=== PATIENT | male | born 1945 | race Caucasian/White ===

== ENCOUNTER 2017-01-23 16:43 | Observation (INO) ==
--- NOTE | 2017-01-23 16:54 | Emergency Department Note ---
Disposition Clinical Impression: Right leg weakness, Right arm weakness, Neck pain on right side Disposition: Admitted As Inpatient Condition: Fair General Adult HPI - General Chief complaint: ED Headache Stated complaint: Neck/BERNABE Time Seen by Provider: 01/23/17 16:48 - Related Data Home Medications Medication Instructions Recorded Confirmed Aspirin Enteric Coated [Aspirin EC] 81 mg PO DAILY 01/05/15 01/23/17 Carvedilol [Coreg] 12.5 mg PO DAILY 01/05/15 01/23/17 Clopidogrel [Plavix] 75 mg PO DAILY 01/05/15 01/23/17 Famotidine [Pepcid] 40 mg PO HS 01/05/15 01/23/17 Lisinopril [Zestril] 2.5 mg PO DAILY 01/05/15 01/23/17 Multivitamin [Multi-Day Vitamins] 1 tab PO DAILY 01/20/15 01/23/17 Nitroglycerin 0.4 mg SL Q5MIN PRN 01/20/15 01/23/17 Insulin NPH, HUMAN [HumuLIN N] 15 unit SQ HS #0 01/04/16 01/23/17 Insulin NPH, HUMAN [HumuLIN N] 20 unit SQ QAM #0 01/04/16 01/23/17 Pantoprazole Sodium [Protonix] 40 mg PO DAILY 01/04/16 01/23/17 Simvastatin [Zocor] 40 mg PO HS 01/10/16 01/23/17 Carbidopa/Levodopa 25/100 [Sinemet 1 tab PO TID 07/20/16 01/23/17 25/100] Cholecalciferol (D-3) [Vitamin D] 1,000 unit PO DAILY 07/20/16 01/23/17 Isosorbide MONOnitrate [Isosorbide 120 mg PO DAILY 07/20/16 01/23/17 Mononitrate ER] Previous Rx's Medication Instructions Recorded Albuterol Sulfate [Albuterol 2 puff IH Q4HR PRN #1 hfa.aer.ad 01/21/15 Inhaler] Ipratropium/Albuterol Neb [Duoneb] 3 ml IH QIDR PRN 30 Days inhsol 01/07/16 Allergies Allergy/AdvReac Type Severity Reaction Status Date / Time furosemide [From Lasix] AdvReac Hypotension Verified 11/10/15 11:00 Past Medical History - Past Medical History Medical history: Reports: asthma, cardiomyopathy, CHF, coronary artery disease, DVT, diabetes, GERD, hyperlipidemia, hypertension, myocardial infarction, renal disease, other Surgical history: Reports: angioplasty/stent, coronary bypass (CABG), pacemaker/ AICD, other Psychiatric history: Reports: no psych history - Social History Smoking Status: Never smoker Smokeless Tobacco Status: No Alcohol use: Reports: none Drug use: Reports: none Course Vital Signs Temperature 97.9 F 01/23/17 16:54 Pulse Rate 60 01/23/17 16:54 Respiratory Rate 18 01/23/17 16:54 Blood Pressure 123/72 01/23/17 16:54 O2 Sat by Pulse Oximetry 95 01/23/17 16:54 Temperature 97.7 F 01/24/17 07:31 Pulse Rate 60 01/24/17 07:31 Respiratory Rate 15 01/24/17 07:31 Blood Pressure 147/78 01/24/17 07:31 O2 Sat by Pulse Oximetry 98 01/24/17 07:31 Oxygen Delivery Oxygen Delivery Room Air Medical Decision Making - Lab Data Result diagrams: 01/24/17 05:38 01/24/17 05:38 Lab Results 01/23/17 01/23/17 01/23/17 Range/Units 16:53 16:53 16:53 WBC 6.7 (4.3-11.1) K/mcL RBC 4.58 (4.19-5.50) M/mcL Hgb 14.1 (12.9-16.9) g/dL Hct 42.4 (37.5-50.1) % MCV 92.6 (83.0-100.0) fL MCH 30.8 (28.0-33.3) pg MCHC 33.3 (31.6-35.5) g/dL RDW 13.3 (11.5-14.5) % Plt Count 143 (140-400) K/mcL MPV 11.6 (9.4-12.4) fL Immature Gran % 0.1 (0-4) % Seg Neutrophils % 62.9 % Lymphocytes % 22.4 % Monocytes % 9.6 % Eosinophils % 4.3 % Basophils % 0.7 % Neutrophils # 4.2 (1.6-8.9) K/mcL Lymphocytes # 1.5 (0.6-4.6) K/mcL Monocytes # 0.7 (0.0-1.3) K/mcL Eosinophils # 0.3 (0.0-0.6) K/mcL Basophils # 0.1 (0.0-0.2) K/mcL PT 12.0 (9.4-12.1) Seconds INR 1.1 APTT 29.1 (26.0-36.0) Seconds Sodium 136 (136-145) mEq/L Potassium 5.3 H (3.5-4.5) mEq/L Chloride 103 (98-109) mEq/L Carbon Dioxide 24 (19-29) mEq/L BUN 23 (8-26) mg/dL Creatinine 1.85 H (0.72-1.25) mg/dL Est GFR ( Amer) 44 L (> 60) Est GFR (Non-Af Amer) 36 L (> 60) BUN/Creatinine Ratio 12 (6-26) Glucose 152 H (70-99) mg/dL Calculated Osmolality 289 (280-300) Calcium 9.3 (8.6-10.8) mg/dL Troponin I (0-0.03) ng/mL 01/23/17 Range/Units 16:53 WBC (4.3-11.1) K/mcL RBC (4.19-5.50) M/mcL Hgb (12.9-16.9) g/dL Hct (37.5-50.1) % MCV (83.0-100.0) fL MCH (28.0-33.3) pg MCHC (31.6-35.5) g/dL RDW (11.5-14.5) % Plt Count (140-400) K/mcL MPV (9.4-12.4) fL Immature Gran % (0-4) % Seg Neutrophils % % Lymphocytes % % Monocytes % % Eosinophils % % Basophils % % Neutrophils # (1.6-8.9) K/mcL Lymphocytes # (0.6-4.6) K/mcL Monocytes # (0.0-1.3) K/mcL Eosinophils # (0.0-0.6) K/mcL Basophils # (0.0-0.2) K/mcL PT (9.4-12.1) Seconds INR APTT (26.0-36.0) Seconds Sodium (136-145) mEq/L Potassium (3.5-4.5) mEq/L Chloride (98-109) mEq/L Carbon Dioxide (19-29) mEq/L BUN (8-26) mg/dL Creatinine (0.72-1.25) mg/dL Est GFR ( Amer) (> 60) Est GFR (Non-Af Amer) (> 60) BUN/Creatinine Ratio (6-26) Glucose (70-99) mg/dL Calculated Osmolality (280-300) Calcium (8.6-10.8) mg/dL Troponin I 0.00 (0-0.03) ng/mL Critical Care Time Critical Care Time: Yes Total Critical Care Time: 30 Attestation: Stroke alert Attestation Statement - Attestation Attestation: I examined this patient and my medical decision-making was reviewed with the Resident Physician. I agree with the documented findings, disposition and treatment plan as described except to the extent set forth below. [id number] time provided Patient arrives by private vehicle. History obtained from his spouse. Symptom onset 45 minutes ago. He complains of right-sided neck pain and has right upper and right lower weakness on exam. Stroke alert activated. We will CT his head and obtain a CTA of his neck
[2017-01-23 17:01] LABS: Basophils # 0.1 K/mcL (0.0-0.2); Basophils % 0.7 %; Eosinophils # 0.3 K/mcL (0.0-0.6); Eosinophils % 4.3 %; Hematocrit 42.4 % (37.5-50.1); Hemoglobin 14.1 g/dL (12.9-16.9); Immature Granulocytes % 0.1 % (0-4); Lymphocytes # 1.5 K/mcL (0.6-4.6); Lymphocytes % 22.4 %; Mean Corpuscular HGB Conc 33.3 g/dL (31.6-35.5); Mean Corpuscular Hemoglobin 30.8 pg (28.0-33.3); Mean Corpuscular Volume 92.6 fL (83.0-100.0); Mean Platelet Volume 11.6 fL (9.4-12.4); Monocytes # 0.7 K/mcL (0.0-1.3); Monocytes % 9.6 %; Neutrophils # 4.2 K/mcL (1.6-8.9); Platelet Count 143 K/mcL (140-400); Red Blood Count 4.58 M/mcL (4.19-5.50); Red Cell Distribution Width 13.3 % (11.5-14.5); Segmented Neutrophils % 62.9 %
--- NOTE | 2017-01-23 17:13 | Emergency Department Note ---
Disposition Clinical Impression: Right leg weakness, Right arm weakness, Neck pain on right side Disposition: Admitted As Inpatient Condition: Fair Time of Disposition: 18:00 Neuro HPI - General Chief Complaint: ED Neuro Symptoms/Deficit Stated Complaint: Neck/BERNABE Time Seen by Provider: 01/23/17 16:48 Nursing Notes Reviewed: Yes Vital Signs Reviewed: Yes - History of Present Illness HPI Narrative: 71-year-old male with past medical history of CABG, electronic atrial pacemaker placement portion emergency department with right-sided neck pain, right-sided arm and right-sided leg weakness that started at 1610. Girlfriend and patient states that this is happened 3 or 4 times in the past. He states that all the stroke workups they have had have been negative and he has been admitted each time to the hospital with spontaneous recovery after 3 days. - Related Data Home Medications: Home Medications Medication Instructions Recorded Confirmed Aspirin Enteric Coated [Aspirin EC] 81 mg PO DAILY 01/05/15 01/23/17 Carvedilol [Coreg] 12.5 mg PO DAILY 01/05/15 01/23/17 Clopidogrel [Plavix] 75 mg PO DAILY 01/05/15 01/23/17 Famotidine [Pepcid] 40 mg PO HS 01/05/15 01/23/17 Lisinopril [Zestril] 2.5 mg PO DAILY 01/05/15 01/23/17 Multivitamin [Multi-Day Vitamins] 1 tab PO DAILY 01/20/15 01/23/17 Nitroglycerin 0.4 mg SL Q5MIN PRN 01/20/15 01/23/17 Insulin NPH, HUMAN [HumuLIN N] 15 unit SQ HS #0 01/04/16 01/23/17 Insulin NPH, HUMAN [HumuLIN N] 20 unit SQ QAM #0 01/04/16 01/23/17 Pantoprazole Sodium [Protonix] 40 mg PO DAILY 01/04/16 01/23/17 Simvastatin [Zocor] 40 mg PO HS 01/10/16 01/23/17 Carbidopa/Levodopa 25/100 [Sinemet 1 tab PO TID 07/20/16 01/23/17 25/100] Cholecalciferol (D-3) [Vitamin D] 1,000 unit PO DAILY 07/20/16 01/23/17 Isosorbide MONOnitrate [Isosorbide 120 mg PO DAILY 07/20/16 01/23/17 Mononitrate ER] Previous Rx's Medication Instructions Recorded Albuterol Sulfate [Albuterol 2 puff IH Q4HR PRN #1 hfa.aer.ad 01/21/15 Inhaler] Ipratropium/Albuterol Neb [Duoneb] 3 ml IH QIDR PRN 30 Days inhsol 01/07/16 Allergies/Adverse Reactions: Allergies Allergy/AdvReac Type Severity Reaction Status Date / Time furosemide [From Lasix] AdvReac Hypotension Verified 11/10/15 11:00 All systems ED: reviewed and negative except as stated. Review of Systems: As Per HPI Constitutional: Denies: fever Eyes: Denies: eye pain ENT ED: Denies: ear pain Cardiovascular: Denies: chest pain, palpitations Respiratory: Denies: cough, dyspnea, wheezes Gastrointestinal: Denies: abdominal pain, nausea, vomiting Past Medical History - Past Medical History Medical history: Reports: asthma, cardiomyopathy, CHF, coronary artery disease, DVT, diabetes, GERD, hyperlipidemia, hypertension, myocardial infarction, renal disease, other Surgical history: Reports: angioplasty/stent, coronary bypass (CABG), pacemaker/ AICD, other Psychiatric history: Reports: no psych history - Social History Smoking Status: Never smoker Smokeless Tobacco Status: No Alcohol use: Reports: none Drug use: Reports: none Physical Exam General: Well Appearing, in no acute distress, speaking to be in complete sentences Head: autraumatic, EOMI, no conjuncitval pallor, no scleral icterus, Mouth: oral mucous membranes moist Neck: neck soft, trachea midline Chest:: Equal chest wall rise Lungs: Normal lungs sounds bilaterally, no wheezes, no respiratory distress Heart: normal heart sounds, normal rate and rhythm, Abdomen: soft, non-tender, no rigidity, no guarding, no rebdound tenderness Lower Extremities: no pedal edema, calves non-tender Integumentary: Skin warm, dry, and intact Psych: normal affect, normal mood Neuro: GCS of 15 alert [address] person and time. Cranial nerve VII deficit bilaterally right upper and right lower extremity weakness 3/5, decreased sensation of the right arm and right leg Course Course Narrative: This is a 71-year-old male who presented to the emergency department with right upper and right lower extremity weakness along with decreased sensation of the right arm and right leg, bilateral facial nerve deficit at 1610. Stroke alert was called via stroke protocol. I spoke with the neurologist from [facility] on the phone. This patient does have a past medical history of having these types of events with food stroke workups that have come up negative. Patient is known to have his symptoms resolved spontaneously after a few days within the hospital. After speaking to the neurologist at [facility], it was agreed that this patient was not a good candidate for TPA as insignificant believes that there is another etiology to this patient's symptoms that is not attributed to cerebrovascular event. The workup that we have performed in the emergency department was negative. We performed a CT scan of the head without contrast as well as a CTA of the neck. With his right-sided neck pain. We obtained a CTA of the neck because we are concerned for a possible dissection. All studies came back negative. This patient was admitted with the recommendation of the neurologist from [facility] for further management by occupational therapy as well as physical therapy. Spoke with the hospitalist on the phone and he agreed to accept this admission at this time for right arm, right leg weakness. I discussed the plan with the patient and his girlfriend and they agreed. Patient was hemodynamically stable at time of discharge from the emergency department. Head CT 01/23/17 16:53 IMPRESSION: No acute intracranial abnormality. Findings were discussed with Dr. Trotter of the [facility] emergency department at 5:11 pm on 01/23/2017. D/ / Sebas Tian MD / Sebas Tian MD Interpreting Provider: Sebas Tian MD Neck CTA 01/23/17 16:54 IMPRESSION: Moderate atherosclerotic disease at bilateral carotid bifurcation, without significant flow-limiting stenosis. No evidence of vascular dissection. D/ / Alec Casey MD / Alec Casey MD Interpreting Provider: Alec Casey MD Vital Signs Temperature 97.9 F 01/23/17 16:54 Pulse Rate 60 01/23/17 16:54 Respiratory Rate 18 01/23/17 16:54 Blood Pressure 123/72 01/23/17 16:54 O2 Sat by Pulse Oximetry 95 01/23/17 16:54 Temperature 96.5 F L 01/23/17 19:44 Pulse Rate 60 01/23/17 19:44 Respiratory Rate 18 01/23/17 19:44 Blood Pressure 142/66 01/23/17 19:44 O2 Sat by Pulse Oximetry 96 01/23/17 19:44 Oxygen Delivery Oxygen Delivery Room Air Vital Signs Temperature 97.9 F 01/23/17 16:54 Pulse Rate 60 01/23/17 16:54 Respiratory Rate 18 01/23/17 16:54 Blood Pressure 123/72 01/23/17 16:54 O2 Sat by Pulse Oximetry 95 01/23/17 16:54 Temperature 96.5 F L 01/23/17 19:44 Pulse Rate 60 01/23/17 19:44 Respiratory Rate 18 01/23/17 19:44 Blood Pressure 142/66 01/23/17 19:44 O2 Sat by Pulse Oximetry 96 01/23/17 19:44 Oxygen Delivery Oxygen Delivery Room Air Neuro Symptoms/Deficit - Medical Records Medical records reviewed: Yes I reviewed the patient's medical records. - Lab Data Lab results reviewed: Yes I reviewed the patient's lab results. Result diagrams: 01/23/17 16:53 01/23/17 16:53 Lab Results 01/23/17 01/23/17 01/23/17 Range/Units 16:53 16:53 16:53 WBC 6.7 (4.3-11.1) K/mcL RBC 4.58 (4.19-5.50) M/mcL Hgb 14.1 (12.9-16.9) g/dL Hct 42.4 (37.5-50.1) % MCV 92.6 (83.0-100.0) fL MCH 30.8 (28.0-33.3) pg MCHC 33.3 (31.6-35.5) g/dL RDW 13.3 (11.5-14.5) % Plt Count 143 (140-400) K/mcL MPV 11.6 (9.4-12.4) fL Immature Gran % 0.1 (0-4) % Seg Neutrophils % 62.9 % Lymphocytes % 22.4 % Monocytes % 9.6 % Eosinophils % 4.3 % Basophils % 0.7 % Neutrophils # 4.2 (1.6-8.9) K/mcL Lymphocytes # 1.5 (0.6-4.6) K/mcL Monocytes # 0.7 (0.0-1.3) K/mcL Eosinophils # 0.3 (0.0-0.6) K/mcL Basophils # 0.1 (0.0-0.2) K/mcL PT 12.0 (9.4-12.1) Seconds INR 1.1 APTT 29.1 (26.0-36.0) Seconds Sodium 136 (136-145) mEq/L Potassium 5.3 H (3.5-4.5) mEq/L Chloride 103 (98-109) mEq/L Carbon Dioxide 24 (19-29) mEq/L BUN 23 (8-26) mg/dL Creatinine 1.85 H (0.72-1.25) mg/dL Est GFR ( Amer) 44 L (> 60) Est GFR (Non-Af Amer) 36 L (> 60) BUN/Creatinine Ratio 12 (6-26) Glucose 152 H (70-99) mg/dL Calculated Osmolality 289 (280-300) Calcium 9.3 (8.6-10.8) mg/dL Troponin I (0-0.03) ng/mL 01/23/17 Range/Units 16:53 WBC (4.3-11.1) K/mcL RBC (4.19-5.50) M/mcL Hgb (12.9-16.9) g/dL Hct (37.5-50.1) % MCV (83.0-100.0) fL MCH (28.0-33.3) pg MCHC (31.6-35.5) g/dL RDW (11.5-14.5) % Plt Count (140-400) K/mcL MPV (9.4-12.4) fL Immature Gran % (0-4) % Seg Neutrophils % % Lymphocytes % % Monocytes % % Eosinophils % % Basophils % % Neutrophils # (1.6-8.9) K/mcL Lymphocytes # (0.6-4.6) K/mcL Monocytes # (0.0-1.3) K/mcL Eosinophils # (0.0-0.6) K/mcL Basophils # (0.0-0.2) K/mcL PT (9.4-12.1) Seconds INR APTT (26.0-36.0) Seconds Sodium (136-145) mEq/L Potassium (3.5-4.5) mEq/L Chloride (98-109) mEq/L Carbon Dioxide (19-29) mEq/L BUN (8-26) mg/dL Creatinine (0.72-1.25) mg/dL Est GFR ( Amer) (> 60) Est GFR (Non-Af Amer) (> 60) BUN/Creatinine Ratio (6-26) Glucose (70-99) mg/dL Calculated Osmolality (280-300) Calcium (8.6-10.8) mg/dL Troponin I 0.00 (0-0.03) ng/mL - Radiology Data Radiology results reviewed: Yes I reviewed the patient's radiology results. - EKG Data EKG attestation: Yes I reviewed and interpreted this EKG. EKG results narrative: 17:07 Ventricular rate 55 bpm, VA interval 181, QRS duration 103 ms, QT 411 ms, QTC 399 ms, normal axis. Electronic atrial pacemaker with a ventricular rate of 55 bpm. NIH Stroke Scale - Level of Consciousness LOC: Alert - LOC Questions LOC Questions: Answers both correctly - LOC Commands LOC Commands: Performs both correctly - Best Gaze Best Gaze: Normal - Visual Visual: No visual loss - Facial Palsy Facial Palsy: Minor asymmetry on smiling, flattened nasolabial fold - Motor Arms Motor Arm-Left: No drift for 10 seconds Motor Arm-Right: No effort against gravity, limb falls to bed, some movement - Motor Legs Motor Leg-Left: No drift for 5 seconds Motor Leg-Right: No effort against gravity, limb falls to bed, some movement - Limb Ataxia Limb Ataxia: Absent of affected limb too weak to perform exam - Sensory Sensory: Normal - Best Language Best Language: No aphasia - Dysarthria Dysarthria: Normal - Extinction and Inattention Extinction and Inattention: Normal - NIHSS Total Score NIHSS Total Score: 7 TPA Checklist - LKW: 3-4.5 hrs Add. Warnings/Precautions Patient/family understanding: The patient/family members have been counseled and understood the risk, benefit , and alternatives of treatment.
[2017-01-23 17:14] LABS: Calcium 9.3 mg/dL (8.6-10.8); Potassium 5.3 mEq/L (3.5-4.5)
[2017-01-23 17:31] LABS: INR 1.1
[2017-01-23 17:34] LABS: Activated Partial Thrombo Time 29.1 Seconds (26.0-36.0)
[2017-01-23] MEDS ORDERED: *HR* OxyCODONE/APAP 5/325 TABLET PO PRN (20:50)
[2017-01-23] MEDS ORDERED: *HR* Morphine 2 MG/ML SYRINGE IVP PRN (21:00)
[2017-01-23] MEDS ORDERED: Acetaminophen 325 MG TABLET PO PRN (21:00)
[2017-01-23] MEDS ORDERED: Naloxone 0.4 MG/ML INJ IVP PRN (21:00)
[2017-01-23] MEDS ORDERED: Nitroglycerin 0.4 MG TAB.SUBL SL PRN (21:05)
[2017-01-23] MEDS ORDERED: Ipratropium/Albuterol Neb 3 ML IH PRN (21:05)
[2017-01-23] MEDS ORDERED: D5% in Water 1,000 ML IVC PRN (21:07)
[2017-01-23] MEDS ORDERED: Dextrose Gel 15 GM PO PRN ×2 (21:07)
[2017-01-23] MEDS ORDERED: *HR* Dextrose 50 % in Water (Syg) 50 ML SYRINGE IVP PRN (21:07)
[2017-01-23] MEDS ORDERED: Insulin DETEMIR 100 UNIT/ML X5UNITS SQ SCH (21:15)
[2017-01-23] MEDS: Insulin DETEMIR 100 UNIT/ML X5UNITS SQ SCH (23:55)
--- NOTE | 2017-01-24 00:47 | Internal Med History&Physical ---
Date of Encounter: 01/23/17 Time of Encounter: 22:00 Assessment and Plan (1) Diabetes Current visit: No Status: Chronic Continue baseline do sliding scale insulin Qualifiers: Diabetes mellitus type: type 2 Diabetes mellitus complication status: with kidney complications Diabetes mellitus complication detail: with chronic kidney disease Diabetes mellitus long term care administrator insulin use: with long term care administrator use Chronic kidney disease stage: stage 3 (moderate) Qualified Code(s): E11.22 - Type 2 diabetes mellitus with diabetic chronic kidney disease; N18.3 - Chronic kidney disease, stage 3 (moderate); 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 Continue home medications Qualifiers: Coronary Disease-Associated Artery/Lesion type: bypass graft [place] vs. transplanted heart: [place] heart Associated angina: with stable angina Qualified Code(s): I25.709 - Atherosclerosis of coronary artery bypass graft(s) , unspecified, with unspecified angina pectoris (4) CKD (chronic kidney disease) Current visit: No Status: Chronic Creatinine level is at his baseline. Avoid the nephrotoxic medication Qualifiers: Chronic kidney disease stage: stage 3 (moderate) Qualified Code(s): N18.3 - Chronic kidney disease, stage 3 (moderate) (5) DVT prophylaxis Current visit: No Status: Acute Heparin subcutaneously (6) Presence of combination internal cardiac defibrillator (ICD) and pacemaker Current visit: No Status: Chronic (7) Right leg weakness Current visit: Yes Status: Acute Etiology is undetermined. CT head and CT neck unremarkable. Probably due to cervical spondylosis. Cannot have MRI because of pacemaker. Will also obtain [facility] medical record. Continue pain medication and PT OT evaluation. Will place patient on NIHSS, continue cardiac monitoring, and echocardiogram as CVA suspected. Patient is on aspirin, Plavix, and statin. (8) Right arm weakness Current visit: Yes Status: Acute Management as above. Internal Medicine - H&P: HPI Chief complaint: Right arm and leg pain and weakness Admitted From: Home Plans for Post Hospital Care: Home History of present illness: Mr. Joe is a 71 year old male with history of hypertension, diabetes, CAD S/ P CABG and AICD present to ER for right-sided arm and leg pain and weakness. Patient said that the symptoms started this afternoon about 3 PM. Patient denies headaches, lightheaded, nausea or vomiting, or slurred speech. Patient denies fecal or urinary incontinence. Patient said it is the third time he has similar problem. Patient was admitted to the to [facility] last time in July 2016, and was told he has cervical spondylosis. Patient said previously symptoms has resolved spontaneously after several days. Patient was admitted for concern of CVA. Past Med Surg Social Fam HX - Past Medical History Medical history: asthma, cardiomyopathy, CHF, coronary artery disease, DVT, diabetes, GERD, hyperlipidemia, hypertension, myocardial infarction, renal disease, other Psychiatric history: no psych history - Past Surgical History Surgical History: angioplasty/stent, coronary bypass (CABG), pacemaker/AICD, other - Social History Smoking Status: Never smoker Smokeless Tobacco Status: No Alcohol use: none Drug use: none - Family History Father Living Status: Age at : 84 Hx Family Cardiac Disorders: Yes Hx Family Neurologic Disorders: Yes (Alzheimer's) Mother Living Status: Age at : 81 Cause of : Heart problems Hx Family Cardiac Disorders: Yes Internal Medicine - H&P: Meds Aspirin Enteric Coated [Aspirin EC] 81 mg PO DAILY 01/05/15 [History] Carvedilol [Coreg] 12.5 mg PO DAILY 01/05/15 [History] Clopidogrel [Plavix] 75 mg PO DAILY 01/05/15 [History] Famotidine [Pepcid] 40 mg PO HS 01/05/15 [History] Lisinopril [Zestril] 2.5 mg PO DAILY 01/05/15 [History] Multivitamin [Multi-Day Vitamins] 1 tab PO DAILY 01/20/15 [History] Nitroglycerin 0.4 mg SL Q5MIN PRN 01/20/15 [History] Albuterol Sulfate [Albuterol Inhaler] 2 puff IH Q4HR PRN #1 hfa.aer.ad 01/21/15 [Rx] Insulin NPH, HUMAN [HumuLIN N] 15 unit SQ HS #0 01/04/16 [History] Insulin NPH, HUMAN [HumuLIN N] 20 unit SQ QAM #0 01/04/16 [History] Pantoprazole Sodium [Protonix] 40 mg PO DAILY 01/04/16 [History] Ipratropium/Albuterol Neb [Duoneb] 3 ml IH QIDR PRN 30 Days inhsol 01/07/16 [Rx ] Simvastatin [Zocor] 40 mg PO HS 01/10/16 [History] Carbidopa/Levodopa 25/100 [Sinemet 25/100] 1 tab PO TID 07/20/16 [History] Cholecalciferol (D-3) [Vitamin D] 1,000 unit PO DAILY 07/20/16 [History] Isosorbide MONOnitrate [Isosorbide Mononitrate ER] 120 mg PO DAILY 07/20/16 [ History] 3 Allergy/AdvReac Type Severity Reaction Status Date / Time furosemide [From Lasix] AdvReac Hypotension Verified 11/10/15 11:00 All Systems PM: A 10-system review of systems was performed and is negative for pertinent findings except as documented above in the HPI. - Constitutional Vitals: Temp Pulse Resp BP Pulse Ox 97.6 F 59 17 129/75 93 01/23/17 22:50 01/23/17 22:50 01/23/17 22:50 01/23/17 22:50 01/23/17 22:50 General appearance: Present: A&O X 3, no acute distress, answers questions appropriately - Head Head exam: Present: atraumatic, normocephalic - Eye Eye exam: Present: PERRL, conjuntiva pink, sclera anicteric Pupils: Present: PERRL - Neck Neck exam general surgery: Present: supple, trachea midline. Absent: lymphadenopathy - Respiratory Respiratory exam: Present: CTAB. Absent: accessory muscle use, rales, rhonchi, wheezes - Cardiovascular Cardiovascular exam: Present: RRR, +S1, +S2. Absent: diastolic murmur, gallop, rubs, systolic murmur - GI/Abdominal GI/Abdominal exam: Present: normal bowel sounds, soft, no peritoneal signs. Absent: distended, tenderness - Extremities Exam Extremities exam: Present: warm, radial pulses palpable and symmetrical. Absent : calf tenderness, cyanotic, pedal edema Additional comments: Movement is limited on the right arm and right leg because of pain - Neurological Exam Neurological exam: Present: CN II-XII intact, oriented X3, no focal deficits. Absent: pronater drift, facial droop, speech deficit Additional comments: Weakness on right arm (4/5) and right leg (3/5) - Skin Skin exam: Present: dry, intact Internal Med - H&P Results - Labs CBC & Chem 7: 01/23/17 16:53 01/23/17 16:53
[2017-01-24] MEDS ORDERED: *HR* Heparin 5,000 UNIT/ML VIAL SQ SCH (06:00)
[2017-01-24 06:04] LABS: Basophils % 0.6 %; Eosinophils # 0.3 K/mcL (0.0-0.6); Eosinophils % 5.5 %; Hematocrit 40.2 % (37.5-50.1); Hemoglobin 13.1 g/dL (12.9-16.9); Immature Granulocytes % 0.7 % (0-4); Lymphocytes # 1.6 K/mcL (0.6-4.6); Lymphocytes % 30.1 %; Mean Corpuscular HGB Conc 32.6 g/dL (31.6-35.5); Mean Corpuscular Hemoglobin 30.4 pg (28.0-33.3); Mean Corpuscular Volume 93.3 fL (83.0-100.0); Mean Platelet Volume 11.6 fL (9.4-12.4); Monocytes # 0.6 K/mcL (0.0-1.3); Monocytes % 10.7 %; Neutrophils # 2.9 K/mcL (1.6-8.9); Platelet Count 125 K/mcL (140-400); Red Blood Count 4.31 M/mcL (4.19-5.50); Red Cell Distribution Width 13.3 % (11.5-14.5); Segmented Neutrophils % 52.4 %
[2017-01-24 06:23] LABS: Magnesium 2.3 mg/dL (1.6-2.6)
[2017-01-24 06:31] LABS: Potassium 4.2 mEq/L (3.5-4.5)
[2017-01-24] MEDS: Insulin LISPRO 300 UNITS/3 ML VIAL SQ SCH ×3 (08:51→17:19)
[2017-01-24] MEDS: Isosorbide MONOnitrate (24 HR) 60 MG TAB.ER.24H PO SCH (10:04)
[2017-01-24] MEDS: Aspirin Enteric Coated 81 MG Tablet PO SCH (10:04)
[2017-01-24] MEDS: Cholecalciferol (D-3) 1,000 UNIT TABLET PO SCH (10:04)
[2017-01-24] MEDS: Multivit/Ca/Min/Fe/FA 1 TAB TABLET PO SCH (10:05)
[2017-01-24] MEDS: Carbidopa/Levodopa 25/100 TABLET PO SCH ×3 (10:05→21:56)
[2017-01-24] MEDS: Insulin DETEMIR 100 UNIT/ML X5UNITS SQ SCH ×2 (13:57→21:56)
--- NOTE | 2017-01-24 16:45 | Internal Med Progress Note ---
Date of Encounter: 01/24/17 Time of Encounter: 16:40 - Assessment and plan (1) Lumbar spondylosis Current Visit: Yes Status: Acute Assessment and plan: Eduar Joe is a 77-year-old male with past medical history CAD, diabetes, hypertension, CHF status post pacemaker 2006 and Parkinson's disease who presented to [facility] on 01/22/2017 with complaints of neck pain and right sided weakness. He was placed in observation status for further workup and treatment 1. Cervical and lumbar stenosis: per hx. presented with right-sided neck pain and right side weakness. Was evaluated at [facility] 07/2016 for similar symptoms; cervical CT showed significant bilateral foraminal narrowing at C5-6 and C6-7. Lumbar CT showed lumbar spondylosis with degenerative changes and severe left neural foraminal narrowing at L5-S1. Patient reports was advised not to have surgical intervention at that time due to risk outweighing benefits. Now with recurrent sx's. There was concern for CVA on arrival. Head CT and neck CTA non -acute. Unable to have MRI due to pacemaker. Concerned for worsening stenosis. Repeat cervical and lumbar imaging pending. Neurology consulted. May need to consult neurosurgery based upon myelogram. 2. CAD: per hx. Asymptomatic, denies CP. Continue home ASA, Plavix, BB 3. Diabetes: per hx. Blood sugars controlled. Continue home long-acting insulin. SSI. Monitor blood sugars and titrate PRN 4. Hypertension: per hx. BP controlled. Continue home BP medications. Monitor BP and titrate PRN 5. Parkinson's disease: Suspected and recently diagnosed. Per [facility] records patient was started on sentiment for tremors. Continue home sentiment. 6. DVT prophylaxis: heparin 7. CKD: Cr 1.6 which appears at baseline. Avoid nephrotoxic agents as possible (2) Parkinson disease Current Visit: Yes Status: Acute (3) HTN (hypertension) Current Visit: No Status: Chronic Qualifiers: Hypertension type: essential hypertension Qualified Code(s): I10 - Essential (primary) hypertension (4) CAD (coronary artery disease) Current Visit: No Status: Chronic Qualifiers: Coronary Disease-Associated Artery/Lesion type: bypass graft [place] vs. transplanted heart: [place] heart Associated angina: with stable angina Qualified Code(s): I25.709 - Atherosclerosis of coronary artery bypass graft(s) , unspecified, with unspecified angina pectoris - Subjective Interval history: Seen and examined at bedside. Patient is new to me, information obtained from chart review and patient report. Patient reports acute onset of right neck pain which progressed to right arm weakness and leg weakness. She uses symptoms consistent with previous flares or attacks. Denies vision changes, no headache - Constitutional Vitals: Temp Pulse Resp BP Pulse Ox 98.2 F 60 16 120/70 95 01/24/17 15:26 01/24/17 15:26 01/24/17 15:26 01/24/17 15:26 01/24/17 15:26 General appearance: Present: A&O X 3, no acute distress, answers questions appropriately - Head Head exam: Present: atraumatic, normocephalic - Eye Eye exam: Present: PERRL, conjuntiva pink, sclera anicteric Pupils: Present: PERRL - Neck Neck exam general surgery: Present: supple, trachea midline. Absent: lymphadenopathy - Respiratory Respiratory exam: Present: CTAB. Absent: accessory muscle use, rales, rhonchi, wheezes - Cardiovascular Cardiovascular exam: Present: RRR, +S1, +S2. Absent: diastolic murmur, gallop, rubs, systolic murmur - GI/Abdominal GI/Abdominal exam: Present: normal bowel sounds, soft, no peritoneal signs. Absent: distended, tenderness - Extremities Exam Extremities exam: Present: warm, radial pulses palpable and symmetrical. Absent : calf tenderness, cyanotic, pedal edema Additional comments: right arm weakness - Neurological Exam Neurological exam: Present: CN II-XII intact, oriented X3, no focal deficits. Absent: pronater drift, facial droop, speech deficit - Skin Skin exam: Present: dry, intact Internal Medicine: Result - Labs CBC & Chem 7: 01/24/17 05:38 01/24/17 05:38 Labs: Short CBC 01/24/17 Range/Units 05:38 WBC 5.4 (4.3-11.1) K/mcL Hgb 13.1 (12.9-16.9) g/dL Hct 40.2 (37.5-50.1) % Plt Count 125 L (140-400) K/mcL Neutrophils # 2.9 (1.6-8.9) K/mcL BMP 01/24/17 05:38 Sodium 141 Potassium 4.2 D Chloride 107 Carbon Dioxide 26 BUN 24 Creatinine 1.64 H Glucose 124 H Calcium 9.0 - ABG Interpretation ABG results: PT/INR, D-dimer PT 12.0 Seconds (9.4-12.1) 01/23/17 16:53 - Impressions Impressions Echocardiogram 01/24/17 00:00 Impressions: LVEF 45%. Segmental left ventricular systolic dysfunction. Mild left ventricular diastolic dysfunction. Atypical septal motion consistent with paced rhythm/postoperative septum. Normal right ventricular structure and function. No evidence of a PFO with agitated saline contrast. No evidence of pulmonary hypertension. Left Ventricular Wall Motion: Rest Echo Findings The apical inferior, mid inferior, basal inferior, mid inferior lateral and basal inferior lateral vela were hypokinetic. All other wall segments showed normal motion. Findings: Study Quality * Technically adequate exam. ECG Findings * Paced rhythm. Left Ventricle * LVEF 45%. * Normal LV chamber size. * Segmental left ventricular systolic dysfunction. * Mild left ventricular diastolic dysfunction. * Atypical septal motion consistent with paced rhythm/postoperative septum. Right Ventricle * Normal right ventricular structure and function. Left Atrium * Mild to moderately dilated left atrium. Right Atrium * Mildly dilated right atrium. Interatrial Septum * No evidence of a PFO with agitated saline contrast. Aortic Valve * Trileaflet aortic valve with normal function. * No aortic regurgitation. * No aortic stenosis. Mitral Valve * Focal area of calcifcation on the anterior MV leafelt. * Trace mitral regurgitation. * No mitral stenosis. Tricuspid Valve * Normal tricuspid valve structure and function. * Trace tricuspid regurgitation. * No evidence of pulmonary hypertension. Pulmonic Valve * Normal pulmonic valve structure and function. * No pulmonic regurgitation. Aorta * Normally sized aortic root. Pericardium * The pericardium appears normal. IVC * The IVC is not well evaluated. Pulmonary Artery * Normal visualized portions of the main pulmonary artery. Consult Discharge Plan - Plan Referrals: [facility] – AdaWm MD [Primary Care Provider] -
[2017-01-24] MEDS ORDERED: Famotidine 20 MG TABLET PO SCH (21:00)
[2017-01-24] MEDS ORDERED: Insulin LISPRO 300 UNITS/3 ML VIAL SQ SCH (21:00)
[2017-01-24] MEDS: *HR* Heparin 5,000 UNIT/ML VIAL SQ SCH (21:56)
[2017-01-25 05:02] LABS: Hematocrit 38.7 % (37.5-50.1); Hemoglobin 12.8 g/dL (12.9-16.9); Mean Corpuscular HGB Conc 33.1 g/dL (31.6-35.5); Mean Corpuscular Hemoglobin 30.6 pg (28.0-33.3); Mean Corpuscular Volume 92.6 fL (83.0-100.0); Mean Platelet Volume 11.8 fL (9.4-12.4); Platelet Count 113 K/mcL (140-400); Red Blood Count 4.18 M/mcL (4.19-5.50); Red Cell Distribution Width 13.2 % (11.5-14.5)
[2017-01-25 05:11] LABS: Albumin 3.1 g/dL (3.5-5.0); Albumin/Globulin Ratio 0.9 (1.1-2.2); Alkaline Phosphatase 56 Units/L (38-126); Aspartate Amino Transferase 13 Units/L (5-34); BUN/Creatinine Ratio 17 (6-26); Bilirubin,Total 0.5 mg/dL (0.2-1.2); Blood Urea Nitrogen 26 mg/dL (8-26); Calcium 8.8 mg/dL (8.6-10.8); Carbon Dioxide 26 mEq/L (19-29); Chloride 107 mEq/L (98-109); Globulin 3.4 g/dL (2.4-3.5); Glucose 91 mg/dL (70-99); Osmolality,Calculated 292 (280-300); Sodium 139 mEq/L (136-145); Total Protein 6.5 g/dL (6.0-8.3); eGFR For African Americans 53 (> 60); eGFR For Non-African Americans 44 (> 60)
[2017-01-25 05:13] LABS: Alanine Aminotransferase < 6 Units/L (0-55)
[2017-01-25] MEDS: *HR* Heparin 5,000 UNIT/ML VIAL SQ SCH ×2 (06:11→14:35)
[2017-01-25] MEDS: Insulin LISPRO 300 UNITS/3 ML VIAL SQ SCH ×2 (08:02→12:17)
--- NOTE | 2017-01-25 09:31 | Neurology - Consult Note ---
Date of Encounter: 01/25/17 Time of Encounter: 08:45 Assessment and Plan (1) Right sided weakness Current Visit: Yes Status: Acute Patient presents with right-sided weakness, he reports is the same to the previous episodes he has had. He has been having episodic right-sided weakness for the last year, this being the third episode reported. He was worked up at [facility] in July and found to have severe foraminal narrowing in the cervical region and in the left lumbar region. Only moderate stenosis is seen on myelogram and this result was seen again with CT scan here at [place]. The foraminal narrowing with likely explain his right upper extremity weakness, but seems unlikely to cause his right lower extremity weakness. Remote lacunar infarcts seen on examination of patient had previous CT, unable to obtain MRI due to patient pacemaker. Is quite possible patient had a CVA contributing to his current weakness and right-sided numbness. CTA of patient neck did not show significant atherosclerotic disease or flow limiting stenosis. Continue Plavix and statin Recommend PT/OT Consider surgery consult for patient spinal stenosis/neural foraminal narrowing , the patient does refuse intervention (2) Cervical spinal stenosis Current Visit: Yes Status: Acute During his episode in July he ended up at [facility] and was found to have moderate spinal stenosis at C4-through T1 and significant bilateral foraminal narrowing at C5/6 and C6/[address] and severe bilateral neural foraminal narrowing at C5/6 with no significant central canal stenosis and moderate left and severe right neural foraminal narrowing at C6/7 on myelogram, and severe left neural foraminal narrowing is noted left facet of L5-S1. Patient was offered spinal surgery at [facility], but stated that he could have significant morbidity if it persisted this route. He elected not to have spinal surgery and reiterates his desire not to have surgery History of Present Illness Chief complaint: RIght sidede weakness HPI: Mr. Joe is a 71 year old male with past medical history of CHF, CAD, DVT, possible Parkinson's disease, prior lacunar infarcts, diabetes, hyperlipidemia, hypertension, coronary artery disease previous DC and kidney disease was admitted to [facility] on 02/03/17 with right-sided weakness. Patient states this episode of right-sided weakness began on Saturday afternoon while walking around the [employer] [place]. He states it began with right-sided neck pain progressed to right-sided arm weakness into right-sided leg weakness. He denies having headache, acute vision changes, chest pain, or palpitations. He states this current episode of weakness is the same as his previous episodes. Beginning one year ago, patient has been having issues with sudden onset weakness was found to have cervical stenosis. He states he is issues of weakness are episodic in nature-one 1 year ago, another in July, and now. During his episode in July he ended up at [facility] and was found to have moderate spinal stenosis at C4-through T1 and significant bilateral foraminal narrowing at C5/6 and C6/[address] and severe bilateral neural foraminal narrowing at C5/6 with no significant central canal stenosis and moderate left and severe right neural foraminal narrowing at C6/7 on myelogram, and severe left neural foraminal narrowing is noted left facet of L5-S1. Discharge report having chronic vision changes stemming from cataract surgery remotely. She also describes having a 13 pound weight loss in 5 weeks, though this is on different scales is hard to assess fully. He has no complaints of new acute vision changes, headache, chest pain, shortness of breath, fever or chills. No complaints of slurred speech Past Med Surg Social Fam HX - Past Medical History Medical history: asthma, cardiomyopathy, CHF, coronary artery disease, DVT, diabetes, GERD, hyperlipidemia, hypertension, myocardial infarction, renal disease, other Psychiatric history: no psych history - Past Surgical History Surgical History: angioplasty/stent, coronary bypass (CABG), pacemaker/AICD, other - Social History Smoking Status: Never smoker Smokeless Tobacco Status: No Alcohol use: none Drug use: none - Family History Father Living Status: Age at : 84 Hx Family Cardiac Disorders: Yes Hx Family Neurologic Disorders: Yes (Alzheimer's) Mother Living Status: Age at : 81 Cause of : Heart problems Hx Family Cardiac Disorders: Yes Medications and Allergies Aspirin Enteric Coated [Aspirin EC] 81 mg PO DAILY 01/05/15 [History] Carvedilol [Coreg] 12.5 mg PO DAILY 01/05/15 [History] Clopidogrel [Plavix] 75 mg PO DAILY 01/05/15 [History] Famotidine [Pepcid] 40 mg PO HS 01/05/15 [History] Lisinopril [Zestril] 2.5 mg PO DAILY 01/05/15 [History] Multivitamin [Multi-Day Vitamins] 1 tab PO DAILY 01/20/15 [History] Nitroglycerin 0.4 mg SL Q5MIN PRN 01/20/15 [History] Albuterol Sulfate [Albuterol Inhaler] 2 puff IH Q4HR PRN #1 hfa.aer.ad 01/21/15 [Rx] Insulin NPH, HUMAN [HumuLIN N] 15 unit SQ HS #0 01/04/16 [History] Insulin NPH, HUMAN [HumuLIN N] 20 unit SQ QAM #0 01/04/16 [History] Pantoprazole Sodium [Protonix] 40 mg PO DAILY 01/04/16 [History] Ipratropium/Albuterol Neb [Duoneb] 3 ml IH QIDR PRN 30 Days inhsol 01/07/16 [Rx ] Simvastatin [Zocor] 40 mg PO HS 01/10/16 [History] Carbidopa/Levodopa 25/100 [Sinemet 25/100] 1 tab PO TID 07/20/16 [History] Cholecalciferol (D-3) [Vitamin D] 1,000 unit PO DAILY 07/20/16 [History] Isosorbide MONOnitrate [Isosorbide Mononitrate ER] 120 mg PO DAILY 07/20/16 [ History] 3 Allergy/AdvReac Type Severity Reaction Status Date / Time furosemide [From Lasix] AdvReac Hypotension Verified 11/10/15 11:00 Review of Systems: Gen: Denies fever, denies chills, reports weight loss as per history of present illness , reports weakness as per HPI CV: Denies chest pain, denies palpitations Resp: Denies shortness of breath MSK: denies arthralgia, reports right-sided weakness as per history of present illness Neuro: Denies headache, denies confusion, reports right-sided weakness as per history of present illness, denies numbness, denies tingling, denies acute vision changes Skin: Denies bruising, denies rash Physical Examination - Vital Signs Vital Signs: Initial Vital Signs Temp Pulse Resp BP Pulse Ox 97.9 F 60 18 123/72 95 01/23/17 16:54 01/23/17 16:54 01/23/17 16:54 01/23/17 16:54 01/23/17 16:54 - Exam Exam: General: Cooperative, pleasant, no acute distress, alert and oriented 3, answers questions appropriately HEENT: Normocephalic, atraumatic, neck supple, trachea midline, Conjunctiva pink , sclera anicteric, EOMI, PERRL, oral mucosa moist, no orophargeal erythema or exudates Respiratory: No accessory muscle usage, clear to auscultation bilaterally, no wheezes/rhonchi/rales appreciated Cardiovascular: Regular rate and rhythm, S1 and S2 present, no murmurs/rubs/ gallops/clicks appreciated GI/abdominal: Nondistended, nontender, soft, normal bowel sounds, no peritoneal signs Extremities: No calf tenderness, noncyanotic, no pedal edema appreciated, warm, lower extremity pulses palpable and symmetrical Neurological: Alert and oriented 3, no facial droop, no focal deficits, decreased sensation to light touch on right side of face, cranial nerves intact otherwise, rapid alternating movements smooth with good belinda on left, accurate but slow on right, finger to nose smooth but inaccurate on left, unable to perform on right, sensation reduced in right upper and lower extremities, strength 5/5 in left upper and lower extremities, strength 3/5 in right upper and lower extremities, DTRs hyperreflexive in lower extremity on left, reduced on right upper and lower Skin: Dry, intact, normal color Results - Laboratory Findings CBC and BMP: 01/25/17 04:40 01/25/17 04:40 Abnormal lab findings: Abnormal lab results RBC 4.18 M/mcL (4.19-5.50) L 01/25/17 04:40 Hgb 12.8 g/dL (12.9-16.9) L 01/25/17 04:40 Plt Count 113 K/mcL (140-400) L 01/25/17 04:40 Creatinine 1.56 mg/dL (0.72-1.25) H 01/25/17 04:40 Est GFR ( Amer) 53 (> 60) L 01/25/17 04:40 Est GFR (Non-Af Amer) 44 (> 60) L 01/25/17 04:40 POC Glucose 168 (58-89) H 01/24/17 20:42 Albumin 3.1 g/dL (3.5-5.0) L 01/25/17 04:40 Albumin/Globulin Ratio 0.9 (1.1-2.2) L 01/25/17 04:40 Consult Discharge Plan - Plan Referrals: Wm Ochoa MD [Primary Care Provider] -
[2017-01-25] MEDS: Insulin DETEMIR 100 UNIT/ML X5UNITS SQ SCH (09:59)
[2017-01-25] MEDS: Isosorbide MONOnitrate (24 HR) 60 MG TAB.ER.24H PO SCH (10:00)
[2017-01-25] MEDS: Cholecalciferol (D-3) 1,000 UNIT TABLET PO SCH (10:00)
[2017-01-25] MEDS: Aspirin Enteric Coated 81 MG Tablet PO SCH (10:00)
[2017-01-25] MEDS: Multivit/Ca/Min/Fe/FA 1 TAB TABLET PO SCH (10:00)
[2017-01-25] MEDS: Carbidopa/Levodopa 25/100 TABLET PO SCH ×2 (10:00→14:35)
[2017-01-25 11:21] VITALS: BP 116/82
--- NOTE | 2017-01-25 15:49 | Discharge Summary ---
Date of Encounter: 01/25/17 Time of Encounter: 15:37 - Discharge Diagnosis (1) Lumbar spondylosis Priority: Primary Status: Acute Comments: Eduar Joe is a 77-year-old male with past medical history CAD, diabetes, hypertension, CHF status post pacemaker 2006 and Parkinson's disease who presented to [facility] on 01/22/2017 with complaints of neck pain and right sided weakness. He was placed in observation status for further workup and treatment. 1. Cervical and lumbar stenosis: per hx. presented with right-sided neck pain and right side weakness. Was evaluated at [facility] 07/2016 for similar symptoms; cervical CT showed significant bilateral foraminal narrowing at C5-6 and C6-7. Lumbar CT showed lumbar spondylosis with degenerative changes and severe left neural foraminal narrowing at L5-S1. Patient reports surgical intervention was inclined at that time due to risk outweighing benefits. Now with recurrent sx' s. There was concern for CVA on arrival. Head CT and neck CTA non-acute. Unable to have MRI due to pacemaker. Repeat cervical and lumbar imaging with known cervical/lumbar spodylosis and stenosis. Evaluated by neurology who recurrent right-sided weakness not typical for TIAs/CVA or central etiology. Neurology did note he may have had a stroke in 01/2016 however unable to have MRI due to pacemaker. Likely multifactorial with known stenosis and radiculopathy coupled with possible TIA. Evaluated by therapy who recommended SNF however patient declined. Discharge with rx for outpatient therapy 2. CVA: possible. History of 3 episodes of right-sided pain and weakness since 01/2016. Has known stenosis as noted above who noted he may have had CVA 2015 which has resulted in residual right-sided weakness. Unable to have MRI due to pacemaker. Continue home ASA, Plavix. Recommend outpatient follow-up with neurologist. 3. Parkinson's disease: Suspected and recently diagnosed. Per [facility] records patient was started on sentiment for tremors with improvement. Evaluated by neurology this admission who does feel he has Parkinson's features. Continue home sentiment. Has seen Dr. Forbes in the past. Recommend follow-up outpatient with neurologist. 4. CAD: per hx. Asymptomatic, denied CP. Continue home ASA, Plavix, BB 5. Diabetes: per hx. Blood sugars controlled. Continue home long-acting insulin. 6. Hypertension: per hx. BP controlled. Continue home BP medications. 7. CKD: Cr 1.6 which appears at baseline. (2) Parkinson disease Priority: Primary Status: Acute (3) CAD (coronary artery disease) Priority: Primary Status: Chronic Qualifiers: Coronary Disease-Associated Artery/Lesion type: bypass graft [place] vs. transplanted heart: [place] heart Associated angina: with stable angina Qualified Code(s): I25.709 - Atherosclerosis of coronary artery bypass graft(s) , unspecified, with unspecified angina pectoris (4) HTN (hypertension) Priority: Primary Status: Chronic Qualifiers: Hypertension type: essential hypertension Qualified Code(s): I10 - Essential (primary) hypertension - Discharge Medications Home Medications: Aspirin Enteric Coated [Aspirin EC] 81 mg PO DAILY 01/05/15 [History] Carvedilol [Coreg] 12.5 mg PO DAILY 01/05/15 [History] Clopidogrel [Plavix] 75 mg PO DAILY 01/05/15 [History] Famotidine [Pepcid] 40 mg PO HS 01/05/15 [History] Lisinopril [Zestril] 2.5 mg PO DAILY 01/05/15 [History] Multivitamin [Multi-Day Vitamins] 1 tab PO DAILY 01/20/15 [History] Nitroglycerin 0.4 mg SL Q5MIN PRN 01/20/15 [History] Albuterol Sulfate [Albuterol Inhaler] 2 puff IH Q4HR PRN #1 hfa.aer.ad 01/21/15 [Rx] Insulin NPH, HUMAN [HumuLIN N] 15 unit SQ HS #0 01/04/16 [History] Insulin NPH, HUMAN [HumuLIN N] 20 unit SQ QAM #0 01/04/16 [History] Pantoprazole Sodium [Protonix] 40 mg PO DAILY 01/04/16 [History] Ipratropium/Albuterol Neb [Duoneb] 3 ml IH QIDR PRN 30 Days inhsol 01/07/16 [Rx ] Simvastatin [Zocor] 40 mg PO HS 01/10/16 [History] Carbidopa/Levodopa 25/100 [Sinemet 25/100] 1 tab PO TID 07/20/16 [History] Cholecalciferol (D-3) [Vitamin D] 1,000 unit PO DAILY 07/20/16 [History] Isosorbide MONOnitrate [Isosorbide Mononitrate ER] 120 mg PO DAILY 07/20/16 [ History] Allergies/Adverse Reactions: 3 Allergy/AdvReac Type Severity Reaction Status Date / Time furosemide [From Lasix] AdvReac Hypotension Verified 11/10/15 11:00 Procedures/tests Complete & Pending: Procedures Performed prior 72 hours Category Date Time Status CT cervical spine wo con [CT] Stat Cat Scan 01/24/17 17:[address] lumbar spine wo con [CT] Stat Cat Scan 01/24/17 17:45 Completed ECG 12 lead ECG [ECG] Routine Y 01/23/17 17:07 Completed EV echocardiogram Routine Y 01/24/17 Completed Date of admission: 01/23/17 18:16 Primary care physician: Wm Ochoa MD Consults: 01/24/17 00:56 Consult to Occupational Therapy [CONS] Routine Comment: Evaluate, develop and implement POC Reason for Consult: Rt weakness Consult to Physical Therapy [CONS] Routine Comment: Evaluate, develop and implement POC Reason for Consult: Right side weakness 01/24/17 15:57 Consult to Neurology [CONS] Routine Consulting Provider: Neurology [facility] Reason for Consult: right sided weakness Call Completed: No 01/25/17 13:28 Consult to District Associate Judge [CONS] Routine Reason for SW Consult: PT/OT recommends SNF Discharging clinician: Lashay Ramirez Anticipated date of discharge: 01/25/17 - Patient Status Disposition: Home, Self-Care Condition: Good Functional capacity at discharge: independent ambulation Overall status at discharge: patient is progressing back to baseline - Discharge Instructions Instructions: Transient Ischemic Attack (DC), Cervical Radiculopathy (GEN), Lumbar Radiculopathy (GEN) Follow Up With: Wm Ochoa MD [Primary Care Provider] - 02/06/17 10:00 am Carolyn Forbes MD [Partnered Physician] - - Diet and Activity Activity: increase activity as tolerated Diet: diabetic diet, low fat, low cholesterol Interval History: Seen and examined at bedside. Patient says he feels better still with right- sided weakness but improving back to baseline. No worsening numbness tingling or right-sided pain. No headaches or double vision. Significant other at bedside and updated. Patient declining SNF or home health care. Hospital course: Mr. Joe is a 71 year old male - Time Spent with Patient Total time spent providing and/or coordinating discharge services: Less than 30 minutes - Constitutional Vitals: Temp Pulse Resp BP Pulse Ox 97.8 F 68 16 116/82 100 01/25/17 11:20 01/25/17 11:20 01/25/17 07:23 01/25/17 11:20 01/25/17 07:23 General appearance: Present: A&O X 3, no acute distress, answers questions appropriately - Head Head exam: Present: atraumatic, normocephalic - Eye Eye exam: Present: PERRL, conjuntiva pink, sclera anicteric Pupils: Present: PERRL - Neck Neck exam general surgery: Present: supple, trachea midline. Absent: lymphadenopathy - Respiratory Respiratory exam: Present: CTAB. Absent: accessory muscle use, rales, rhonchi, wheezes - Cardiovascular Cardiovascular exam: Present: RRR, +S1, +S2. Absent: diastolic murmur, gallop, rubs, systolic murmur - GI/Abdominal GI/Abdominal exam: Present: normal bowel sounds, soft, no peritoneal signs. Absent: distended, tenderness - Extremities Exam Extremities exam: Present: warm, radial pulses palpable and symmetrical. Absent : calf tenderness, cyanotic, pedal edema - Neurological Exam Neurological exam: Present: CN II-XII intact, oriented X3, no focal deficits. Absent: pronater drift, facial droop, speech deficit Additional comments: Right upper and lower extremity weakness. Right dropfoot. Chronic left facial droop. - Skin Skin exam: Present: dry, intact
--- NOTE | 2017-01-25 18:17 | Electrocardiograph Report ---
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
== END 2017-01-25 16:40 | disposition home or self-care (01) ==
LOC: EMEROO 16:43 → 3BNU 16:43
PROVIDERS: ADMIT Internal Medicine; ATTEND Registered Nurse

== ENCOUNTER 2017-07-31 13:37 | Observation (INO) ==
--- NOTE | 2017-07-31 13:58 | Emergency Department Note ---
Disposition Clinical Impression: Parkinson disease, Right sided weakness, Cervical spinal stenosis Disposition: Admitted As Inpatient Condition: Good Referrals: Wm Ochoa MD [Primary Care Provider] - Forms: ED Satisfaction Letter General Adult HPI - General Chief complaint: ED Weakness Stated complaint: right side weakness Time Seen by Provider: 07/31/17 13:50 Nursing Notes Reviewed: Yes Vital Signs Reviewed: Yes - History of Present Illness HPI Narrative: Right-sided weakness that began earlier this morning. Also pain behind his right knee. States this is happened previously. No alleviating or provoking factors. Denies any trauma. Pain Scale: 7 - Related Data Home Medications Medication Instructions Recorded Confirmed Aspirin Enteric Coated [Aspirin EC] 81 mg PO DAILY 01/05/15 07/17/17 Carvedilol [Coreg] 12.5 mg PO DAILY 01/05/15 07/17/17 Clopidogrel [Plavix] 75 mg PO DAILY 01/05/15 07/17/17 Famotidine [Pepcid] 40 mg PO HS 01/05/15 07/17/17 Lisinopril [Zestril] 2.5 mg PO DAILY 01/05/15 07/17/17 Multivitamin [Multi-Day Vitamins] 1 tab PO DAILY 01/20/15 07/17/17 Nitroglycerin 0.4 mg SL Q5MIN PRN 01/20/15 07/17/17 Insulin NPH, HUMAN [HumuLIN N] 15 unit SQ HS #0 01/04/16 07/17/17 Insulin NPH, HUMAN [HumuLIN N] 20 unit SQ QAM #0 01/04/16 07/17/17 Pantoprazole Sodium [Protonix] 40 mg PO DAILY 01/04/16 07/17/17 Simvastatin [Zocor] 40 mg PO HS 01/10/16 07/17/17 Carbidopa/Levodopa 25/100 [Sinemet 1 tab PO TID 07/20/16 07/17/17 25/100] Cholecalciferol (D-3) [Vitamin D] 1,000 unit PO DAILY 07/20/16 07/17/17 Isosorbide MONOnitrate [Isosorbide 120 mg PO DAILY 07/20/16 07/17/17 Mononitrate ER] Oxybutynin [Ditropan] 5 mg PO BID 04/11/18 04/11/18 Previous Rx's Medication Instructions Recorded Albuterol Sulfate [Albuterol 2 puff IH Q4HR PRN #1 hfa.aer.ad 01/21/15 Inhaler] Ipratropium/Albuterol Neb [Duoneb] 3 ml IH QIDR PRN 30 Days inhsol 01/07/16 Allergies Allergy/AdvReac Type Severity Reaction Status Date / Time furosemide [From Lasix] AdvReac Hypotension Verified 07/31/17 13:46 All systems ED: reviewed and negative except as stated. Constitutional: Denies: fever, chills Cardiovascular: Denies: chest pain Respiratory: Denies: cough, dyspnea Gastrointestinal: Denies: abdominal pain, nausea, vomiting, diarrhea Genitourinary: Denies: urgency, dysuria, frequency Musculoskeletal: Reports: other (left sided weakness). Denies: back pain Neurological: Denies: headache, weakness Past Medical History - Past Medical History Attestation: Yes The following information was validated with the patient. Source: patient Medical history: Reports: asthma, cardiomyopathy, CHF, coronary artery disease, DVT, diabetes, GERD, hyperlipidemia, hypertension, myocardial infarction, renal disease, other Surgical history: Reports: angioplasty/stent, coronary bypass (CABG), pacemaker/ AICD, other Psychiatric history: Reports: no psych history - Social History Smoking Status: Never smoker Smokeless Tobacco Status: No Alcohol use: Reports: none Drug use: Reports: none Physical Exam - General General appearance: alert, in no apparent distress - Head Head exam: atraumatic, normocephalic, normal inspection - Eye Eye exam: Present: normal appearance, PERRL, EOMI - ENT ENT exam: normal exam, normal oropharynx, mucous membranes moist - Neck Neck exam: Present: normal inspection, full ROM - Chest Chest inspection: Present: normal inspection, symmetric chest wall rise - Respiratory Respiratory exam: Present: normal lung sounds bilaterally. Absent: respiratory distress, accessory muscle use - Cardiovascular Cardiovascular exam: Present: regular rate, normal rhythm, normal heart sounds - Abdominal Exam Abdominal exam: Present: soft, Non-Tender. Absent: tenderness, distention, guarding, rigidity, organomegaly - Neurological Exam Neurological exam: Present: alert, oriented X3, other (Right upper and right lower extremity weakness. Decreased sensation to both extremities however he does feel painful touch.) - Psychiatric Psychiatric exam: Present: flat affect - Skin Skin exam: Present: warm, dry, intact, normal color. Absent: rash, cyanosis Course Course Narrative: Male patient presenting to the emergency department complaining of right-sided weakness. He states that this happens around every 6 months. States he has a history of cervical spinal stenosis. He reports that his symptoms are the same as they have been previously. He does have a history of CT of his head and cervical spine. Dr. Forbes suggested the patient has had a previous stroke however his documentation and was showing that he also had the right-sided weakness. Patient reports that he does have some pain in his right posterior knee. States that these are the same symptoms that he has every 6 months. States that he generally resolve after a couple days stay in the hospital after his been given some "medication." Patient is alert and oriented 3 at this time. He does have right-sided weakness in his upper and lower extremity. He does report decreased sensation however he does feel painful touch. I spoke with Dr. Forbes on the phone. He suggests that we get a CT of patient's head. And for him to follow-up with them outpatient. I feel this is reasonable. However I am concerned patient may not be able to ambulate while at home due to his lower extremity weakness.. - Reevaluation(s) Reevaluation #1: Patient's head CT showed no acute findings. We have added basic labs on patient and we will likely admit. Time: 15:11 Reevaluation #2: I spoke with the patient's girlfriend. She states that she has seen him do this several times. She states that there are no changes in his appearance today and the appearances before that he is presented. She is insistent this this is spondylosis. We will admit patient to the hospital due to patient's inability to ambulate. He is agreeable with this. He has no complaints at this time. Time: 16:02 - Consultations Consultation #1: I spoke with Dr Edmonds. He advises that the patient has had a previous stroke as well as parkinsonian. He is on medication for this at this time. He states the patient does have left-sided weakness. He suggests that we get a CT of patient's head to make sure there is no new stroke and have him follow-up with neurology outpatient. He reports no benefit from steroid use at this time. Time: 14:09 Consultation #2: [facility] accepted Pt in stable condition. Vital Signs Temperature 98.2 F 07/31/17 13:43 Pulse Rate 60 07/31/17 13:43 Respiratory Rate 16 07/31/17 13:43 Blood Pressure 112/62 07/31/17 13:43 O2 Sat by Pulse Oximetry 98 07/31/17 13:43 Temperature 98.2 F 07/31/17 13:43 Pulse Rate 60 07/31/17 13:43 Respiratory Rate 16 07/31/17 13:43 Blood Pressure 112/62 07/31/17 13:43 O2 Sat by Pulse Oximetry 98 07/31/17 13:43 Oxygen Delivery Oxygen Delivery Room Air Medical Decision Making - Medical Records Medical records reviewed: Yes I reviewed the patient's medical records. - Lab Data Lab results reviewed: Yes I reviewed the patient's lab results. Result diagrams: 07/31/17 14:57 07/31/17 14:57 Lab Results 07/31/17 07/31/17 Range/Units 14:57 14:57 WBC 6.0 (4.3-11.1) K/mcL RBC 4.28 (4.19-5.50) M/mcL Hgb 13.1 (12.9-16.9) g/dL Hct 40.1 (37.5-50.1) % MCV 93.7 (83.0-100.0) fL MCH 30.6 (28.0-33.3) pg MCHC 32.7 (31.6-35.5) g/dL RDW 13.3 (11.5-14.5) % Plt Count 117 L (140-400) K/mcL MPV 12.2 (9.4-12.4) fL Immature Gran % 0.2 (0-4) % Seg Neutrophils % 60.2 % Lymphocytes % 23.2 % Monocytes % 9.9 % Eosinophils % 5.8 % Basophils % 0.7 % Neutrophils # 3.6 (1.6-8.9) K/mcL Lymphocytes # 1.4 (0.6-4.6) K/mcL Monocytes # 0.6 (0.0-1.3) K/mcL Eosinophils # 0.4 (0.0-0.6) K/mcL Basophils # 0.0 (0.0-0.2) K/mcL Sodium 138 (136-145) mEq/L Potassium 4.7 (3.5-5.1) mEq/L Chloride 108 H (98-107) mEq/L Carbon Dioxide 27 (23-29) mEq/L BUN 29 H (8-23) mg/dL Creatinine 1.77 H (0.70-1.30) mg/dL Est GFR ( Amer) 46 L (> 60) Est GFR (Non-Af Amer) 38 L (> 60) BUN/Creatinine Ratio 16 (6-26) Glucose 141 H (70-105) mg/dL Calculated Osmolality 294 (280-300) Calcium 8.8 (8.6-10.3) mg/dL - Radiology Data Radiology results reviewed: Yes I reviewed the patient's radiology results. Head CT 07/31/17 14:02 IMPRESSION: No acute intracranial abnormality. D/ / 07/31/2017 14:40:38 Susy Casey MD / [facility] Interpreting Provider: Susy Casey MD - EKG Data EKG #1 EKG attestation: Yes I reviewed and interpreted this EKG. EKG results narrative: Normal sinus rhythm at 70. [place] interval is 156. QRS duration 109 QT: 357 QTC: 378 No signs of acute ischemia. No significant change from previous EKG dated 07/17.
--- NOTE | 2017-07-31 14:02 | Emergency Department Note ---
Disposition Clinical Impression: Parkinson disease, Right sided weakness, Cervical spinal stenosis Disposition: Admitted As Inpatient Condition: Good General Adult HPI - General Chief complaint: ED Weakness Stated complaint: right side weakness Time Seen by Provider: 07/31/17 13:50 Nursing Notes Reviewed: Yes Vital Signs Reviewed: Yes - History of Present Illness Pain Scale: 7 - Related Data Home Medications Medication Instructions Recorded Confirmed Aspirin Enteric Coated [Aspirin EC] 81 mg PO DAILY 01/05/15 07/31/17 Carvedilol [Coreg] 12.5 mg PO DAILY 01/05/15 07/31/17 Clopidogrel [Plavix] 75 mg PO DAILY 01/05/15 07/31/17 Famotidine [Pepcid] 40 mg PO HS 01/05/15 07/31/17 Lisinopril [Zestril] 2.5 mg PO DAILY 01/05/15 07/31/17 Multivitamin [Multi-Day Vitamins] 1 tab PO DAILY 01/20/15 07/31/17 Nitroglycerin 0.4 mg SL Q5MIN PRN 01/20/15 07/31/17 Insulin NPH, HUMAN [HumuLIN N] 15 unit SQ QAM #0 01/04/16 07/31/17 Insulin NPH, HUMAN [HumuLIN N] 20 unit SQ HS #0 01/04/16 07/31/17 Pantoprazole Sodium [Protonix] 40 mg PO DAILY 01/04/16 07/31/17 Simvastatin [Zocor] 40 mg PO HS 01/10/16 07/31/17 Carbidopa/Levodopa 25/100 [Sinemet 1 tab PO TID 07/20/16 07/31/17 25/100] Cholecalciferol (D-3) [Vitamin D] 1,000 unit PO DAILY 07/20/16 07/31/17 Isosorbide MONOnitrate [Isosorbide 120 mg PO DAILY 07/20/16 07/31/17 Mononitrate ER] Oxybutynin [Ditropan] 5 mg PO BID 07/17/17 07/31/17 Tizanidine HCl 2 mg PO BID PRN 07/31/17 07/31/17 Previous Rx's Medication Instructions Recorded Albuterol Sulfate [Albuterol 2 puff IH Q4HR PRN #1 hfa.aer.ad 01/21/15 Inhaler] Ipratropium/Albuterol Neb [Duoneb] 3 ml IH QIDR PRN 30 Days inhsol 01/07/16 Allergies Allergy/AdvReac Type Severity Reaction Status Date / Time furosemide [From Lasix] AdvReac Hypotension Verified 07/31/17 16:46 Constitutional: Denies: fever, chills Cardiovascular: Denies: chest pain Respiratory: Denies: cough, dyspnea Gastrointestinal: Denies: abdominal pain, nausea, vomiting, diarrhea Genitourinary: Denies: urgency, dysuria, frequency Musculoskeletal: Reports: other (left sided weakness). Denies: back pain Neurological: Denies: headache, weakness Past Medical History - Past Medical History Medical history: Reports: asthma, cardiomyopathy, CHF, coronary artery disease, DVT, diabetes, GERD, hyperlipidemia, hypertension, myocardial infarction, renal disease, other Surgical history: Reports: angioplasty/stent, coronary bypass (CABG), pacemaker/ AICD, other Psychiatric history: Reports: no psych history - Social History Smoking Status: Never smoker Smokeless Tobacco Status: No Alcohol use: Reports: none Drug use: Reports: none Physical Exam - General General appearance: alert Course Vital Signs Temperature 98.2 F 07/31/17 13:43 Pulse Rate 60 07/31/17 13:43 Respiratory Rate 16 07/31/17 13:43 Blood Pressure 112/62 07/31/17 13:43 O2 Sat by Pulse Oximetry 98 07/31/17 13:43 Temperature 98.1 F 07/31/17 18:45 Pulse Rate 65 07/31/17 18:45 Respiratory Rate 16 07/31/17 18:45 Blood Pressure 158/81 07/31/17 18:45 O2 Sat by Pulse Oximetry 98 07/31/17 18:45 Oxygen Delivery Oxygen Delivery Room Air Medical Decision Making - MDM Narrative Medical decision making narrative: This documentation is done with the assistance of Dragon dictation. Despite efforts made to ensure accuracy, there may be inaccuracies in command and control specialist or spelling and typographical errors. Patient arrives today with right-sided weakness he said this before started earlier today. He says he has spinal stenosis and Parkinson's which she has this. He said he is not admitting getting medications and it resolves. No other stroke symptoms no speech difficulty no vision difficulties. On neuro exam he does have right-sided weakness which is pretty profound which she said this would he complains of. His GCS is 15 he is alert person place and time. Reviewed his medical chart which shows a similar history with cervical stenosis. Was able to have an MRI because he has a pacemaker in place. Patient follows with Dr. Forbes we talked to him he said going do a CT make sure is nothing new 12 social insurance analyst seem and determine admission which is probably what he needs versus going home and follow-up with neurology. 1440 hrs.: Regular basic labs on him. And the CT. Then admit. health services rn seen them. States he cannot take care of himself at home/in this condition. Head CT 07/31/17 14:02 IMPRESSION: No acute intracranial abnormality. D/ / 07/31/2017 14:40:38 Susy Casey MD / [facility] Interpreting Provider: Susy Casey MD 1510 hrs.: Waiting on labs and then we will admit. - Lab Data Result diagrams: 07/31/17 14:57 07/31/17 14:57 Lab Results 07/31/17 07/31/17 Range/Units 14:57 14:57 WBC 6.0 (4.3-11.1) K/mcL RBC 4.28 (4.19-5.50) M/mcL Hgb 13.1 (12.9-16.9) g/dL Hct 40.1 (37.5-50.1) % MCV 93.7 (83.0-100.0) fL MCH 30.6 (28.0-33.3) pg MCHC 32.7 (31.6-35.5) g/dL RDW 13.3 (11.5-14.5) % Plt Count 117 L (140-400) K/mcL MPV 12.2 (9.4-12.4) fL Immature Gran % 0.2 (0-4) % Seg Neutrophils % 60.2 % Lymphocytes % 23.2 % Monocytes % 9.9 % Eosinophils % 5.8 % Basophils % 0.7 % Neutrophils # 3.6 (1.6-8.9) K/mcL Lymphocytes # 1.4 (0.6-4.6) K/mcL Monocytes # 0.6 (0.0-1.3) K/mcL Eosinophils # 0.4 (0.0-0.6) K/mcL Basophils # 0.0 (0.0-0.2) K/mcL Sodium 138 (136-145) mEq/L Potassium 4.7 (3.5-5.1) mEq/L Chloride 108 H (98-107) mEq/L Carbon Dioxide 27 (23-29) mEq/L BUN 29 H (8-23) mg/dL Creatinine 1.77 H (0.70-1.30) mg/dL Est GFR ( Amer) 46 L (> 60) Est GFR (Non-Af Amer) 38 L (> 60) BUN/Creatinine Ratio 16 (6-26) Glucose 141 H (70-105) mg/dL Calculated Osmolality 294 (280-300) Calcium 8.8 (8.6-10.3) mg/dL Attestation Statement - Attestation Attestation: I examined this patient and my medical decision-making was reviewed with the Resident Physician. I agree with the documented findings, disposition and treatment plan as described except to the extent set forth below. Patient seen on arrival with EMS and Dr. Salguero, I agree with her evaluation and management plan, supervise care the patient's stay.
[2017-07-31 15:33] LABS: Basophils % 0.7 %; Eosinophils # 0.4 K/mcL (0.0-0.6); Eosinophils % 5.8 %; Hematocrit 40.1 % (37.5-50.1); Hemoglobin 13.1 g/dL (12.9-16.9); Immature Granulocytes % 0.2 % (0-4); Lymphocytes # 1.4 K/mcL (0.6-4.6); Lymphocytes % 23.2 %; Mean Corpuscular HGB Conc 32.7 g/dL (31.6-35.5); Mean Corpuscular Hemoglobin 30.6 pg (28.0-33.3); Mean Corpuscular Volume 93.7 fL (83.0-100.0); Mean Platelet Volume 12.2 fL (9.4-12.4); Monocytes # 0.6 K/mcL (0.0-1.3); Monocytes % 9.9 %; Neutrophils # 3.6 K/mcL (1.6-8.9); Platelet Count 117 K/mcL (140-400); Red Blood Count 4.28 M/mcL (4.19-5.50); Red Cell Distribution Width 13.3 % (11.5-14.5); Segmented Neutrophils % 60.2 %
[2017-07-31 15:41] LABS: Calcium 8.8 mg/dL (8.6-10.3); Potassium 4.7 mEq/L (3.5-5.1)
[2017-07-31] MEDS ORDERED: Nitroglycerin 0.4 MG TAB.SUBL SL PRN (20:20)
[2017-07-31] MEDS ORDERED: Ipratropium/Albuterol Neb 3 ML IH PRN (20:20)
[2017-07-31] MEDS ORDERED: tiZANidine 4 MG TABLET PO PRN (20:20)
[2017-07-31] MEDS ORDERED: Naloxone 0.4 MG/ML INJ IVP PRN (20:22)
--- NOTE | 2017-07-31 20:28 | Internal Med History&Physical ---
<Pedro Jimenez - Last Filed: 07/31/17 21:40> Date of Encounter: 07/31/17 Time of Encounter: 20:26 Internal Medicine - H&P: HPI Admitted From: Home Plans for Post Hospital Care: Home History of present illness: Male patient presenting to the emergency department complaining of right-sided weakness. He states that this happens around every 6 months. States he has a history of cervical spinal stenosis. He reports that his symptoms are the same as they have been previously. He does have a history of CT of his head and cervical spine. Dr. Forbes suggested the patient has had a previous stroke however his documentation and was showing that he also had the right-sided weakness. Patient reports that he does have some pain in his right posterior knee. States that these are the same symptoms that he has every 6 months. States that he generally resolve after a couple days stay in the hospital after his been given some "medication." Patient is alert and oriented 3 at this time. He does have right-sided weakness in his upper and lower extremity. He does report decreased sensation however he does feel painful touch. I spoke with Dr. Forbes on the phone. He suggests that we get a CT of patient's head. And for him to follow-up with them outpatient. However ED physician was concerned patient may not be able to ambulate while at home due to his lower extremity weakness. Pt will be admitted as observation. Past Med Surg Social Fam HX - Past Medical History Medical history: asthma, cardiomyopathy, CHF, coronary artery disease, DVT, diabetes, GERD, hyperlipidemia, hypertension, myocardial infarction, renal disease, other Psychiatric history: no psych history - Past Surgical History Surgical History: angioplasty/stent, coronary bypass (CABG), pacemaker/AICD, other - Social History Smoking Status: Never smoker Smokeless Tobacco Status: No Alcohol use: none Drug use: none - Family History Father Living Status: Hx Family Cardiac Disorders: Yes (Bad heart) Hx Family Neurologic Disorders: Yes (Alzheimer's) Mother Living Status: Hx Family Cardiac Disorders: Yes ([place]) Internal Medicine - H&P: Meds Aspirin Enteric Coated [Aspirin EC] 81 mg PO DAILY 01/05/15 [History] Carvedilol [Coreg] 12.5 mg PO DAILY 01/05/15 [History] Clopidogrel [Plavix] 75 mg PO DAILY 01/05/15 [History] Famotidine [Pepcid] 40 mg PO HS 01/05/15 [History] Lisinopril [Zestril] 2.5 mg PO DAILY 01/05/15 [History] Multivitamin [Multi-Day Vitamins] 1 tab PO DAILY 01/20/15 [History] Nitroglycerin 0.4 mg SL Q5MIN PRN 01/20/15 [History] Albuterol Sulfate [Albuterol Inhaler] 2 puff IH Q4HR PRN #1 hfa.aer.ad 01/21/15 [Rx] Insulin NPH, HUMAN [HumuLIN N] 15 unit SQ QAM #0 01/04/16 [History] Insulin NPH, HUMAN [HumuLIN N] 20 unit SQ HS #0 01/04/16 [History] Pantoprazole Sodium [Protonix] 40 mg PO DAILY 01/04/16 [History] Ipratropium/Albuterol Neb [Duoneb] 3 ml IH QIDR PRN 30 Days inhsol 01/07/16 [Rx ] Simvastatin [Zocor] 40 mg PO HS 01/10/16 [History] Carbidopa/Levodopa 25/100 [Sinemet 25/100] 1 tab PO TID 07/20/16 [History] Cholecalciferol (D-3) [Vitamin D] 1,000 unit PO DAILY 07/20/16 [History] Isosorbide MONOnitrate [Isosorbide Mononitrate ER] 120 mg PO DAILY 07/20/16 [ History] Oxybutynin [Ditropan] 5 mg PO BID 07/17/17 [History] Tizanidine HCl 2 mg PO BID PRN 07/31/17 [History] 3 Allergy/AdvReac Type Severity Reaction Status Date / Time furosemide [From Lasix] AdvReac Hypotension Verified 07/31/17 16:46 All Systems PM: A 10-system review of systems was performed and is negative for pertinent findings except as documented above in the HPI. Review of systems: REVIEW OF SYSTEMS: CONSTITUTIONAL: No weight loss, fever, chills, weakness or fatigue. HEENT: Eyes: No visual loss, blurred vision, double vision or yellow sclerae. Ears, Nose, Throat: No hearing loss, sneezing, congestion, runny nose or sore throat. SKIN: No rash or itching. CARDIOVASCULAR: No chest pain, chest pressure or chest discomfort. No palpitations or edema. RESPIRATORY: No shortness of breath, cough or sputum. GASTROINTESTINAL: No anorexia, nausea, vomiting or diarrhea. No abdominal pain or blood. GENITOURINARY: No dysuria, urgency, or frequency. NEUROLOGICAL: see HPI. MUSCULOSKELETAL: No muscle, back pain, joint pain or stiffness. HEMATOLOGIC: No anemia, bleeding or bruising. LYMPHATICS: No enlarged nodes. No history of splenectomy. PSYCHIATRIC: No history of depression or anxiety. ENDOCRINOLOGIC: No reports of sweating, cold or heat intolerance. No polyuria or polydipsia. - Constitutional Vitals: Temp Pulse Resp BP Pulse Ox 98.1 F 65 16 158/81 98 07/31/17 18:45 07/31/17 18:45 07/31/17 18:45 07/31/17 18:45 07/31/17 18:45 General appearance: Present: A&O X 3 Exam: PHYSICAL EXAMINATION: GENERAL APPEARANCE: The patient is alert, oriented and in no acute distress. HEENT: Head is normocephalic. The sinuses are nontender. Pupils are equal and reactive. The nares are patent. Oropharynx clear without lesions. NECK: Supple without lymphadenopathy. HEART: Regular rate and rhythm. LUNGS: No crackles or wheezes are heard. ABDOMEN: Soft, nontender, nondistended with good bowel sounds heard. Inguinal area is normal. EXTREMITIES: Without cyanosis, clubbing or edema. NEUROLOGICAL: right side weakness with muscle strength 1/5 on UE and LE, loss of sensation to pain, tough, and propriocetion . SKIN: Warm and dry without any rash. Internal Med - H&P Results - Labs CBC & Chem 7: 07/31/17 14:57 07/31/17 14:57 - Assessment and plan (1) Diabetes Current Visit: No Status: Chronic Assessment and plan: - Continue home insulin treatment plus insulin sliding scale. 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 Qualifiers: Hypertension type: essential hypertension Qualified Code(s): I10 - Essential (primary) hypertension (3) CKD (chronic kidney disease) Current Visit: No Status: Chronic Assessment and plan: Creatinine at baseline. Qualifiers: Chronic kidney disease stage: stage 3 (moderate) Qualified Code(s): N18.3 - Chronic kidney disease, stage 3 (moderate) (4) CAD (coronary artery disease), autologous vein bypass graft Current Visit: No Status: Chronic Assessment and plan: - No chest pain, continue current treatment. Qualifiers: Associated angina: angina presence unspecified Qualified Code(s): I25.810 - Atherosclerosis of coronary artery bypass graft(s) without angina pectoris (5) Lumbar spondylosis Current Visit: No Status: Chronic Assessment and plan: - As above. (6) Parkinson disease Current Visit: No Status: Chronic Assessment and plan: - Continue current treatment. (7) Right sided weakness Current Visit: Yes Status: Acute Assessment and plan: 71-year-old male with past medical history of CAD status post CABG and stent, Parkinson's disease, cervical lumbar spondylosis, and recurrent right hemiparesis present to the ED with another episode of right-sided weakness and numbness. - Per patient, he had a similar episode in the past and fully recovered by itself. - Cervical CT revealed moderate cervical lumbar stenosis and the spondylosis. Surgical treatment was discussed with the patient in the past, he refused. - On neuro exam, his right side is flaccid with loss of sensation. By reviewing his cervical CT scan, image findings cannot explain his severe neurological deficit, therefore further explore underlying etiology may be needed. Suspected muscular disorder/neuromuscular junction disorder/peripheral neuropathy/cervical radiculopathy. - Patient may benefit from EMG study and nerve conduction study to further pinpoint the localization of the weakness. - We will consult neurology. - Time Spent With Patient Total time spent is greater than 50% in coordination of care (as documented) at patient's floor/unit and/or counseling patient: Greater than 35 minutes <Herminia Haas - Last Filed: 08/01/17 06:14> Date of Encounter: 08/01/17 Internal Medicine - H&P: [facility] History of present illness: Mr. Joe is a 71 year old male All Systems PM: A 10-system review of systems was performed and is negative for pertinent findings except as documented above in the HPI. - Constitutional Vitals: Temp Pulse Resp BP Pulse Ox 98.0 F 59 16 107/60 95 08/01/17 03:05 08/01/17 03:05 08/01/17 03:05 08/01/17 03:05 08/01/17 03:05 Internal Med - H&P Results - Labs CBC & Chem 7: 08/01/17 04:54 08/01/17 04:54 Labs: Short CBC 08/01/17 Range/Units 04:54 WBC 5.9 (4.3-11.1) K/mcL Hgb 12.6 L (12.9-16.9) g/dL Hct 38.2 (37.5-50.1) % Plt Count 129 L (140-400) K/mcL Neutrophils # 3.3 (1.6-8.9) K/mcL BMP 08/01/17 04:54 Sodium 139 Potassium 3.9 Chloride 109 H Carbon Dioxide 26 BUN 28 H Creatinine 1.60 H Glucose 94 Calcium 8.8 Liver Function 08/01/17 Range/Units 04:54 Total Bilirubin 0.6 (0.3-1.0) mg/dL AST 13 (13-39) Units/L ALT 4 L (7-52) Units/L Alkaline Phosphatase 54 (34-104) Units/L Albumin 3.5 (3.5-5.7) g/dL - Attending Attestation I have seen and examined this patient independently. I have discussed with [employer] Mr Jimenez regarding the management plan. Agree with the documentation. 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 of insulin (2) HTN (hypertension) Current Visit: No Status: Chronic Qualifiers: Hypertension type: essential hypertension Qualified Code(s): I10 - Essential (primary) hypertension (3) CKD (chronic kidney disease) Current Visit: No Status: Chronic Qualifiers: Chronic kidney disease stage: stage 3 (moderate) Qualified Code(s): N18.3 - Chronic kidney disease, stage 3 (moderate) (4) CAD (coronary artery disease), autologous vein bypass graft Current Visit: No Status: Chronic Qualifiers: Associated angina: angina presence unspecified Qualified Code(s): I25.810 - Atherosclerosis of coronary artery bypass graft(s) without angina pectoris (5) Lumbar spondylosis Current Visit: No Status: Chronic (6) Parkinson disease Current Visit: No Status: Inactive (7) Right sided weakness Current Visit: Yes Status: Acute - Time Spent With Patient Total time spent is greater than 50% in coordination of care (as documented) at patient's floor/unit and/or counseling patient:
[2017-07-31] MEDS ORDERED: *HR* Dextrose 50 % in Water (Syg) 50 ML SYRINGE IVP PRN (20:44)
[2017-07-31] MEDS ORDERED: D5% in Water 1,000 ML IVC PRN (20:44)
[2017-07-31] MEDS ORDERED: Dextrose Gel 15 GM/37.5 ML TUBE PO PRN ×2 (20:44)
[2017-07-31] MEDS: Famotidine 20 MG TABLET PO SCH (22:14)
[2017-07-31] MEDS: Insulin NPH 100 UNIT/ML (x5UNIT) SQ SCH (22:14)
[2017-07-31] MEDS: Carbidopa/Levodopa 25/100 TABLET PO SCH (22:14)
[2017-07-31] MEDS: Insulin LISPRO 300 UNITS/3 ML VIAL SQ SCH (22:15)
[2017-07-31] MEDS: Melatonin 3 MG TABLET PO SCH (23:04)
[2017-07-31] MEDS: traMADol 50 MG TABLET PO PRN (23:22)
[2017-08-01 05:43] LABS: Basophils % 0.7 %; Eosinophils # 0.4 K/mcL (0.0-0.6); Eosinophils % 7.1 %; Hematocrit 38.2 % (37.5-50.1); Hemoglobin 12.6 g/dL (12.9-16.9); Immature Granulocytes % 0.2 % (0-4); Lymphocytes # 1.6 K/mcL (0.6-4.6); Lymphocytes % 26.4 %; Mean Corpuscular Hemoglobin 30.7 pg (28.0-33.3); Mean Corpuscular Volume 92.9 fL (83.0-100.0); Monocytes # 0.6 K/mcL (0.0-1.3); Monocytes % 10.1 %; Neutrophils # 3.3 K/mcL (1.6-8.9); Platelet Count 129 K/mcL (140-400); Red Blood Count 4.11 M/mcL (4.19-5.50); Red Cell Distribution Width 13.4 % (11.5-14.5); Segmented Neutrophils % 55.5 %
[2017-08-01 06:07] LABS: Albumin 3.5 g/dL (3.5-5.7); Albumin/Globulin Ratio 1.3 (1.1-2.2); Bilirubin,Total 0.6 mg/dL (0.3-1.0); Calcium 8.8 mg/dL (8.6-10.3); Globulin 2.7 g/dL (2.4-3.5); Potassium 3.9 mEq/L (3.5-5.1); Total Protein 6.2 g/dL (6.4-8.9)
[2017-08-01] MEDS: traMADol 50 MG TABLET PO PRN (06:11)
[2017-08-01] MEDS: *HR* Heparin 5,000 UNIT/ML VIAL SQ SCH ×2 (06:11→16:46)
[2017-08-01] MEDS: Insulin LISPRO 300 UNITS/3 ML VIAL SQ SCH ×4 (08:43→21:07)
[2017-08-01] MEDS: Multivit/Ca/Min/Fe/FA 1 TAB TABLET PO SCH (08:44)
[2017-08-01] MEDS: Isosorbide MONOnitrate (24 HR) 60 MG TAB.ER.24H PO SCH (08:45)
[2017-08-01] MEDS: Carbidopa/Levodopa 25/100 TABLET PO SCH ×3 (08:45→21:06)
[2017-08-01] MEDS: Aspirin Enteric Coated 81 MG Tablet PO SCH (08:45)
[2017-08-01] MEDS: Cholecalciferol (D-3) 1,000 UNIT TABLET PO SCH (08:45)
[2017-08-01] MEDS: Insulin NPH 100 UNIT/ML (x5UNIT) SQ SCH ×2 (08:45→21:07)
--- NOTE | 2017-08-01 10:01 | Neurology - Consult Note ---
<Obey Gomez - Last Filed: 08/01/17 11:31> Date of Encounter: 08/01/17 Time of Encounter: 09:43 Assessment and Plan (1) Right sided weakness Current Visit: Yes Status: Acute Patient has recurrent right sided weakness which initially she starts his right calf pain that is sharp. Pain then moved proximally all the way up to his neck. He has severe weakness and almost paralysis of his right side with numbness as well. This episode last few days in the past and resolves. He does have residual weakness on the right side. Patient reports he is able to ambulate on his own once his weakness improves. *Stated in the past admissions this is likely secondary combination of previous CVA and 01/2016 and cervical spinal stenosis. He has been extensively worked up in the past at [facility] and at [facility]. He was offered spinal surgery at [facility] but refuses secondary to possible significant morbidity from this surgery. Along with this patient has Parkinson's disease and is on carbidopa levodopa. During this admission CT of the head was negative for any acute changes. Neurological exam shows profound right side weakness as well as decrease in sensation to light touch and pinprick. When passively moving his right upper and lower extremity patient is very rigid, and reports pain with movement has a right upper extremity fine tremor. Patient will benefit from physical therapy. As patient lives alone at home, he will need to be placed at a facility until his strength comes back and is able to ambulate independently. Will reassess tomorrow. (2) History of CVA (cerebrovascular accident) Current Visit: Yes Status: Chronic Patient likely had CVA in 01/2016 that resulted in initial right-sided weakness and numbness. Plan is to continue aspirin, statin. (3) Parkinsons disease Current Visit: Yes Status: Chronic continue carvidopa/levodopa (4) Cervical spinal stenosis Current Visit: Yes Status: Acute as stated above. History of Present Illness Chief complaint: right sided weakness, numbness HPI: Mr. Joe is a 71 year old male presents with chief complaint of right-sided weakness. This started yesterday after he woke up. Patient reports in the past he has had episodes of right-sided weakness, which started as right calf pain followed by sharp pain going proximally to his neck. Along with this he has complete paralysis of his right side which last for 3-[address] of the head in the ER was negative for any acute changes. Patient cannot have an MRI due to having a pacemaker. These episodes occur every 6 months. Patient has followed up with [facility] [place] [facility] for these symptoms in the past. His first episode of this was 01/2016 is attributed to CVA. Patient has never regained full strength of his right side since that episode. In the previous admission he has had CT of the head which was normal, CT of the neck which showed moderate atherosclerotic disease of bilateral carotid bifurcation. CT of the cervical spine showed moderate cervical spondylolysis, moderate facet arthropathy, slight spinal stenosis at C6-C7, and moderate bilateral foraminal stenosis at C5/C6. CT of the lumbar spine showed moderate spondylolysis and severe facet arthropathy. Along with this he has Parkinson's disease and is on carbidopa levodopa. Patient denies headache, vision changes, hearing changes, difficulty swallowing. He reports profound weakness in his right upper right lower extremity, numbness in his right upper right lower and right face. Past Med Surg Social Fam HX - Past Medical History Medical history: asthma, cardiomyopathy, CHF, coronary artery disease, DVT, diabetes, GERD, hyperlipidemia, hypertension, myocardial infarction, renal disease, other Psychiatric history: no psych history - Past Surgical History Surgical History: angioplasty/stent, coronary bypass (CABG), pacemaker/AICD, other - Social History Smoking Status: Never smoker Smokeless Tobacco Status: No Alcohol use: none Drug use: none - Family History Father Living Status: Hx Family Cardiac Disorders: Yes (Bad heart) Hx Family Neurologic Disorders: Yes (Alzheimer's) Mother Living Status: Hx Family Cardiac Disorders: Yes ([place]) Medications and Allergies Aspirin Enteric Coated [Aspirin EC] 81 mg PO DAILY 01/05/15 [History] Carvedilol [Coreg] 12.5 mg PO DAILY 01/05/15 [History] Clopidogrel [Plavix] 75 mg PO DAILY 01/05/15 [History] Famotidine [Pepcid] 40 mg PO HS 01/05/15 [History] Lisinopril [Zestril] 2.5 mg PO DAILY 01/05/15 [History] Multivitamin [Multi-Day Vitamins] 1 tab PO DAILY 01/20/15 [History] Nitroglycerin 0.4 mg SL Q5MIN PRN 01/20/15 [History] Albuterol Sulfate [Albuterol Inhaler] 2 puff IH Q4HR PRN #1 hfa.aer.ad 01/21/15 [Rx] Insulin NPH, HUMAN [HumuLIN N] 15 unit SQ QAM #0 01/04/16 [History] Insulin NPH, HUMAN [HumuLIN N] 20 unit SQ HS #0 01/04/16 [History] Pantoprazole Sodium [Protonix] 40 mg PO DAILY 01/04/16 [History] Ipratropium/Albuterol Neb [Duoneb] 3 ml IH QIDR PRN 30 Days inhsol 01/07/16 [Rx ] Simvastatin [Zocor] 40 mg PO HS 01/10/16 [History] Carbidopa/Levodopa [Sinemet ] 1 tab PO TID 07/20/16 [History] Cholecalciferol (D-3) [Vitamin D] 1,000 unit PO DAILY 07/20/16 [History] Isosorbide MONOnitrate [Isosorbide Mononitrate ER] 120 mg PO DAILY 07/20/16 [ History] Oxybutynin [Ditropan] 5 mg PO BID 07/17/17 [History] Tizanidine HCl 2 mg PO BID PRN 07/31/17 [History] 3 Allergy/AdvReac Type Severity Reaction Status Date / Time furosemide [From Lasix] AdvReac Hypotension Verified 07/31/17 16:46 All Systems: The remainder of the systems were reviewed and are negative Review of Systems: Constitutional: Denies fever, chills HEENT: Denies headache, vision changes, neck pain, sore throat, rhinorrhea Heart: Denies chest pain palpitations Lungs: Denies shortness of breath cough Abdomen: Denies abdominal pain nausea vomiting diarrhea Back: Denies back pain Kidney: Denies dysuria, hematuria Skin: Denies rashes Extremities: Reports pain right calf. Denies lower extremity swelling Neuro: As per history of present illness Physical Examination - Vital Signs Vital Signs: Initial Vital Signs Temp Pulse Resp BP Pulse Ox 98.2 F 60 16 112/62 98 07/31/17 13:43 07/31/17 13:43 07/31/17 13:43 07/31/17 13:43 07/31/17 13:43 - Exam Exam: General: without distress HEENT: Head atraumatic, normocephalic, EOMI, PERRL, neck nontender to palpation , absent lymphadenopathy, Moist Mucous Membranes, Heart: Regular rate and rhythm with no murmur Lungs: Clear to auscultation bilaterally Abdomen: Soft nontender, nondistended positive bowel sounds Skin: warm and dry, absent lesions Extremities: Absent pedal edema, Vascular: Pedal and radial pulses 2 out of 4 - Constitutional General appearance: comfortable - Neurologic Sensorimotor examination: rigidity (Right upper and lower extremities) Motor examination - right side: 1/5: deltoids, triceps, hip flexors, 2/5: biceps , tibialis Anterior, 3/5: wrist flexion, wrist extension, rn neurosurgical, quadriceps, toe extension (EHL), plantarflexion Motor examination - left side: 5/5: deltoids, biceps, triceps, wrist flexion, wrist extension, hip flexors, rn neurosurgical, quadriceps, tibialis Anterior, toe extension (EHL), plantarflexion Detailed sensory examination: light touch (Decreased in right side including face, upper extremity, lower extremity), pain (Decreased in right side including face, upper extremity, lower extremity) Reflex and gait examination: other (Patient has profound weakness and right side and cannot ambulate.) Reflexes: Biceps: 3+, Triceps: 3+, Brachioradialis: 3+, Patella: 3+, Achilles: 3 + Mental Status Examination: awake, alert, oriented to person, oriented to place, oriented to time, follows commands appropriately, answers questions appropriately, no agnosia, no aphasia, no aproxia Cranial nerve examination: PERRL, EOMI, visual lui intact, sensory to face intact, mastication intact, no dysarthria, hearing is intact symmetrically, soft palate elevates bilaterally upon phonation, tongue protrudes midline, no atrophy or facial fasiculations present Cranial Nerve Exam: facial nerve palsy: Right (Asymmetric smile, unable to puff out right cheek), weakness of SCM: Right Cerebellar examination: no dysmetria (Of the left. Unable to perform right due to weakness.), no difficulty with rapid alternating movements (Of the left. unable to perform right due to weakness) Results - Laboratory Findings CBC and BMP: 08/01/17 04:54 08/01/17 04:54 Abnormal lab findings: Abnormal lab results RBC 4.11 M/mcL (4.19-5.50) L 08/01/17 04:54 Hgb 12.6 g/dL (12.9-16.9) L 08/01/17 04:54 Plt Count 129 K/mcL (140-400) L 08/01/17 04:54 Chloride 109 mEq/L (98-107) H 08/01/17 04:54 BUN 28 mg/dL (8-23) H 08/01/17 04:54 Creatinine 1.60 mg/dL (0.70-1.30) H 08/01/17 04:54 Est GFR ( Amer) 52 (> 60) L 08/01/17 04:54 Est GFR (Non-Af Amer) 43 (> 60) L 08/01/17 04:54 POC Glucose 207 mg/dL (70-99) H 07/31/17 21:42 ALT 4 Units/L (7-52) L 08/01/17 04:54 Serum Total Protein 6.2 g/dL (6.4-8.9) L 08/01/17 04:54 Consult Discharge Plan - Plan [place] [facility] [place] [[place] Care Provider] - <Thanh Catalan - Last Filed: 08/01/17 17:00> Date of Encounter: 08/01/17 Time of Encounter: 16:45 Assessment and Plan (1) Right sided weakness Current Visit: Yes Status: Acute I am highly suspicious of conversion reaction. Patient has had multiple admissions under similar circumstances involving gradual stepwise onset of weakness of the right leg and arm. He is had multiple imaging studies none of which reveal any evidence of intracranial abnormality to explain this. The only way to physiologically reproduces phenomenon would be an abnormality in the left cerebral hemisphere of which there is none. This is not Live's paralysis. A lesion in the spinal cord I could not physiologically explain this presentation. It seems to happen cyclically as he mentions about every 6 months or so. No further neurologic workup is necessary. We will reevaluate him at your request. History of Present Illness HPI: The chart was reviewed, patient was seen and examined independently. The case was discussed with Dr. Gomez. I agree with his documentation as stated above. All Systems: The remainder of the systems were reviewed and are negative Review of Systems: The balance of the systems review is negative. Physical Examination - Vital Signs Vital Signs: Initial Vital Signs Temp Pulse Resp BP Pulse Ox 98.2 F 60 16 112/62 98 07/31/17 13:43 07/31/17 13:43 07/31/17 13:43 07/31/17 13:43 07/31/17 13:43 - Exam Exam: I agree with Dr. Gomez's examination as stated above. - Neurologic Detailed sensory examination: light touch Reflex and gait examination: other Cranial nerve examination: no facial asymmetry is present Cerebellar examination: no dysmetria, performs finger to nose and heel to cesar symmetrically without ataxia Results - Laboratory Findings CBC and BMP: 08/01/17 04:54 08/01/17 04:54 Abnormal lab findings: Abnormal lab results RBC 4.11 M/mcL (4.19-5.50) L 08/01/17 04:54 Hgb 12.6 g/dL (12.9-16.9) L 08/01/17 04:54 Plt Count 129 K/mcL (140-400) L 08/01/17 04:54 Chloride 109 mEq/L (98-107) H 08/01/17 04:54 BUN 28 mg/dL (8-23) H 08/01/17 04:54 Creatinine 1.60 mg/dL (0.70-1.30) H 08/01/17 04:54 Est GFR ( Amer) 52 (> 60) L 08/01/17 04:54 Est GFR (Non-Af Amer) 43 (> 60) L 08/01/17 04:54 ALT 4 Units/L (7-52) L 08/01/17 04:54 Serum Total Protein 6.2 g/dL (6.4-8.9) L 08/01/17 04:54
--- NOTE | 2017-08-01 20:06 | Internal Med Progress Note ---
Date of Encounter: 08/01/17 Time of Encounter: 11:00 - Assessment and plan (1) Right sided weakness Current Visit: Yes Status: Acute Assessment and plan: 71-year-old male with past medical history of CAD status post CABG and stent, Parkinson's disease, cervical lumbar spondylosis, and recurrent right hemiparesis present to the ED with another episode of right-sided weakness and numbness. - Per patient, he had a similar episode in the past and fully recovered by itself. - Cervical CT revealed moderate cervical lumbar stenosis and the spondylosis. Surgical treatment was discussed with the patient in the past, he refused. - On neuro exam, his right side is flaccid with loss of sensation.CT of head negative for any acute changes May benefit from EMG as outpat Neurology has been consulted, appreciate recommendations PT/OT eval He may benefit from rehab cont ASA statin (2) Diabetes Current Visit: No Status: Chronic Assessment and plan: - Accucheck AC/HS SSI Continue home insulin treatment plus insulin sliding scale. 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 Qualifiers: Hypertension type: essential hypertension Qualified Code(s): I10 - Essential (primary) hypertension (4) CKD (chronic kidney disease) Current Visit: No Status: Chronic Assessment and plan: Creatinine at baseline. will cont to monitor avoid nephrotoxins Qualifiers: Chronic kidney disease stage: stage 3 (moderate) Qualified Code(s): N18.3 - Chronic kidney disease, stage 3 (moderate) (5) CAD (coronary artery disease), autologous vein bypass graft Current Visit: No Status: Chronic Assessment and plan: - cont ASA BG statin NO CP at this time nitro as needed for CP Qualifiers: Associated angina: angina presence unspecified Qualified Code(s): I25.810 - Atherosclerosis of coronary artery bypass graft(s) without angina pectoris (6) Lumbar spondylosis Current Visit: No Status: Chronic Assessment and plan: -Cervical CT revealed moderate cervical lumbar stenosis and the spondylosis. Surgical treatment was discussed with the patient in the past, he refused. (7) Parkinson disease Current Visit: No Status: Chronic Assessment and plan: - Continue home medications (8) DVT prophylaxis Current Visit: Yes Status: Acute Assessment and plan: Heparin subcutanous - Time Spent With Patient Total time spent is greater than 50% in coordination of care (as documented) at patient's floor/unit and/or counseling patient: - Subjective Interval history: Patient seen an examined at bedside. He denies any pain or discomfort. Does complain of pain upon movement of R upper and lower extremities. Denies any headaches vision changes difficulty chewing or swallowing CP or SOB - Constitutional Vitals: Temp Pulse Resp BP Pulse Ox 98.3 F 64 18 97/55 93 08/01/17 19:10 08/01/17 19:10 08/01/17 19:10 08/01/17 19:10 08/01/17 19:10 General appearance: Present: A&O X 3 - Head Head exam: Present: atraumatic, normocephalic - Eye Eye exam: Present: PERRL, conjuntiva pink, sclera anicteric Pupils: Present: PERRL - Neck Neck exam general surgery: Present: supple, trachea midline. Absent: lymphadenopathy - Respiratory Respiratory exam: Present: CTAB. Absent: accessory muscle use, rales, rhonchi, wheezes - Cardiovascular Cardiovascular exam: Present: RRR, +S1, +S2. Absent: diastolic murmur, gallop, rubs, systolic murmur - GI/Abdominal GI/Abdominal exam: Present: normal bowel sounds, soft, no peritoneal signs. Absent: distended, tenderness - Extremities Exam Extremities exam: Present: warm, radial pulses palpable and symmetrical. Absent : calf tenderness, cyanotic, pedal edema - Neurological Exam Neurological exam: Present: alert, CN II-XII intact, oriented X3, no focal deficits. Absent: pronater drift, facial droop, speech deficit - Expanded Neurological Exam Patient oriented to: Present: person, place, time Neuro motor strength exam: LUE: 5, RUE: 3, LLE: 4, RLE: 2/1 Coma Scale Eye Opening: Spontaneous Coma Scale Motor Response: Obeys Commands Coma Scale Verbal Response: Oriented Coma Scale Total: 15 - Skin Skin exam: Present: dry, intact Internal Medicine: Result - Labs CBC & Chem 7: 08/01/17 04:54 08/01/17 04:54 Labs: Short CBC 08/01/17 Range/Units 04:54 WBC 5.9 (4.3-11.1) K/mcL Hgb 12.6 L (12.9-16.9) g/dL Hct 38.2 (37.5-50.1) % Plt Count 129 L (140-400) K/mcL Neutrophils # 3.3 (1.6-8.9) K/mcL BMP 08/01/17 04:54 Sodium 139 Potassium 3.9 Chloride 109 H Carbon Dioxide 26 BUN 28 H Creatinine 1.60 H Glucose 94 Calcium 8.8 Liver Function 08/01/17 Range/Units 04:54 Total Bilirubin 0.6 (0.3-1.0) mg/dL AST 13 (13-39) Units/L ALT 4 L (7-52) Units/L Alkaline Phosphatase 54 (34-104) Units/L Albumin 3.5 (3.5-5.7) g/dL Consult Discharge Plan - Plan Referrals: Gabriela,Wm Grayson MD [Primary Care Provider] -
[2017-08-01] MEDS: Famotidine 20 MG TABLET PO SCH (21:06)
[2017-08-01] MEDS: Melatonin 3 MG TABLET PO SCH (21:06)
[2017-08-02] MEDS: *HR* Heparin 5,000 UNIT/ML VIAL SQ SCH ×2 (05:04→16:32)
[2017-08-02 05:20] LABS: Basophils % 0.5 %; Eosinophils # 0.4 K/mcL (0.0-0.6); Eosinophils % 6.4 %; Hematocrit 40.7 % (37.5-50.1); Hemoglobin 13.3 g/dL (12.9-16.9); Immature Granulocytes % 0.3 % (0-4); Lymphocytes # 1.6 K/mcL (0.6-4.6); Lymphocytes % 25.9 %; Mean Corpuscular HGB Conc 32.7 g/dL (31.6-35.5); Mean Corpuscular Hemoglobin 30.1 pg (28.0-33.3); Mean Corpuscular Volume 92.1 fL (83.0-100.0); Mean Platelet Volume 11.7 fL (9.4-12.4); Monocytes # 0.6 K/mcL (0.0-1.3); Monocytes % 9.9 %; Neutrophils # 3.5 K/mcL (1.6-8.9); Platelet Count 120 K/mcL (140-400); Red Blood Count 4.42 M/mcL (4.19-5.50); Red Cell Distribution Width 13.2 % (11.5-14.5)
[2017-08-02 05:40] LABS: Potassium 4.3 mEq/L (3.5-5.1)
[2017-08-02] MEDS: Insulin LISPRO 300 UNITS/3 ML VIAL SQ SCH ×3 (07:47→16:31)
[2017-08-02] MEDS: Isosorbide MONOnitrate (24 HR) 60 MG TAB.ER.24H PO SCH (07:48)
[2017-08-02] MEDS: Insulin NPH 100 UNIT/ML (x5UNIT) SQ SCH (07:49)
[2017-08-02] MEDS: Aspirin Enteric Coated 81 MG Tablet PO SCH (07:49)
[2017-08-02] MEDS: Carbidopa/Levodopa 25/100 TABLET PO SCH ×2 (07:49→13:37)
[2017-08-02] MEDS: Multivit/Ca/Min/Fe/FA 1 TAB TABLET PO SCH (07:49)
[2017-08-02] MEDS: Cholecalciferol (D-3) 1,000 UNIT TABLET PO SCH (07:49)
[2017-08-02 15:59] VITALS: BP 139/76
--- NOTE | 2017-08-02 16:41 | Discharge Summary ---
- NOTES TO OUTPATIENT PROVIDER Notes to Outpatient Provider: Patient to follow up with neurology as outpatient He will require home health PT/OT Date of Encounter: 08/02/17 Time of Encounter: 16:39 - Discharge Diagnosis (1) Right sided weakness Priority: Primary Status: Acute Assessment and Plan: 71-year-old male with past medical history of CAD status post CABG and stent, Parkinson's disease, cervical lumbar spondylosis, and recurrent right hemiparesis present to the ED with another episode of right-sided weakness and numbness. - Per patient, he had a similar episode in the past and fully recovered by itself. - Cervical CT revealed moderate cervical lumbar stenosis and the spondylosis. Surgical treatment was discussed with the patient in the past, he refused. - On neuro exam, his right side is flaccid with loss of sensation.CT of head negative for any acute changes May benefit from EMG as outpat Neurology has been consulted, appreciate recommendations PT/OT eval He may benefit from rehab cont ASA statin (2) Diabetes Priority: Secondary Status: Chronic Assessment and Plan: - Accucheck AC/HS SSI Continue home insulin treatment plus insulin sliding scale. 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 Qualifiers: Hypertension type: essential hypertension Qualified Code(s): I10 - Essential (primary) hypertension (4) CKD (chronic kidney disease) Priority: Secondary Status: Chronic Assessment and Plan: Creatinine at baseline. will cont to monitor avoid nephrotoxins Qualifiers: Chronic kidney disease stage: stage 3 (moderate) Qualified Code(s): N18.3 - Chronic kidney disease, stage 3 (moderate) (5) CAD (coronary artery disease), autologous vein bypass graft Priority: Secondary Status: Chronic Assessment and Plan: - cont ASA BG statin NO CP at this time nitro as needed for CP Qualifiers: Associated angina: angina presence unspecified Qualified Code(s): I25.810 - Atherosclerosis of coronary artery bypass graft(s) without angina pectoris (6) Lumbar spondylosis Priority: Secondary Status: Chronic Assessment and Plan: -Cervical CT revealed moderate cervical lumbar stenosis and the spondylosis. Surgical treatment was discussed with the patient in the past, he refused. (7) Parkinson disease Priority: Secondary Status: Chronic Assessment and Plan: - Continue home medications Hospital course: Mr. Joe is a 71 year old male past medical hx of asthma cardiomyopathy CHF CAD DVT DM GERD HLD HTN IA renal disease parkinsons disease presented to the ED with R sided weakness which started after he woke up. He has had episodes like this in the past with risght sided weakness calf pain , pain from neck to groin, proceeds to complete paralysis of r side which last 3-4 days and rsolves on own. He follow with [facility] and [facility] for these sx in past Episodes occur every [address] of head in ED was negative canot have MRI dt pacemaker Previous CT of cervical spine showed moderate cervicl spondylolysis moderate facet arthropathy slight spinal stenosis at c6 c7 and moderate bilat foraminal stenosi at c5/c6. CT of lumbar spine showed moderate spondylosis and severe facet arthropathy. He also has parkinsons disease He was seen by neurology- who recommended PT/OT eval possible ECF placement for rehab until strength back. Cont statin ASA. He was seen by PT/OT recommended rehab but patient refused. Today patient appears back o baseline and is moving all 4 extremities and is ambulatory. manager global communications spoke to patient again about rehab which he declined and wishes to go home with home health PT/OT. Patient is aware that he will need to call his physician and notify need of home health. He verbalized understanding. He is to follow up with PCP and neurology which he verbalized understanding Labwork is stable he is hemodynamically stable and ready for discharge Discharge discussed with: patient - Time Spent with Patient Total time spent providing and/or coordinating discharge services: - Discharge Medications Home Medications: Aspirin Enteric Coated [Aspirin EC] 81 mg PO DAILY 09/30/15 [History] Carvedilol [Coreg] 12.5 mg PO DAILY 01/05/15 [History] Clopidogrel [Plavix] 75 mg PO DAILY 01/05/15 [History] Famotidine [Pepcid] 40 mg PO HS 01/05/15 [History] Lisinopril [Zestril] 2.5 mg PO DAILY 01/05/15 [History] Multivitamin [Multi-Day Vitamins] 1 tab PO DAILY 01/20/15 [History] Nitroglycerin 0.4 mg SL Q5MIN PRN 01/20/15 [History] Albuterol Sulfate [Albuterol Inhaler] 2 puff IH Q4HR PRN #1 hfa.aer.[id number] 01/21/15 [Rx] Insulin NPH, HUMAN [HumuLIN N] 15 unit SQ QAM #0 01/04/16 [History] Insulin NPH, HUMAN [HumuLIN N] 20 unit SQ HS #0 01/04/16 [History] Pantoprazole Sodium [Protonix] 40 mg PO DAILY 01/04/16 [History] Ipratropium/Albuterol Neb [Duoneb] 3 ml IH QIDR PRN 30 Days inhsol 01/07/16 [Rx ] Simvastatin [Zocor] 40 mg PO HS 01/10/16 [History] Carbidopa/Levodopa 25/100 [Sinemet 25/100] 1 tab PO TID 07/20/16 [History] Cholecalciferol (D-3) [Vitamin D] 1,000 unit PO DAILY 07/20/16 [History] Isosorbide MONOnitrate [Isosorbide Mononitrate ER] 120 mg PO DAILY 07/20/16 [ History] Oxybutynin [Ditropan] 5 mg PO BID 07/17/17 [History] Tizanidine HCl 2 mg PO BID PRN 07/31/17 [History] Allergies/Adverse Reactions: 3 Allergy/AdvReac Type Severity Reaction Status Date / Time furosemide [From Lasix] AdvReac Hypotension Verified 07/31/17 16:46 Date of admission: 07/31/17 17:56 Primary care physician: Wm Ochoa MD Consults: 07/31/17 19:30 Consult to Senior Client Advisor [CONS] Routine Reason for SW Consult: Pt reports having oxygen at home for treatments but it is broken and needs fixed. He states he called someone to come fix it but they have never been out. He also has a machine for his pacemeaker that records data, but it has "several cords" that he does not know what to do with. Also pt wants to talk with someone about how to get advance directives. 07/31/17 21:34 Consult to Neurology [CONS] Routine Consulting Provider: Neurology [facility] Reason for Consult: right hemiparesis Call Completed: Yes 08/01/17 11:58 Consult to Physical Therapy [CONS] Routine Comment: Evaluate, develop and implement POC Reason for Consult: deconditioning Does patient have active BEDREST order?: No Is patient medically & hemodynamically stable?: Yes Patient assessed for mobility or mobilized this visit?: Yes 08/01/17 11:59 Consult to Occupational Therapy [CONS] Routine Comment: Evaluate, develop and implement POC Reason for Consult: deconditioning Does patient have active BEDREST order?: No Is patient medically & hemodynamically stable?: Yes Patient assessed for mobility or mobilized this visit?: Yes Discharging clinician: Bela Oleary Anticipated date of discharge: 08/02/17 - Constitutional Vitals: Temp Pulse Resp BP Pulse Ox 97.7 F 61 16 139/76 96 08/02/17 15:55 08/02/17 15:55 08/02/17 15:55 08/02/17 15:55 08/02/17 15:55 General appearance: Present: A&O X 3 - Head Head exam: Present: atraumatic, normocephalic - Eye Eye exam: Present: PERRL, conjuntiva pink, sclera anicteric Pupils: Present: PERRL - Neck Neck exam general surgery: Present: supple, trachea midline. Absent: lymphadenopathy - Respiratory Respiratory exam: Present: CTAB. Absent: accessory muscle use, rales, rhonchi, wheezes - Cardiovascular Cardiovascular exam: Present: RRR, +S1, +S2. Absent: diastolic murmur, gallop, rubs, systolic murmur - GI/Abdominal GI/Abdominal exam: Present: normal bowel sounds, soft, no peritoneal signs. Absent: distended, tenderness - Extremities Exam Extremities exam: Present: warm, radial pulses palpable and symmetrical. Absent : calf tenderness, cyanotic, pedal edema - Neurological Exam Neurological exam: Present: CN II-XII intact, oriented X3, no focal deficits. Absent: pronater drift, facial droop, speech deficit - Skin Skin exam: Present: dry, intact - Patient Status Disposition: Home Health Service Condition: Good Functional capacity at discharge: independent ambulation Overall status at discharge: patient is back to baseline - Discharge Instructions Instructions: Weakness (GEN) Follow Up With: Wm Ochoa MD [Primary Care Provider] - - Diet and Activity Activity: increase activity as tolerated Diet: advance to your usual diet
--- NOTE | 2017-08-03 17:10 | Electrocardiograph Report ---
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
== END 2017-08-02 17:12 | disposition home health service (06) ==
LOC: 3BNU 13:37 → EMEROO 13:37 → 3BNU 18:34
PROVIDERS: ADMIT Registered Nurse; ATTEND Registered Nurse

== ENCOUNTER 2017-09-08 09:39 | Observation (INO) ==
[2017-09-08] MEDS ORDERED: 0.9 % Sodium Chloride 1,000 ML IVC ONE (09:47)
--- NOTE | 2017-09-08 09:53 | Emergency Department Note ---
Disposition Clinical Impression: Neurological symptoms, Right sided weakness Syncope Qualifiers: Encounter type: initial encounter Disposition: Admitted As Inpatient Condition: Good Referrals: Wm Ochoa MD [Non-Partnered Physician] - Forms: ED Satisfaction Letter General Adult HPI - General Chief complaint: ED Syncope Stated complaint: Passed Out Time Seen by Provider: 09/08/17 09:44 Source: patient, EMS Mode of arrival: EMS Limitations: no limitations Nursing Notes Reviewed: Yes Vital Signs Reviewed: Yes - History of Present Illness HPI Narrative: 71-year-old male with a history of Parkinson's disease, diabetes, TIA, CVA, CKD , CAD s/p CABG. he currently takes carbidopa levodopa, insulin, aspirin, Plavix , lisinopril, Coreg, Pro Air. He currently lives independently at an apartment. 2 weeks ago he was transferred to [facility] due to right-sided weakness. Friends were in the room said that he was not diagnosed with a stroke at [facility]. They report some people say he had a stroke and other people say he did not. He was doing fine this morning until he was waiting in the foyer of the apartment complex to go to [facility] and he syncopized while in a chair. Initially he was responsive to pain only with a low blood pressure per EMS. His blood pressure that time was in the 80s systolic. He improved on the way to the emergency department. He reports that he initially had a headache before he syncopized. He did not fall or hit his head after he syncopized. He has been seen by neurology due to multiple episodes of similar symptoms. They do not feel that his symptoms are due to TIA or stroke and can be potentially explained by a hemiplegic migraines. However currently he is not having any hemiplegic symptoms. He did have a headache before the syncope began this time however. His main complaint to me is feeling "weak all over". However he also says yesterday he felt find, but today now he feels weak in his right side. He had this same symptoms in his right side previously. Symptoms began at 8:55am Radiation: non-radiation Pain Scale: 0 Consistency: Improving Improves with: nothing Worsens with: nothing Associated symptoms: Reports: denies other symptoms Treatments Prior to Arrival: none - Related Data Home Medications Medication Instructions Recorded Confirmed Aspirin Enteric Coated [Aspirin EC] 81 mg PO DAILY 01/05/15 07/31/17 Carvedilol [Coreg] 12.5 mg PO DAILY 01/05/15 07/31/17 Clopidogrel [Plavix] 75 mg PO DAILY 01/05/15 07/31/17 Famotidine [Pepcid] 40 mg PO HS 01/05/15 07/31/17 Lisinopril [Zestril] 2.5 mg PO DAILY 01/05/15 07/31/17 Multivitamin [Multi-Day Vitamins] 1 tab PO DAILY 01/20/15 07/31/17 Nitroglycerin 0.4 mg SL Q5MIN PRN 01/20/15 07/31/17 Insulin NPH, HUMAN [HumuLIN N] 15 unit SQ QAM #0 01/04/16 07/31/17 Insulin NPH, HUMAN [HumuLIN N] 20 unit SQ HS #0 01/04/16 07/31/17 Pantoprazole Sodium [Protonix] 40 mg PO DAILY 01/04/16 07/31/17 Simvastatin [Zocor] 40 mg PO HS 01/10/16 07/31/17 Carbidopa/Levodopa [Sinemet 1 tab PO TID 07/20/16 07/31/17 25] Cholecalciferol (D-3) [Vitamin D] 1,000 unit PO DAILY 07/20/16 07/31/17 Isosorbide MONOnitrate [Isosorbide 120 mg PO DAILY 07/20/16 07/31/17 Mononitrate ER] Oxybutynin [Ditropan] 5 mg PO BID 07/17/17 07/31/17 Tizanidine HCl 2 mg PO BID PRN 07/31/17 07/31/17 Previous Rx's Medication Instructions Recorded Albuterol Sulfate [Albuterol 2 puff IH Q4HR PRN #1 hfa.aer.ad 01/21/15 Inhaler] Ipratropium/Albuterol Neb [Duoneb] 3 ml IH QIDR PRN 30 Days inhsol 01/07/16 Allergies Allergy/AdvReac Type Severity Reaction Status Date / Time furosemide [From Lasix] AdvReac Hypotension Verified 07/31/17 16:46 All systems ED: reviewed and negative except as stated. Constitutional: Denies: fever ENT ED: Denies: throat pain Cardiovascular: Denies: chest pain Respiratory: Denies: cough Gastrointestinal: Denies: abdominal pain, nausea, vomiting Genitourinary: Denies: dysuria Integumentary: Denies: rash Endocrine: Reports: fatigue Past Medical History - Past Medical History Medical history: Reports: asthma, cardiomyopathy, CHF, coronary artery disease, diabetes, GERD, hyperlipidemia, hypertension, myocardial infarction, renal disease, other Surgical history: Reports: angioplasty/stent, coronary bypass (CABG), pacemaker/ AICD, other Psychiatric history: Reports: no psych history - Social History Smoking Status: Never smoker Smokeless Tobacco Status: No Alcohol use: Reports: none Drug use: Reports: none Physical Exam - General Limitations: no limitations General appearance: lethargic, in distress - Head Head exam: atraumatic - Eye Eye exam: Present: normal appearance, PERRL - ENT ENT exam: normal exam, normal oropharynx - Neck Neck exam: Present: normal inspection - Chest Chest inspection: Present: normal inspection - Respiratory Respiratory exam: Present: normal lung sounds bilaterally. Absent: respiratory distress - Cardiovascular Cardiovascular exam: Present: regular rate, normal rhythm - Abdominal Exam Abdominal exam: Present: soft, Non-Tender - Extremities Exam Extremities exam: Present: normal inspection - Back Exam Back exam: Present: normal inspection - Neurological Exam Neurological exam: Present: oriented X3, other (GCS 14 due to eyes being closed. right arm weakness, right leg weakness, paresthesias of right side.) - Skin Skin exam: Present: warm, dry Course Course Narrative: GCS 14 on presentation with stable BP. EKG does not show STEMI. LKW was 8:55. Right sided weakness on exam. Will do stroke alert. Spoke with [facility] neurology who did not recommend TPA as this is the fourth time that he has had identical symptoms and has had negative workup for stroke. He is alert and oriented 3 currently GCS now is 15. CT head is negative. lab work appears to be at baseline. We will admit to the hospital for further workup as he is still having right sided weakness. Vital Signs Temperature 96.2 F L 09/08/17 09:41 Pulse Rate 64 09/08/17 09:41 Respiratory Rate 18 09/08/17 09:41 Blood Pressure 107/69 09/08/17 09:41 O2 Sat by Pulse Oximetry 100 09/08/17 09:41 Temperature 96.2 F L 09/08/17 09:41 Pulse Rate 66 09/08/17 10:22 Respiratory Rate 20 09/08/17 10:22 Blood Pressure 109/66 09/08/17 10:22 O2 Sat by Pulse Oximetry 99 09/08/17 10:22 Oxygen Delivery Oxygen Delivery Nasal Cannula Medical Decision Making - Medical Records Medical records reviewed: Yes I reviewed the patient's medical records. - Lab Data Lab results reviewed: Yes I reviewed the patient's lab results. Result diagrams: 09/08/17 09:47 09/08/17 09:47 Lab Results 09/08/17 09/08/17 09/08/17 Range/Units 09:44 09:47 09:47 WBC 5.2 (4.3-11.1) K/mcL RBC 3.62 L (4.19-5.50) M/mcL Hgb 11.5 L D (12.9-16.9) g/dL Hct 34.5 L (37.5-50.1) % MCV 95.3 (83.0-100.0) fL MCH 31.8 (28.0-33.3) pg MCHC 33.3 (31.6-35.5) g/dL RDW 13.7 (11.5-14.5) % Plt Count 124 L (140-400) K/mcL MPV 11.4 (9.4-12.4) fL Immature Gran % 0.2 (0-4) % Seg Neutrophils % 59.2 % Lymphocytes % 23.5 % Monocytes % 11.5 % Eosinophils % 5.0 % Basophils % 0.6 % Neutrophils # 3.1 (1.6-8.9) K/mcL Lymphocytes # 1.2 (0.6-4.6) K/mcL Monocytes # 0.6 (0.0-1.3) K/mcL Eosinophils # 0.3 (0.0-0.6) K/mcL Basophils # 0.0 (0.0-0.2) K/mcL PT 11.6 (9.4-12.1) Seconds INR 1.1 APTT 29.4 (26.0-36.0) Seconds VBG pH (7.32-7.42) pH Units VBG pCO2 (41-51) mmHg VBG pO2 (25-50) mmHg VBG HCO3 (21-27) mEq/L Sodium (136-145) mEq/L Potassium (3.5-5.1) mEq/L Chloride (98-107) mEq/L Carbon Dioxide (23-29) mEq/L BUN (8-23) mg/dL Creatinine (0.70-1.30) mg/dL Est GFR ( Amer) (> 60) Est GFR (Non-Af Amer) (> 60) BUN/Creatinine Ratio (6-26) Glucose (70-105) mg/dL POC Glucose (70-99) mg/dL Calculated Osmolality (280-300) Lactic Acid 1.0 (0.5-2.2) mmol/L Calcium (8.6-10.3) mg/dL Total Bilirubin (0.3-1.0) mg/dL Direct Bilirubin (0.0-0.2) mg/dL Indirect Bilirubin (0.0-1.2) mg/dL AST (13-39) Units/L ALT (7-52) Units/L Alkaline Phosphatase (34-104) Units/L Troponin I (< 0.04) ng/mL Serum Total Protein (6.4-8.9) g/dL Albumin (3.5-5.7) g/dL Globulin (2.4-3.5) g/dL Albumin/Globulin Ratio (1.1-2.2) TSH (0.340-5.600) mcIU/mL Ethyl Alcohol (Less than 10) mg/dL Blood Type Antibody Screen 09/08/17 09/08/17 09/08/17 Range/Units 09:47 09:47 10:01 WBC (4.3-11.1) K/mcL RBC (4.19-5.50) M/mcL Hgb (12.9-16.9) g/dL Hct (37.5-50.1) % MCV (83.0-100.0) fL MCH (28.0-33.3) pg MCHC (31.6-35.5) g/dL RDW (11.5-14.5) % Plt Count (140-400) K/mcL MPV (9.4-12.4) fL Immature Gran % (0-4) % Seg Neutrophils % % Lymphocytes % % Monocytes % % Eosinophils % % Basophils % % Neutrophils # (1.6-8.9) K/mcL Lymphocytes # (0.6-4.6) K/mcL Monocytes # (0.0-1.3) K/mcL Eosinophils # (0.0-0.6) K/mcL Basophils # (0.0-0.2) K/mcL PT (9.4-12.1) Seconds INR APTT (26.0-36.0) Seconds VBG pH (7.32-7.42) pH Units VBG pCO2 (41-51) mmHg VBG pO2 (25-50) mmHg VBG HCO3 (21-27) mEq/L Sodium 137 (136-145) mEq/L Potassium 4.7 (3.5-5.1) mEq/L Chloride 108 H (98-107) mEq/L Carbon Dioxide 24 (23-29) mEq/L BUN 37 H (8-23) mg/dL Creatinine 1.94 H (0.70-1.30) mg/dL Est GFR ( Amer) 41 L (> 60) Est GFR (Non-Af Amer) 34 L (> 60) BUN/Creatinine Ratio 19 (6-26) Glucose 217 H (70-105) mg/dL POC Glucose 209 H (70-99) mg/dL Calculated Osmolality 299 (280-300) Lactic Acid (0.5-2.2) mmol/L Calcium 8.7 (8.6-10.3) mg/dL Total Bilirubin 0.5 (0.3-1.0) mg/dL Direct Bilirubin 0.1 (0.0-0.2) mg/dL Indirect Bilirubin 0.4 (0.0-1.2) mg/dL AST 14 (13-39) Units/L ALT 11 (7-52) Units/L Alkaline Phosphatase 52 (34-104) Units/L Troponin I < 0.03 (< 0.04) ng/mL Serum Total Protein 6.2 L (6.4-8.9) g/dL Albumin 3.6 (3.5-5.7) g/dL Globulin 2.6 (2.4-3.5) g/dL Albumin/Globulin Ratio 1.4 (1.1-2.2) TSH 3.271 (0.340-5.600) mcIU/mL Ethyl Alcohol < 10 (Less than 10) mg/dL Blood Type A POSITIVE Antibody Screen NEGATIVE 09/08/17 Range/Units 10:27 WBC (4.3-11.1) K/mcL RBC (4.19-5.50) M/mcL Hgb (12.9-16.9) g/dL Hct (37.5-50.1) % MCV (83.0-100.0) fL MCH (28.0-33.3) pg MCHC (31.6-35.5) g/dL RDW (11.5-14.5) % Plt Count (140-400) K/mcL MPV (9.4-12.4) fL Immature Gran % (0-4) % Seg Neutrophils % % Lymphocytes % % Monocytes % % Eosinophils % % Basophils % % Neutrophils # (1.6-8.9) K/mcL Lymphocytes # (0.6-4.6) K/mcL Monocytes # (0.0-1.3) K/mcL Eosinophils # (0.0-0.6) K/mcL Basophils # (0.0-0.2) K/mcL PT (9.4-12.1) Seconds INR APTT (26.0-36.0) Seconds VBG pH 7.26 L (7.32-7.42) pH Units VBG pCO2 55 H (41-51) mmHg VBG pO2 88 H (25-50) mmHg VBG HCO3 25 (21-27) mEq/L Sodium (136-145) mEq/L Potassium (3.5-5.1) mEq/L Chloride (98-107) mEq/L Carbon Dioxide (23-29) mEq/L BUN (8-23) mg/dL Creatinine (0.70-1.30) mg/dL Est GFR ( Amer) (> 60) Est GFR (Non-Af Amer) (> 60) BUN/Creatinine Ratio (6-26) Glucose (70-105) mg/dL POC Glucose (70-99) mg/dL Calculated Osmolality (280-300) Lactic Acid (0.5-2.2) mmol/L Calcium (8.6-10.3) mg/dL Total Bilirubin (0.3-1.0) mg/dL Direct Bilirubin (0.0-0.2) mg/dL Indirect Bilirubin (0.0-1.2) mg/dL AST (13-39) Units/L ALT (7-52) Units/L Alkaline Phosphatase (34-104) Units/L Troponin I (< 0.04) ng/mL Serum Total Protein (6.4-8.9) g/dL Albumin (3.5-5.7) g/dL Globulin (2.4-3.5) g/dL Albumin/Globulin Ratio (1.1-2.2) TSH (0.340-5.600) mcIU/mL Ethyl Alcohol (Less than 10) mg/dL Blood Type Antibody Screen - Radiology Data Radiology results reviewed: Yes I reviewed the patient's radiology results. - EKG Data EKG #1 EKG attestation: Yes I reviewed and interpreted this EKG. EKG shows normal: sinus rhythm Rate: normal Rhythm: NSR Interpretation: unchanged when compared to prior tracing (date)
[2017-09-08 09:58] LABS: Basophils % 0.6 %; Eosinophils # 0.3 K/mcL (0.0-0.6); Hematocrit 34.5 % (37.5-50.1); Hemoglobin 11.5 g/dL (12.9-16.9); Immature Granulocytes % 0.2 % (0-4); Lymphocytes # 1.2 K/mcL (0.6-4.6); Lymphocytes % 23.5 %; Mean Corpuscular HGB Conc 33.3 g/dL (31.6-35.5); Mean Corpuscular Hemoglobin 31.8 pg (28.0-33.3); Mean Corpuscular Volume 95.3 fL (83.0-100.0); Mean Platelet Volume 11.4 fL (9.4-12.4); Monocytes # 0.6 K/mcL (0.0-1.3); Monocytes % 11.5 %; Neutrophils # 3.1 K/mcL (1.6-8.9); Platelet Count 124 K/mcL (140-400); Red Blood Count 3.62 M/mcL (4.19-5.50); Red Cell Distribution Width 13.7 % (11.5-14.5); Segmented Neutrophils % 59.2 %
[2017-09-08 10:07] LABS: INR 1.1; Prothrombin Time 11.6 Seconds (9.4-12.1)
[2017-09-08 10:10] LABS: Activated Partial Thrombo Time 29.4 Seconds (26.0-36.0)
[2017-09-08 10:19] LABS: Troponin I < 0.03 ng/mL (< 0.04)
[2017-09-08 10:21] LABS: Alanine Aminotransferase 11 Units/L (7-52); Albumin 3.6 g/dL (3.5-5.7); Albumin/Globulin Ratio 1.4 (1.1-2.2); Alkaline Phosphatase 52 Units/L (34-104); Aspartate Amino Transferase 14 Units/L (13-39); BUN/Creatinine Ratio 19 (6-26); Bilirubin,Direct 0.1 mg/dL (0.0-0.2); Bilirubin,Indirect 0.4 mg/dL (0.0-1.2); Bilirubin,Total 0.5 mg/dL (0.3-1.0); Blood Urea Nitrogen 37 mg/dL (8-23); Calcium 8.7 mg/dL (8.6-10.3); Carbon Dioxide 24 mEq/L (23-29); Chloride 108 mEq/L (98-107); Ethanol < 10 mg/dL (Less than 10); Globulin 2.6 g/dL (2.4-3.5); Glucose 217 mg/dL (70-105); Osmolality,Calculated 299 (280-300); Potassium 4.7 mEq/L (3.5-5.1); Sodium 137 mEq/L (136-145); Total Protein 6.2 g/dL (6.4-8.9); eGFR For African Americans 41 (> 60); eGFR For Non-African Americans 34 (> 60)
--- NOTE | 2017-09-08 10:28 | Emergency Department Note ---
Disposition Clinical Impression: Neurological symptoms Disposition: Still a Patient Forms: ED Satisfaction Letter General Adult HPI - General Chief complaint: ED Syncope Stated complaint: Passed Out Time Seen by Provider: 09/08/17 09:44 Source: patient, EMS Mode of arrival: EMS Limitations: no limitations - History of Present Illness Pain Scale: 0 Improves with: nothing Worsens with: nothing Associated symptoms: Reports: denies other symptoms Treatments Prior to Arrival: none - Related Data Home Medications Medication Instructions Recorded Confirmed Aspirin Enteric Coated [Aspirin EC] 81 mg PO DAILY 01/05/15 07/31/17 Carvedilol [Coreg] 12.5 mg PO DAILY 01/05/15 07/31/17 Clopidogrel [Plavix] 75 mg PO DAILY 01/05/15 07/31/17 Famotidine [Pepcid] 40 mg PO HS 01/05/15 07/31/17 Lisinopril [Zestril] 2.5 mg PO DAILY 01/05/15 07/31/17 Multivitamin [Multi-Day Vitamins] 1 tab PO DAILY 01/20/15 07/31/17 Nitroglycerin 0.4 mg SL Q5MIN PRN 01/20/15 07/31/17 Insulin NPH, HUMAN [HumuLIN N] 15 unit SQ QAM #0 01/04/16 07/31/17 Insulin NPH, HUMAN [HumuLIN N] 20 unit SQ HS #0 01/04/16 07/31/17 Pantoprazole Sodium [Protonix] 40 mg PO DAILY 01/04/16 07/31/17 Simvastatin [Zocor] 40 mg PO HS 01/10/16 07/31/17 Carbidopa/Levodopa 25/100 [Sinemet 1 tab PO TID 07/20/16 07/31/17 25/] Cholecalciferol (D-3) [Vitamin D] 1,000 unit PO DAILY 07/20/16 07/31/17 Isosorbide MONOnitrate [Isosorbide 120 mg PO DAILY 07/20/16 07/31/17 Mononitrate ER] Oxybutynin [Ditropan] 5 mg PO BID 07/17/17 07/31/17 Tizanidine HCl 2 mg PO BID PRN 07/31/17 07/31/17 Previous Rx's Medication Instructions Recorded Albuterol Sulfate [Albuterol 2 puff IH Q4HR PRN #1 hfa.aer.ad 01/21/15 Inhaler] Ipratropium/Albuterol Neb [Duoneb] 3 ml IH QIDR PRN 30 Days inhsol 01/07/16 Allergies Allergy/AdvReac Type Severity Reaction Status Date / Time furosemide [From Lasix] AdvReac Hypotension Verified 07/31/17 16:46 Constitutional: Denies: fever ENT ED: Denies: throat pain Cardiovascular: Denies: chest pain Respiratory: Denies: cough Gastrointestinal: Denies: abdominal pain, nausea, vomiting Genitourinary: Denies: dysuria Integumentary: Denies: rash Endocrine: Reports: fatigue Past Medical History - Past Medical History Medical history: Reports: asthma, cardiomyopathy, CHF, coronary artery disease, diabetes, GERD, hyperlipidemia, hypertension, myocardial infarction, renal disease, other Surgical history: Reports: angioplasty/stent, coronary bypass (CABG), pacemaker/ AICD, other Psychiatric history: Reports: no psych history - Social History Smoking Status: Never smoker Smokeless Tobacco Status: No Alcohol use: Reports: none Drug use: Reports: none Physical Exam - General Limitations: no limitations General appearance: lethargic, in distress Course Vital Signs Temperature 96.2 F L 09/08/17 09:41 Pulse Rate 64 09/08/17 09:41 Respiratory Rate 18 09/08/17 09:41 Blood Pressure 107/69 09/08/17 09:41 O2 Sat by Pulse Oximetry 100 09/08/17 09:41 Temperature 96.2 F L 09/08/17 09:41 Pulse Rate 66 09/08/17 10:22 Respiratory Rate 20 09/08/17 10:22 Blood Pressure 109/66 09/08/17 10:22 O2 Sat by Pulse Oximetry 99 09/08/17 10:22 Oxygen Delivery Oxygen Delivery Nasal Cannula Medical Decision Making - Lab Data Result diagrams: 09/08/17 09:47 09/08/17 09:47 Lab Results 09/08/17 09/08/17 09/08/17 Range/Units 09:44 09:47 09:47 WBC 5.2 (4.3-11.1) K/mcL RBC 3.62 L (4.19-5.50) M/mcL Hgb 11.5 L D (12.9-16.9) g/dL Hct 34.5 L (37.5-50.1) % MCV 95.3 (83.0-100.0) fL MCH 31.8 (28.0-33.3) pg MCHC 33.3 (31.6-35.5) g/dL RDW 13.7 (11.5-14.5) % Plt Count 124 L (140-400) K/mcL MPV 11.4 (9.4-12.4) fL Immature Gran % 0.2 (0-4) % Seg Neutrophils % 59.2 % Lymphocytes % 23.5 % Monocytes % 11.5 % Eosinophils % 5.0 % Basophils % 0.6 % Neutrophils # 3.1 (1.6-8.9) K/mcL Lymphocytes # 1.2 (0.6-4.6) K/mcL Monocytes # 0.6 (0.0-1.3) K/mcL Eosinophils # 0.3 (0.0-0.6) K/mcL Basophils # 0.0 (0.0-0.2) K/mcL PT 11.6 (9.4-12.1) Seconds INR 1.1 APTT 29.4 (26.0-36.0) Seconds Sodium (136-145) mEq/L Potassium (3.5-5.1) mEq/L Chloride (98-107) mEq/L Carbon Dioxide (23-29) mEq/L BUN (8-23) mg/dL Creatinine (0.70-1.30) mg/dL Est GFR ( Amer) (> 60) Est GFR (Non-Af Amer) (> 60) BUN/Creatinine Ratio (6-26) Glucose (70-105) mg/dL POC Glucose (70-99) mg/dL Calculated Osmolality (280-300) Lactic Acid 1.0 (0.5-2.2) mmol/L Calcium (8.6-10.3) mg/dL Total Bilirubin (0.3-1.0) mg/dL Direct Bilirubin (0.0-0.2) mg/dL Indirect Bilirubin (0.0-1.2) mg/dL AST (13-39) Units/L ALT (7-52) Units/L Alkaline Phosphatase (34-104) Units/L Troponin I (< 0.04) ng/mL Serum Total Protein (6.4-8.9) g/dL Albumin (3.5-5.7) g/dL Globulin (2.4-3.5) g/dL Albumin/Globulin Ratio (1.1-2.2) Ethyl Alcohol (Less than 10) mg/dL 09/08/17 09/08/17 Range/Units 09:47 09:47 WBC (4.3-11.1) K/mcL RBC (4.19-5.50) M/mcL Hgb (12.9-16.9) g/dL Hct (37.5-50.1) % MCV (83.0-100.0) fL MCH (28.0-33.3) pg MCHC (31.6-35.5) g/dL RDW (11.5-14.5) % Plt Count (140-400) K/mcL MPV (9.4-12.4) fL Immature Gran % (0-4) % Seg Neutrophils % % Lymphocytes % % Monocytes % % Eosinophils % % Basophils % % Neutrophils # (1.6-8.9) K/mcL Lymphocytes # (0.6-4.6) K/mcL Monocytes # (0.0-1.3) K/mcL Eosinophils # (0.0-0.6) K/mcL Basophils # (0.0-0.2) K/mcL PT (9.4-12.1) Seconds INR APTT (26.0-36.0) Seconds Sodium 137 (136-145) mEq/L Potassium 4.7 (3.5-5.1) mEq/L Chloride 108 H (98-107) mEq/L Carbon Dioxide 24 (23-29) mEq/L BUN 37 H (8-23) mg/dL Creatinine 1.94 H (0.70-1.30) mg/dL Est GFR ( Amer) 41 L (> 60) Est GFR (Non-Af Amer) 34 L (> 60) BUN/Creatinine Ratio 19 (6-26) Glucose 217 H (70-105) mg/dL POC Glucose 209 H (70-99) mg/dL Calculated Osmolality 299 (280-300) Lactic Acid (0.5-2.2) mmol/L Calcium 8.7 (8.6-10.3) mg/dL Total Bilirubin 0.5 (0.3-1.0) mg/dL Direct Bilirubin 0.1 (0.0-0.2) mg/dL Indirect Bilirubin 0.4 (0.0-1.2) mg/dL AST 14 (13-39) Units/L ALT 11 (7-52) Units/L Alkaline Phosphatase 52 (34-104) Units/L Troponin I < 0.03 (< 0.04) ng/mL Serum Total Protein 6.2 L (6.4-8.9) g/dL Albumin 3.6 (3.5-5.7) g/dL Globulin 2.6 (2.4-3.5) g/dL Albumin/Globulin Ratio 1.4 (1.1-2.2) Ethyl Alcohol < 10 (Less than 10) mg/dL Attestation Statement - Attestation Attestation: I examined this patient and my medical decision-making was reviewed with the Resident Physician. I agree with the documented findings, disposition and treatment plan as described except to the extent set forth below. 71 year old male with history of neuro symtpoms and TIAs inthe past an has been followed up with [facility] in the past. Last knonw well today is 0855 and state he was having generalized weaknss and worsening of his neuro symptoms. Solomon churchills with neuro here and they are concenred about a conversion disorder vs hemiparaplegic migraines. He also had a syncope.
[2017-09-08 10:30] LABS: VBG HCO3 25 mEq/L (21-27); VBG PCO2 55 mmHg (41-51); VBG PH 7.26 pH Units (7.32-7.42); VBG PO2 88 mmHg (25-50)
[2017-09-08 10:32] LABS: Thyroid Stimulating Hormone 3.271 mcIU/mL (0.340-5.600)
[2017-09-08] MEDS ORDERED: Aspirin 325 MG TABLET PO ONE (11:12)
[2017-09-08] MEDS ORDERED: D5% in Water 1,000 ML IVC PRN (13:37)
[2017-09-08] MEDS ORDERED: Ondansetron 4 MG/2 ML VIAL IVP PRN (13:37)
[2017-09-08] MEDS ORDERED: Naloxone 0.4 MG/ML INJ IVP PRN (13:37)
[2017-09-08] MEDS ORDERED: Ketorolac 15 MG/ML VIAL IVP PRN (13:37)
[2017-09-08] MEDS ORDERED: Dextrose Gel 15 GM/37.5 ML TUBE PO PRN ×2 (13:37)
[2017-09-08] MEDS ORDERED: Acetaminophen 325 MG TABLET PO PRN (13:37)
[2017-09-08] MEDS ORDERED: *HR* Dextrose 50 % in Water (Syg) 50 ML SYRINGE IVP PRN (13:37)
--- NOTE | 2017-09-08 13:42 | Internal Med History&Physical ---
Date of Encounter: 09/08/17 Time of Encounter: 13:40 Internal Medicine - H&P: HPI Chief complaint: Syncopal episode Admitted From: Emergency Dept History of present illness: Mr. Joe is a 71 year old male with a past med history of Parkinson's, chronic kidney disease stage III, diabetes type 2 insulin-dependent, systolic CHF who came to emergency room complaining of having a syncopal episode around 8 :55 AM. He felt dizzy and then does not remember what happened afterwards, when he wake up he complained of persistent more pronounced right upper and lower extremity weakness that has been there for 5 years but he mentions is worse today. 2 weeks ago he was transferred to for similar complaints to [facility] where he evaluated the possibility of having any plegic migraines. He is not able to have an MRI as he has a pacemaker. Glucose was 209, he mentions that the EMS recorded a blood pressure in the 80s. Still complains of generalized weakness. Creatinine has increased to 1.94 from a baseline of 1.5. CT scan of the head and chest x-ray do not show any acute abnormalities. Denies any fevers. Past Med Surg Social Fam HX - Past Medical History Medical history: asthma, cardiomyopathy, CHF (Systolic), coronary artery disease (Status post CABG and stents), diabetes (Insulin-dependent), GERD, hyperlipidemia, hypertension, myocardial infarction, renal disease (Chronic kidney disease stage III), other (TIAs, Parkinson's, asthma, DVT) Additional medical history: parkinsons, Spinal Stenosis, Cerival Spondyliosis Psychiatric history: no psych history - Past Surgical History Surgical History: angioplasty/stent, coronary bypass (CABG), pacemaker/AICD, other Additional surgical history: right rotator cuff surgery - Social History Smoking Status: Never smoker Smokeless Tobacco Status: No Alcohol use: none Drug use: none - Family History Father Living Status: Hx Family Cardiac Disorders: Yes (Bad heart) Hx Family Neurologic Disorders: Yes (Alzheimer's) Mother Living Status: Hx Family Cardiac Disorders: Yes ([place]) - Additional Family History Additional family history: Father with heart disease Internal Medicine - H&P: Meds Aspirin Enteric Coated [Aspirin EC] 81 mg PO DAILY 01/05/15 [History] Famotidine [Pepcid] 40 mg PO HS 01/05/15 [History] Insulin NPH, HUMAN [HumuLIN N] 15 unit SQ QAM #0 01/04/16 [History] Insulin NPH, HUMAN [HumuLIN N] 20 unit SQ HS #0 01/04/16 [History] Pantoprazole Sodium [Protonix] 40 mg PO DAILY 01/04/16 [History] Ipratropium/Albuterol Neb [Duoneb] 3 ml IH QIDR PRN 30 Days inhsol 01/07/16 [Rx ] Simvastatin [Zocor] 40 mg PO HS 01/10/16 [History] Carbidopa/Levodopa 25/100 [Sinemet 25/100] 1 tab PO TID 07/20/16 [History] Cholecalciferol (D-3) [Vitamin D] 1,000 unit PO DAILY 07/20/16 [History] Isosorbide MONOnitrate [Isosorbide Mononitrate ER] 120 mg PO DAILY 07/20/16 [ History] Oxybutynin [Ditropan] 5 mg PO BID 07/17/17 [History] Tizanidine HCl 2 mg PO BID PRN 07/31/17 [History] 3 Allergy/AdvReac Type Severity Reaction Status Date / Time furosemide [From Lasix] AdvReac Hypotension Verified 07/31/17 16:46 All Systems PM: A 10-system review of systems was performed and is negative for pertinent findings except as documented above in the HPI. Review of systems: Generalized weakness No chest pain or shortness of breath, other systems out of the 10 reviewed were negative - Constitutional Vitals: Temp Pulse Resp BP Pulse Ox 96.2 F L 66 18 114/71 99 09/08/17 09:41 09/08/17 10:22 09/08/17 13:29 09/08/17 13:29 09/08/17 10:22 General appearance: Present: A&O X 3 - Head Head exam: Present: atraumatic, normocephalic - Eye Eye exam: Present: PERRL, conjuntiva pink, sclera anicteric Pupils: Present: PERRL - Neck Neck exam general surgery: Present: supple, trachea midline. Absent: lymphadenopathy - Respiratory Respiratory exam: Present: decreased breath sounds, CTAB. Absent: accessory muscle use, rales, rhonchi, wheezes - Cardiovascular Cardiovascular exam: Present: RRR, +S1, +S2. Absent: diastolic murmur, gallop, rubs, systolic murmur - GI/Abdominal GI/Abdominal exam: Present: normal bowel sounds, soft, no peritoneal signs. Absent: distended, tenderness - Extremities Exam Extremities exam: Present: warm, radial pulses palpable and symmetrical. Absent : calf tenderness, cyanotic, pedal edema - Neurological Exam Neurological exam: Present: CN II-XII intact, oriented X3. Absent: no focal deficits, pronater drift, facial droop, speech deficit Additional comments: Parkinson tremors, right upper and lower extremity weakness 4/ 5 - Skin Skin exam: Present: dry, intact Internal Med - H&P Results - Labs CBC & Chem 7: 09/08/17 09:47 09/08/17 09:47 - Assessment and plan (1) Syncope Current Visit: Yes Status: Acute Assessment and plan: Syncopal episode, unknown etiology, right upper and lower extremity weakness are more pronounced Possible dehydration Check orthostatics, continue IV fluids Fall precautions, echocardiogram and carotid ultrasound Neurology consult Continue aspirin and Plavix Telemetry Omeprazole for GI prophylaxis and subcutaneous heparin for DVT prophylaxis. The patient will be admitted for observation. Full code. Time spent on this admission 40 minutes Qualifiers: Syncope type: unspecified Qualified Code(s): R55 - Syncope and collapse (2) Right sided weakness Current Visit: Yes Status: Acute (3) Generalized weakness Current Visit: No Status: Acute (4) Hypotension Current Visit: No Status: Acute Assessment and plan: Hold Lasix, hold tizanidine Check orthostatics Qualifiers: Hypotension type: unspecified hypotension type Qualified Code(s): I95.9 - Hypotension, unspecified (5) CAD (coronary artery disease), autologous vein bypass graft Current Visit: No Status: Chronic Qualifiers: Associated angina: angina presence unspecified Qualified Code(s): I25.810 - Atherosclerosis of coronary artery bypass graft(s) without angina pectoris (6) GERD (gastroesophageal reflux disease) Current Visit: No Status: Chronic Assessment and plan: Omeprazole Qualifiers: Qualified Code(s): K21.9 - Gastro-esophageal reflux disease without esophagitis (7) Parkinson disease Current Visit: No Status: Chronic Assessment and plan: Continue Sinemet - Time Spent With Patient Total time spent is greater than 50% in coordination of care (as documented) at patient's floor/unit and/or counseling patient:
[2017-09-08] MEDS: Carbidopa/Levodopa 25/100 TABLET PO SCH ×2 (15:07→20:10)
[2017-09-08] MEDS: 0.9 % Sodium Chloride 1,000 ML IVC SCH (15:07)
[2017-09-08] MEDS: *HR* Heparin 5,000 UNIT/ML VIAL SQ SCH ×2 (15:07→20:11)
[2017-09-08] MEDS: Insulin LISPRO 300 UNITS/3 ML VIAL SQ SCH ×2 (17:10→20:04)
--- NOTE | 2017-09-08 17:35 | Neurology - Consult Note ---
Date of Encounter: 09/08/17 Time of Encounter: 17:32 Assessment and Plan (1) Right sided weakness Current Visit: Yes Status: Acute Unfortunately I am unable to determine any way that this gentleman's presentation can be reconciled from a neurophysiologic perspective. He is have recurrent episodes of this nature without a cortical lesion in the left hemisphere to reconcile them. The only way to reproduce right hemiparesthesias along with right-sided sensory deficits would be a lesion in the opposite cerebral hemisphere. None of the CAT scans over time have shown any new abnormalities in the left cerebral hemisphere to support this phenomenon. He denies headaches therefore this is not young-plegic migraine. I problem involving the cervical spinal cord would not present in this manner. If he were going to have right hemiplegia from a cervical problem. Brown-Sequard syndrome would be the only physiologic manner in which his could be reproduced. However one would expect ipsilateral loss of strength and contralateral loss of pain and temperature. This gentleman has no contralateral sensory deficits at all. Unfortunately we cannot obtain an MRI of the brain or cervical spine. I would therefore recommend that we obtain a CTA of the brain and neck. I will also recommend a CT myelogram to rule out an offending lesion in the cervical spine. Otherwise conversion reaction is high on my differential. Again he has experienced this phenomena on multiple occasions and it always resolves completely without sequela. And a physiologic etiology has never been identified after having been assessed by several neurologists and other healthcare providers. History of Present Illness HPI: The chart was reviewed, the patient was seen and examined. This is the most recent of a series of admissions for this gentleman was presented with the same complaint each time. Mr. Joe is a 71 year old male who stated that this morning he was preparing to go to jainism and he felt right-sided neck pain. The neck pain then radiated into the right upper extremity. Then shortly thereafter he experienced pain in the right calf which radiates up to the groin area. Apparently then he felt dizzy and fell to the ground. He states this was witnessed by his girlfriend. He denied any associated headache. He is not certain how long he was unconscious for. Now he complains of right upper extremity pain in the shoulder and in the forearm as well as pain in the right calf and groin. I saw him for the same problem back in July of this year and apparently he was here 2 weeks or so ago for the same problem and transferred to [facility] where workup was apparently negative. He denies any paresthesias of the left upper extremity or left lower extremity. CT scan of the head was obtained and reveals no changes from any of the previous scans. He denies headache, denies speech difficulty, denies numbness or paresthesias of the face. Denies any visual changes. Past Med Surg Social Fam HX - Past Medical History Medical history: asthma, cardiomyopathy, CHF, coronary artery disease, diabetes , GERD, hyperlipidemia, hypertension, myocardial infarction, renal disease, other Additional medical history: parkinsons, Spinal Stenosis, Cerival Spondyliosis Psychiatric history: no psych history - Past Surgical History Surgical History: angioplasty/stent, coronary bypass (CABG), pacemaker/AICD, other Additional surgical history: right rotator cuff surgery - Social History Smoking Status: Never smoker Smokeless Tobacco Status: No Alcohol use: none Drug use: none - Family History Father Living Status: Hx Family Cardiac Disorders: Yes (Bad heart) Hx Family Neurologic Disorders: Yes (Alzheimer's) Mother Living Status: Hx Family Cardiac Disorders: Yes ([place]) Medications and Allergies Aspirin Enteric Coated [Aspirin EC] 81 mg PO DAILY 01/05/15 [History] Famotidine [Pepcid] 40 mg PO HS 01/05/15 [History] Insulin NPH, HUMAN [HumuLIN N] 15 unit SQ QPM #0 01/04/16 [History] Insulin NPH, HUMAN [HumuLIN N] 20 unit SQ QAM #0 01/04/16 [History] Pantoprazole Sodium [Protonix] 40 mg PO DAILY 01/04/16 [History] Simvastatin [Zocor] 40 mg PO HS 01/10/16 [History] Carbidopa/Levodopa 25/100 [Sinemet 25/100] 1 tab PO TID 07/20/16 [History] Isosorbide MONOnitrate [Isosorbide Mononitrate ER] 120 mg PO DAILY 07/20/16 [ History] Oxybutynin [Ditropan] 5 mg PO BID 07/17/17 [History] Carvedilol [Carvedilol] 3.125 mg PO BID 09/08/17 [History] Clopidogrel [Plavix] 75 mg PO DAILY 09/08/17 [History] Lisinopril [Lisinopril] 2.5 mg PO DAILY 09/08/17 [History] Nitroglycerin [Nitrostat] 0.4 mg SL Q5M PRN 09/08/17 [History] Tamsulosin [Flomax] 0.4 mg PO DAILY 09/08/17 [History] 3 Allergy/AdvReac Type Severity Reaction Status Date / Time furosemide [From Lasix] AdvReac Hypotension Verified 07/31/17 16:46 All Systems: The remainder of the systems were reviewed and are negative Review of Systems: The balance of the systems review is negative. Physical Examination - Vital Signs Vital Signs: Initial Vital Signs Temp Pulse Resp BP Pulse Ox 96.2 F L 64 18 107/69 100 09/08/17 09:41 09/08/17 09:41 09/08/17 09:41 09/08/17 09:41 09/08/17 09:41 - Constitutional General appearance: comfortable - Neurologic Sensorimotor examination: other (Right hemihypesthesia denies any hypoesthesia of the left upper or left lower extremities.) Detailed motor examination: other (Patient has normal strength bulk and tone of the left upper and left lower extremities. He also has normal tone of the right upper and right lower extremity. However has nonphysiologic giveaway weakness of the right arm as well as the right leg. There is no induration, or swelling of the right calf. He does have tenderness of the right shoulder to my passive motion.) Detailed sensory examination: other (Right hemihypesthesia.) Reflexes: Biceps: 1+ (Symmetrically), Triceps: 1+ ("), Brachioradialis: 1+ ("), Patella: 1+ ("), Achilles: 1+ (") Mental Status Examination: awake, alert, oriented to person, oriented to place, oriented to time, follows commands appropriately, answers questions appropriately, no agnosia, no aphasia, no aproxia Cranial nerve examination: PERRL, EOMI, visual lui intact, corneal reflexes brisk symmetrically, sensory to face intact, mastication intact, no facial asymmetry is present, no dysarthria, hearing is intact symmetrically, soft palate elevates bilaterally upon phonation, gag reflex intact, flexes SCM and trapezius muscles symmetrically with full power, tongue protrudes midline, no atrophy or facial fasiculations present Results - Laboratory Findings CBC and BMP: 09/08/17 09:47 09/08/17 09:47 Abnormal lab findings: Abnormal lab results RBC 3.62 M/mcL (4.19-5.50) L 09/08/17 09:47 Hgb 11.5 g/dL (12.9-16.9) L D 09/08/17 09:47 Hct 34.5 % (37.5-50.1) L 09/08/17 09:47 Plt Count 124 K/mcL (140-400) L 09/08/17 09:47 VBG pH 7.26 pH Units (7.32-7.42) L 09/08/17 10:27 VBG pCO2 55 mmHg (41-51) H 09/08/17 10:27 VBG pO2 88 mmHg (25-50) H 09/08/17 10:27 Chloride 108 mEq/L (98-107) H 09/08/17 09:47 BUN 37 mg/dL (8-23) H 09/08/17 09:47 Creatinine 1.94 mg/dL (0.70-1.30) H 09/08/17 09:47 Est GFR ( Amer) 41 (> 60) L 09/08/17 09:47 Est GFR (Non-Af Amer) 34 (> 60) L 09/08/17 09:47 Glucose 217 mg/dL (70-105) H 09/08/17 09:47 POC Glucose 209 mg/dL (70-99) H 09/08/17 09:47 Serum Total Protein 6.2 g/dL (6.4-8.9) L 09/08/17 09:47 Consult Discharge Plan - Plan Referrals: Gabriela,Wm Grayson MD [Primary Care Provider] -
[2017-09-08] MEDS ORDERED: Isovue-370 500 ML INFUS..BTL IV ONE (17:47)
[2017-09-08 19:50] LABS: Bilirubin,Urine Negative (Negative); Blood,Urine Negative (Negative); Clarity,Urine Clear (Clear); Color,Urine Yellow (Yellow); Glucose,Urine (UA) Normal (Normal); Ketones,Urine Negative (Negative); Leukocyte Esterase,Urine Negative (Negative); Nitrite,Urine Negative (Negative); Protein,Urine Negative (Neg-Trace); Specific Gravity,Urine 1.016 (1.010-1.025); Urobilinogen,Urine Normal (Normal)
[2017-09-08 20:00] LABS: Amphetamine Screen,Urine Negative ng/mL (Cutoff=1000); Barbiturate Screen,Urine Negative ng/mL (Cutoff=200); Benzodiazepines Screen,Urine Negative ng/mL (Cutoff=200); Cannabinoid Screen,Urine Negative ng/mL (Cutoff = 50); Cocaine Screen,Urine Negative ng/mL (Cutoff= 300); Opiate Screen,Urine Negative ng/mL (Cutoff=300); Phencyclidine Screen,Urine Negative ng/mL (Cutoff=25)
[2017-09-09] MEDS: 0.9 % Sodium Chloride 1,000 ML IVC SCH ×2 (04:41→20:51)
[2017-09-09] MEDS: *HR* Heparin 5,000 UNIT/ML VIAL SQ SCH ×3 (05:10→20:50)
[2017-09-09 08:05] LABS: Hemoglobin 12.9 g/dL (12.9-16.9); Mean Corpuscular HGB Conc 33.1 g/dL (31.6-35.5); Mean Corpuscular Hemoglobin 30.7 pg (28.0-33.3); Mean Corpuscular Volume 92.9 fL (83.0-100.0); Mean Platelet Volume 11.9 fL (9.4-12.4); Platelet Count 115 K/mcL (140-400); Red Cell Distribution Width 13.6 % (11.5-14.5)
[2017-09-09 08:28] LABS: Calcium 8.5 mg/dL (8.6-10.3); Chol/HDL Ratio 3.3 (0-4.9); Potassium 4.1 mEq/L (3.5-5.1)
[2017-09-09] MEDS: Carbidopa/Levodopa 25/100 TABLET PO SCH ×3 (09:24→20:51)
[2017-09-09] MEDS: Isosorbide MONOnitrate (24 HR) 60 MG TAB.ER.24H PO SCH (09:24)
[2017-09-09] MEDS: Aspirin Enteric Coated 81 MG Tablet PO SCH (09:24)
[2017-09-09] MEDS: Insulin LISPRO 300 UNITS/3 ML VIAL SQ SCH ×4 (09:24→21:07)
[2017-09-09] MEDS ORDERED: Isovue-370 500 ML INFUS..BTL IV ONE (10:17)
--- NOTE | 2017-09-09 10:25 | Internal Med Progress Note ---
Date of Encounter: 09/09/17 Time of Encounter: 10:23 - Assessment and plan (1) Syncope Current Visit: Yes Status: Acute Assessment and plan: Patient presented following a syncopal versus near syncopal event; etiology unclear Right upper and lower extremity weakness upon presentation; prior history of CVA 2 years ago with RT side deficits, reporting right-sided weakness more pronounced; consider dehydration as possible cause; continue IVF Denies headache, new blurring of vision, dizziness; likely not migraine hemiplegia Has had multiple similar presentations with workup including prior CAT scans, not revealing any new abnormalities CT of head completed on arrival and found to be negative for acute intracranial abnormalities Neurology seeing in consultation TTE, B/L carotid US pending MR a head/neck/brain, CT myelogram [id number] completion TSH-3.27, obtain B12 and folate Continue falls precautions Remain on telemetry Patient reporting right sided weakness improving but still more pronounced than baseline Qualifiers: Syncope type: unspecified Qualified Code(s): R55 - Syncope and collapse (2) Generalized weakness Current Visit: No Status: Acute Assessment and plan: Continues to report right upper and lower extremity weakness Right-sided weakness at baseline 2/2 CVA 2 years ago Reporting weakness above baseline persists CT head negative for acute intracranial abnormality B/L carotid Doppler studies pending TTE pending Obtain MRA head/brain/neck-pending completion CT myelogram [id number] completion Neurology following in consultation Consult PT/OT Consult to nurse navigator Consult social services analyst (3) Right sided weakness Current Visit: Yes Status: Acute (4) CAD (coronary artery disease), autologous vein bypass graft Current Visit: No Status: Chronic Assessment and plan: Continue aspirin, Coreg, Plavix, Zocor, BG inhibitor Qualifiers: Associated angina: angina presence unspecified Qualified Code(s): I25.810 - Atherosclerosis of coronary artery bypass graft(s) without angina pectoris (5) GERD (gastroesophageal reflux disease) Current Visit: No Status: Chronic Assessment and plan: Continue Omeprazole Qualifiers: Qualified Code(s): K21.9 - Gastro-esophageal reflux disease without esophagitis (6) Hypotension Current Visit: No Status: Acute Assessment and plan: Hypotensive on arrival, Lasix and tizanidine held Obtain orthostatic vital signs Hypotension improving, continue to monitor and resume anti-HTN medications Qualifiers: Hypotension type: unspecified hypotension type Qualified Code(s): I95.9 - Hypotension, unspecified (7) Parkinson disease Current Visit: No Status: Chronic Assessment and plan: History of Parkinson's, Continue Sinemet (8) CKD (chronic kidney disease) stage 3, GFR 30-59 ml/min Current Visit: Yes Status: Acute Assessment and plan: History of CKD 3 SR CR at patient's baseline Continue to closely monitor Avoid nephrotoxins - Time Spent With Patient Total time spent is greater than 50% in coordination of care (as documented) at patient's floor/unit and/or counseling patient: Greater than 35 minutes - Subjective Interval history: No acute changes overnight, the patient reported having right upper and lower extremity weakness no worse than normal. His however reporting right calf pain that is new and right upper quadrant pain. Denies any nausea/vomiting, or weight loss - Constitutional Vitals: Temp Pulse Resp BP Pulse Ox 97.6 F 68 15 139/96 98 09/09/17 07:53 09/09/17 07:53 09/09/17 07:53 09/09/17 07:53 09/09/17 07:53 General appearance: Present: A&O X 3 - Head Head exam: Present: atraumatic, normocephalic - Eye Eye exam: Present: PERRL, conjuntiva pink, sclera anicteric Pupils: Present: PERRL - Neck Neck exam general surgery: Present: supple, trachea midline. Absent: lymphadenopathy - Respiratory Respiratory exam: Present: CTAB. Absent: accessory muscle use, rales, rhonchi, wheezes - Cardiovascular Cardiovascular exam: Present: RRR, +S1, +S2. Absent: diastolic murmur, gallop, rubs, systolic murmur - GI/Abdominal GI/Abdominal exam: Present: normal bowel sounds, soft, no peritoneal signs. Absent: distended, tenderness - Extremities Exam Extremities exam: Present: warm, radial pulses palpable and symmetrical. Absent : calf tenderness, cyanotic, pedal edema - Neurological Exam Neurological exam: Present: alert, CN II-XII intact, oriented X3. Absent: strengths equal and symetr throughout, pronater drift, facial droop, speech deficit - Expanded Neurological Exam Speech: Present: fluid speech Neuro motor strength exam: LUE: 5, RUE: 3, LLE: 5, RLE: 3 Coma Scale Eye Opening: Spontaneous Coma Scale Motor Response: Obeys Commands Coma Scale Verbal Response: Oriented Coma Scale Total: 15 - Skin Skin exam: Present: dry, intact Internal Medicine: Result - Labs CBC & Chem 7: 09/09/17 06:36 09/09/17 06:36 Labs: Short CBC 09/09/17 Range/Units 06:36 WBC 5.3 (4.3-11.1) K/mcL Hgb 12.9 (12.9-16.9) g/dL Hct 39.0 (37.5-50.1) % Plt Count 115 L (140-400) K/mcL BMP 09/09/17 06:36 Sodium 139 Potassium 4.1 Chloride 110 H Carbon Dioxide 23 BUN 27 H Creatinine 1.52 H Glucose 87 Calcium 8.5 L Urine 09/08/17 Range/Units 19:31 Urine Color Yellow (Yellow) Urine Clarity Clear (Clear) Urine pH 6.0 (5.0-8.0) pH Units Ur Specific [place] 1.016 (1.010-1.025) Urine Protein Negative (Neg-Trace) mg/dL Urine Glucose (UA) Normal (Normal) mg/dL - ABG Interpretation ABG results: PT/INR, D-dimer PT 11.6 Seconds (9.4-12.1) 09/08/17 09:47 - Impressions Impressions Echocardiogram Limited Views 09/09/17 13:33 Impressions: LVEF 45-50%. LV segmental wall motion abormality - similar when compared to Echo 01/24/2017. Normal right ventricular structure and function. No PFO with saline contrast injection. Left Ventricular Wall Motion: Rest Echo Findings The mid inferior, basal inferior, mid inferior lateral and basal inferior lateral vela were hypokinetic. All other wall segments showed normal motion. Findings: Study Quality * Technically adequate exam. ECG Findings * Normal sinus rhythm. Left Ventricle * LVEF 45-50%. * Normal LV chamber size. * Mild-moderate asymmetric basal septal hypertrophy. Right Ventricle * Normal right ventricular structure and function. Aorta * Normally sized aortic root. Pericardium * There is no pericardial effusion present. Device lead * A device lead was visualized in the right atrium and right ventricle. Interatrial Septum * No evidence of PFO with agitated saline contrast. Consult Discharge Plan - Plan [place] [facility] [place]m [place] [Primary Care Provider] -
[2017-09-09 12:50] LABS: Vitamin B12 418 pg/mL (250-1100)
[2017-09-09 13:04] LABS: Folate > 22.3 ng/mL (3.0-16.0)
--- NOTE | 2017-09-09 15:57 | Neurology Progress Note ---
Date of Encounter: 09/09/17 Time of Encounter: 15:51 Assessment and Plan (1) Right sided weakness Current Visit: Yes Status: Acute Unable to present a neurologic lesion to explain this case. Neuroimaging of brain unremarkable. A lesion in the cervical spine is not likely to reproduce this clinical presentation. Will reassess tomorrow. Subjective Interval history: Chart was reviewed, the patient was seen and examined. Case was discussed with the hospitalist. The patient is now very preoccupied with right calf pain. Executive Sales Manager completing doppler study. Pt. unble to under go imaging studies ordered due to poor kidney function. He is laying in bed with his right leg bent. Highly suspicious of conversion reaction. Objective - Constitutional Vitals: Temp Pulse Resp BP Pulse Ox 98.7 F 60 15 108/66 96 09/09/17 15:10 09/09/17 15:10 09/09/17 15:10 09/09/17 15:10 09/09/17 15:10 - Neurological Exam Sensorimotor examination: Present: other (Right hemihypesthesia denies any hypoesthesia of the left upper or left lower extremities.) Motor Examination: Present: other (Patient has normal strength bulk and tone of the left upper and left lower extremities. He also has normal tone of the right upper and right lower extremity. However has nonphysiologic giveaway weakness of the right arm as well as the right leg. There is no induration, or swelling of the right calf. He does have tenderness of the right shoulder to my passive motion.) Sensation intact: Present: other (Right hemihypesthesia.) Mental Status Examination: Present: awake, alert, oriented to person, oriented to place, oriented to time, follows commands appropriately, answers questions appropriately, no agnosia, no aphasia, no aproxia Cranial nerve examination: Present: PERRL, EOMI, visual lui intact, corneal reflexes brisk symmetrically, sensory to face intact, mastication intact, no facial asymmetry is present, no dysarthria, hearing is intact symmetrically, soft palate elevates bilaterally upon phonation, gag reflex intact, flexes SCM and trapezius muscles symmetrically with full power, tongue protrudes midline, no atrophy or facial fasiculations present Results - Laboratory Findings CBC and BMP: 09/09/17 06:36 09/09/17 06:36 Abnormal lab findings: Abnormal lab results Plt Count 115 K/mcL (140-400) L 09/09/17 06:36 VBG pH 7.26 pH Units (7.32-7.42) L 09/08/17 10:27 VBG pCO2 55 mmHg (41-51) H 09/08/17 10:27 VBG pO2 88 mmHg (25-50) H 09/08/17 10:27 Chloride 110 mEq/L (98-107) H 09/09/17 06:36 BUN 27 mg/dL (8-23) H 09/09/17 06:36 Creatinine 1.52 mg/dL (0.70-1.30) H 09/09/17 06:36 Est GFR ( Amer) 55 (> 60) L 09/09/17 06:36 Est GFR (Non-Af Amer) 45 (> 60) L 09/09/17 06:36 POC Glucose 146 mg/dL (70-99) H 09/08/17 19:48 Calcium 8.5 mg/dL (8.6-10.3) L 09/09/17 06:36 Serum Total Protein 6.2 g/dL (6.4-8.9) L 09/08/17 09:47 HDL Cholesterol 33 mg/dL (40-59) L 09/09/17 06:36 Folate > 22.3 ng/mL (3.0-16.0) H 09/09/17 11:39 Consult Discharge Plan - Plan Referrals: Wm Ochoa MD [Primary Care Provider] -
--- NOTE | 2017-09-09 17:32 | Electrocardiograph Report ---
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
[2017-09-09] MEDS ORDERED: Famotidine 20 MG TABLET PO SCH (21:00)
[2017-09-10] MEDS: *HR* Heparin 5,000 UNIT/ML VIAL SQ SCH (05:46)
[2017-09-10] MEDS: 0.9 % Sodium Chloride 1,000 ML IVC SCH (05:50)
[2017-09-10 07:42] VITALS: BP 161/83
[2017-09-10 08:27] LABS: Basophils % 0.7 %; Eosinophils # 0.3 K/mcL (0.0-0.6); Eosinophils % 6.5 %; Hematocrit 37.8 % (37.5-50.1); Hemoglobin 12.6 g/dL (12.9-16.9); Immature Granulocytes % 0.2 % (0-4); Lymphocytes # 1.5 K/mcL (0.6-4.6); Lymphocytes % 36.2 %; Mean Corpuscular HGB Conc 33.3 g/dL (31.6-35.5); Mean Corpuscular Hemoglobin 31.4 pg (28.0-33.3); Mean Corpuscular Volume 94.3 fL (83.0-100.0); Mean Platelet Volume 11.4 fL (9.4-12.4); Monocytes # 0.5 K/mcL (0.0-1.3); Monocytes % 12.1 %; Neutrophils # 1.8 K/mcL (1.6-8.9); Platelet Count 113 K/mcL (140-400); Red Blood Count 4.01 M/mcL (4.19-5.50); Red Cell Distribution Width 13.5 % (11.5-14.5); Segmented Neutrophils % 44.3 %
[2017-09-10] MEDS: Carbidopa/Levodopa 25/100 TABLET PO SCH (08:32)
[2017-09-10] MEDS: Aspirin Enteric Coated 81 MG Tablet PO SCH (08:32)
[2017-09-10] MEDS: Isosorbide MONOnitrate (24 HR) 60 MG TAB.ER.24H PO SCH (08:32)
[2017-09-10] MEDS: Insulin LISPRO 300 UNITS/3 ML VIAL SQ SCH ×2 (08:33→12:12)
[2017-09-10 08:44] LABS: Calcium 8.5 mg/dL (8.6-10.3); Potassium 4.2 mEq/L (3.5-5.1)
--- NOTE | 2017-09-10 13:46 | Discharge Summary ---
- NOTES TO OUTPATIENT PROVIDER Notes to Outpatient Provider: Pt was admitted for general weakness, near syncope. Workup was negative. Pt was evaluated and cleared by neurology. Pt has no PT/OT needs on discharge. Orders not resulted at time of discharge: Pending orders 09/11/17 04:00 Basic Metabolic Panel AM 0400 Complete Blood Count [HEME] AM 0400 09/12/17 04:00 Basic Metabolic Panel AM 0400 Complete Blood Count [HEME] AM 0400 Date of Encounter: 09/10/17 Time of Encounter: 10:25 - Discharge Diagnosis (1) CAD (coronary artery disease), autologous vein bypass graft Priority: Secondary Status: Chronic Assessment and Plan: Pt denies chest pain. Continue ASA, statin, Plavix, IMdur, BB. Qualifiers: Associated angina: angina presence unspecified Qualified Code(s): I25.810 - Atherosclerosis of coronary artery bypass graft(s) without angina pectoris (2) GERD (gastroesophageal reflux disease) Priority: Secondary Status: Chronic Assessment and Plan: Continue Omeprazole. Pt denies new or different symptoms. Qualifiers: Esophagitis presence: esophagitis presence not specified Qualified Code(s) : K21.9 - Gastro-esophageal reflux disease without esophagitis (3) Generalized weakness Priority: Secondary Status: Acute Assessment and Plan: Pt reports that he is feeling better today, however, is still weak. He has been evaluated by neurology, who is familiar with the pt. Neurology states that there is no neurologic lesion to explain this case, near imaging of brain is unremarkable., Less likely cervical spine lesion. Neurology note reports that he is highly suspicious of conversion reaction. As of this time, PT/OT has not evaluated patient. He was just discharged from rehabilitation within the last week. Patient reports that approximately 10 days ago he was at [facility] and was sent to [facility] for rehabilitation for 3- 4 days, has only been home for 3-4 days. PT/OT evaluation have revealed no needs after discharge. (4) Hypotension Priority: Secondary Status: Resolved Assessment and Plan: Blood pressure has and within normal limits, mildly hypertensive upon awakening this morning. We will continue to evaluate vital signs. Continue home medications. Qualifiers: Hypotension type: unspecified hypotension type Qualified Code(s): I95.9 - Hypotension, unspecified (5) Parkinson disease Priority: Secondary Status: Chronic Assessment and Plan: Chronic. Continue carbidopa/levodopa. Monitor for safety and falls. (6) Right sided weakness Priority: Secondary Status: Resolved Assessment and Plan: Patient reports that he has returned to baseline. He states when he has these episodes he always returns to baseline after few days. No noted diabetes right or left-sided deficits. Patient still complains of overall weakness. PT/OT no needs. (7) Syncope Priority: Secondary Status: Acute Assessment and Plan: Patient reports he has had several TIAs, most recently approximately 10 days ago before this episode. States he was sent to [facility] for evaluation, he was there for several days and states that they did nothing for him. He was sent to [facility] for rehabilitation where he was a 3-4 days. He returned home for a few days and then came back here with continued symptoms. He reported right upper and lower extremity weakness. On presentation, this symptom has resolved. He states that symptoms normally resolve in a few days. He has no neurological deficits are obvious. CT of head was negative for acute intracranial abnormalities, carotids bilaterally showed minimal plaque, echocardiogram showed LVEF 40-45%, no PFO noted, findings similar to prior echo in January,. Patient is alert, awake, speech is clear, he answers questions appropriately. No obvious weakness in any extremity. Neurology has seen the patient, they are following. Per note: Unable to present a neurologic lesion to explain this case. Nares imaging of the brain unremarkable. A lesion of the cervical spine is not likely to reproduce his clinical presentation. Is unable to undergo CTA studies due to poor renal function. He is lying in bed with his right leg bent. Highly suspicious of conversion reaction. Continue telemetry Continue to monitor for falls and safety PT/OT no needs . Qualifiers: Syncope type: unspecified Qualified Code(s): R55 - Syncope and collapse (8) CKD (chronic kidney disease) stage 3, GFR 30-59 ml/min Priority: Secondary Status: Chronic Assessment and Plan: Chronic CKD III, Sr Cr and GRF appear to be at pt's baseline. Continue to monitor, IVF prn Avoid nephrotoxins. (9) DVT prophylaxis Priority: Secondary Status: Acute Assessment and Plan: Heparin SQ q8h Hospital course: Mr. Joe is a 71 year old male with past medical history of coronary artery disease GERD, stage III CKD, Parkinson's. Patient was admitted for workup for near syncopal episode. He reports left neck pain, left calf pain. All imaging and testing was negative. Patient was evaluated by neurology, he is well known to this group. She has had multiple admissions for same symptoms in the past. Physical exam is unremarkable and he does not appear to have any deficits. He is able to ambulate easily in his room. PT/OT have identified no needs after discharge. Patient with history of prior CVA, multiple TIAs. Most recently patient was admitted to [facility] within the last 2 weeks, he was then discharged to rehabilitation where he completed his rehabilitation, was only a home short time prior to this event. Recommend follow-up with primary care, continue home medications. His labs and vitals are stable, renal function appears to be at his baseline. He is stable and appropriate for discharge. Discharge discussed with: patient - Time Spent with Patient Total time spent providing and/or coordinating discharge services: Less than 30 minutes - Discharge Medications Home Medications: Aspirin Enteric Coated [Aspirin EC] 81 mg PO DAILY 01/05/15 [History] Famotidine [Pepcid] 40 mg PO HS 01/05/15 [History] Insulin NPH, HUMAN [HumuLIN N] 15 unit SQ QPM #0 01/04/16 [History] Insulin NPH, HUMAN [HumuLIN N] 20 unit SQ QAM #0 01/04/16 [History] Pantoprazole Sodium [Protonix] 40 mg PO DAILY 01/04/16 [History] Simvastatin [Zocor] 40 mg PO HS 01/10/16 [History] Carbidopa/Levodopa 25/100 [Sinemet 25/100] 1 tab PO TID 07/20/16 [History] Isosorbide MONOnitrate [Isosorbide Mononitrate ER] 120 mg PO DAILY 07/20/16 [ History] Oxybutynin [Ditropan] 5 mg PO BID 07/17/17 [History] Carvedilol 3.125 mg PO BID 09/08/17 [History] Clopidogrel [Plavix] 75 mg PO DAILY 09/08/17 [History] Lisinopril 2.5 mg PO DAILY 09/08/17 [History] Nitroglycerin [Nitrostat] 0.4 mg SL Q5M PRN 09/08/17 [History] Tamsulosin [Flomax] 0.4 mg PO DAILY 09/08/17 [History] Carvedilol [Coreg] 12.5 mg PO DAILY@0800 tablet 09/10/17 [Rx] Allergies/Adverse Reactions: 3 Allergy/AdvReac Type Severity Reaction Status Date / Time furosemide [From Lasix] AdvReac Hypotension Verified 07/31/17 16:46 Date of admission: 09/08/17 13:14 Primary care physician: Wm Ochoa MD Consults: 09/08/17 13:30 Consult to Neurology [CONS] Routine Consulting Provider: Neurology [facility] Reason for Consult: syncope, right sided weakness Call Completed: Yes 09/09/17 11:15 Consult to Nurse Navigator [CONS] Routine Comment: resources and needs assessment Consult to Occupational Therapy [CONS] Routine Comment: Evaluate, develop and implement POC Reason for Consult: assess functional capacity, daily OT if needed Does patient have active BEDREST order?: No Is patient medically & hemodynamically stable?: Yes Patient assessed for mobility or mobilized this visit?: No Consult to Physical Therapy [CONS] Routine Comment: Evaluate, develop and implement POC Reason for Consult: Assessment functional capacity, daily therapy Does patient have active BEDREST order?: No Is patient medically & hemodynamically stable?: Yes Patient assessed for mobility or mobilized this visit?: No Consult to Cutter Grinder Operator [CONS] Routine Reason for SW Consult: History of CVA, severe right-sided deficits, consult for resources Discharging clinician: Jaclyn Houston Anticipated date of discharge: 09/10/17 - Constitutional Vitals: Temp Pulse Resp BP Pulse Ox 98.1 F 61 16 161/83 98 09/10/17 07:39 09/10/17 08:30 09/10/17 07:39 09/10/17 07:39 09/10/17 07:39 General appearance: Present: cooperative, A&O X 3, pleasant, no acute distress, answers questions appropriately - Head Head exam: Present: atraumatic, normal inspection, normocephalic - Eye Eye exam: Present: normal appearance, conjuntiva pink, sclera anicteric - Neck Neck exam general surgery: Present: supple, trachea midline. Absent: lymphadenopathy, tenderness - Respiratory Respiratory exam: Present: CTAB. Absent: accessory muscle use, chest wall tenderness, rales, respiratory distress, rhonchi, wheezes - Cardiovascular Cardiovascular exam: Present: RRR, +S1, +S2. Absent: bradycardia, diastolic murmur, gallop, rubs, systolic murmur, tachycardia - GI/Abdominal GI/Abdominal exam: Present: normal bowel sounds, soft. Absent: distended, hepatomegaly, tenderness - Extremities Exam Extremities exam: Present: normal capillary refill, normal inspection, warm, radial pulses palpable and symmetrical. Absent: calf tenderness, cyanotic, pedal edema, tenderness - Neurological Exam Neurological exam: Present: alert, normal gait, oriented X3, no focal deficits, strengths equal and symetr throughout. Absent: altered, motor sensory deficit, pronater drift, facial droop, speech deficit - Skin Skin exam: Present: dry, intact, normal color, warm. Absent: rash - Patient Status Disposition: Home, Self-Care Condition: Good Functional capacity at discharge: independent ambulation Overall status at discharge: patient is back to baseline - Discharge Instructions Follow Up With: Wm Ochoa MD [Primary Care Provider] - 09/23/17 4:30 pm Additional Instructions: Please follow up with your PCP in the next 7 days for a follow up visit. Return to the ER if your symptoms return or worsen or for any other problems or concerns. Take your medications as directed. Return to your normal diet and activities as tolerated. - Diet and Activity Activity: increase activity as tolerated Diet: advance to your usual diet
--- NOTE | 2017-09-10 16:59 | Neurology Progress Note ---
Date of Encounter: 09/10/17 Time of Encounter: 08:00 Assessment and Plan (1) Right sided weakness Status: Resolved (2) Conversion reaction Status: Acute Patient has had multiple admissions with the exact same symptomatology consisting of right upper and right lower extremity weakness without involvement of face or any other bulbar muscles. It generally resolves after his in the hospital for 3 days. Neurologic workup negative each time. I believe we are dealing with conversion reaction. He seemed to be a bit irritated with my conclusion. I might recommend sending him to the [facility] when he returns again. I am unfamiliar with any type of neurologic syndrome that manifest hemiplegia a cyclic manner such as this. Subjective Interval history: The chart was reviewed, patient was seen and examined. Patient was sitting up in his bed eating breakfast when I entered the room. He states now he is regaining strength in the right arm. The venous Doppler study completed yesterday was negative. His entire stroke workup was once again negative. Explained to him that this is very likely and nonneurologic perhaps functional occurrence. He became somewhat agitated and stated "I guess I will see her again in 2 weeks". Objective - Constitutional Vitals: Temp Pulse Resp BP Pulse Ox 98.1 F 61 16 161/83 98 09/10/17 07:39 09/10/17 08:30 09/10/17 07:39 09/10/17 07:39 09/10/17 07:39 - Neurological Exam Sensorimotor examination: Present: other (Right hemihypesthesia denies any hypoesthesia of the left upper or left lower extremities.) Motor Examination: Present: other (Patient has normal strength bulk and tone of the left upper and left lower extremities. He also has normal tone of the right upper and right lower extremity. However has nonphysiologic giveaway weakness of the right arm as well as the right leg. There is no induration, or swelling of the right calf. He does have tenderness of the right shoulder to my passive motion.) Sensation intact: Present: other (Right hemihypesthesia.) Mental Status Examination: Present: awake, alert, oriented to person, oriented to place, oriented to time, follows commands appropriately, answers questions appropriately, no agnosia, no aphasia, no aproxia Cranial nerve examination: Present: PERRL, EOMI, visual lui intact, corneal reflexes brisk symmetrically, sensory to face intact, mastication intact, no facial asymmetry is present, no dysarthria, hearing is intact symmetrically, soft palate elevates bilaterally upon phonation, gag reflex intact, flexes SCM and trapezius muscles symmetrically with full power, tongue protrudes midline, no atrophy or facial fasiculations present Results - Laboratory Findings CBC and BMP: 09/10/17 06:37 09/10/17 06:37 Abnormal lab findings: Abnormal lab results WBC 4.1 K/mcL (4.3-11.1) L 09/10/17 06:37 RBC 4.01 M/mcL (4.19-5.50) L 09/10/17 06:37 Hgb 12.6 g/dL (12.9-16.9) L 09/10/17 06:37 Plt Count 113 K/mcL (140-400) L 09/10/17 06:37 VBG pH 7.26 pH Units (7.32-7.42) L 09/08/17 10:27 VBG pCO2 55 mmHg (41-51) H 09/08/17 10:27 VBG pO2 88 mmHg (25-50) H 09/08/17 10:27 Chloride 110 mEq/L (98-107) H 09/10/17 06:37 Carbon Dioxide 21 mEq/L (23-29) L 09/10/17 06:37 BUN 30 mg/dL (8-23) H 09/10/17 06:37 Creatinine 1.69 mg/dL (0.70-1.30) H 09/10/17 06:37 Est GFR ( Amer) 49 (> 60) L 09/10/17 06:37 Est GFR (Non-Af Amer) 40 (> 60) L 09/10/17 06:37 Calcium 8.5 mg/dL (8.6-10.3) L 09/10/17 06:37 Serum Total Protein 6.2 g/dL (6.4-8.9) L 09/08/17 09:47 HDL Cholesterol 33 mg/dL (40-59) L 09/09/17 06:36 Folate > 22.3 ng/mL (3.0-16.0) H 09/09/17 11:39 Consult Discharge Plan - Plan Additional Instructions: Please follow up with your PCP in the next 7 days for a follow up visit. Return to the ER if your symptoms return or worsen or for any other problems or concerns. Take your medications as directed. Return to your normal diet and activities as tolerated. Referrals: Wm Ochoa MD [Primary Care Provider] - 09/23/17 4:30 pm
== END 2017-09-10 15:53 | disposition home or self-care (01) ==
LOC: EMEROO 09:39 → 3BNU 09:39
PROVIDERS: ADMIT Family Medicine; ATTEND Family Medicine

== ENCOUNTER 2018-01-19 11:07 | Observation (INO) ==
[2018-01-19] MEDS ORDERED: Isovue-370 500 ML INFUS..BTL IV ONE (11:23)
--- NOTE | 2018-01-19 11:29 | Emergency Department Note ---
Disposition Clinical Impression: Paresthesias, Lower extremity weakness, Stroke-like symptoms Disposition: Admitted As Inpatient Condition: Fair Forms: ED Satisfaction Letter Time of Disposition: 13:03 Neuro HPI - General Chief Complaint: ED Dizziness Stated Complaint: dizziness Time Seen by Provider: 01/19/18 11:16 Source: patient Mode of arrival: wheelchair Limitations: no limitations Nursing Notes Reviewed: Yes Vital Signs Reviewed: Yes - History of Present Illness HPI Narrative: Patient presents emergency room with acute onset of dizziness approximately 30 minutes prior to arrival. 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 Said this happened multiple times in the past and is of progressing into right upper and right lower extremity weakness. Patient has had workup completed multiple times for stroke and was unable to have MRIs completed. Patient denies any changes medication or symptoms of this point. Patient is otherwise clinically stable but is having similar issue is his multiple other times in the past. Onset of Symptoms Date: 01/19/18 Onset of Symptoms Time: 11:00 Symptom Onset Unknown: No Timing confirmed by: other Location: right face, right arm, right leg History of same: Yes Severity: moderate Quality: weakness, numbness Symptoms Improving: No Improves with: none Worsens with: time Context: sudden onset On Anticoagulants: Yes Associated symptoms: Reports: headaches, vertigo Treatments Prior to Arrival: none - Related Data Home Medications: Home Medications Medication Instructions Recorded Confirmed Aspirin Enteric Coated [Aspirin EC] 81 mg PO DAILY 01/05/15 09/08/17 Famotidine [Pepcid] 40 mg PO HS 01/05/15 09/08/17 Insulin NPH, HUMAN [HumuLIN N] 15 unit SQ QPM #0 01/04/16 09/08/17 Insulin NPH, HUMAN [HumuLIN N] 20 unit SQ QAM #0 01/04/16 09/08/17 Pantoprazole Sodium [Protonix] 40 mg PO DAILY 01/04/16 09/08/17 Simvastatin [Zocor] 40 mg PO HS 01/10/16 09/08/17 Carbidopa/Levodopa 25/100 [Sinemet 1 tab PO TID 07/20/16 09/08/17 25/100] Isosorbide MONOnitrate [Isosorbide 120 mg PO DAILY 07/20/16 09/08/17 Mononitrate ER] Oxybutynin [Ditropan] 5 mg PO BID 07/17/17 09/08/17 Carvedilol 3.125 mg PO BID 09/08/17 Clopidogrel [Plavix] 75 mg PO DAILY 09/08/17 09/08/17 Lisinopril 2.5 mg PO DAILY 09/08/17 09/08/17 Nitroglycerin [Nitrostat] 0.4 mg SL Q5M PRN 09/08/17 09/08/17 Tamsulosin [Flomax] 0.4 mg PO DAILY 09/08/17 09/08/17 Previous Rx's Medication Instructions Recorded Carvedilol [Coreg] 12.5 mg PO DAILY@0800 tablet 09/10/17 Allergies/Adverse Reactions: Allergies Allergy/AdvReac Type Severity Reaction Status Date / Time furosemide [From Lasix] AdvReac Hypotension Verified 01/19/18 11:14 All systems ED: reviewed and negative except as stated. Review of Systems: As Per HPI Constitutional: Reports: weakness. Denies: fever, chills Eyes: Denies: eye discharge, vision change ENT ED: Denies: ear pain, throat pain, congestion, dysphagia Cardiovascular: Denies: chest pain, palpitations, dyspnea on exertion, orthopnea , edema Respiratory: Denies: cough, dyspnea, wheezes Gastrointestinal: Denies: abdominal pain, nausea, vomiting, diarrhea, constipation Genitourinary: Denies: urgency, dysuria, frequency Musculoskeletal: Denies: back pain, neck pain Integumentary: Denies: rash Neurological: Reports: weakness, numbness, paresthesias. Denies: headache, confusion, abnormal gait Psychiatric: Denies: anxiety, depression, suicidal thoughts, homicidal thoughts Past Medical History - Past Medical History Attestation: Yes The following information was validated with the patient. Source: patient Medical history: Reports: asthma, cardiomyopathy, CHF, coronary artery disease, diabetes, GERD, hyperlipidemia, hypertension, myocardial infarction, renal disease, other Surgical history: Reports: angioplasty/stent, coronary bypass (CABG), pacemaker/ AICD, other Psychiatric history: Reports: no psych history - Social History Smoking Status: Never smoker Smokeless Tobacco Status: No Alcohol use: Reports: none Drug use: Reports: none Physical Exam - General Limitations: no limitations General appearance: alert, in no apparent distress - Head Head exam: atraumatic, normocephalic, normal inspection - Eye Eye exam: Present: normal appearance, PERRL, EOMI. Absent: nystagmus - ENT ENT exam: normal exam, normal oropharynx, mucous membranes moist - Neck Neck exam: Present: normal inspection, full ROM, trachea midline. Absent: tenderness, meningismus, lymphadenopathy - Chest Chest inspection: Present: normal inspection, symmetric chest wall rise. Absent : tenderness - Respiratory Respiratory exam: Present: normal lung sounds bilaterally. Absent: respiratory distress - Cardiovascular Cardiovascular exam: Present: regular rate, normal rhythm, normal heart sounds - Abdominal Exam Abdominal exam: Present: soft, Non-Tender, normal bowel sounds. Absent: tenderness, distention, guarding, rebound, rigidity - Extremities Exam Extremities exam: Present: normal inspection, full ROM. Absent: tenderness, pedal edema - Back Exam Back exam: Present: normal inspection, full ROM. Absent: tenderness - Neurological Exam Neurological exam: Present: alert, oriented X3, CN II-XII intact, normal gait - Skin Skin exam: Present: warm, dry, intact, normal color Course Course Narrative: Patient seen and examined the time of arrival. See history of present illness. Patient presents emergency room with acute onset of dizziness possibly 30 minutes prior to arrival this progressed into right-sided sensation deficits in the face upper extremity and lower extremity. He also has generalized weakness on the right side. Vital signs in presentation are stable patient is afebrile. He is alert he is oriented he speaks in full sentences. Cranial nerves to have what is described as sensation deficits in the right side of the face of the chest wall extremities and lower extremity. Patient does have muscular weakness in the upper and lower extremity. No facial weakness noted this time. There is no visible facial asymmetry onset of a little left-sided lip line. Patient has had this happen multiple times in the past according to him that usually will last 3-4 days and clears on its own. He has had workup for stroke evaluations in the past and has never had an MRI because of the pacemaker. NIH stroke scale on initial presentation is 5. Stroke alert was called approximately 12 minutes after arrival here to the emergency room secondary to the patient being triaged with only dizziness symptoms. It seems that his symptoms have progressed since arrival. TPA checklist was completed as well. Immediate CT of the head along with CT angiography of the head and neck were ordered. Even after conversation with the stroke evaluation the patient is refusing to be transferred to [facility] or anywhere else for the symptoms here today because nobody is ever done anything for him. Patient's other physical exam findings are unremarkable lungs are clear heart is regular abdomen is soft nontender nondistended no guarding no rigidity. He does have difficulty with moving the right upper and right lower extremity up off the bed against gravity. Disposition will either be admission or transfer to an outside facility. Patient seems to understand his medical issues at this time and has appropriate medical decision-making capacity but is convinced that he does not need any intervention. We will continue to monitor his symptoms are evaluated and treated in the disposition is determined. - Reevaluation(s) Reevaluation #1: CT imaging of the head is unremarkable for acute vascular insufficiency of bleed at this time. The neurologist at [facility] Dr. Kelly reviewed the patient's presentation symptoms medical history at the bedside and did an evaluation via the robot. He recommended TPA. I had a lengthy discussion with the patient and the family at the bedside about the risks benefits and alternatives to this medication considering the patient's symptoms and presentation. He at this time is adamantly refusing to have that medication provided him considering he always gets better after several days. Offered again with a second attempt to provide the patient with potential medication that could resolve his symptoms and explained my concern based on his physical exam findings and he and his are still refusing. CT angiography of the head and neck are still pending. Patient is still refusing to be transferred anywhere this time. With the angiographies are completed we will discuss admission at this facility further recommendations for transfer. Stroke alert was canceled at 1200 hours. Patient has not shown any acute changes in his medical condition at this time. Time: 12:10 Reevaluation #2: Patient's creatinine and GFR are concerning at this time with a GFR 38. I reviewed the patient's chart from previous illness documented that there is some concern for conversion disorder considering the patient's had multiple workups for identical presentation of all been negative. I contacted the on- call truck spotter Dr. meek. We reviewed the case at length. He also agreed and understood the concerns of the presentation. Recommended carotid Dopplers and then repeat CT scan tomorrow. Patient is artery on aspirin and Plavix. Patient otherwise will be admitted to hospitals for continuation of care. Hospitalist was contacted admission process to be established. Patient is still refusing to be transferred outside facility for further evaluation and management. No other recommendations or concerns noted this time after discussion with the hospitalist Dr. Grimaldo. No other recommendations or concerns noted at this time. Time: 12:55 Vital Signs Temperature 97.9 F 01/19/18 11:12 Pulse Rate 65 01/19/18 11:12 Respiratory Rate 16 01/19/18 11:12 Blood Pressure 114/69 01/19/18 11:12 O2 Sat by Pulse Oximetry 96 01/19/18 11:12 Temperature 97.9 F 01/19/18 11:29 Pulse Rate 67 01/19/18 12:15 Respiratory Rate 16 01/19/18 12:15 Blood Pressure 126/76 01/19/18 12:15 O2 Sat by Pulse Oximetry 98 01/19/18 12:15 Oxygen Delivery Oxygen Delivery Room Air Neuro Symptoms/Deficit - MDM Narrative Medical decision making narrative: Right-sided paresthesias right-sided paralysis - Medical Records Medical records reviewed: Yes I reviewed the patient's medical records. - Lab Data Lab results reviewed: Yes I reviewed the patient's lab results. Result diagrams: 01/19/18 11:34 01/19/18 11:34 Lab Results 01/19/18 01/19/18 01/19/18 Range/Units 11:34 11:34 11:34 WBC 5.7 (4.3-11.1) K/mcL RBC 4.81 (4.19-5.50) M/mcL Hgb 14.4 (12.9-16.9) g/dL Hct 44.8 (37.5-50.1) % MCV 93.1 (83.0-100.0) fL MCH 29.9 (28.0-33.3) pg MCHC 32.1 (31.6-35.5) g/dL RDW 13.5 (11.5-14.5) % Plt Count 140 (140-400) K/mcL MPV 11.3 (9.4-12.4) fL PT 12.2 H (9.4-12.1) Seconds INR 1.1 APTT 30.7 (26.0-36.0) Seconds Sodium 137 (136-145) mEq/L Potassium 4.3 (3.5-5.1) mEq/L Chloride 104 (98-107) mEq/L Carbon Dioxide 26 (23-29) mEq/L BUN 28 H (8-23) mg/dL Creatinine 1.77 H (0.70-1.30) mg/dL Est GFR ( Amer) 46 L (> 60) Est GFR (Non-Af Amer) 38 L (> 60) BUN/Creatinine Ratio 16 (6-26) Glucose 144 H (70-105) mg/dL Calculated Osmolality 292 (280-300) Calcium 9.2 (8.6-10.3) mg/dL Phosphorus 2.6 L (2.7-4.5) mg/dL Magnesium 2.3 (1.6-2.6) mg/dL Troponin I 0.07 H* (< 0.04) ng/mL - Radiology Data Radiology results reviewed: Yes I reviewed the patient's radiology results. CT imaging by noncontrasted evaluation of the head is unremarkable for acute signs of bleed midline shift or vascular insufficiency this point. Chest x-ray is stable. - EKG Data EKG attestation: Yes I reviewed and interpreted this EKG. EKG results narrative: EKG shows sinus rhythm. Heart rate of 66. [place] interval 196. QTC of 413. [place] appears to be normal. No acute signs of ST segment elevation or abnormality. No acute signs of WPW or [place]. Chronic Q waves are noted to the inferior leads that are similar in comparison to an EKG collected on 09/08/17 NIH Stroke Scale - Level of Consciousness LOC: Alert - LOC Questions LOC Questions: Answers both correctly - LOC Commands LOC Commands: Performs both correctly - Best Gaze Best Gaze: Normal - Visual Visual: No visual loss - Facial Palsy Facial Palsy: Normal - Motor Arms Motor Arm-Left: No drift for 10 seconds Motor Arm-Right: Some effort against gravity, limb drifts to bed - Motor Legs Motor Leg-Left: No drift for 5 seconds Motor Leg-Right: Some effort against gravity, limb drifts to bed - Limb Ataxia Limb Ataxia: Absent of affected limb too weak to perform exam - Sensory Sensory: Mild to moderate loss, "not as sharp" - Best Language Best Language: No aphasia - Dysarthria Dysarthria: Normal - Extinction and Inattention Extinction and Inattention: Normal - NIHSS Total Score NIHSS Total Score: 5 TPA Checklist - Source Information Source: Patient - Eligibilty for IV tPA 1. LKW equal to or less than 4.5 hours be before treatment: Yes 2. Clinical diagnosis of ischemic stroke causing deficit: Yes 3. Age 18 years or older: Yes - Contraindications 4. Evidence of intracranial hemorrhage on pretreatment CT: No 5. Presentation suggests subarachnoid hem, even if CT normal: No 6. CT shows multilobar infarction: No 7. Known neoplasm, arteriovenous malformation, or aneurysm: No 8. Significant head trauma (w/ LOC) or CVA in last 3 months: No 9. BP elevated (systolic > 185 or diastolic > 110): No 10. Abnormal Blood Glucose (<50 or >400mg/dl): No 11. Active internal bleeding [PM.TPA15]: No 12. Known bleeding risk (including; not limited to 13-15): No 13. Heparin/argatroban/bivalirudin w/in 48hrs & PTT > normal: No 14. Platelet count less than 100,000/MM3: No 15. Current or recent use of anticoagualants (see protocol): Yes - Warnings/Precautions Considerations 16. Prior ischemic stroke within last 3 months: No 17. Recent history of intracranial hemorrhage: No 18. : No 19. Current/recent use Effient (7 days) or Brilinta (5 days): No 20. Arterial puncture at non compressible site or LP >7days: No 21. Major surgery or serious trauma in last 14 days: No 22. GI or urinary tract hemorrhage in last 21 days: No 23. MT involving left anterior myocardium in last 3 months: No 24. Suspected or known infective endocarditis/pericarditis: No - LKW: 3-4.5 hrs Add. Warnings/Precautions 21. oral anticoag other than warfarin regardles of last dose: No Patient/family understanding: The patient/family members have been counseled and understood the risk, benefit , and alternatives of treatment.
[2018-01-19] MEDS ORDERED: 0.9 % Sodium Chloride 1,000 ML IVC ONE (11:32)
[2018-01-19 11:55] LABS: Hematocrit 44.8 % (37.5-50.1); Hemoglobin 14.4 g/dL (12.9-16.9); Mean Corpuscular HGB Conc 32.1 g/dL (31.6-35.5); Mean Corpuscular Hemoglobin 29.9 pg (28.0-33.3); Mean Corpuscular Volume 93.1 fL (83.0-100.0); Mean Platelet Volume 11.3 fL (9.4-12.4); Platelet Count 140 K/mcL (140-400); Red Blood Count 4.81 M/mcL (4.19-5.50); Red Cell Distribution Width 13.5 % (11.5-14.5)
[2018-01-19 12:00] LABS: INR 1.1; Prothrombin Time 12.2 Seconds (9.4-12.1)
[2018-01-19 12:03] LABS: Activated Partial Thrombo Time 30.7 Seconds (26.0-36.0)
[2018-01-19] MEDS ORDERED: Aspirin 81 MG TAB.CHEW ONE (12:10)
[2018-01-19] MEDS ORDERED: Aspirin 81 MG TAB.CHEW PO STA (12:11)
[2018-01-19 12:15] LABS: Calcium 9.2 mg/dL (8.6-10.3); Potassium 4.3 mEq/L (3.5-5.1)
[2018-01-19 12:24] LABS: Troponin I 0.07 ng/mL (< 0.04)
[2018-01-19 12:53] LABS: Magnesium 2.3 mg/dL (1.6-2.6); Phosphorous 2.6 mg/dL (2.7-4.5)
[2018-01-19] MEDS ORDERED: Naloxone 0.4 MG/ML INJ IVP PRN (13:10)
[2018-01-19 16:28] LABS: Bilirubin,Urine Negative (Negative); Blood,Urine Negative (Negative); Clarity,Urine Clear (Clear); Color,Urine Yellow (Yellow); Glucose,Urine (UA) Normal (Normal); Ketones,Urine Negative (Negative); Leukocyte Esterase,Urine Negative (Negative); Nitrite,Urine Negative (Negative); Protein,Urine Negative (Neg-Trace); Specific Gravity,Urine 1.021 (1.010-1.025); Urobilinogen,Urine Normal (Normal)
--- NOTE | 2018-01-19 17:12 | Internal Med History&Physical ---
Date of Encounter: 01/19/18 Time of Encounter: 16:00 Internal Medicine - H&P: HPI Chief complaint: R side weak Plans for Post Hospital Care: Home History of present illness: Mr. Joe is a 72 year old male with hx of asthma, CAD, HTN and DM presented to ED with R side weakness and dizziness. He was evaluated and placed in observation. Mr Joe stated that he has had symptoms like this before "every 6 months" and that it spontaneously resolves. 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 He was very dizzy as well at that time. He has had multiple work ups for this in the past. He is unable to have MRI due to pacer and can't have CTA due to renal function. He denies CP or SOB. No headache. No L side weakness. Does feel numb as well. In ED he was evaluated and [facility] recommended TPA. Pt refused and he refused transfer to [facility]. He felt it is going to spontaneously resolve. At the time of my exam he felt that it was already improving. Past Med Surg Social Fam HX - Past Medical History Source: patient Medical history: asthma, cardiomyopathy, CHF, coronary artery disease, diabetes , GERD, hyperlipidemia, hypertension, myocardial infarction, renal disease, other Additional medical history: parkinsons, Spinal Stenosis, Cerival Spondyliosis Psychiatric history: no psych history - Past Surgical History Surgical History: angioplasty/stent, coronary bypass (CABG), pacemaker/AICD, other Additional surgical history: right rotator cuff surgery - Social History Smoking Status: Never smoker Smokeless Tobacco Status: No Alcohol use: none Drug use: none - Family History Father Living Status: Hx Family Cardiac Disorders: Yes (Bad heart) Hx Family Neurologic Disorders: Yes (Alzheimer's) Mother Living Status: Hx Family Cardiac Disorders: Yes ([place]) Internal Medicine - H&P: Meds Aspirin Enteric Coated [Aspirin EC] 81 mg PO DAILY 01/05/15 [History] Famotidine [Pepcid] 40 mg PO HS 01/05/15 [History] Insulin NPH, HUMAN [HumuLIN N] 15 unit SQ QPM #0 01/04/16 [History] Insulin NPH, HUMAN [HumuLIN N] 20 unit SQ QAM #0 01/04/16 [History] Pantoprazole Sodium [Protonix] 40 mg PO DAILY 01/04/16 [History] Carbidopa/Levodopa 25/100 [Sinemet 25/100] 1 tab PO TID 07/20/16 [History] Isosorbide MONOnitrate [Isosorbide Mononitrate ER] 120 mg PO DAILY 07/20/16 [ History] Carvedilol 3.125 mg PO BID 09/08/17 [History] Clopidogrel [Plavix] 75 mg PO DAILY 09/08/17 [History] Lisinopril 2.5 mg PO DAILY 09/08/17 [History] Nitroglycerin [Nitrostat] 0.4 mg SL Q5M PRN 09/08/17 [History] Tamsulosin [Flomax] 0.4 mg PO DAILY 09/08/17 [History] Cholecalciferol (D-3) [Vitamin D] 1,000 unit PO DAILY 01/19/18 [History] Multivitamin [One Daily Essential] 1 each PO DAILY 01/19/18 [History] 3 Allergy/AdvReac Type Severity Reaction Status Date / Time furosemide [From Lasix] AdvReac See Verified 01/19/18 14:20 Comments All Systems PM: A 10-system review of systems was performed and is negative for pertinent findings except as documented above in the HPI. - Constitutional Constitutional: no falls, no malaise - EENT Eyes: no change in vision, no pain Ears: no decreased hearing Nose, mouth and throat: no dry mouth, no mouth pain - Cardiovascular Cardiovascular ROS IM: lightheadedness, no chest pain, no dyspnea, no dyspnea on exertion, no orthopnea, no palpitations, no paroxysmal nocturnal dyspnea - Respiratory Respiratory: no cough, no hemoptysis, no dyspnea on exertion, no chest congestion - Gastrointestinal Gastrointestinal: no bloating, no diarrhea, no melena - Genitourinary Genitourinary ROS male: no difficulty urinating, no nocturia - Musculoskeletal Musculoskeletal ROS IM: arthralgias, no joint swelling - Integumentary Integumentary IM: no rash - Neurological Neurological ROS: abnormal gait, dizziness, focal weakness, numbness, paresthesias - Endocrine Endocrine IM: no excessive sweating, no flushing - Hematologic/Lymphatic Hematologic/Lymphatic: no easy bleeding - Allergic/Immunologic Allergic/Immunologic: no throat swelling - Constitutional Vitals: Temp Pulse Resp BP Pulse Ox 97.9 F 106 17 169/70 97 10/14/18 14:32 01/19/18 14:32 01/19/18 14:32 01/19/18 14:32 01/19/18 14:32 General appearance: Present: A&O X 3, pleasant, answers questions appropriately Exam: See below - Head Head exam: Present: atraumatic, normocephalic - Eye Eye exam: Present: EOMI, conjuntiva pink - ENT ENT exam: Present: mucous membranes moist - Neck Neck exam general surgery: Present: normal inspection. Absent: thyromegaly - Respiratory Respiratory exam: Present: CTAB. Absent: rales, rhonchi, wheezes - Cardiovascular Cardiovascular exam: Present: RRR. Absent: systolic murmur, tachycardia - GI/Abdominal GI/Abdominal exam: Present: normal bowel sounds, soft. Absent: tenderness - Extremities Exam Extremities exam: Present: normal inspection, warm. Absent: tenderness - Neurological Exam Neurological exam: Present: alert, oriented X3. Absent: no focal deficits (R side weaker than L. Decreased sensation on R.) - Skin Skin exam: Present: dry, warm. Absent: rash Internal Med - H&P Results - Labs CBC & Chem 7: 01/19/18 11:34 01/19/18 11:34 Labs: Urine 01/19/18 Range/Units 16:07 Urine Color Yellow (Yellow) Urine Clarity Clear (Clear) Urine pH 7.0 (5.0-8.0) pH Units Ur Specific [place] 1.021 (1.010-1.025) Urine Protein Negative (Neg-Trace) mg/dL Urine Glucose (UA) Normal (Normal) mg/dL - Assessment and plan (1) TIA (transient ischemic attack) Current Visit: Yes Status: Acute Assessment and plan: Pt has had multiple episodes of this in the past. He feels that it is already improving. He has had multiple work ups in past and has been told it is related to "stress" (which he does not agree with). Place in observation. Neuro checks. Neuro called by ED. Continue home medications at this time. He cannot have MRI due to pacer. CTA ordered but held due to renal function. I have held ordering other testing at this time. (2) Asthma, intermittent Current Visit: No Status: Chronic Assessment and plan: Not in exacerbation. Continue home meds. Qualifiers: Asthma severity: mild Asthma complication type: uncomplicated Qualified Code(s): J45.20 - Mild intermittent asthma, uncomplicated (3) CAD (coronary artery disease) Current Visit: No Status: Chronic Assessment and plan: Asymptomatic. Mild elevation in troponin. Recheck again. Qualifiers: Coronary Disease-Associated Artery/Lesion type: bypass graft [place] vs. transplanted heart: circle heart Associated angina: without angina Qualified Code(s): I25.810 - Atherosclerosis of coronary artery bypass graft(s) without angina pectoris (4) CKD (chronic kidney disease) stage 3, GFR 30-59 ml/min Current Visit: No Status: Chronic Assessment and plan: Chronic issue. (5) Ischemic cardiomyopathy Current Visit: No Status: Chronic Assessment and plan: Asymptomatic at this time. (6) Diabetes Current Visit: No Status: Chronic Assessment and plan: Follow blood sugars and cover. Qualifiers: Diabetes mellitus type: type 2 Diabetes mellitus intermediate designer insulin use: with usp use Diabetes mellitus complication status: with kidney complications Diabetes mellitus complication detail: with chronic kidney disease Chronic kidney disease stage: stage 3 (moderate) Qualified Code(s): E11.22 - Type 2 diabetes mellitus with diabetic chronic kidney disease; N18.3 - Chronic kidney disease, stage 3 (moderate); N18.3 - Chronic kidney disease, stage 3 (moderate); Z79.4 - longterm (current) use of insulin; Z79.4 - longterm (current) use of insulin; Z79.4 - bed bug exterminator (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 Qualifiers: Hypertension type: essential hypertension Qualified Code(s): I10 - Essential (primary) hypertension - Time Spent With Patient Total time spent is greater than 50% in coordination of care (as documented) at patient's floor/unit and/or counseling patient:
[2018-01-19] MEDS ORDERED: *HR* Dextrose 50 % in Water (Syg) 50 ML SYRINGE IVP PRN (17:29)
[2018-01-19] MEDS ORDERED: Dextrose Gel 15 GM/37.5 ML TUBE PO PRN ×2 (17:29)
[2018-01-19] MEDS ORDERED: D5% in Water 1,000 ML IVC PRN (17:29)
[2018-01-19] MEDS ORDERED: Nitroglycerin 0.4 MG TAB.SUBL SL PRN (17:30)
[2018-01-19] MEDS ORDERED: Insulin NPH 100 UNIT/ML (x5UNIT) SQ SCH (18:00)
[2018-01-19] MEDS ORDERED: Insulin LISPRO 300 UNITS/3 ML VIAL SQ SCH (21:00)
[2018-01-19] MEDS ORDERED: Famotidine 20 MG TABLET PO SCH (21:00)
[2018-01-19] MEDS: Carbidopa/Levodopa 25/100 TABLET PO SCH (21:23)
[2018-01-20 03:06] LABS: Hematocrit 40.5 % (37.5-50.1); Hemoglobin 13.5 g/dL (12.9-16.9); Mean Corpuscular HGB Conc 33.3 g/dL (31.6-35.5); Mean Corpuscular Hemoglobin 30.3 pg (28.0-33.3); Mean Platelet Volume 11.2 fL (9.4-12.4); Platelet Count 138 K/mcL (140-400); Red Blood Count 4.45 M/mcL (4.19-5.50); Red Cell Distribution Width 13.6 % (11.5-14.5)
[2018-01-20 03:17] LABS: Prothrombin Time 11.4 Seconds (9.4-12.1)
[2018-01-20 03:37] LABS: Alanine Aminotransferase < 3 Units/L (7-52); Albumin 3.6 g/dL (3.5-5.7); Albumin/Globulin Ratio 1.2 (1.1-2.2); Alkaline Phosphatase 48 Units/L (34-104); Aspartate Amino Transferase 14 Units/L (13-39); BUN/Creatinine Ratio 15 (6-26); Bilirubin,Total 0.6 mg/dL (0.3-1.0); Blood Urea Nitrogen 25 mg/dL (8-23); Calcium 8.8 mg/dL (8.6-10.3); Carbon Dioxide 24 mEq/L (23-29); Chloride 109 mEq/L (98-107); Chol/HDL Ratio 5.8 (0-4.9); Cholesterol 186 mg/dL (< 200); Globulin 3.1 g/dL (2.4-3.5); Glucose 65 mg/dL (70-105); HDL Cholesterol 32 mg/dL (40-59); LDL Cholesterol,Calculated 128 mg/dL (0-99); Magnesium 2.1 mg/dL (1.6-2.6); Osmolality,Calculated 293 (280-300); Potassium 3.7 mEq/L (3.5-5.1); Sodium 140 mEq/L (136-145); Total Protein 6.7 g/dL (6.4-8.9); Triglycerides 129 mg/dL (< 150); eGFR For Non-African Americans 42 (> 60)
[2018-01-20] MEDS: Insulin LISPRO 300 UNITS/3 ML VIAL SQ SCH ×2 (08:14→11:40)
[2018-01-20 08:20] LABS: Estimated Average Glucose 146 mg/dl; Hemoglobin A1C 6.7 %
[2018-01-20] MEDS: Carbidopa/Levodopa 25/100 TABLET PO SCH (08:25)
--- NOTE | 2018-01-20 08:56 | Neurology - Consult Note ---
Date of Encounter: 01/20/18 Time of Encounter: 08:49 Assessment and Plan (1) Hemiparesis Current Visit: Yes Status: Acute Patient with multiple risk factors for cerebral vascular disease who developed recurrent right sided weakness with muscle pain, sparing right face lasting more than 24 hours in duration. He has had likely more gannon 3-4 similar episodes in the last two years, last one occurring 5 months ago and treated at [facility]. Work up was extensive including CT of head, CTA of head and neck and CT perfusion study which were all unremarkable. The symptoms totally resolved within 10 to two weeks Patient currently episode is exactly similar to his previous one and as a matter of fact the evolution of his symptoms seems predictable. He refused tPA treatment. he is slowly getting better. Etiology is unclear. Symptom lasted more than 24 hours and sparing face and is without mental status changes and without speech difficulty and yet is totally right sided and associated with pain. So likely it may be related to presence of pain and he does have some ortho condition to right shoulder as well. other than those ortho conditions, neurologically, one possibility would migraine equivalent, especially hemiplegic migraine without headaches. But this is suspicion of exclusion. He is already o aspirin and plavix. Do not believe he needs repeat CTA. He may benefit from PT though. He did express desire to go home and if this is the case then he can be discharged home. Total time spend with the case is approximately 50 minutes, and 50% of the time were directed at face to face patient care Qualifiers: Hemiparesis etiology: non-cerebrovascular etiology Hemiparesis laterality: right dominant side Qualified Code(s): G81.91 - Hemiplegia, unspecified affecting right dominant side History of Present Illness Chief complaint: right sided weakness and pain HPI: Mr. Joe is a 72 year old male with PMH significant for HTN, DM2, HLD, CAD s/ p CABG and PCI, s/p PPM, stage III CKD, early stage onset of Parkinson disease who presented with right sided weakness and pain. Patient states that yesterday morning he started feeling right leg weakness and at the time he also has quite significant pain. When he tried to stand up he felt dizzy and almost passed out. The weakness involving both his leg and arm on the right side however, no speech difficulty was reported. CT of head showed no acute intracranial abnormality. He could not get MRI of brain due to pace maker placement. He was evaluated by [facility] stroke team who recommended tPA but he refused. Interestingly patient has had similar episodes in the past two years, occurring every 6 months. Last episode occurre during 08/2017 and he was evaluated and treated at [facility] neurology and he was seen by Neurology, neurosurgery and Topographical Drafter. He has had extensive work up including CTA of neck and head, CT perfusion scan, CT of cervical spine and no definitive cause was identified. The spells usually last up to 10 days with total resolution. During the episodes he has right sided muscle pain. Past Med Surg Social Fam HX - Past Medical History Medical history: asthma, cardiomyopathy, CHF, coronary artery disease, diabetes , GERD, hyperlipidemia, hypertension, myocardial infarction, renal disease, other Additional medical history: parkinsons, Spinal Stenosis, Cerival Spondyliosis Psychiatric history: no psych history - Past Surgical History Surgical History: angioplasty/stent, coronary bypass (CABG), pacemaker/AICD, other Additional surgical history: right rotator cuff surgery - Social History Smoking Status: Never smoker Smokeless Tobacco Status: No Alcohol use: none Drug use: none - Family History Father Living Status: Hx Family Cardiac Disorders: Yes (Bad heart) Hx Family Neurologic Disorders: Yes (Alzheimer's) Mother Living Status: Hx Family Cardiac Disorders: Yes ([place]) Medications and Allergies Aspirin Enteric Coated [Aspirin EC] 81 mg PO DAILY 01/05/15 [History] Famotidine [Pepcid] 40 mg PO HS 01/05/15 [History] Insulin NPH, HUMAN [HumuLIN N] 15 unit SQ QPM #0 01/04/16 [History] Insulin NPH, HUMAN [HumuLIN N] 20 unit SQ QAM #0 01/04/16 [History] Pantoprazole Sodium [Protonix] 40 mg PO DAILY 01/04/16 [History] Carbidopa/Levodopa 25/100 [Sinemet 25/100] 1 tab PO TID 07/20/16 [History] Isosorbide MONOnitrate [Isosorbide Mononitrate ER] 120 mg PO DAILY 07/20/16 [ History] Carvedilol 3.125 mg PO BID 09/08/17 [History] Clopidogrel [Plavix] 75 mg PO DAILY 09/08/17 [History] Lisinopril 2.5 mg PO DAILY 09/08/17 [History] Nitroglycerin [Nitrostat] 0.4 mg SL Q5M PRN 09/08/17 [History] Tamsulosin [Flomax] 0.4 mg PO DAILY 09/08/17 [History] Cholecalciferol (D-3) [Vitamin D] 1,000 unit PO DAILY 01/19/18 [History] Multivitamin [One Daily Essential] 1 each PO DAILY 01/19/18 [History] 3 Allergy/AdvReac Type Severity Reaction Status Date / Time furosemide [From Lasix] AdvReac See Verified 01/19/18 14:20 Comments All Systems: The remainder of the systems were reviewed and are negative Physical Examination - Vital Signs Vital Signs: Initial Vital Signs Temp Pulse Resp BP Pulse Ox 97.9 F 65 16 114/69 96 01/19/18 11:12 01/19/18 11:12 01/19/18 11:12 01/19/18 11:12 01/19/18 11:12 - Constitutional General appearance: comfortable - Neurologic Sensorimotor examination: intact Motor examination - right side: 4/5: deltoids, biceps, triceps, wrist flexion, wrist extension, online tutor, hip flexors, tibialis Anterior, quadriceps, toe extension (EHL), plantarflexion Motor examination - left side: 5/5: deltoids, biceps, triceps, wrist flexion, wrist extension, hip flexors, online tutor, quadriceps, tibialis Anterior, toe extension (EHL), plantarflexion Detailed sensory examination: intact Posture: other (None) Reflexes: Biceps: 1+, Triceps: 1+, Brachioradialis: 1+, Patella: 1+, Achilles: 1 + Mental Status Examination: awake, alert, oriented to person, oriented to place, oriented to time, follows commands appropriately, answers questions appropriately, no agnosia, no aphasia, no aproxia Cranial nerve examination: PERRL, EOMI, visual lui intact, corneal reflexes brisk symmetrically, sensory to face intact, mastication intact, no facial asymmetry is present, no dysarthria, hearing is intact symmetrically, soft palate elevates bilaterally upon phonation, gag reflex intact, flexes SCM and trapezius muscles symmetrically with full power, tongue protrudes midline, no atrophy or facial fasiculations present Results - Laboratory Findings CBC and BMP: 01/20/18 02:36 01/20/18 02:36 Abnormal lab findings: Abnormal lab results Plt Count 138 K/mcL (140-400) L 01/20/18 02:36 Chloride 109 mEq/L (98-107) H 01/20/18 02:36 BUN 25 mg/dL (8-23) H 01/20/18 02:36 Creatinine 1.62 mg/dL (0.70-1.30) H 01/20/18 02:36 Est GFR ( Amer) 51 (> 60) L 01/20/18 02:36 Est GFR (Non-Af Amer) 42 (> 60) L 01/20/18 02:36 Glucose 65 mg/dL (70-105) L 01/20/18 02:36 POC Glucose 191 mg/dL (70-99) H 01/19/18 21:13 Hemoglobin A1c 6.7 % (-5.6) H 01/20/18 02:36 Phosphorus 2.6 mg/dL (2.7-4.5) L 01/19/18 11:34 ALT < 3 Units/L (7-52) L 01/20/18 02:36 Troponin I 0.05 ng/mL (< 0.04) H* 01/19/18 17:23 LDL Cholesterol, Calc 128 mg/dL (0-99) H 01/20/18 02:36 HDL Cholesterol 32 mg/dL (40-59) L 01/20/18 02:36 Cholesterol/HDL Ratio 5.8 (0-4.9) H 01/20/18 02:36 Consult Discharge Plan - Plan Referrals: Halie Mena, PURCHASING EXPEDITOR [Primary Care Provider] -
[2018-01-20] MEDS ORDERED: Isosorbide MONOnitrate (24 HR) 60 MG TAB.ER.24H PO SCH (09:00)
[2018-01-20] MEDS ORDERED: Insulin NPH 100 UNIT/ML (x5UNIT) SQ SCH (09:00)
[2018-01-20] MEDS ORDERED: Aspirin Enteric Coated 81 MG Tablet PO SCH (09:00)
[2018-01-20 11:07] VITALS: BP 139/80
--- NOTE | 2018-01-20 11:16 | Electrocardiograph Report ---
[place] [id number] Test Date: 2018-01-19 Pat Name: Eduar Joe Department: EXAMC9 Room: 3B14 Gender: M Fringe Knotter: : 1945 Requested By: Justen Tim Order Number: [id number] Reading MD: Marsha Hauser Measurements Intervals [place] Rate: 66 P: 24 MS: 196 QRS: -33 QRSD: 104 T: 31 QT: 394 QTc: 413 Interpretive Statements Sinus rhythm Abnormal R-wave progression, early transition Inferior infarct, old Electronically Signed On 01-20-2018 11:14:46 EDT by Marsha Hauser
--- NOTE | 2018-01-20 13:06 | Electrocardiograph Report ---
[address] [place] [address] Test Date: 2018-01-19 Pat Name: Eduar Joe Department: EXAMC9 Room: 3B14 Gender: M Information Resources Director: : 1945 Requested By: [id number] Order Number: [id number] Reading MD: Marsha Hauser Measurements Intervals [place] Rate: 61 P: 8 MA: 188 QRS: -49 QRSD: 107 T: 35 QT: 418 QTc: 421 Interpretive Statements Sinus rhythm Abnormal R-wave progression, early transition Inferior infarct, old Electronically Signed On 01-20-2018 13:04:24 EDT by Marsha Hauser
--- NOTE | 2018-01-20 13:20 | Discharge Summary ---
<Jessica Perlaa - Last Filed: 01/20/18 14:31> - NOTES TO OUTPATIENT PROVIDER Notes to Outpatient Provider: Mr. Joe is a 72 year old male who presented to the ED on 01/19/18 due to right sided weakness and dizziness. He had no other symptoms. 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 In the ED he has a CT of the head which did not show any acute changes. He was recommended to be transferred to [facility] for TPA but declined saying he has similar events every six months. He was unable to get an MRI due to an AICD. His labs were within normal limits. Neurology was consulted and recommended physical therapy but he declined. They also noted that it could be hemiplegic migraine without headaches due to right shoulder pain associated with his symptoms. Today , one day after his presentation he notes his symptoms have resolved although physical exam shows left facial droop and lower extremity strength 4/5 on the right lower extremity, unknown if these are new or old symptoms as he notes previous history of TIA, which may have been CVA. Date of Encounter: 01/20/18 Time of Encounter: 08:00 - Discharge Diagnosis (1) Diabetes Priority: Secondary Status: Chronic Qualifiers: Diabetes mellitus type: type 2 Diabetes mellitus half-way insulin use: with intermodal dispatcher use Diabetes mellitus complication status: with kidney complications Diabetes mellitus complication detail: with chronic kidney disease Chronic kidney disease stage: stage 3 (moderate) Qualified Code(s): E11.22 - Type 2 diabetes mellitus with diabetic chronic kidney disease; N18.3 - Chronic kidney disease, stage 3 (moderate); Z79.4 - MCFP (current) use of insulin (2) HTN (hypertension) Priority: Secondary Status: Chronic Qualifiers: Hypertension type: essential hypertension Qualified Code(s): I10 - Essential (primary) hypertension (3) CAD (coronary artery disease) Priority: Secondary Status: Chronic Qualifiers: Coronary Disease-Associated Artery/Lesion type: bypass graft [place] vs. transplanted heart: [place] heart Associated angina: without angina Qualified Code(s): I25.810 - Atherosclerosis of coronary artery bypass graft(s) without angina pectoris (4) Ischemic cardiomyopathy Priority: Secondary Status: Chronic (5) Asthma, intermittent Priority: Secondary Status: Chronic Qualifiers: Asthma severity: mild Asthma complication type: uncomplicated Qualified Code(s): J45.20 - Mild intermittent asthma, uncomplicated (6) CKD (chronic kidney disease) stage 3, GFR 30-59 ml/min Priority: Secondary Status: Chronic (7) TIA (transient ischemic attack) Priority: Secondary Status: Acute (8) Hypoglycemia Priority: Secondary Status: Suspected (9) Hemiparesis Priority: Primary Status: Acute Qualifiers: Hemiparesis etiology: unspecified Hemiparesis laterality: right dominant side Qualified Code(s): G81.91 - Hemiplegia, unspecified affecting right dominant side Hospital course: Mr. Joe is a 72 year old male with past medical history of asthma, CAD, HTN and DM who presented to the ED on 01/19/18 due to right sided weakness and dizziness. At presentation to the ED he stated he has similar episodes every 6 months which resolve spontaneously. 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 He was dizzy during this episode and was brought to the ED. He had CT of the head which showed no acute changes. He was unable to get an MRI due to an AICD and due to CKD stage 3 with BENTLEY he was unable to get an MRI. His EKG did not show any new changes. He also had a chest xray which did not show any acute process. He was recommended to go to [facility] for TPA and he refused. Neurology was consulted and they recommended physical therapy but he refused and wanted to go home instead since his symptoms have resolved. Today it was noted his glucose was 65 and when questioned about his glucose reading he noted at home it is around 115 in the morning before he takes his AM insulin. He may require some changes to his home insulin dosage if these symotoms are representation of hypoglycemia although his glucose upon ED admission was 144. Today on exam he appears to have a left sided facial droop but notes he has history of previous CVAs. His strength is 4/5 on the right lower extremity while 5/5 on the left. He has no other neurological impairments on exam. He should continue taking his home medications and should follow up with his PCP in one week. Discharge discussed with: patient - Time Spent with Patient Total time spent providing and/or coordinating discharge services: Less than 30 minutes - Discharge Medications Home Medications: Aspirin Enteric Coated [Aspirin EC] 81 mg PO DAILY 01/05/15 [History] Famotidine [Pepcid] 40 mg PO HS 01/05/15 [History] Insulin NPH, HUMAN [HumuLIN N] 15 unit SQ QPM #0 01/04/16 [History] Insulin NPH, HUMAN [HumuLIN N] 20 unit SQ QAM #0 01/04/16 [History] Pantoprazole Sodium [Protonix] 40 mg PO DAILY 01/04/16 [History] Carbidopa/Levodopa 25/100 [Sinemet 25/100] 1 tab PO TID 07/20/16 [History] Isosorbide MONOnitrate [Isosorbide Mononitrate ER] 120 mg PO DAILY 07/20/16 [ History] Carvedilol 3.125 mg PO BID 09/08/17 [History] Clopidogrel [Plavix] 75 mg PO DAILY 09/08/17 [History] Lisinopril 2.5 mg PO DAILY 09/08/17 [History] Nitroglycerin [Nitrostat] 0.4 mg SL Q5M PRN 09/08/17 [History] Tamsulosin [Flomax] 0.4 mg PO DAILY 09/08/17 [History] Cholecalciferol (D-3) [Vitamin D] 1,000 unit PO DAILY 01/19/18 [History] Multivitamin [One Daily Essential] 1 each PO DAILY 01/19/18 [History] Allergies/Adverse Reactions: 3 Allergy/AdvReac Type Severity Reaction Status Date / Time furosemide [From Lasix] AdvReac See Verified 01/19/18 14:20 Comments Date of admission: 01/19/18 13:07 Primary care physician: Halie Mena CNP Consults: 01/19/18 13:17 Consult to Occupational Therapy [CONS] Routine Comment: Evaluate, develop and implement POC Reason for Consult: TIA Does patient have active BEDREST order?: No Is patient medically & hemodynamically stable?: Yes Patient assessed for mobility or mobilized this visit?: Yes Consult to Physical Therapy [CONS] Routine Comment: Evaluate, develop and implement POC Reason for Consult: TIA Does patient have active BEDREST order?: No Is patient medically & hemodynamically stable?: Yes Patient assessed for mobility or mobilized this visit?: Yes Consult to Blow Pit Helper [CONS] Routine Reason for SW Consult: TIA Discharging clinician: Kaley Perla Anticipated date of discharge: 01/20/18 - Constitutional Vitals: Temp Pulse Resp BP Pulse Ox 97.8 F 61 16 139/80 96 01/20/18 11:05 01/20/18 11:05 01/20/18 11:05 01/20/18 11:05 01/20/18 11:05 General appearance: Present: A&O X 3, pleasant, answers questions appropriately Exam: awake, alert and oriented x 3 - Head Head exam: Present: atraumatic, normocephalic - Eye Eye exam: Present: EOMI, normal appearance, sclera anicteric. Absent: nystagmus - ENT ENT exam: Present: mucous membranes moist - Neck Neck exam general surgery: Present: full ROM. Absent: tenderness - Respiratory Respiratory exam: Present: CTAB. Absent: rales, rhonchi, stridor, wheezes - Cardiovascular Cardiovascular exam: Present: RRR, +S1, +S2. Absent: clicks, gallop - GI/Abdominal GI/Abdominal exam: Present: normal bowel sounds, soft. Absent: firm, mass, tenderness - Extremities Exam Extremities exam: Present: full ROM, warm. Absent: pedal edema, tenderness - Neurological Exam Neurological exam: Present: alert, CN II-XII intact, facial droop (left facial droop). Absent: strengths equal and symetr throughout (right lower extremity strength 4/5 than left), speech deficit - Psychiatric Psychiatric exam: Present: normal affect, normal mood - Skin Skin exam: Present: dry, intact, warm - Patient Status Disposition: Home, Self-Care Condition: Fair Overall status at discharge: patient is progressing back to baseline - Discharge Instructions Follow Up With: Halie Mena, BEE TENDER [Primary Care Provider] - - Diet and Activity Activity: increase activity as tolerated Diet: diabetic diet <Anthony Pool - Last Filed: 01/20/18 15:02> Date of Encounter: 01/20/18 - Discharge Diagnosis (1) Diabetes Status: Chronic Qualifiers: Diabetes mellitus type: type 2 Diabetes mellitus intermodal dispatcher insulin use: with half-way use Diabetes mellitus complication status: with kidney complications Diabetes mellitus complication detail: with chronic kidney disease Chronic kidney disease stage: stage 3 (moderate) Qualified Code(s): E11.22 - Type 2 diabetes mellitus with diabetic chronic kidney disease; N18.3 - Chronic kidney disease, stage 3 (moderate); Z79.4 - terminal clerk (current) use of insulin (2) HTN (hypertension) Status: Chronic Qualifiers: Hypertension type: essential hypertension Qualified Code(s): I10 - Essential (primary) hypertension (3) CAD (coronary artery disease) Status: Chronic Qualifiers: Coronary Disease-Associated Artery/Lesion type: bypass graft [place] vs. transplanted heart: [place] heart Associated angina: without angina Qualified Code(s): I25.810 - Atherosclerosis of coronary artery bypass graft(s) without angina pectoris (4) Ischemic cardiomyopathy Status: Chronic (5) Asthma, intermittent Status: Chronic Qualifiers: Asthma severity: mild Asthma complication type: uncomplicated Qualified Code(s): J45.20 - Mild intermittent asthma, uncomplicated (6) CKD (chronic kidney disease) stage 3, GFR 30-59 ml/min Status: Chronic (7) TIA (transient ischemic attack) Status: Acute (8) Hypoglycemia Status: Suspected (9) Hemiparesis Status: Acute Qualifiers: Hemiparesis etiology: non-cerebrovascular etiology Hemiparesis laterality: right dominant side Qualified Code(s): G81.91 - Hemiplegia, unspecified affecting right dominant side Hospital course: Mr. Joe is a 72 year old male - Time Spent with Patient Total time spent providing and/or coordinating discharge services: Date of admission: 01/19/18 13:07 Primary care physician: Halie Mena CNP Consults: 01/19/18 13:17 Consult to Occupational Therapy [CONS] Routine Comment: Evaluate, develop and implement POC Reason for Consult: TIA Does patient have active BEDREST order?: No Is patient medically & hemodynamically stable?: Yes Patient assessed for mobility or mobilized this visit?: Yes Consult to Physical Therapy [CONS] Routine Comment: Evaluate, develop and implement POC Reason for Consult: TIA Does patient have active BEDREST order?: No Is patient medically & hemodynamically stable?: Yes Patient assessed for mobility or mobilized this visit?: Yes Consult to Blow Pit Helper [CONS] Routine Reason for SW Consult: TIA - Constitutional Vitals: Temp Pulse Resp BP Pulse Ox 97.8 F 61 16 139/80 96 01/20/18 11:05 01/20/18 11:05 01/20/18 11:05 01/20/18 11:05 01/20/18 11:05 - Attending Attestation I examined this patient and my medical decision-making was reviewed with the Resident Physician on 01/20/18. I agree with the documented findings, disposition and treatment plan as described except to the extent set forth below. Mr Joe has been in observation for neurologic symptoms/possible TIA. His sugar has fluctuated and there was discussion that low glucose may be contributing to his symptoms. He is now feeling nearly baseline. He is afebrile and ready for discharge home. Exam alert Comfortable Mucus membranes dry Heart not tachy No wheeze Moves all extremities Plan D/C home today.
== END 2018-01-20 15:06 | disposition home or self-care (01) ==
LOC: EMEROOARM 11:07 → 3BNU 11:07
PROVIDERS: ADMIT Internal Medicine; ATTEND Internal Medicine

== ENCOUNTER 2018-02-04 15:13 | Observation (INO) ==
[2018-02-04] MEDS ORDERED: Aspirin 81 MG TAB.CHEW PO ONE (15:21)
[2018-02-04] MEDS ORDERED: *HR* FentaNYL (PF) 100 MCG/2 ML VIAL IVP ONE (15:30)
[2018-02-04] MEDS ORDERED: *HR* Midazolam HCl 2 MG/2 ML VIAL IVP ONE (15:30)
[2018-02-04 15:53] LABS: Basophils % 0.6 %; Eosinophils # 0.3 K/mcL (0.0-0.6); Eosinophils % 5.6 %; Hematocrit 41.5 % (37.5-50.1); Hemoglobin 13.7 g/dL (12.9-16.9); Immature Granulocytes % 0.2 % (0-4); Lymphocytes # 1.4 K/mcL (0.6-4.6); Lymphocytes % 28.9 %; Mean Corpuscular Hemoglobin 30.2 pg (28.0-33.3); Mean Corpuscular Volume 91.4 fL (83.0-100.0); Mean Platelet Volume 11.7 fL (9.4-12.4); Monocytes # 0.5 K/mcL (0.0-1.3); Neutrophils # 2.6 K/mcL (1.6-8.9); Platelet Count 124 K/mcL (140-400); Red Blood Count 4.54 M/mcL (4.19-5.50); Red Cell Distribution Width 13.4 % (11.5-14.5); Segmented Neutrophils % 53.7 %
[2018-02-04 16:00] LABS: BUN/Creatinine Ratio 15 (6-26); Blood Urea Nitrogen 20 mg/dL (8-23); Calcium 9.1 mg/dL (8.6-10.3); Carbon Dioxide 26 mEq/L (23-29); Chloride 106 mEq/L (98-107); Glucose 162 mg/dL (70-105); Osmolality,Calculated 288 (280-300); Potassium 4.2 mEq/L (3.5-5.1); Sodium 136 mEq/L (136-145); eGFR For Non-African Americans 52 (> 60)
[2018-02-04 16:01] LABS: Troponin I < 0.03 ng/mL (< 0.04)
--- NOTE | 2018-02-04 16:14 | Emergency Department Note ---
Disposition Clinical Impression: Chest pain Qualifiers: Chest pain type: chest pain on breathing Qualified Code(s): R07.1 - Chest pain on breathing Disposition: Admitted As Inpatient Condition: Fair Time of Disposition: 17:20 General Adult HPI - General Stated complaint: Chest Pain Time Seen by Provider: 02/04/18 15:15 Source: patient Mode of arrival: ambulatory Limitations: no limitations Nursing Notes Reviewed: Yes Vital Signs Reviewed: Yes - History of Present Illness HPI Narrative: Patient is a 72-year-old male with a past medical history of CABG 3, multiple heart stents, ACID/pacemaker high cholesterol, hypertension, and diabetes presents to the emergency department for evaluation of chest pain has been going on for approximately 2 hours. The patient states that he has sitting in a chair when he had sudden onset of a sharp stabbing chest pain that was 10 out 10 pain and last for about a couple of seconds. States that this has been happening every couple of minutes. Denies any associated nausea, vomiting, diaphoresis or dyspnea. States that his defibrillator/pacemaker was placed at [facility] in [place]. - Related Data Home Medications Medication Instructions Recorded Confirmed Aspirin Enteric Coated [Aspirin EC] 81 mg PO DAILY 01/05/15 02/04/18 Famotidine [Pepcid] 40 mg PO HS 01/05/15 02/04/18 Insulin NPH, HUMAN [HumuLIN N] 15 unit SQ QPM #0 01/04/16 02/04/18 Insulin NPH, HUMAN [HumuLIN N] 20 unit SQ QAM #0 01/04/16 02/04/18 Pantoprazole Sodium [Protonix] 40 mg PO DAILY 01/04/16 02/04/18 Carbidopa/Levodopa 25/100 [Sinemet 1 tab PO TID 07/20/16 02/04/18 25/100] Isosorbide MONOnitrate [Isosorbide 120 mg PO DAILY 07/20/16 02/04/18 Mononitrate ER] Carvedilol 3.125 mg PO BID 09/08/17 02/04/18 Clopidogrel [Plavix] 75 mg PO DAILY 09/08/17 02/04/18 Lisinopril 2.5 mg PO DAILY 09/08/17 02/04/18 Nitroglycerin [Nitrostat] 0.4 mg SL Q5M PRN 09/08/17 02/04/18 Tamsulosin [Flomax] 0.4 mg PO DAILY 09/08/17 02/04/18 Cholecalciferol (D-3) [Vitamin D] 1,000 unit PO DAILY 01/19/18 02/04/18 Multivitamin [One Daily Essential] 1 each PO DAILY 01/19/18 02/04/18 Allergies Allergy/AdvReac Type Severity Reaction Status Date / Time furosemide [From Lasix] AdvReac See Verified 01/19/18 14:20 Comments All systems ED: reviewed and negative except as stated. Review of Systems: As Per HPI Constitutional: Denies: fever, chills Cardiovascular: Reports: chest pain. Denies: palpitations, dyspnea on exertion, edema, syncope Respiratory: Denies: cough, dyspnea, wheezes Gastrointestinal: Denies: abdominal pain, nausea, vomiting Musculoskeletal: Denies: back pain, neck pain Integumentary: Denies: rash Past Medical History - Past Medical History Attestation: Yes The following information was validated with the patient. Medical history: Reports: asthma, cardiomyopathy, CHF, coronary artery disease, diabetes, GERD, hyperlipidemia, hypertension, myocardial infarction, renal disease, other Surgical history: Reports: angioplasty/stent, coronary bypass (CABG), pacemaker/AICD, other Psychiatric history: Reports: no psych history - Social History Smoking Status: Never smoker Smokeless Tobacco Status: No Alcohol use: Reports: none Drug use: Reports: none Physical Exam CONSTITUTIONAL: A&O X 3, tearful secondary to chest pain HEAD: Normocephalic; atraumatic EYES: PERRL, no scleral icterus NOSE: The nose is normal in appearance without rhinorrhea NECK: No JVD or distended neck veins RESP: Normal chest excursion with respiration; breath sounds clear and equal bilaterally; no wheezes, rhonchi, or rales CARD: Regular rhythm, without murmurs, rub or gallop ABD: Non-distended; non-tender, soft, without rigidity, rebound or guarding,no pulsatile mass CHEST: No pain with palpation. ACID/Packermaker present on left chest wall. SKIN: Normal for age and race; warm and dry without diaphoresis ; no apparent lesions EXTREMITIES: Pulses are 2 plus and equal times 4 extremities, no peripheral edema or calf muscle pain Course Course Narrative: Given patient's past medical history and current pacemaker/defibrillator a interrogation was sent to [facility] which revealed no events and proper placement of leads. It did show a nonsustained run of V. tach on 01/31/18. The patient's pain has improved with fentanyl and Versed. His lab work was unremarkable, chest x-ray was normal and his EKG was nonischemic. I discussed the patient's case with the relationship consultant on-call Dr. Blackmon and he states he does not believe that this is pacemaker related and recommended admitting the patient to the hospital service for chest pain rule out. I discussed this with the patient and he agrees with that plan. - Reevaluation(s) Reevaluation #1: Discussed the patient's case with Dr. Casey and he agrees to accept the patient for chest pain rule out with consult to cardiology. Vital Signs Temperature 98.4 F 02/04/18 15:20 Pulse Rate 66 02/04/18 15:20 Respiratory Rate 18 02/04/18 15:20 Blood Pressure 166/94 02/04/18 15:20 O2 Sat by Pulse Oximetry 97 02/04/18 15:20 Temperature 98.4 F 02/04/18 15:20 Pulse Rate 66 02/04/18 15:20 Respiratory Rate 18 02/04/18 15:20 Blood Pressure 166/94 02/04/18 15:20 O2 Sat by Pulse Oximetry 97 02/04/18 15:20 Oxygen Delivery Oxygen Delivery Room Air Medical Decision Making - Medical Records Medical records reviewed: Yes I reviewed the patient's medical records. - Lab Data Lab results reviewed: Yes I reviewed the patient's lab results. Result diagrams: 02/04/18 15:24 02/04/18 15:24 Lab Results 02/04/18 02/04/18 Range/Units 15:24 15:24 WBC 4.8 (4.3-11.1) K/mcL RBC 4.54 (4.19-5.50) M/mcL Hgb 13.7 (12.9-16.9) g/dL Hct 41.5 (37.5-50.1) % MCV 91.4 (83.0-100.0) fL MCH 30.2 (28.0-33.3) pg MCHC 33.0 (31.6-35.5) g/dL RDW 13.4 (11.5-14.5) % Plt Count 124 L (140-400) K/mcL MPV 11.7 (9.4-12.4) fL Immature Gran % 0.2 (0-4) % Seg Neutrophils % 53.7 % Lymphocytes % 28.9 % Monocytes % 11.0 % Eosinophils % 5.6 % Basophils % 0.6 % Neutrophils # 2.6 (1.6-8.9) K/mcL Lymphocytes # 1.4 (0.6-4.6) K/mcL Monocytes # 0.5 (0.0-1.3) K/mcL Eosinophils # 0.3 (0.0-0.6) K/mcL Basophils # 0.0 (0.0-0.2) K/mcL Sodium 136 (136-145) mEq/L Potassium 4.2 (3.5-5.1) mEq/L Chloride 106 (98-107) mEq/L Carbon Dioxide 26 (23-29) mEq/L BUN 20 (8-23) mg/dL Creatinine 1.34 H (0.70-1.30) mg/dL Est GFR ( Amer) > 60 (> 60) Est GFR (Non-Af Amer) 52 L (> 60) BUN/Creatinine Ratio 15 (6-26) Glucose 162 H (70-105) mg/dL Calculated Osmolality 288 (280-300) Calcium 9.1 (8.6-10.3) mg/dL Troponin I < 0.03 (< 0.04) ng/mL - Radiology Data Radiology results reviewed: Yes I reviewed the patient's radiology results. Chest X-Ray 02/04/18 15:21 IMPRESSION: No acute process. D/ / Thanh Davila MD / Thanh Davila MD Interpreting Provider: Thanh Davila MD - EKG Data EKG #1 EKG attestation: Yes I reviewed and interpreted this EKG. EKG results narrative: EKG done at this 15:23 shows sinus rhythm at a rate of 67 bpm. Normal axis. Intervals within normal limits. No signs of ST elevation, ST depression or Q waves present.
--- NOTE | 2018-02-04 16:15 | Emergency Department Note ---
Disposition Clinical Impression: Chest pain Disposition: Admitted As Inpatient Condition: Fair General Adult HPI - General Chief complaint: ED Chest Pain Stated complaint: Chest Pain Time Seen by Provider: 02/04/18 15:15 Source: patient Mode of arrival: ambulatory Limitations: no limitations - History of Present Illness Pain Scale: 8 - Related Data Home Medications Medication Instructions Recorded Confirmed Aspirin Enteric Coated [Aspirin EC] 81 mg PO DAILY 01/05/15 02/04/18 Famotidine [Pepcid] 40 mg PO HS 01/05/15 02/04/18 Insulin NPH, HUMAN [HumuLIN N] 15 unit SQ QPM #0 01/04/16 02/04/18 Insulin NPH, HUMAN [HumuLIN N] 20 unit SQ QAM #0 01/04/16 02/04/18 Pantoprazole Sodium [Protonix] 40 mg PO DAILY 01/04/16 02/04/18 Carbidopa/Levodopa 25/100 [Sinemet 1 tab PO TID 07/20/16 02/04/18 25/100] Isosorbide MONOnitrate [Isosorbide 120 mg PO DAILY 07/20/16 02/04/18 Mononitrate ER] Carvedilol 3.125 mg PO BID 09/08/17 02/04/18 Clopidogrel [Plavix] 75 mg PO DAILY 09/08/17 02/04/18 Lisinopril 2.5 mg PO DAILY 09/08/17 02/04/18 Nitroglycerin [Nitrostat] 0.4 mg SL Q5M PRN 09/08/17 02/04/18 Tamsulosin [Flomax] 0.4 mg PO DAILY 09/08/17 02/04/18 Cholecalciferol (D-3) [Vitamin D] 1,000 unit PO DAILY 01/19/18 02/04/18 Multivitamin [One Daily Essential] 1 each PO DAILY 01/19/18 02/04/18 Allergies Allergy/AdvReac Type Severity Reaction Status Date / Time furosemide [From Lasix] AdvReac See Verified 01/19/18 14:20 Comments Constitutional: Denies: fever, chills Cardiovascular: Reports: chest pain. Denies: palpitations, dyspnea on exertion, edema, syncope Respiratory: Denies: cough, dyspnea, wheezes Gastrointestinal: Denies: abdominal pain, nausea, vomiting Musculoskeletal: Denies: back pain, neck pain Integumentary: Denies: rash Past Medical History - Past Medical History Medical history: Reports: asthma, cardiomyopathy, CHF, coronary artery disease, diabetes, GERD, hyperlipidemia, hypertension, myocardial infarction, renal disease, other Surgical history: Reports: angioplasty/stent, coronary bypass (CABG), pacemaker/AICD, other Psychiatric history: Reports: no psych history - Social History Smoking Status: Never smoker Smokeless Tobacco Status: No Alcohol use: Reports: none Drug use: Reports: none Physical Exam - General Limitations: no limitations General appearance: alert, in no apparent distress Course Vital Signs Temperature 98.4 F 02/04/18 15:20 Pulse Rate 66 02/04/18 15:20 Respiratory Rate 18 02/04/18 15:20 Blood Pressure 166/94 02/04/18 15:20 O2 Sat by Pulse Oximetry 97 02/04/18 15:20 Temperature 98.4 F 02/04/18 15:20 Pulse Rate 60 02/04/18 19:28 Respiratory Rate 11 02/04/18 19:28 Blood Pressure 144/87 02/04/18 19:28 O2 Sat by Pulse Oximetry 100 02/04/18 19:28 Oxygen Delivery Oxygen Delivery Nasal Cannula Medical Decision Making - Lab Data Result diagrams: 02/04/18 15:24 02/04/18 15:24 Lab Results 02/04/18 02/04/18 Range/Units 15:24 15:24 WBC 4.8 (4.3-11.1) K/mcL RBC 4.54 (4.19-5.50) M/mcL Hgb 13.7 (12.9-16.9) g/dL Hct 41.5 (37.5-50.1) % MCV 91.4 (83.0-100.0) fL MCH 30.2 (28.0-33.3) pg MCHC 33.0 (31.6-35.5) g/dL RDW 13.4 (11.5-14.5) % Plt Count 124 L (140-400) K/mcL MPV 11.7 (9.4-12.4) fL Immature Gran % 0.2 (0-4) % Seg Neutrophils % 53.7 % Lymphocytes % 28.9 % Monocytes % 11.0 % Eosinophils % 5.6 % Basophils % 0.6 % Neutrophils # 2.6 (1.6-8.9) K/mcL Lymphocytes # 1.4 (0.6-4.6) K/mcL Monocytes # 0.5 (0.0-1.3) K/mcL Eosinophils # 0.3 (0.0-0.6) K/mcL Basophils # 0.0 (0.0-0.2) K/mcL Sodium 136 (136-145) mEq/L Potassium 4.2 (3.5-5.1) mEq/L Chloride 106 (98-107) mEq/L Carbon Dioxide 26 (23-29) mEq/L BUN 20 (8-23) mg/dL Creatinine 1.34 H (0.70-1.30) mg/dL Est GFR ( Amer) > 60 (> 60) Est GFR (Non-Af Amer) 52 L (> 60) BUN/Creatinine Ratio 15 (6-26) Glucose 162 H (70-105) mg/dL Calculated Osmolality 288 (280-300) Calcium 9.1 (8.6-10.3) mg/dL Troponin I < 0.03 (< 0.04) ng/mL Attestation Statement - Attestation Attestation: I examined this patient and my medical decision-making was reviewed with the Resident Physician. I agree with the documented findings, disposition and treatment plan as described except to the extent set forth below. Patient to the ED with a chief complaint of chest pain. He has had some i ntermittent sharp pains over the past 2 hours. Patient does have a defibrillator. History of CABG. He states his pacemaker was put" because he needs it." Pacemaker was inserted around 2003 at [facility]. He also follows with Dr. Hauser on examination he is pale and diaphoretic. Heart regular. Plan. Patient was observed getting shocked 1. It appears he is going into an atrial flutter. His ventricular rate is maintaining is 60-70. Patient is currently normal sinus with no flutter. Performing pacemaker interrogation at this time I will discuss with cardiology. Interrogation did not reveal any events. Patient will be admitted for chest pain rule out. EKG did not have any acute Chest X-Ray 02/04/18 15:21 IMPRESSION: No acute process. D/ / Thanh Davila MD / Thanh Davila MD Interpreting Provider: Thanh Davila MD ischemic changes.
--- NOTE | 2018-02-04 17:40 | Internal Med History&Physical ---
Date of Encounter: 02/04/18 Time of Encounter: 17:37 Internal Medicine - H&P: HPI Chief complaint: chest pain Admitted From: Home Plans for Post Hospital Care: Home History of present illness: Mr. Joe is a 72 year old male renita has hx of Parkinson's disease, asthma, cardiomyopathy, CHF, coronary artery disease s/p CABG, stent, diabetes, GERD, hyperlipidemia, hypertension, myocardial infarction, ckd iii, TIAs, s/p ICD, presented to emergency room for sudden onset left-sided chest pain, chest pain started at around 12:00 while he is sitting in a chair, is sharp and stabbing, lasted for a few second, on and off since then, associated with chest muscle twitching. Pain is 10 out of 10 when it comes. He denies any shortness of breath, denies palpation dizziness no sweating. While I will was in the room he had the couple of episodes of left-sided chest muscle twitching, and the pain lasts for just a second every few minutes. I did examine the area he has moderate tenderness over the skin below the pacemaker area. But the skin sensitivity is noted not dermatome distribution. No skin rashes. Patient has no OBED changes, labs unremarkable. Device was checked in ER was unremarkable. ER physician spoke to EP cardiology Dr zhong who will see the patient. patient is going to be admitted for Tele, serial trop, cardiology is consulted. Past Med Surg Social Fam HX - Past Medical History Medical history: asthma, cardiomyopathy, CHF, coronary artery disease, diabetes, GERD, hyperlipidemia, hypertension, myocardial infarction, renal disease, other Additional medical history: parkinsons, Spinal Stenosis, Cerival Spondyliosis Psychiatric history: no psych history - Past Surgical History Surgical History: angioplasty/stent, coronary bypass (CABG), pacemaker/AICD, other Additional surgical history: right rotator cuff surgery. Mulitple heart Stents. Right Leg Surgery - Social History Smoking Status: Never smoker Smokeless Tobacco Status: No Alcohol use: none Drug use: none - Family History Father Living Status: Hx Family Cardiac Disorders: Yes (Bad heart) Hx Family Neurologic Disorders: Yes (Alzheimer's) Mother Living Status: Hx Family Cardiac Disorders: Yes ([place]) Internal Medicine - H&P: Meds Aspirin Enteric Coated [Aspirin EC] 81 mg PO DAILY 01/05/15 [History] Famotidine [Pepcid] 40 mg PO HS 01/05/15 [History] Insulin NPH, HUMAN [HumuLIN N] 15 unit SQ QPM #0 01/04/16 [History] Insulin NPH, HUMAN [HumuLIN N] 20 unit SQ QAM #0 01/04/16 [History] Pantoprazole Sodium [Protonix] 40 mg PO DAILY 01/04/16 [History] Carbidopa/Levodopa 25/100 [Sinemet 25/100] 1 tab PO TID 07/20/16 [History] Isosorbide MONOnitrate [Isosorbide Mononitrate ER] 120 mg PO DAILY 07/20/16 [History] Carvedilol 3.125 mg PO BID 09/08/17 [History] Clopidogrel [Plavix] 75 mg PO DAILY 09/08/17 [History] Lisinopril 2.5 mg PO DAILY 09/08/17 [History] Nitroglycerin [Nitrostat] 0.4 mg SL Q5M PRN 09/08/17 [History] Tamsulosin [Flomax] 0.4 mg PO DAILY 09/08/17 [History] Cholecalciferol (D-3) [Vitamin D] 1,000 unit PO DAILY 01/19/18 [History] Multivitamin [One Daily Essential] 1 each PO DAILY 01/19/18 [History] Allergy/AdvReac Type Severity Reaction Status Date / Time furosemide [From Lasix] AdvReac See Verified 01/19/18 14:20 Comments All Systems PM: A 10-system review of systems was performed and is negative for pertinent findings except as documented above in the HPI. - Constitutional Vitals: Temp Pulse Resp BP Pulse Ox 98.4 F 66 18 166/94 97 02/04/18 15:20 02/04/18 15:20 02/04/18 15:20 02/04/18 15:20 02/04/18 15:20 General appearance: Present: A&O X 3, pleasant, answers questions appropriately Exam: CONSTITUTIONAL: Patient appears as an age appropriate male well developed, in no acute distress. EYES Clear sclerae, bilateral pupils are equal, reactive to light and accommodation. Extraocular movements are intact RESPIRATORY: No accessory muscle use, bilateral clear to auscultation, no wheezing, no crackles/rales. CARDIOVASCULAR: Regular heart rate, normal S1 and S2, no murmurs GASTROINTESTINAL: bowel sounds present, soft, no tenderness. No hepatosplenomegaly. No bilateral CVA tenderness MUSCULOSKELETAL: Joints in normal range of motion, no clubbing, no edema, no cyanosis. Bilateral peripheral pulses 2+ LYMPHATIC no lymphadenopathy in neck, groin and axilla bilaterally, no thyromegaly. NEUROLOGIC: CN II to XII are grossly intact, no focal neurological deficit. Deep tendon reflexes 2+ bilaterally. Normal light touch sensation to upper and lower extremity PSYCHIATRIC: Oriented x3, with good insight, mood is euthymic. No hallucinations or delusions. SKIN: Skin warm and dry, no rashes, no open wound. Internal Med - H&P Results - Labs CBC & Chem 7: 02/04/18 15:24 02/04/18 15:24 Labs: Short CBC 02/04/18 Range/Units 15:24 WBC 4.8 (4.3-11.1) K/mcL Hgb 13.7 (12.9-16.9) g/dL Hct 41.5 (37.5-50.1) % Plt Count 124 L (140-400) K/mcL Neutrophils # 2.6 (1.6-8.9) K/mcL BMP 02/04/18 15:24 Sodium 136 Potassium 4.2 Chloride 106 Carbon Dioxide 26 BUN 20 Creatinine 1.34 H Glucose 162 H Calcium 9.1 Cardiac Enzymes 02/04/18 Range/Units 15:24 Troponin I < 0.03 (< 0.04) ng/mL - Impressions ITS Impressions Chest X-Ray 02/04/18 15:21 IMPRESSION: No acute process. D/ / Thanh Davila MD / Thanh Davila MD Interpreting Provider: Thanh Davila MD - Assessment and plan (1) Chest pain Current Visit: Yes Status: Acute Assessment and plan: Chest pain is atypical, he has tenderness over the left chest, with muscle twitching, device was checked in the emergency room with no firing, We will continue telemetry monitoring, follow-up serial troponin. Pending cardiology consult Qualifiers: Chest pain type: other chest pain Qualified Code(s): R07.89 - Other chest pain; R07.8 - Other chest pain (2) Diabetes Current Visit: Yes Status: Chronic Assessment and plan: add SSI Qualifiers: Diabetes mellitus type: type 2 Diabetes mellitus long-term insulin use: wi th long-term use Diabetes mellitus complication status: with kidney compl ications Diabetes mellitus complication detail: with chronic kidney disease Chronic kidney disease stage: stage 3 (moderate) Qualified Code(s): E11.22 - Type 2 diabetes mellitus with diabetic chronic kidney disease; N18.3 - Chronic kidney disease, stage 3 (moderate); Z79.4 - snf (current) use of insulin (3) HTN (hypertension) Current Visit: Yes Status: Chronic Qualifiers: Hypertension type: essential hypertension Qualified Code(s): I10 - Essential (primary) hypertension (4) CAD (coronary artery disease) Current Visit: Yes Status: Chronic Assessment and plan: s/p CABG and stent ICD Qualifiers: Coronary Disease-Associated Artery/Lesion type: bypass graft [place] vs. transplanted heart: [place] heart Associated angina: without angina Qualified Code(s): I25.810 - Atherosclerosis of coronary artery bypass graft(s) without angina pectoris (5) Ischemic cardiomyopathy Current Visit: Yes Status: Chronic Assessment and plan: EF 45-50% (6) Obesity (BMI 30-39.9) Current Visit: Yes Status: Chronic (7) CKD (chronic kidney disease) stage 3, GFR 30-59 ml/min Current Visit: Yes Status: Chronic Assessment and plan: avoid nephrotoxcity (8) TIA (transient ischemic attack) Current Visit: Yes Status: Chronic Assessment and plan: ASA statin (9) Parkinson disease Current Visit: Yes Status: Chronic Assessment and plan: continue home meds - Time Spent With Patient Total time spent is greater than 50% in coordination of care (as documented) at patient's floor/unit and/or counseling patient: 25 - 35 minutes
[2018-02-04] MEDS ORDERED: Nitroglycerin 0.4 MG TAB.SUBL SL PRN (18:06)
[2018-02-04] MEDS ORDERED: Famotidine 20 MG TABLET PO SCH (21:00)
[2018-02-04] MEDS: Carbidopa/Levodopa 25/100 TABLET PO SCH (21:20)
[2018-02-05 04:45] LABS: Basophils % 0.6 %; Eosinophils # 0.3 K/mcL (0.0-0.6); Eosinophils % 5.5 %; Hematocrit 41.4 % (37.5-50.1); Hemoglobin 13.5 g/dL (12.9-16.9); Immature Granulocytes % 0.2 % (0-4); Lymphocytes # 1.6 K/mcL (0.6-4.6); Lymphocytes % 32.3 %; Mean Corpuscular HGB Conc 32.6 g/dL (31.6-35.5); Mean Corpuscular Hemoglobin 30.1 pg (28.0-33.3); Mean Corpuscular Volume 92.2 fL (83.0-100.0); Mean Platelet Volume 11.6 fL (9.4-12.4); Monocytes # 0.5 K/mcL (0.0-1.3); Monocytes % 10.5 %; Neutrophils # 2.6 K/mcL (1.6-8.9); Platelet Count 126 K/mcL (140-400); Red Blood Count 4.49 M/mcL (4.19-5.50); Red Cell Distribution Width 13.3 % (11.5-14.5); Segmented Neutrophils % 50.9 %
[2018-02-05 04:53] LABS: INR 1.1; Prothrombin Time 12.5 Seconds (9.4-12.1)
[2018-02-05 05:07] LABS: Alanine Aminotransferase < 3 Units/L (7-52); Albumin 3.4 g/dL (3.5-5.7); Albumin/Globulin Ratio 1.1 (1.1-2.2); Alkaline Phosphatase 46 Units/L (34-104); Aspartate Amino Transferase 12 Units/L (13-39); BUN/Creatinine Ratio 16 (6-26); Bilirubin,Total 0.8 mg/dL (0.3-1.0); Blood Urea Nitrogen 20 mg/dL (8-23); Calcium 8.7 mg/dL (8.6-10.3); Carbon Dioxide 24 mEq/L (23-29); Chloride 107 mEq/L (98-107); Globulin 3.1 g/dL (2.4-3.5); Glucose 95 mg/dL (70-105); Osmolality,Calculated 290 (280-300); Potassium 3.7 mEq/L (3.5-5.1); Sodium 139 mEq/L (136-145); Total Protein 6.5 g/dL (6.4-8.9); eGFR For Non-African Americans 57 (> 60)
[2018-02-05] MEDS: Insulin LISPRO 300 UNITS/3 ML VIAL SQ SCH ×2 (08:16→12:23)
[2018-02-05] MEDS ORDERED: Multivit/Ca/Min/Fe/FA 1 TAB TABLET PO SCH (09:00)
[2018-02-05] MEDS ORDERED: Aspirin Enteric Coated 81 MG Tablet PO SCH (09:00)
[2018-02-05] MEDS ORDERED: Isosorbide MONOnitrate (24 HR) 60 MG TAB.ER.24H PO SCH (09:00)
[2018-02-05] MEDS ORDERED: Insulin NPH 100 UNIT/ML (x5UNIT) SQ SCH ×2 (09:00→18:00)
[2018-02-05] MEDS ORDERED: Cholecalciferol (D-3) 1,000 UNIT TABLET PO SCH (09:00)
[2018-02-05] MEDS: Carbidopa/Levodopa 25/100 TABLET PO SCH (10:34)
--- NOTE | 2018-02-05 10:48 | Cardiology Consult Note ---
<Judd Headley - Last Filed: 02/05/18 10:44> Date of Encounter: 02/05/18 Time of Encounter: 10:44 Assessment and Plan (1) Chest pain Current Visit: Yes Status: Acute 72 YO male with significant heart disease history presenting with CP that is reproducible upon palpation, associated with sleeping position. Area of palpation does not have signs of infection such as erythema or warmth. Negative ICD interrogation. Most likely muskuloskeletal pain or shingles. Recommend lidocaine patch to see if hyperalgesia improves. Will continue following patient. ICD interrogation showed: 1) Battery and lead measuremnts within expected range. 2) 2 second VT episode on Jan 31 with AVG BPM A/V of 78/194 3) Total Ventricular pacing < 0.1% Qualifiers: Chest pain type: other chest pain Qualified Code(s): R07.89 - Other chest pain; R07.8 - Other chest pain Discussion w patient/family: The assessment and plan as outlined above was discussed with the patient and/or family members who expressed understanding and agreement. All questions were answered. Thank you for involving us in the care of your patient. Please call with any questions. History of Present Illness Consult date: 02/05/18 Consult reason: Chest painn History of present illness: Mr. Joe is a 72 year old male consulted for CP with a history of CHF, CAD S/P CABG, stent, DM, hyperlipidemia, MA, CKD III, TIAs S/P ICD, syncope. Yesterday he started having intermittent (every 15 minutes) stabbing pain w/ chest twitching around 10 AM. Patient was just sitting on couch. Pain is located in left chest, nonradiating, and rated 9/10. Patient currently does not have pain. He denies SOB, palpitations, diaphoresis. Patient notes that he has had increasing SOB and CP with with exertion that goes away when he takes a rest. At ED he received a interrogation of his pacemaker and Dr. Blackmon agreed to see him today. Patient notes that he has been sleeping on his side which has caused right sided pain. Past Med Surg Social Fam HX - Past Medical History Medical history: asthma, cardiomyopathy, CHF, coronary artery disease, diabetes, GERD, hyperlipidemia, hypertension, myocardial infarction, renal disease, other Additional medical history: parkinsons, Spinal Stenosis, Cerival Spondyliosis Psychiatric history: no psych history - Past Surgical History Surgical History: angioplasty/stent, coronary bypass (CABG), pacemaker/AICD, other Additional surgical history: right rotator cuff surgery. Mulitple heart Stents. Right Leg Surgery - Social History Smoking Status: Never smoker Smokeless Tobacco Status: No Alcohol use: none Drug use: none - Family History Father Living Status: Hx Family Cardiac Disorders: Yes (Bad heart) Hx Family Neurologic Disorders: Yes (Alzheimer's) Mother Living Status: Hx Family Cardiac Disorders: Yes (MA) Medications and Allergies Aspirin Enteric Coated [Aspirin EC] 81 mg PO DAILY 01/05/15 [History] Famotidine [Pepcid] 40 mg PO HS 01/05/15 [History] Insulin NPH, HUMAN [HumuLIN N] 15 unit SQ QPM #0 01/04/16 [History] Insulin NPH, HUMAN [HumuLIN N] 20 unit SQ QAM #0 01/04/16 [History] Pantoprazole Sodium [Protonix] 40 mg PO DAILY 01/04/16 [History] Carbidopa/Levodopa 25/100 [Sinemet 25/100] 1 tab PO TID 07/20/16 [History] Isosorbide MONOnitrate [Isosorbide Mononitrate ER] 120 mg PO DAILY 07/20/16 [History] Carvedilol 3.125 mg PO BID 09/08/17 [History] Clopidogrel [Plavix] 75 mg PO DAILY 09/08/17 [History] Lisinopril 2.5 mg PO DAILY 09/08/17 [History] Nitroglycerin [Nitrostat] 0.4 mg SL Q5M PRN 09/08/17 [History] Tamsulosin [Flomax] 0.4 mg PO DAILY 09/08/17 [History] Cholecalciferol (D-3) [Vitamin D] 1,000 unit PO DAILY 01/19/18 [History] Multivitamin [One Daily Essential] 1 each PO DAILY 01/19/18 [History] Allergy/AdvReac Type Severity Reaction Status Date / Time furosemide [From Lasix] AdvReac See Verified 01/19/18 14:20 Comments All Systems Review: The remainder of the systems were reviewed and are negative - Constitutional Constitutional: no anorexia, no chills, no fatigue, no fever(s), no malaise, no night sweats - Cardiovascular Cardiovascular: as per HPI - Respiratory Respiratory: no cough, no dyspnea - Gastrointestinal Gastrointestinal: no abdominal pain Physical Examination Vital Signs, Last 4 Hours Temp Pulse Resp BP Pulse Ox 02/05/18 08:08 98.5 F 61 18 157/87 94 General: Conversant, No Apparent Distress HEENT: Atraumatic, Normocephaly Cardiac: Reg Rate and Rhythm, Normal S1 and S2 Lungs: Normal Breath Sounds, No Wheeze, Rales, Rhonchi Neuro: Alert and responsive Abdomen: Soft Skin: No rashes noted on visualized skin Musculoskeletal: Other (chest wall tenderness with mild palpation, no erythema or warmth noted at this area) Extremities: No Clubbing, No Cyanosis, Normal Pulses Results 02/05/18 04:15 02/05/18 04:15 Lab Results 02/04/18 02/04/18 02/04/18 15:24 15:24 21:57 WBC 4.8 Hgb 13.7 Hct 41.5 Plt Count 124 L INR Sodium 136 Potassium 4.2 Chloride 106 Carbon Dioxide 26 BUN 20 Creatinine 1.34 H Glucose 162 H Calcium 9.1 Magnesium Total Bilirubin AST ALT Alkaline Phosphatase Troponin I < 0.03 < 0.03 02/05/18 02/05/18 02/05/18 04:15 04:15 04:15 WBC 5.1 Hgb 13.5 Hct 41.4 Plt Count 126 L INR 1.1 Sodium Potassium Chloride Carbon Dioxide BUN Creatinine Glucose Calcium Magnesium Total Bilirubin AST ALT Alkaline Phosphatase Troponin I < 0.03 02/05/18 02/05/18 04:15 09:33 WBC Hgb Hct Plt Count INR Sodium 139 Potassium 3.7 Chloride 107 Carbon Dioxide 24 BUN 20 Creatinine 1.25 Glucose 95 Calcium 8.7 Magnesium 2.0 Total Bilirubin 0.8 AST 12 L ALT < 3 L Alkaline Phosphatase 46 Troponin I < 0.03 - EKG Interpretation EKG results cardiology: personally reviewed, no diagnostic ischemia (saw previous lead changes from old infarct seen on previous EKG) Consult Discharge Plan - Plan Instructions: Chest Pain (DC) Referrals: Halie Mena, GEODETIC SURVEYOR TECHNOLOGIST [Primary Care Provider] - <Garrett Prado - Last Filed: 02/05/18 13:17> - Attending Attestation Patient was seen and evaluated independently by me. Findings, assessment and plan were discussed at length with patient, questions answered. Agree with nurse practitioner's/resident's documentation. Addition as follows, 72yo CM ho CAD, CABG [facility] no sig change c/w prior, HFrEF DC-ICD 2012, recent EF 45%, CKD. P/w resting sharp chest pain melly-ICD pocket area, worse 1 day, lasting sconds, recurrent, feels different from prior angina. No angina, ALFARO, palpitations, edema. ECG SR old IMI, Device check fnx nl, <0.1% V pacing, single episode of 2-sec NSVT [id number] asymptomatic. neg Trop. PE sig for hyperalgesia/tenderness of UL chest wall around ICD pocket w/o erythema, edema, warmth. Pt stated he may sleep more on the left side recently due to intermittent R- sided weakness/paresthesia A: Chest pain, MSK etiology likely s/p ICD fnx wnl CAD no angina HFrEF no ADHF P: lidocaine patch trial r/o shingles c/w home meds Garrett Prado MD, PhD Assessment and Plan Discussion w patient/family: The assessment and plan as outlined above was discussed with the patient and/or family members who expressed understanding and agreement. All questions were answered. Thank you for involving us in the care of your patient. Please call with any questions. History of Present Illness History of present illness: Mr. Joe is a 72 year old male All Systems Review: The remainder of the systems were reviewed and are negative Physical Examination Vital Signs, Last 4 Hours Temp Pulse Resp BP Pulse Ox 02/05/18 11:57 98.3 F 69 18 147/82 94 Results 02/05/18 04:15 02/05/18 04:15 Lab Results 02/04/18 02/04/18 02/04/18 15:24 15:24 21:57 WBC 4.8 Hgb 13.7 Hct 41.5 Plt Count 124 L INR Sodium 136 Potassium 4.2 Chloride 106 Carbon Dioxide 26 BUN 20 Creatinine 1.34 H Glucose 162 H Calcium 9.1 Magnesium Total Bilirubin AST ALT Alkaline Phosphatase Troponin I < 0.03 < 0.03 02/05/18 02/05/18 02/05/18 04:15 04:15 04:15 WBC 5.1 Hgb 13.5 Hct 41.4 Plt Count 126 L INR 1.1 Sodium Potassium Chloride Carbon Dioxide BUN Creatinine Glucose Calcium Magnesium Total Bilirubin AST ALT Alkaline Phosphatase Troponin I < 0.03 02/05/18 02/05/18 04:15 09:33 WBC Hgb Hct Plt Count INR Sodium 139 Potassium 3.7 Chloride 107 Carbon Dioxide 24 BUN 20 Creatinine 1.25 Glucose 95 Calcium 8.7 Magnesium 2.0 Total Bilirubin 0.8 AST 12 L ALT < 3 L Alkaline Phosphatase 46 Troponin I < 0.03
[2018-02-05 12:00] VITALS: BP 147/82
--- NOTE | 2018-02-05 12:21 | Discharge Summary ---
- NOTES TO OUTPATIENT PROVIDER Notes to Outpatient Provider: basic outpatient follow-up Orders not resulted at time of discharge: Pending orders 02/04/18 15:21 ECG 12 lead ECG [ECG] Stat Date of Encounter: 02/05/18 Time of Encounter: 12:18 - Discharge Diagnosis (1) Costochondritis Priority: Primary Status: Suspected Assessment and Plan: Presents with left-sided chest pain as well as pain to palpation along the left mid and lower sternal border Does not appear to be cardiac etiology with negative serial troponins and EKG without ST-T wave changes concerning for ischemia Pain is worse to palpation, patient reports 10/10 sharp pain with palpation along the left sternal border Area of palpation around ICD device is without erythema and/or pain Etiology of hyperalgesia unclear; however I suspect costochondritis Cardiology has seen in consultation and does not believe this to be cardiac cause ICD device interrogated and does not show any abnormalities Continue to treat pain with lidocaine patch as well as naproxen upon discharge (2) Chest pain Priority: Primary Status: Ruled-out Qualifiers: Chest pain type: other chest pain Qualified Code(s): R07.89 - Other chest pain; R07.8 - Other chest pain (3) CAD (coronary artery disease) Priority: Secondary Status: Chronic Qualifiers: Coronary Disease-Associated Artery/Lesion type: bypass graft [place] vs. transplanted heart: [place] heart Associated angina: without angina Qualified Code(s): I25.810 - Atherosclerosis of coronary artery bypass graft(s) without angina pectoris (4) CKD (chronic kidney disease) stage 3, GFR 30-59 ml/min Priority: Secondary Status: Chronic (5) Diabetes Priority: Secondary Status: Chronic Qualifiers: Diabetes mellitus type: type 2 Diabetes mellitus [facility] insulin use: with long goods drier use Diabetes mellitus complication status: with kidney complications Diabetes mellitus complication detail: with chronic kidney disease Chronic kidney disease stage: stage 3 (moderate) Qualified Code(s): E11.22 - Type 2 diabetes mellitus with diabetic chronic kidney disease; N18.3 - Chronic kidney disease, stage 3 (moderate); Z79.4 - care home (current) use of insulin (6) HTN (hypertension) Priority: Secondary Status: Chronic Qualifiers: Hypertension type: essential hypertension Qualified Code(s): I10 - Essential (primary) hypertension (7) Ischemic cardiomyopathy Priority: Secondary Status: Chronic (8) Obesity (BMI 30-39.9) Priority: Secondary Status: Chronic (9) Parkinson disease Priority: Secondary Status: Chronic (10) TIA (transient ischemic attack) Priority: Secondary Status: Chronic (11) Right leg pain Priority: Secondary Status: Acute Assessment and Plan: chronic venous imaging w/u in 09/09/17 negative for DVT etiology of leg pain unclear pain is sharp and intermittent and at time painful to palpation No metabolic derangements noted which could account for f/u outpatient with PCP Hospital course: Mr. Joe is a 72 year old male with a PMH of Parkinson's disease, asthma, cardiomyopathy, CHF, coronary artery disease s/p CABG, stent, diabetes, GERD, hyperlipidemia, hypertension, myocardial infarction, ckd iii, TIAs, s/p ICD. He presented to [facility] with a sharp stabbing sensation in his left chest. The chest pain is worse to palpation does not appear to be of cardiac origin; serial troponins negative, EKG without any acute ST-T wave changes concerning for ischemia. Cardiology consulted throughout stay and interrogated AICD; check of ICD device reveals no abnormalities. Consider musculoskeletal cause of cardiac pain as there is no dermatomal distribution. Suspicious for diagnosis of co stochondritis. He is being discharged with topical lidocaine patches and naproxen. - Time Spent with Patient Total time spent providing and/or coordinating discharge services: Less than 30 minutes - Discharge Medications Home Medications: Aspirin Enteric Coated [Aspirin EC] 81 mg PO DAILY 01/05/15 [History] Famotidine [Pepcid] 40 mg PO HS 01/05/15 [History] Insulin NPH, HUMAN [HumuLIN N] 15 unit SQ QPM #0 01/04/16 [History] Insulin NPH, HUMAN [HumuLIN N] 20 unit SQ QAM #0 01/04/16 [History] Pantoprazole Sodium [Protonix] 40 mg PO DAILY 01/04/16 [History] Carbidopa/Levodopa 25/100 [Sinemet 25/100] 1 tab PO TID 07/20/16 [History] Isosorbide MONOnitrate [Isosorbide Mononitrate ER] 120 mg PO DAILY 07/20/16 [History] Carvedilol 3.125 mg PO BID 09/08/17 [History] Clopidogrel [Plavix] 75 mg PO DAILY 09/08/17 [History] Lisinopril 2.5 mg PO DAILY 09/08/17 [History] Nitroglycerin [Nitrostat] 0.4 mg SL Q5M PRN 09/08/17 [History] Tamsulosin [Flomax] 0.4 mg PO DAILY 09/08/17 [History] Cholecalciferol (D-3) [Vitamin D] 1,000 unit PO DAILY 01/19/18 [History] Multivitamin [One Daily Essential] 1 each PO DAILY 01/19/18 [History] Allergies/Adverse Reactions: Allergy/AdvReac Type Severity Reaction Status Date / Time furosemide [From Lasix] AdvReac See Verified 01/19/18 14:20 Comments Date of admission: 02/04/18 17:22 Primary care physician: Halie Mena CNP Consults: 02/04/18 17:03 Consult to Cardiology [CONS] Stat Comment: Consulting Provider: Cardiology Lenka Reason for Consult: chest pain Time Notified: 17:03 Call Completed: Yes Discharging clinician: Isaiah Riggins Anticipated date of discharge: 02/05/18 - Constitutional Vitals: Temp Pulse Resp BP Pulse Ox 98.3 F 69 18 147/82 94 02/05/18 11:57 02/05/18 11:57 02/05/18 11:57 02/05/18 11:57 02/05/18 11:57 General appearance: Present: A&O X 3, pleasant, answers questions appropriately Exam: see exam - Head Head exam: Present: atraumatic, normocephalic - Eye Eye exam: Present: PERRL, conjuntiva pink, sclera anicteric Pupils: Present: PERRL - Neck Neck exam general surgery: Present: supple, trachea midline. Absent: lymphadenopathy - Respiratory Respiratory exam: Present: chest wall tenderness, CTAB. Absent: accessory muscle use, rales, rhonchi, wheezes - Cardiovascular Cardiovascular exam: Present: RRR, +S1, +S2. Absent: diastolic murmur, gallop, rubs, systolic murmur - GI/Abdominal GI/Abdominal exam: Present: normal bowel sounds, soft, no peritoneal signs. Absent: distended, tenderness - Extremities Exam Extremities exam: Present: warm, radial pulses palpable and symmetrical. Absent: calf tenderness, cyanotic, pedal edema - Neurological Exam Neurological exam: Present: CN II-XII intact, oriented X3, no focal deficits. Absent: pronater drift, facial droop, speech deficit - Skin Skin exam: Present: dry, intact - Patient Status Disposition: Home, Self-Care Condition: Fair Functional capacity at discharge: independent ambulation Overall status at discharge: patient is back to baseline - Discharge Instructions Instructions: Chest Pain (DC) Follow Up With: Halie Mena, STORE [employer] [Primary Care Provider] - - Diet and Activity Activity: increase activity as tolerated, resume usual activities as tolerated Diet: diabetic diet, low fat, low cholesterol, low salt diet
--- NOTE | 2018-02-05 14:52 | Physician Discharge Referral ---
Addendum entered and electronically signed by Isaiah Riggins 02/05/18 14:52: home health services are provided by [facility] not [facility] Original Note: Home Health/Hosp Referral Info Transfer to: Home Health Attending Provider: ADY - Diagnosis (1) Costochondritis Priority: Primary Status: Suspected (2) Chest pain Priority: Secondary Status: Ruled-out (3) CAD (coronary artery disease) Priority: Secondary Status: Chronic (4) CKD (chronic kidney disease) stage 3, GFR 30-59 ml/min Priority: Secondary Status: Chronic (5) Diabetes Priority: Secondary Status: Chronic (6) HTN (hypertension) Priority: Secondary Status: Chronic (7) Ischemic cardiomyopathy Priority: Secondary Status: Chronic (8) Obesity (BMI 30-39.9) Priority: Secondary Status: Chronic (9) Parkinson disease Priority: Secondary Status: Chronic (10) TIA (transient ischemic attack) Priority: Secondary Status: Chronic (11) Right leg pain Priority: Secondary Status: Acute - Respiratory Orders Smoking Cessation: Smoking cessation has been advised. For more information, call the [employer] Quit Line at 2-715-ODUU-NOW. - Diet/Nutrition Diet/Nutrition Orders: Cardiac - Activity Activity Orders: Up ad alvin, Ambulate - Services Needed Following services are medically necessary services: Nursing - Transfer Medications Prescriptions: Lidocaine Patch [Lidoderm 5% patch] 1 each TP DAILY 14 Days #14 adh..patch Naproxen Sodium 550 mg PO BID 20 Days #40 tablet Home Medications: Aspirin Enteric Coated [Aspirin EC] 81 mg PO DAILY 01/05/15 [History] Famotidine [Pepcid] 40 mg PO HS 01/05/15 [History] Insulin NPH, HUMAN [HumuLIN N] 15 unit SQ QPM #0 01/04/16 [History] Insulin NPH, HUMAN [HumuLIN N] 20 unit SQ QAM #0 01/04/16 [History] Pantoprazole Sodium [Protonix] 40 mg PO DAILY 01/04/16 [History] Carbidopa/Levodopa 25/100 [Sinemet 25/100] 1 tab PO TID 07/20/16 [History] Isosorbide MONOnitrate [Isosorbide Mononitrate ER] 120 mg PO DAILY 07/20/16 [History] Carvedilol 3.125 mg PO BID 09/08/17 [History] Clopidogrel [Plavix] 75 mg PO DAILY 09/08/17 [History] Lisinopril 2.5 mg PO DAILY 09/08/17 [History] Nitroglycerin [Nitrostat] 0.4 mg SL Q5M PRN 09/08/17 [History] Tamsulosin [Flomax] 0.4 mg PO DAILY 09/08/17 [History] Cholecalciferol (D-3) [Vitamin D] 1,000 unit PO DAILY 01/19/18 [History] Multivitamin [One Daily Essential] 1 each PO DAILY 01/19/18 [History] Lidocaine Patch [Lidoderm 5% patch] 1 each TP DAILY 14 Days #14 adh..patch 02/05/18 [Rx] Naproxen Sodium 550 mg PO BID 20 Days #40 tablet 02/05/18 [Rx] Allergies/Adverse Reactions: Allergy/AdvReac Type Severity Reaction Status Date / Time furosemide [From Lasix] AdvReac See Verified 01/19/18 14:20 Comments Certification: Further, I certify that my clinical findings support that this patient is homebound (i.e. absences from home require considerable and taxing effort and are for medical reasons or orthodox services or infrequently or short duration when for other reasons) because: Homebound Reason: Patient requires assistance of a person or device to safely leave home Attestation: My signature below is to certify that this patient is under my care and that I, or nurse practitioner, or a physician's legislative assistant working with me, has a [id number] encounter with this patient.
--- NOTE | 2018-02-07 19:30 | Electrocardiograph Report ---
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
== END 2018-02-05 14:23 | disposition home or self-care (01) ==
LOC: 3BNU 15:13 → EMEROOARM 15:13 → 3BNU 20:02
PROVIDERS: ADMIT Internal Medicine; ATTEND Internal Medicine

== ENCOUNTER 2018-05-27 10:34 | Observation (INO) ==
[2018-05-27] MEDS ORDERED: Ondansetron 4 MG/2 ML VIAL IVP ONE (10:55)
[2018-05-27] MEDS ORDERED: 0.9 % Sodium Chloride 500 ML IVC ONE (10:55)
--- NOTE | 2018-05-27 10:59 | Emergency Department Note ---
Disposition Clinical Impression: Weakness, Neurological deficit present Disposition: Admitted As Inpatient Condition: Fair Forms: ED Satisfaction Letter General Adult HPI - General Chief complaint: ED Weakness Stated complaint: General weakness Time Seen by Provider: 05/27/18 10:49 Source: patient, EMS Limitations: no limitations Nursing Notes Reviewed: Yes Vital Signs Reviewed: Yes - History of Present Illness HPI Narrative: Patient with significant comorbidities including diabetes as well as previous four-vessel bypass on aspirin and Plavix but no other anticoagulation presenting for evaluation of generalized weakness with associated cough over the last 2 weeks. Patient complaining most significantly of right-sided leg pain and weakness. Thought to be related to diabetes. Did not respond to Vicodin and gabapentin when seen last in the ED. Patient with [facility] appointment Saturday but unable to make it secondary to continued increase in symptoms. Today the patient did also have a decrease in overall appetite. States he is not have bowel movement in 5 days. On physical exam patient does have a cough, lungs are clear to auscultation bilaterally, no significant swelling in the lower extremities abdomen is soft with no significant tenderness or rebound or guarding. The patient does have decreased sensation as well as weakness to the face arm and leg on the right side. Patient has been worked up in the past but has not undergone MRI secondary to his pacemaker. At this time the concern is for possible previous stroke. The patient will also get a further evaluation for weakness including cardiac as well as infectious etiology. Patient will likely require admission. Pain Scale: 8 - Related Data Home Medications Medication Instructions Recorded Confirmed Aspirin Enteric Coated [Aspirin EC] 81 mg PO DAILY 01/05/15 02/04/18 Famotidine [Pepcid] 40 mg PO HS 01/05/15 02/04/18 Insulin NPH, HUMAN [HumuLIN N] 15 unit SQ QPM #0 01/04/16 02/04/18 Insulin NPH, HUMAN [HumuLIN N] 20 unit SQ QAM #0 01/04/16 02/04/18 Pantoprazole Sodium [Protonix] 40 mg PO DAILY 01/04/16 02/04/18 Carbidopa/Levodopa 25/100 [Sinemet 1 tab PO TID 07/20/16 02/04/18 25/100] Isosorbide MONOnitrate [Isosorbide 120 mg PO DAILY 07/20/16 02/04/18 Mononitrate ER] Carvedilol 3.125 mg PO BID 09/08/17 02/04/18 Clopidogrel [Plavix] 75 mg PO DAILY 09/08/17 02/04/18 Lisinopril 2.5 mg PO DAILY 09/08/17 02/04/18 Nitroglycerin [Nitrostat] 0.4 mg SL Q5M PRN 09/08/17 02/04/18 Tamsulosin [Flomax] 0.4 mg PO DAILY 09/08/17 02/04/18 Cholecalciferol (D-3) [Vitamin D] 1,000 unit PO DAILY 01/19/18 02/04/18 Multivitamin [One Daily Essential] 1 each PO DAILY 01/19/18 02/04/18 Allergies Allergy/AdvReac Type Severity Reaction Status Date / Time furosemide [From Lasix] AdvReac See Verified 01/19/18 14:20 Comments All systems ED: reviewed and negative except as stated. Review of Systems: As Per HPI Constitutional: Denies: fever, chills Cardiovascular: Denies: chest pain Respiratory: Reports: cough. Denies: sputum production Gastrointestinal: Reports: abdominal pain, nausea Genitourinary: Denies: urgency, dysuria Musculoskeletal: Reports: back pain, other (Right leg pain) Integumentary: Denies: rash, abrasion Endocrine: Reports: fatigue Past Medical History - Past Medical History Medical history: Reports: asthma, cardiomyopathy, CHF, coronary artery disease, diabetes, GERD, hyperlipidemia, hypertension, myocardial infarction, renal disease, other Surgical history: Reports: angioplasty/stent, coronary bypass (CABG), pacemaker/AICD, other Psychiatric history: Reports: no psych history - Social History Smoking Status: Never smoker Smokeless Tobacco Status: No Alcohol use: Reports: none Drug use: Reports: none Physical Exam General: Well appearing, nontoxic, no acute distress Head: Normocephalic Atraumatic Eyes: PERRL, EOMI ENT: Airway patent, no stridor Neck: supple, no meningismus Chest: Lungs clear to auscultation bilateral Cardiac: Regular rate and rhythm, no murmurs, rubs or gallops Abdomen: soft, nontender, nondistended; no guarding, rebound, or tenderness to percussion Musculoskeletal: Calves symmetric, nontender. Skin: No rash, normal skin tone. Neuro: Alert and Oriented to person, place, and time; patient with neuro deficits to the right face arm and leg with associated weakness and decreased sensation. Pupils equal and reactive, extraocular muscle movements intact. Patient's right leg is most significant symptoms. Patient unable to raise leg off the bed as well as weakness with plantar as well as dorsiflexion. - General Limitations: no limitations General appearance: alert, in no apparent distress Course - Reevaluation(s) Reevaluation #1: No significant findings on blood work or chest x-ray. Patient underwent CT abdomen and pelvis as well as lumbar spine with IV contrast and no specific acute cause was found. Patient did have concern for DISH. This was discussed with orthopedics spine and no specific intervention is done unless specific fracture found. Does recommend consult for neurology. I did discuss overall findings with the patient and the patient is unable to ambulate. Given the patient's generalized weakness and inability to ambulate patient will need to be admitted for further evaluation and management. A call has been placed to the hospitalist to further discuss the case. Vital Signs Temperature 98.8 F 05/27/18 10:39 Pulse Rate 68 05/27/18 10:39 Respiratory Rate 16 05/27/18 10:39 Blood Pressure 162/94 05/27/18 10:39 O2 Sat by Pulse Oximetry 100 05/27/18 10:39 Temperature 98.8 F 05/27/18 10:39 Pulse Rate 73 05/27/18 14:13 Respiratory Rate 17 05/27/18 14:13 Blood Pressure 157/92 05/27/18 14:13 O2 Sat by Pulse Oximetry 99 05/27/18 14:13 Oxygen Delivery Oxygen Delivery Room Air Medical Decision Making - Medical Records Medical records reviewed: Yes I reviewed the patient's medical records. - Lab Data Lab results reviewed: Yes I reviewed the patient's lab results. Result diagrams: 05/27/18 11:05 05/27/18 11:05 Lab Results 05/27/18 05/27/18 05/27/18 Range/Units 11:05 11:05 11:05 WBC 5.1 (4.3-11.1) K/mcL RBC 4.99 (4.19-5.50) M/mcL Hgb 15.3 (12.9-16.9) g/dL Hct 47.0 (37.5-50.1) % MCV 94.2 (83.0-100.0) fL MCH 30.7 (28.0-33.3) pg MCHC 32.6 (31.6-35.5) g/dL RDW 13.4 (11.5-14.5) % Plt Count 127 L (140-400) K/mcL MPV 11.7 (9.4-12.4) fL Immature Gran % 0.2 (0-4) % Seg Neutrophils % 62.4 % Lymphocytes % 22.6 % Monocytes % 9.3 % Eosinophils % 5.1 % Basophils % 0.4 % Neutrophils # 3.2 (1.6-8.9) K/mcL Lymphocytes # 1.2 (0.6-4.6) K/mcL Monocytes # 0.5 (0.0-1.3) K/mcL Eosinophils # 0.3 (0.0-0.6) K/mcL Basophils # 0.0 (0.0-0.2) K/mcL Sodium 140 (136-145) mEq/L Potassium 4.2 (3.5-5.1) mEq/L Chloride 106 (98-107) mEq/L Carbon Dioxide 27 (23-29) mEq/L BUN 22 (8-23) mg/dL Creatinine 1.36 H (0.70-1.30) mg/dL Est GFR ( Amer) > 60 (> 60) Est GFR (Non-Af Amer) 51 L (> 60) BUN/Creatinine Ratio 16 (6-26) Glucose 141 H (70-105) mg/dL Calculated Osmolality 296 (280-300) Lactic Acid (0.5-2.2) mmol/L Calcium 9.1 (8.6-10.3) mg/dL Magnesium 2.1 (1.6-2.6) mg/dL Total Bilirubin 0.8 (0.3-1.0) mg/dL Direct Bilirubin 0.2 (0.0-0.2) mg/dL Indirect Bilirubin 0.6 (0.0-1.2) mg/dL AST 14 (13-39) Units/L ALT 3 L (7-52) Units/L Alkaline Phosphatase 51 (34-104) Units/L Troponin I < 0.03 (< 0.04) ng/mL B-Natriuretic Peptide 119 H (Less than 100) pg/mL Serum Total Protein 7.3 (6.4-8.9) g/dL Albumin 3.9 (3.5-5.7) g/dL Globulin 3.4 (2.4-3.5) g/dL Albumin/Globulin Ratio 1.1 (1.1-2.2) Lipase 11 (11-82) Units/L Urine Color (Yellow) Urine Clarity (Clear) Urine pH (5.0-8.0) pH Units Ur Specific [place] (1.010-1.025) Urine Protein (Neg-Trace) mg/dL Urine Glucose (UA) (Normal) mg/dL Urine Ketones (Negative) mg/dL Urine Blood (Negative) Urine Nitrite (Negative) Urine Bilirubin (Negative) Urine Urobilinogen (Normal) mg/dL Ur Leukocyte Esterase (Negative) Ur Culture Indicated? (NO) 05/27/18 05/27/18 Range/Units 11:58 13:13 WBC (4.3-11.1) K/mcL RBC (4.19-5.50) M/mcL Hgb (12.9-16.9) g/dL Hct (37.5-50.1) % MCV (83.0-100.0) fL MCH (28.0-33.3) pg MCHC (31.6-35.5) g/dL RDW (11.5-14.5) % Plt Count (140-400) K/mcL MPV (9.4-12.4) fL Immature Gran % (0-4) % Seg Neutrophils % % Lymphocytes % % Monocytes % % Eosinophils % % Basophils % % Neutrophils # (1.6-8.9) K/mcL Lymphocytes # (0.6-4.6) K/mcL Monocytes # (0.0-1.3) K/mcL Eosinophils # (0.0-0.6) K/mcL Basophils # (0.0-0.2) K/mcL Sodium (136-145) mEq/L Potassium (3.5-5.1) mEq/L Chloride (98-107) mEq/L Carbon Dioxide (23-29) mEq/L BUN (8-23) mg/dL Creatinine (0.70-1.30) mg/dL Est GFR ( Amer) (> 60) Est GFR (Non-Af Amer) (> 60) BUN/Creatinine Ratio (6-26) Glucose (70-105) mg/dL Calculated Osmolality (280-300) Lactic Acid 0.8 (0.5-2.2) mmol/L Calcium (8.6-10.3) mg/dL Magnesium (1.6-2.6) mg/dL Total Bilirubin (0.3-1.0) mg/dL Direct Bilirubin (0.0-0.2) mg/dL Indirect Bilirubin (0.0-1.2) mg/dL AST (13-39) Units/L ALT (7-52) Units/L Alkaline Phosphatase (34-104) Units/L Troponin I (< 0.04) ng/mL B-Natriuretic Peptide (Less than 100) pg/mL Serum Total Protein (6.4-8.9) g/dL Albumin (3.5-5.7) g/dL Globulin (2.4-3.5) g/dL Albumin/Globulin Ratio (1.1-2.2) Lipase (11-82) Units/L Urine Color Yellow (Yellow) Urine Clarity Clear (Clear) Urine pH 6.0 (5.0-8.0) pH Units Ur Specific [place] 1.014 (1.010-1.025) Urine Protein Negative (Neg-Trace) mg/dL Urine Glucose (UA) Normal (Normal) mg/dL Urine Ketones Negative (Negative) mg/dL Urine Blood Negative (Negative) Urine Nitrite Negative (Negative) Urine Bilirubin Negative (Negative) Urine Urobilinogen Normal (Normal) mg/dL Ur Leukocyte Esterase Negative (Negative) Ur Culture Indicated? NO (NO) - Radiology Data Radiology results reviewed: Yes I reviewed the patient's radiology results. - EKG Data EKG #1 EKG attestation: Yes I reviewed and interpreted this EKG. EKG results narrative: EKG shows what the computer read as atrial fibrillation but I believe to be sinus rhythm is P waves do appear to be present underneath the underlying artifact in the rate other than the PVCs is regular. Rate of 67 QTC of 436 no significant elevations or depressions. Comparison of 02/04/18.
[2018-05-27 11:24] LABS: Basophils % 0.4 %; Eosinophils # 0.3 K/mcL (0.0-0.6); Eosinophils % 5.1 %; Hemoglobin 15.3 g/dL (12.9-16.9); Immature Granulocytes % 0.2 % (0-4); Lymphocytes # 1.2 K/mcL (0.6-4.6); Lymphocytes % 22.6 %; Mean Corpuscular HGB Conc 32.6 g/dL (31.6-35.5); Mean Corpuscular Hemoglobin 30.7 pg (28.0-33.3); Mean Corpuscular Volume 94.2 fL (83.0-100.0); Mean Platelet Volume 11.7 fL (9.4-12.4); Monocytes # 0.5 K/mcL (0.0-1.3); Monocytes % 9.3 %; Neutrophils # 3.2 K/mcL (1.6-8.9); Platelet Count 127 K/mcL (140-400); Red Blood Count 4.99 M/mcL (4.19-5.50); Red Cell Distribution Width 13.4 % (11.5-14.5); Segmented Neutrophils % 62.4 %
[2018-05-27 11:43] LABS: Troponin I < 0.03 ng/mL (< 0.04)
[2018-05-27 11:44] LABS: Alanine Aminotransferase 3 Units/L (7-52); Albumin 3.9 g/dL (3.5-5.7); Albumin/Globulin Ratio 1.1 (1.1-2.2); Alkaline Phosphatase 51 Units/L (34-104); Aspartate Amino Transferase 14 Units/L (13-39); BUN/Creatinine Ratio 16 (6-26); Bilirubin,Direct 0.2 mg/dL (0.0-0.2); Bilirubin,Indirect 0.6 mg/dL (0.0-1.2); Bilirubin,Total 0.8 mg/dL (0.3-1.0); Blood Urea Nitrogen 22 mg/dL (8-23); Calcium 9.1 mg/dL (8.6-10.3); Carbon Dioxide 27 mEq/L (23-29); Chloride 106 mEq/L (98-107); Globulin 3.4 g/dL (2.4-3.5); Glucose 141 mg/dL (70-105); Lipase 11 Units/L (11-82); Magnesium 2.1 mg/dL (1.6-2.6); Osmolality,Calculated 296 (280-300); Potassium 4.2 mEq/L (3.5-5.1); Sodium 140 mEq/L (136-145); Total Protein 7.3 g/dL (6.4-8.9); eGFR For Non-African Americans 51 (> 60)
[2018-05-27] MEDS ORDERED: *HR* FentaNYL (PF) 100 MCG/2 ML VIAL IVP ONE (12:24)
[2018-05-27] MEDS ORDERED: Isovue-370 500 ML BOTTLE IVP ONE (13:24)
[2018-05-27 13:58] LABS: Bilirubin,Urine Negative (Negative); Blood,Urine Negative (Negative); Clarity,Urine Clear (Clear); Color,Urine Yellow (Yellow); Glucose,Urine (UA) Normal (Normal); Ketones,Urine Negative (Negative); Leukocyte Esterase,Urine Negative (Negative); Nitrite,Urine Negative (Negative); Protein,Urine Negative (Neg-Trace); Specific Gravity,Urine 1.014 (1.010-1.025); Urobilinogen,Urine Normal (Normal)
[2018-05-27] MEDS ORDERED: *HR* OxyCODONE Immed Rel 5 MG TABLET PO PRN (16:10)
[2018-05-27] MEDS ORDERED: Acetaminophen 325 MG TABLET PO PRN (16:10)
[2018-05-27] MEDS ORDERED: Naloxone 0.4 MG/ML INJ IVP PRN (16:10)
[2018-05-27] MEDS ORDERED: Dextrose 4 GM Chewable Tablets PO PRN ×2 (16:15)
[2018-05-27] MEDS ORDERED: *HR* Dextrose 50 % in Water (Syg) 50 ML SYRINGE IVP PRN (16:15)
[2018-05-27] MEDS ORDERED: Dextrose Gel 15 GM/37.5 ML TUBE PO PRN ×2 (16:15)
[2018-05-27] MEDS ORDERED: D5% in Water 1,000 ML IVC PRN (16:15)
--- NOTE | 2018-05-27 18:37 | Internal Med History&Physical ---
Date of Encounter: 05/27/18 Time of Encounter: 15:30 Internal Medicine - H&P: HPI Chief complaint: Right-sided weakness Admitted From: Home Plans for Post Hospital Care: Home History of present illness: Mr. Joe is a 72 year old male presented to ER for right-sided weakness on and off for about 2 years, worsening for 3 days. Past medical history is significant for hypertension, hyperlipidemia, Parkinson disease, CKD, CAD S/P stent and CABG, S/P PPM. Patient has right-sided weakness, sometimes more severe, sometimes less weak for about 2 years. Has been admitted for several times and been transferred to [facility]. patient said he always feel right leg tired with walking a long distance. Improved after rest. Patient has completely right-sided paralyzed for several times, usually improved spontaneously after several days. Patient has right- sided weakness again for about 10 days, worsening in last 3 days, cannot walk. Has right leg pain, sharp, stabbing "like knife cut". Patient denies facial drop, slurred speech, headache, nausea or vomiting. Patient denies fever or recent URI symptoms. Patient denies chest pain or shortness of breath. Denies urinary or fecal incontinence. In the emergency room, CT head has been done, which shows possible ischemic changes. L-spine CT shows DISH. Patient has pac emaker so cannot have MRI. Patient was admitted for further evaluation. Past Med Surg Social Fam HX - Past Medical History Medical history: asthma, cardiomyopathy, CHF, coronary artery disease, diabetes, GERD, hyperlipidemia, hypertension, myocardial infarction, renal disease, other Additional medical history: parkinsons, Spinal Stenosis, Cerival Spondyliosis Psychiatric history: no psych history - Past Surgical History Surgical History: angioplasty/stent, coronary bypass (CABG), pacemaker/AICD, other Additional surgical history: right rotator cuff surgery. Mulitple heart Stents. Right Leg Surgery - Social History Smoking Status: Never smoker Smokeless Tobacco Status: No Alcohol use: none Drug use: none - Family History Father Living Status: Hx Family Cardiac Disorders: Yes (Bad heart) Hx Family Neurologic Disorders: Yes (Alzheimer's) Mother Living Status: Hx Family Cardiac Disorders: Yes ([place]) Internal Medicine - H&P: Meds Aspirin Enteric Coated [Aspirin EC] 81 mg PO DAILY 01/05/15 [History] Famotidine [Pepcid] 40 mg PO HS 01/05/15 [History] Insulin NPH, HUMAN [HumuLIN N] 15 unit SQ QPM #0 01/04/16 [History] Insulin NPH, HUMAN [HumuLIN N] 20 unit SQ QAM #0 01/04/16 [History] Pantoprazole Sodium [Protonix] 40 mg PO DAILY 01/04/16 [History] Carbidopa/Levodopa 25/100 [Sinemet 25/100] 1 tab PO TID 07/20/16 [History] Isosorbide MONOnitrate [Isosorbide Mononitrate ER] 120 mg PO DAILY 07/20/16 [History] Carvedilol 3.125 mg PO BID 09/08/17 [History] Clopidogrel [Plavix] 75 mg PO DAILY 09/08/17 [History] Lisinopril 2.5 mg PO DAILY 09/08/17 [History] Nitroglycerin [Nitrostat] 0.4 mg SL Q5M PRN 09/08/17 [History] Tamsulosin [Flomax] 0.4 mg PO DAILY 09/08/17 [History] Cholecalciferol (D-3) [Vitamin D] 1,000 unit PO DAILY 01/19/18 [History] Multivitamin [One Daily Essential] 1 each PO DAILY 01/19/18 [History] Allergy/AdvReac Type Severity Reaction Status Date / Time furosemide [From Lasix] AdvReac See Verified 01/19/18 14:20 Comments All Systems PM: A 10-system review of systems was performed and is negative for pertinent findings except as documented above in the HPI. - Constitutional Vitals: Temp Pulse Resp BP Pulse Ox 98.3 F 61 16 172/82 98 05/27/18 16:33 05/27/18 16:33 05/27/18 16:33 05/27/18 16:33 05/27/18 16:33 Exam: Pt is AAO x 3, in NAD HEENT: NC/AT, PERRL Neck: Supple, no JVD, no LAD Lungs: CTA b/l Heart: S1S2, RRR Abd: Soft, nontender, BS present Ext: ROM wnl, no pedal edema, right thigh tenderness. Pulse 2+ on b/l Dorsalis pedis Neuro: Right UE motor 4/5, LE 3/5, with decreased sensation on right UE/LE. Right eye lateral vision field roughly decreased. Internal Med - H&P Results - Labs CBC & Chem 7: 05/27/18 11:05 05/27/18 11:05 Labs: Short CBC 05/27/18 Range/Units 11:05 WBC 5.1 (4.3-11.1) K/mcL Hgb 15.3 (12.9-16.9) g/dL Hct 47.0 (37.5-50.1) % Plt Count 127 L (140-400) K/mcL Neutrophils # 3.2 (1.6-8.9) K/mcL BMP 05/27/18 11:05 Sodium 140 Potassium 4.2 Chloride 106 Carbon Dioxide 27 BUN 22 Creatinine 1.36 H Glucose 141 H Calcium 9.1 Cardiac Enzymes 05/27/18 Range/Units 11:05 Troponin I < 0.03 (< 0.04) ng/mL Liver Function 05/27/18 Range/Units 11:05 Total Bilirubin 0.8 (0.3-1.0) mg/dL Direct Bilirubin 0.2 (0.0-0.2) mg/dL AST 14 (13-39) Units/L ALT 3 L (7-52) Units/L Alkaline Phosphatase 51 (34-104) Units/L Albumin 3.9 (3.5-5.7) g/dL Urine 05/27/18 Range/Units 13:13 Urine Color Yellow (Yellow) Urine Clarity Clear (Clear) Urine pH 6.0 (5.0-8.0) pH Units Ur Specific [place] 1.014 (1.010-1.025) Urine Protein Negative (Neg-Trace) mg/dL Urine Glucose (UA) Normal (Normal) mg/dL - Impressions ITS Impressions Chest X-Ray 05/27/18 10:54 IMPRESSION: No evidence for acute cardiopulmonary process. D/ / Mj Bonilla MD / Mj Bonilla MD Interpreting Provider: Mj Bonilla MD Head CT 05/27/18 10:54 IMPRESSION: No acute intracranial abnormality. Scattered foci of low attenuation involving the periventricular white matter compatible with microvascular ischemic changes. D/ / Valerio Hall / Valerio Hall Interpreting Provider: Valerio Hall Abdomen/Pelvis CT 05/27/18 13:24 IMPRESSION: No acute bowel abnormality. Normal appendix. No evidence of bowel obstruction. Stable bilateral renal cortical cysts. Multilevel degenerative changes of the lumbar spine, most prominent at L5-S1, with disc degenerative changes and facet arthritis causing mild canal narrowing and moderate bilateral neural foraminal narrowing. Findings suggesting DISH. D/ / 05/27/2018 14:30:12 Mihir Stewart MD / dougie Interpreting Provider: Mihir Stewart MD Lumbar Spine CT 05/27/18 13:24 IMPRESSION: No acute bowel abnormality. Normal appendix. No evidence of bowel obstruction. Stable bilateral renal cortical cysts. Multilevel degenerative changes of the lumbar spine, most prominent at L5-S1, with disc degenerative changes and facet arthritis causing mild canal narrowing and moderate bilateral neural foraminal narrowing. Findings suggesting DISH. D/ / 05/27/2018 14:30:12 Mihir Stewart MD / dougie Interpreting Provider: Mihir Stewart MD - Assessment and plan (1) DVT prophylaxis Current Visit: No Status: Acute Assessment and plan: Heparin subcutaneously (2) CAD (coronary artery disease) Current Visit: No Status: Chronic Assessment and plan: Has no chest pain at this point. Continue home medications aspirin, Plavix, beta esme. Pt is not on statin, not sure why, however he has right thigh muscle tenderness, will check CK level before consider to start statin. Qualifiers: Coronary Disease-Associated Artery/Lesion type: bypass graft [place] vs. 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 Hydralazine IV when necessary Qualifiers: Hypertension type: essential hypertension Qualified Code(s): I10 - Essential (primary) hypertension (5) Parkinson disease Current Visit: No Status: Chronic Assessment and plan: Continue home medications (6) Right sided weakness Current Visit: No Status: Resolved Assessment and plan: Patient presented with right-sided weakness involving both upper and lower extremity and has sensation deficit. With right-sided vision field deficit. 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 Patient has multiple similar presentation previously, not likely acute CVA. - Continue cardiac monitoring - Patient has most workup for stroke done recently, include echo, duplex carotid, CTA head and neck, etc. - We will obtain [facility] hospitalization record - NIHSS protocol - Consult neurology for further evaluation - L-spine CT shows possible DISH, ortho consult called by ER. (7) Systolic CHF Current Visit: Yes Status: Acute Assessment and plan: Previous Echo shows EF 45-50%, patient appears euvolemic. Continue home medications after verification. Qualifiers: Heart failure chronicity: chronic Qualified Code(s): I50.22 - Chronic systolic (congestive) heart failure - Time Spent With Patient Total time spent is greater than 50% in coordination of care (as documented) at patient's floor/unit and/or counseling patient: 40 minutes Greater than 35 minutes
[2018-05-27] MEDS: Carbidopa/Levodopa 25/100 TABLET PO SCH (21:14)
[2018-05-27] MEDS: traMADol 50 MG TABLET PO PRN (21:14)
[2018-05-27] MEDS: *HR* Heparin 5,000 UNIT/ML VIAL SQ SCH (21:20)
[2018-05-27] MEDS: Insulin LISPRO 300 UNITS/3 ML VIAL SQ SCH ×2 (22:56)
--- NOTE | 2018-05-27 23:08 | Electrocardiograph Report ---
[place] [facility] Test Date: 2018-05-27 Pat Name: Eduar Joe Department: [id number] Room: 3B22 Gender: M Mate Chief: : 1945 Requested By: Jad Ceballos Order Number: [id number] Reading MD: Ray Mccarty Measurements Intervals [place] Rate: 67 P: AL: QRS: -29 QRSD: 110 T: 73 QT: 413 QTc: 436 Interpretive Statements Atrial fibrillation Ventricular premature complex Inferior infarct, old Electronically Signed On 05-27-2018 23:06:56 EST by Ray Mccarty
[2018-05-28 05:34] LABS: Basophils % 0.5 %; Eosinophils # 0.3 K/mcL (0.0-0.6); Eosinophils % 4.8 %; Hemoglobin 14.7 g/dL (12.9-16.9); Immature Granulocytes % 0.2 % (0-4); Lymphocytes # 1.6 K/mcL (0.6-4.6); Lymphocytes % 27.5 %; Mean Corpuscular HGB Conc 32.7 g/dL (31.6-35.5); Mean Corpuscular Hemoglobin 30.9 pg (28.0-33.3); Mean Corpuscular Volume 94.5 fL (83.0-100.0); Mean Platelet Volume 11.8 fL (9.4-12.4); Monocytes # 0.6 K/mcL (0.0-1.3); Neutrophils # 3.3 K/mcL (1.6-8.9); Platelet Count 128 K/mcL (140-400); Red Blood Count 4.76 M/mcL (4.19-5.50); Red Cell Distribution Width 13.4 % (11.5-14.5)
[2018-05-28] MEDS: *HR* Heparin 5,000 UNIT/ML VIAL SQ SCH ×2 (05:36→18:25)
[2018-05-28 05:39] LABS: INR 1.1; Prothrombin Time 12.4 Seconds (9.4-12.1)
[2018-05-28 06:00] LABS: Chol/HDL Ratio 4.6 (0-4.9)
[2018-05-28 06:02] LABS: Albumin 3.8 g/dL (3.5-5.7); Albumin/Globulin Ratio 1.3 (1.1-2.2); Bilirubin,Total 0.7 mg/dL (0.3-1.0); Calcium 9.2 mg/dL (8.6-10.3); Magnesium 2.1 mg/dL (1.6-2.6); Total Protein 6.8 g/dL (6.4-8.9)
[2018-05-28] MEDS: Insulin LISPRO 300 UNITS/3 ML VIAL SQ SCH ×4 (09:43→20:16)
[2018-05-28] MEDS ORDERED: tiZANidine 4 MG TABLET PO PRN (09:52)
--- NOTE | 2018-05-28 10:13 | Neurology - Consult Note ---
Addendum entered and electronically signed by Stephane Vieira MD 05/28/18 18:01: I did face to face evaluation with the patient in the presence of Isaiah Riggins. Case discussed and imaging studies reviewed together and I agree with his history taking, physical examination, assessment and plan outlined below. In summary, this is 72-year-old man who in the last few years developed recurrent episodes of pain and weakness involving right arm and right leg lasting anywhere from a few hours to a few days in duration, for which he has had extensive workup for possible TIA or stroke both here at local hospital and [facility]. The right sided weakness involving both arm and leg that are aggravated by presence of pain involving the cough muscle, at times with radiating nature involving the right trunk as well. The physical examination tends to be fluctuating with a different providers at different locations therefore it is thought there likely to be psychological overlay to his clinical symptoms. The symptoms are associated with no speech difficulty, no mental status change, no facial numbness weakness therefore unlikely a stroke or TIA. We will recommend no repeat stroke workup since this has been recently done. We will recommend physical therapy and pain management. Agree with the use of tizanidine 2 mg 3 times a day as needed. Patient's CT of the lumbar spine showed mild degenerative disc disease causing mild to moderate L5-S1 neuroforaminal narrowing bilaterally. The right arm weakness may be related to cervical disc disease however, patient has no significant radicular pain involving his right arm. He may benefit from outpatient EMG/NCV study. Again, as mentioned above, there is likely supratentorial component in his clinical presentation. Original Note: Date of Encounter: 05/28/18 Time of Encounter: 10:02 Assessment and Plan (1) Generalized weakness Current Visit: No Status: Acute A&P: Has been seen previously by neurology for the same complaints. On prior admissions thought to be due to a conversion disorder. Would not expect cyclical presentation of right-sided weakness if this were a true neurological disorder. Carotid Duplex (May 20, 2018): Right side has nonstenotic plaque stable with last imaging 6 mo ago and left side normal Venous Duplex (05/20/18) WNL on both legs CT Cervical (January 2017) indicated moderate stenosis C5-C6 and slight stenosis C6-C7 CT Head at this hospital visit found no intracranial abnormalities Abdomen/Pelvic CT: L5-S1 degenerative disk change as well as likely DISH Will start pt on Tizanidine as the pt LE pain is likely due to a musculoskeletal etiology given his past imaging indicative of L5-S1 stenosis with likely DISH a nd sx alleviated by a positional change of flexion, abduction, and external rotation of the lower extremity. We would like to r/o CVA with repeat head CT as previous hx of metal stent placement precludes any MRI Consider PT/OT and outpatient f/u for pain management History of Present Illness Chief complaint: rt sided weakness and pain HPI: Mr. Joe is a pleasant 72 y/o male with PMHx of multiple stent placements, insulin dependent DM, htn, hld, 3-4 strokes, and Parkinsons Disease presenting with right sided weakness to the ED yesterday. At presentation pt reported approximately 10 days of pain, numbness, and tingling in the lower right extremity with worsening over the past three days. Pt also believes he had some weakness as well. These sx have resolved as of this morning. Pt has a hx of pain episodes similar to this for the past 4-5 years all presenting as right sided leg pain and numbness beginning at the calf that the pt states will be followed by downward and upward spread of pain, weakness, and numbness to his RUE and right side of face. Pt does not believe anything betters these sx other than DARRYL positioning of his right leg. He states that movement as well as prolonged lay on his back will induce his pain. Pt himself does not note any right side facial droop or slurring of his speech with these episodes but states that his friends have identified both of these sx before during his episodes. Throughout each episode pt is drowsy but remains cognizant of the episode throughout. He has fallen many times, most recently in February, but these falls were associated with weakness and pt did not lose consciousness or have any head trauma that he recalls. Pt has seen an array of specialists for this condition in the past both in hospital and outpatient settings in [place] and [place]. He recalls having an EMG 2-3 months ago at [place] which confirmed a "pinched nerve". Past Med Surg Social Fam HX - Past Medical History Medical history: asthma, cardiomyopathy, CHF, coronary artery disease, diabetes, GERD, hyperlipidemia, hypertension, myocardial infarction, renal disease, other Additional medical history: parkinsons, Spinal Stenosis, Cerival Spondyliosis Psychiatric history: no psych history - Past Surgical History Surgical History: angioplasty/stent, coronary bypass (CABG), pacemaker/AICD, other Additional surgical history: right rotator cuff surgery. Mulitple heart Stents. Right Leg Surgery - Social History Smoking Status: Never smoker Smokeless Tobacco Status: No Alcohol use: none Drug use: none - Family History Father Living Status: Hx Family Cardiac Disorders: Yes (Bad heart) Hx Family Neurologic Disorders: Yes (Alzheimer's) Mother Living Status: Hx Family Cardiac Disorders: Yes (NC) Medications and Allergies Aspirin Enteric Coated [Aspirin EC] 81 mg PO DAILY 01/05/15 [History] Famotidine [Pepcid] 40 mg PO HS 01/05/15 [History] Insulin NPH, HUMAN [HumuLIN N] 15 unit SQ QPM #0 01/04/16 [History] Pantoprazole Sodium [Protonix] 40 mg PO DAILY 01/04/16 [History] Carbidopa/Levodopa 25/100 [Sinemet 25/100] 1 tab PO TID 07/20/16 [History] Isosorbide MONOnitrate [Isosorbide Mononitrate ER] 120 mg PO DAILY 07/20/16 [History] Carvedilol 3.125 mg PO BID 09/08/17 [History] Clopidogrel [Plavix] 75 mg PO DAILY 09/08/17 [History] Lisinopril 2.5 mg PO DAILY 09/08/17 [History] Nitroglycerin [Nitrostat] 0.4 mg SL Q5M PRN 09/08/17 [History] Tamsulosin [Flomax] 0.4 mg PO DAILY 09/08/17 [History] Cholecalciferol (D-3) [Vitamin D] 1,000 unit PO DAILY 01/19/18 [History] Multivitamin [One Daily Essential] 1 each PO DAILY 01/19/18 [History] Allergy/AdvReac Type Severity Reaction Status Date / Time furosemide [From Lasix] AdvReac See Verified 01/19/18 14:20 Comments All Systems: The remainder of the systems were reviewed and are negative Review of Systems: REVIEW OF SYSTEMS GENERAL: Negative for any nausea, vomiting, fevers, chills, or weight loss, fatigue + decreased activity tolerance due to right leg pain and weakness with activity NEUROLOGIC: Negative for any visual changes, dysphagia, hemiparesis, ataxia, seizures, paralysis, speech or language difficulty + Facial asymmetry with right facial droop, intermittent slurred speech, right hemisensory deficits of both right arm and right leg as well as right face, vertigo, falls, unilateral right-sided weakness arm and leg as well as unilateral right arm and leg paresthesias PSYCH: + anxiety HEENT: Negative for any head trauma, neck trauma, neck stiffness, tinnitus CARDIAC: Negative for any chest pain, peripheral edema. GENITOURINARY: Negative for any dysuria, hematuria, incontinence. ENDOCRINE: Thyroid trouble, heat/cold intolerance, excessive sweating, thirst, hunger MUSCULOSKELETAL: Joint pain, stiffness + Loss of right arm and right leg strength, worse with activity does not improve with rest, occurring almost daily resulting in limitations to motor and activity tolerance. Rt Muscle pain worse with activity but also occurs at rest, relieved by position change of rt leg Physical Examination - Vital Signs Vital Signs: Initial Vital Signs Temp Pulse Resp BP Pulse Ox 98.8 F 68 16 162/94 100 05/27/18 10:39 05/27/18 10:39 05/27/18 10:39 05/27/18 10:39 05/27/18 10:39 - Exam Exam: Examination: General Examination: *CONSTITUTIONAL: anxious appearing, no acute distress however, *GENERAL APPEARANCE OF PATIENT appears stated age overall healthy and well groomed *EYES: pupils equal, round, reactive to light and accommodation, conjunctiva clear without masses or ulcerations, fundi normal. *CARDIOVASCULAR RRR, S1, S2, no mumurs, rubs, or gallops, no peripheral edema, distal temperature normal, dorsalis pedis pulses normal. Negative for carotid bruit Musculoskeletal: *GAIT AND STATION normal, symmetrical extremity movement without spasticity *ASSESSMENT OF MUSCLE STRENGTH IN THE UPPER AND LOWER EXTREMITIES right deltoid, bicep, tricep, guest services manager strength 4/5, left deltoid, bicep, tricep, guest services manager st rength 5/5 bilateral hip flexors ,anterior tibialis, dorsoflexion of the foot 5/5 *MUSCLE TONE IN THE UPPER AND LOWER EXTREMITIES normal. No abnormal movements, fasciculations or atrophy identified. Neurological: *ORIENTATION to time person, situation and place *RECURRENT AND REMOTE MEMORY intact *ATTENTION AND CONCENTRATION are normal *LANGUAGE FUNCTION no significant aphasia or dysarthia was noted. *FUND OF KNOWLEDGE aware of current events, past history, vocabulary *MENTAL attention span and concentration normal. *CN II optic fundi were normal, no papilledema noted. *CN III,IV, PERRLA extraocular eye movements were full, no nystagmus and no ptosis noted. *CN V shows normal sensation and jaw opens symmetrically. *CN VII shows normal facial movement symmetrically, upper and lower bilaterally. *CN VIII shows no significant hearing loss on exam *CN IX,,X palate elevated symmetrically *CN XI normal strength in the sternocleidomastoid muscles, symmetrical shoulder shrugging. *CN XII tongue protruded in the midline, with normal strength and movement. *SENSORY EXAMINATION of the patient does have light touch sensation in bilateral arms and legs he does note a decreased sensation on the right side. Additionally, he appears to have difficulty determining dull versus sharp in both the right arm, right leg and right face *REFLEXES: deep tendon reflexes were normal and symmetrical , grade 1/4 diffusely, no pathological reflexes were noted. *CEREBELLAR TESTING normal finger to nose *PAIN LEVEL 5/10 Results - Laboratory Findings CBC and BMP: 05/28/18 04:38 05/28/18 04:38 Abnormal lab findings: Abnormal lab results Plt Count 128 K/mcL (140-400) L 05/28/18 04:38 PT 12.4 Seconds (9.4-12.1) H 05/28/18 04:38 Creatinine 1.47 mg/dL (0.70-1.30) H 05/28/18 04:38 Est GFR ( Amer) 57 (> 60) L 05/28/18 04:38 Est GFR (Non-Af Amer) 47 (> 60) L 05/28/18 04:38 ALT 3 Units/L (7-52) L 05/28/18 04:38 B-Natriuretic Peptide 119 pg/mL (Less than 100) H 05/27/18 11:05 Triglycerides 160 mg/dL (< 150) H 05/28/18 04:38 VLDL Cholesterol, Calc 32 mg/dL (< 31) H 05/28/18 04:38 HDL Cholesterol 31 mg/dL (40-59) L 05/28/18 04:38 Consult Discharge Plan - Plan Referrals: Halie Mena, MANAGER WORK [Primary Care Provider] - 06/04/18 3:00 pm
[2018-05-28 10:23] LABS: Estimated Average Glucose 151 mg/dl; Hemoglobin A1C 6.9 %
[2018-05-28] MEDS: Carbidopa/Levodopa 25/100 TABLET PO SCH ×3 (10:29→20:16)
[2018-05-28] MEDS: Aspirin Enteric Coated 81 MG Tablet PO SCH (10:29)
--- NOTE | 2018-05-28 14:38 | Internal Med Progress Note ---
Hospitalist Progress Note - Encounter Date of Encounter: 05/28/18 Time of Encounter: 09:00 - Subjective Interval History: Pt concerned about his pain today and how it seems to slowly be getting worse over last several months. Does have pain in his R leg at time of my interview. He is also slightly upset because he thinks that the neurology team said "it could be in his brain" which he thought meant they were calling him stupid, but felt better when explained that they most likely meant we were looking for whether this was spinal cord or brain-related problem. Denies CP, SOB, N/V, or abd pain. - Exam Vitals: Temp Pulse Resp BP Pulse Ox 97.7 F 62 16 179/93 97 05/28/18 11:13 05/28/18 11:13 05/28/18 11:13 05/28/18 11:13 05/28/18 11:13 Exam: Gen: NAD, lying in bed slightly uncomfortable HEENT: NC/AT, PERRL Lungs: clear b/l, no wheezing or crackles Heart: normal S1S2, RRR Abd: Soft, nontender Neuro: RUE motor 3+/5, RLE 4/5, normal mildly diminished symmetric reflexes - Summary of Assessment and Plan Summary of Assessment and Plan: Eduar Joe is a 72 M w hx HTN, DM2, CAD s/p CABG, HFrEF 45%, s/p pacemaker, CKD3a, Parkinson's, who presents with episodic R-sided weakness of both arm and leg associated with sharp RLE pain. R sided weakness: RUE and RLE, per patient is episodic, has had recent CVA eval which was unremarkable including TTE, carotids, CTA head/neck. In ED, L-spine CT shows possible DISH. - Neuro consult, awaiting rec's - Ortho consult re DISH (pt has reported hx spondylosis), awaiting rec's CAD s/p CABG: home ASA, plavix, BB, start lipitor 20 DM2: w hyperglycemia and CKD and CAD, use home long acting and give SSI HTN: home lisinopril HFrEF 45%: not on diuretics, on BB and ACEi Parkinsons: home sinemet PPx: sqh FEN: regular, no MIVF Lines: PIV Consults: Neuro, Ortho Code: Full Dispo: Obs for eval of weakness, will possibly need rehab - Time Spent with Patient Total time spent is greater than 50% in coordination of care (as documented) at patient's floor/unit and/or counseling patient: Internal Medicine: Result - Labs CBC & Chem 7: 05/28/18 04:38 05/28/18 04:38 Labs: Short CBC 05/28/18 Range/Units 04:38 WBC 5.8 (4.3-11.1) K/mcL Hgb 14.7 (12.9-16.9) g/dL Hct 45.0 (37.5-50.1) % Plt Count 128 L (140-400) K/mcL Neutrophils # 3.3 (1.6-8.9) K/mcL BMP 05/28/18 04:38 Sodium 140 Potassium 4.0 Chloride 106 Carbon Dioxide 25 BUN 21 Creatinine 1.47 H Glucose 99 Calcium 9.2 Liver Function 05/28/18 Range/Units 04:38 Total Bilirubin 0.7 (0.3-1.0) mg/dL AST 13 (13-39) Units/L ALT 3 L (7-52) Units/L Alkaline Phosphatase 52 (34-104) Units/L Albumin 3.8 (3.5-5.7) g/dL - ABG Interpretation ABG results: PT/INR, D-dimer PT 12.4 Seconds (9.4-12.1) H 05/28/18 04:38 - Impressions Impressions Abdomen/Pelvis CT 05/27/18 13:24 IMPRESSION: No acute bowel abnormality. Normal appendix. No evidence of bowel obstruction. Stable bilateral renal cortical cysts. Multilevel degenerative changes of the lumbar spine, most prominent at L5-S1, with disc degenerative changes and facet arthritis causing mild canal narrowing and moderate bilateral neural foraminal narrowing. Findings suggesting DISH. D/ / 05/27/2018 14:30:12 Mihir Stewart MD / earnold Interpreting Provider: Mihir Stewart MD Lumbar Spine CT 05/27/18 13:24 IMPRESSION: No acute bowel abnormality. Normal appendix. No evidence of bowel obstruction. Stable bilateral renal cortical cysts. Multilevel degenerative changes of the lumbar spine, most prominent at L5-S1, with disc degenerative changes and facet arthritis causing mild canal narrowing and moderate bilateral neural foraminal narrowing. Findings suggesting DISH. D/ / 05/27/2018 14:30:12 Mihir Stewart MD / earallan Interpreting Provider: Mihir Stewart MD Consult Discharge Plan - Plan Referrals: Halie Mena, ROTOR PILOT [Primary Care Provider] - 06/04/18 3:00 pm
[2018-05-28] MEDS: traMADol 50 MG TABLET PO PRN (20:15)
[2018-05-28] MEDS: Famotidine 20 MG TABLET PO SCH (20:15)
[2018-05-29] MEDS: traMADol 50 MG TABLET PO PRN (06:19)
[2018-05-29] MEDS: *HR* Heparin 5,000 UNIT/ML VIAL SQ SCH ×2 (06:19→17:30)
[2018-05-29] MEDS: Insulin LISPRO 300 UNITS/3 ML VIAL SQ SCH ×4 (07:43→20:58)
[2018-05-29] MEDS: Carbidopa/Levodopa 25/100 TABLET PO SCH ×3 (08:27→19:56)
[2018-05-29] MEDS: Aspirin Enteric Coated 81 MG Tablet PO SCH (08:27)
[2018-05-29] MEDS ORDERED: Isosorbide MONOnitrate (24 HR) 60 MG TAB.ER.24H PO SCH (09:00)
--- NOTE | 2018-05-29 13:17 | Internal Med Progress Note ---
Hospitalist Progress Note - Encounter Date of Encounter: 05/29/18 Time of Encounter: 13:14 - Subjective Interval History: Pt still having weakness today, although denies pain. Does mention that he feels very SOB and wants to sit up and stand up to catch his breath. Is able to work with PT/OT but then complained of dizziness, which he says happens from time to time. Denies CP, N/V, or diarrhea. - Exam Vitals: Temp Pulse Resp BP Pulse Ox 97.8 F 84 22 111/74 97 05/29/18 10:03 05/29/18 10:03 05/29/18 10:03 05/29/18 10:03 05/29/18 10:03 Exam: Gen: NAD, lying in bed anxious Lungs: clear b/l, no wheezing or crackles Heart: normal S1S2, RRR Abd: Soft, nontender Neuro: RUE motor 3+/5, RLE 4/5, able to move to bedside and stand up unassisted - Summary of Assessment and Plan Summary of Assessment and Plan: Eduar Joe is a 72 M w hx HTN, DM2, CAD s/p CABG, HFrEF 45%, s/p pacemaker, CKD3a, Parkinson's, who presents with episodic R-sided weakness of both arm and leg associated with sharp RLE pain. R sided weakness: RUE and RLE, per patient is episodic, has had recent CVA eval which was unremarkable including TTE, carotids, CTA head/neck. In ED, L-spine CT shows possible DISH which might explain some of the radicular pain complaints. However, the weakness, especially fluctuating character, and recent negative workup, suggest per Neurology a possibly psychogenic component. - Neuro consult, no further workup - PT/OT Orthostatic hypotension and dizziness: occurs with postural change, ddx includes autonomic dysfunction from parkinsons, or from CHF and related meds. - will emphasize therapy, lifestyle modification, compression hose, and hydration - additional rec's per Neuro CAD s/p CABG: home ASA, plavix, BB, start lipitor 20 DM2: w hyperglycemia and CKD and CAD, use home long acting and give SSI HTN: home lisinopril HFrEF 45%: not on diuretics, on BB and ACEi Parkinsons: home sinemet PPx: sqh FEN: regular, no MIVF Lines: PIV Consults: Neuro Code: Full Dispo: Obs for eval of weakness, per PT/OT will benefit from SNF - Time Spent with Patient Total time spent is greater than 50% in coordination of care (as documented) at patient's floor/unit and/or counseling patient: Internal Medicine: Result - Labs CBC & Chem 7: 05/28/18 04:38 05/28/18 04:38 - ABG Interpretation ABG results: PT/INR, D-dimer PT 12.4 Seconds (9.4-12.1) H 05/28/18 04:38 Consult Discharge Plan - Plan Referrals: Halie Mena, PIPE ORGAN TUNER AND REPAIRER [Primary Care Provider] - 06/04/18 3:00 pm
--- NOTE | 2018-05-29 14:02 | Neurology Progress Note ---
Addendum entered and electronically signed by Stephane Vieira MD 05/29/18 16:33: I did a [id number] evaluation with the patient and I agree with the assessment and plan outlined below by Isaiah Riggins. Currently, the patient still has similar complaints with right arm weakness and leg however, symptoms appear slightly improving. When passively moving his leg he develops pain originating from his right calf muscle either referred up or done. Patient still has weakness involving the right arm but no significant pain. At this time, he is planned to go to half-way for physical therapy and he is to follow up with pain specialist and clipper machine operator for further treatment. The cause of his symptoms has been complicated by inability to obtain MRI scanning due to pacemaker placement. He may benefit from cervical or lumbar myelogram to assess possibility of cervical radiculopathy and lumbar radiculopathy however, unfortunately the studies cannot be done in this facility. We will sign off at this time please call us if you have any questions. Original Note: Date of Encounter: 05/29/18 Time of Encounter: 13:57 Assessment and Plan (1) Generalized weakness Current Visit: No Status: Acute Has been seen previously by neurology for the same complaints. On prior admissions thought to be due to a conversion disorder. Would not expect cyclical presentation of right-sided weakness if this were a true neurological disorder. Carotid Duplex (May 20, 2018): Right side has nonstenotic plaque stable with last imaging 6 mo ago and left side normal Venous Duplex (05/20/18) WNL on both legs CT Cervical (January 2017) indicated moderate stenosis C5-C6 and slight stenosis C6-C7 CT Head at this hospital visit found no intracranial abnormalities Abdomen/Pelvic CT: L5-S1 degenerative disk change as well as likely DISH No change in condition overnight. Neuro exam with no abnormal findings. Still having RUE, RLE pain worse with extremity use and activity. Yesterday stared tizanidine for lower extremity pain. Patient reports that this has not helped. Pain is alleviated by a positional change of flexion, abduction, and external rotation of the lower extremity Patient has had recent extensive workup here at [facility] and [facility] which is negative for neurological cause. I feel that his symptoms are not neurological but instead are of a musculoskeletal etiology or supratentorial with fluctuating exam and somatoform complaints.. Rec outpatient PT/OT and inpatient as well EMG/NCV study and neuro f/u Continue Tizanidine 2mg TID Rec consultation to pain management Subjective Principal diagnosis: Right arm and leg weakness Interval history: Neurology consult with complaints of right-sided arm and leg weakness concern for TIA. Symptoms are aggravated with activity causing pain and weakness. Pain is most likely musculoskeletal etiology. Patient has been seen and examined at bedside today. He continues to have right arm and leg pain and reports that his activity level is extremely limited due to this. He reports that he was unable to participate in physical therapy due to the discomfort. Continues to have right arm and leg weakness to exam as well as a sciatica pain distribution pattern. Otherwise no neurological findings. Discussed plan of care with the patient and the need for outpatient follow up for EMG study and follow-up with pain management physician. Recommended continued physical therapy. Objective - Constitutional Vitals: Temp Pulse Resp BP Pulse Ox 97.8 F 84 22 111/74 97 05/29/18 10:03 05/29/18 10:03 05/29/18 10:03 05/29/18 10:03 05/29/18 10:03 Exam: Examination: General Examination: *CONSTITUTIONAL: Resting comfortably, no acute distress *GENERAL APPEARANCE OF PATIENT appears healthy and well groomed *EYES: pupils equal, round, reactive to light and accommodation Musculoskeletal: *GAIT AND STATION normal, symmetrical movement without spasticity *ASSESSMENT OF MUSCLE STRENGTH IN THE UPPER AND LOWER EXTREMITIES right deltoid, bicep, tricep, transport operations inspector strength, 4/5, left deltoid, bicep, tricep, transport operations inspector strength 5/5, bilateral hip flexors ,anterior tibialis, dorsoflexion of the foot 5/5 *MUSCLE TONE IN THE UPPER AND LOWER EXTREMITIES normal. No abnormal movements, fasciculations or atrophy identified. Neurological: *ORIENTATION to time, person, situation and place *RECURRENT AND REMOTE MEMORY intact *ATTENTION AND CONCENTRATION are normal *LANGUAGE FUNCTION no significant aphasia or dysarthia was noted. *FUND OF KNOWLEDGE aware of current events, past history, vocabulary *MENTAL attention span and concentration normal. *CN III,IV, PERRLA extraocular eye movements were full, no nystagmus and no ptosis noted. *CN V shows normal sensation and jaw opens symmetrically. *CN VII shows normal facial movement symmetrically, upper and lower bilaterally. *CN XI normal strength in the sternocleidomastoid muscles, symmetrical shoulder shrugging. *CN XII tongue protruded in the midline, with normal strength and movement. *SENSORY EXAMINATION light touch intact *PAIN LEVEL 4/10 Results - Laboratory Findings CBC and BMP: 05/28/18 04:38 05/28/18 04:38 Abnormal lab findings: Abnormal lab results Plt Count 128 K/mcL (140-400) L 05/28/18 04:38 PT 12.4 Seconds (9.4-12.1) H 05/28/18 04:38 Creatinine 1.47 mg/dL (0.70-1.30) H 05/28/18 04:38 Est GFR ( Amer) 57 (> 60) L 05/28/18 04:38 Est GFR (Non-Af Amer) 47 (> 60) L 05/28/18 04:38 Hemoglobin A1c 6.9 % (-5.6) H 05/28/18 04:38 ALT 3 Units/L (7-52) L 05/28/18 04:38 B-Natriuretic Peptide 119 pg/mL (Less than 100) H 05/27/18 11:05 Triglycerides 160 mg/dL (< 150) H 05/28/18 04:38 VLDL Cholesterol, Calc 32 mg/dL (< 31) H 05/28/18 04:38 HDL Cholesterol 31 mg/dL (40-59) L 05/28/18 04:38 Consult Discharge Plan - Plan Referrals: Halie Mena, CONSUMER AFFAIRS DIRECTOR [Primary Care Provider] - 06/04/18 3:00 pm
[2018-05-29] MEDS: Famotidine 20 MG TABLET PO SCH (19:56)
[2018-05-30] MEDS: *HR* Heparin 5,000 UNIT/ML VIAL SQ SCH (05:34)
[2018-05-30] MEDS: Insulin LISPRO 300 UNITS/3 ML VIAL SQ SCH ×2 (07:28→12:22)
[2018-05-30] MEDS: Aspirin Enteric Coated 81 MG Tablet PO SCH (08:24)
[2018-05-30] MEDS: Carbidopa/Levodopa 25/100 TABLET PO SCH (08:25)
[2018-05-30 10:57] VITALS: BP 105/66
--- NOTE | 2018-05-30 12:27 | Discharge Summary ---
- NOTES TO OUTPATIENT PROVIDER Notes to Outpatient Provider: presented with intermittent weakness RLE/RUE felt by neuro to be in part psychosomatic due to fluctuating degree, does have orthostatic hypotension likely 2/2 parkinsons, discharge to SNF Date of Encounter: 05/30/18 Time of Encounter: 12:25 - Discharge Diagnosis (1) Orthostatic hypotension due to Parkinson's disease Priority: Primary Status: Acute (2) Generalized weakness Priority: Primary Status: Acute Hospital course: Dear Doctors, I recently had the opportunity to care for this patient during their recent hospital stay at [facility]. Eduar Joe is a 72 M w hx HTN, DM2, CAD s/p CABG, HFrEF 45%, s/p pacemaker, CKD3a, Parkinson's, who presented at time of admission with episodic R-sided weakness of both arm and leg associated with sharp RLE pain. Symptoms were intermittent and patient had recently undergone extensive TIA/CVA evaluation for the same problem, including unremarkable TTE, carotids, CTA head/neck. Neurology was consulted; CT spine showed DISH which could cause radicular symptoms and thus over the counter pain meds were initiated with some benefit in pain. However, regarding the weakness, given its fluctuating character without facial involvement and with negative workup, neurology suggested possibly a psychogenic component. Patient participated with PT/OT who recommended SNF. He did experience orthostatic hypotension likely due to autonomic dysfunction from his underlying Parkinson's, and thus Imdur was held, compression stockings were encouraged, and pt educated to sit up and stand slowly and cautiously. Follow up: PCP per SNF, Neurology as previously scheduled Tests pending: none Med changes: stop Imdur due to orthostatic hypotension, consider stopping coreg and/or flomax if symptoms persist Dx: right sided weakness, orthostatic hypotension Pertinent tests/consults: Neurology consultation Mental status: awake, fully oriented Code status: Rfp Writer spent on discharge: 25 minutes It has been my pleasure participating in this patient's care. Please contact me with any questions or concerns regarding their hospital stay. Sincerely, Mj Mac MD - Time Spent with Patient Total time spent providing and/or coordinating discharge services: - Discharge Medications Prescriptions: Continue Famotidine [Pepcid] 40 mg PO DAILY Aspirin Enteric Coated [Aspirin EC] 81 mg PO DAILY Pantoprazole Sodium [Protonix] 40 mg PO DAILY Carvedilol 3.125 mg PO TID Clopidogrel [Plavix] 75 mg PO DAILY Lisinopril 2.5 mg PO DAILY Nitroglycerin [Nitrostat] 0.4 mg SL Q5M PRN PRN Reason: Chest Pain Tamsulosin [Flomax] 0.4 mg PO HS Cholecalciferol (D-3) [Vitamin D] 1,000 unit PO DAILY Multivitamin [One Daily Essential] 1 tab PO DAILY Carbidopa/Levodopa [Carbidopa-Levo ER 25-100 Tab] 1 tab PO TID Insulin NPH Human Isophane [Novolin N] 15 unit SQ PRN PRN PRN Reason: Blood Sugar - Low Simvastatin [Zocor] 20 mg PO DAILY Discontinued Isosorbide MONOnitrate [Isosorbide Mononitrate ER] 120 mg PO DAILY Home Medications: Aspirin Enteric Coated [Aspirin EC] 81 mg PO DAILY 01/05/15 [History] Famotidine [Pepcid] 40 mg PO DAILY 01/05/15 [History] Pantoprazole Sodium [Protonix] 40 mg PO DAILY 01/04/16 [History] Carvedilol 3.125 mg PO TID 09/08/17 [History] Clopidogrel [Plavix] 75 mg PO DAILY 09/08/17 [History] Lisinopril 2.5 mg PO DAILY 09/08/17 [History] Nitroglycerin [Nitrostat] 0.4 mg SL Q5M PRN 09/08/17 [History] Tamsulosin [Flomax] 0.4 mg PO HS 09/08/17 [History] Cholecalciferol (D-3) [Vitamin D] 1,000 unit PO DAILY 01/19/18 [History] Multivitamin [One Daily Essential] 1 tab PO DAILY 01/19/18 [History] Carbidopa/Levodopa [Carbidopa-Levo ER 25-100 Tab] 1 tab PO TID 05/28/18 [History] Insulin NPH Human Isophane [Novolin N] 15 unit SQ PRN PRN 05/28/18 [History] Simvastatin [Zocor] 20 mg PO DAILY 05/28/18 [History] Allergies/Adverse Reactions: Allergy/AdvReac Type Severity Reaction Status Date / Time furosemide [From Lasix] AdvReac See Verified 05/28/18 17:45 Comments Date of admission: 05/27/18 15:25 Primary care physician: Halie Mena CNP Consults: 05/27/18 16:19 Consult to Neurology [CONS] Routine Consulting Provider: Neurology [facility] Reason for Consult: Right side weakness Call Completed: Yes 05/28/18 14:55 Consult to Occupational Therapy [CONS] Routine Comment: Evaluate, develop and implement POC Reason for Consult: R sided weakness Does patient have active BEDREST order?: No Is patient medically & hemodynamically stable?: Yes Consult to Physical Therapy [CONS] Routine Comment: Evaluate, develop and implement POC Reason for Consult: weakness Does patient have active BEDREST order?: No Is patient medically & hemodynamically stable?: Yes 05/29/18 07:59 Consult to Physical Therapy [CONS] Routine Comment: Evaluate, develop and implement POC Reason for Consult: because didn't eval yesterday Does patient have active BEDREST order?: No Is patient medically & hemodynamically stable?: Yes 05/29/18 14:03 Consult to Hotel Staff Member [CONS] Routine Reason for SW Consult: PT/OT RECOMMEND SNF - Constitutional Vitals: Temp Pulse Resp BP Pulse Ox 97.8 F 71 18 105/66 97 05/30/18 10:55 05/30/18 10:55 05/30/18 10:55 05/30/18 10:55 05/30/18 10:55 Exam: Gen: NAD, lying in bed, calm Lungs: clear b/l, no wheezing or crackles Heart: normal S1S2, RRR Abd: Soft, nontender Neuro: RUE motor 4+/5, RLE 4+/5, able to move to bedside and stand up unassisted, and to shake my hand relatively firmly - Patient Status Disposition: Transfer SNF Condition: Fair Functional capacity at discharge: independent ambulation Overall status at discharge: patient is progressing back to baseline - Discharge Instructions Follow Up With: Halie Mena CNP [Primary Care Provider] - 06/04/18 3:00 pm - Diet and Activity Activity: as per physical therapy, increase activity as tolerated Diet: advance to your usual diet
--- NOTE | 2018-05-30 12:33 | Physician Discharge Referral ---
ExtendedCare Referral Info Transfer To: SNF Provider in Charge after Transfer: PCP Institutional Level of Care: Skilled - Diagnosis (1) Orthostatic hypotension due to Parkinson's disease Priority: Primary Status: Acute (2) Generalized weakness Priority: Primary Status: Acute - Transfer Medications Home Medications: Aspirin Enteric Coated [Aspirin EC] 81 mg PO DAILY 01/05/15 [History] Famotidine [Pepcid] 40 mg PO DAILY 01/05/15 [History] Pantoprazole Sodium [Protonix] 40 mg PO DAILY 01/04/16 [History] Carvedilol 3.125 mg PO TID 09/08/17 [History] Clopidogrel [Plavix] 75 mg PO DAILY 09/08/17 [History] Lisinopril 2.5 mg PO DAILY 09/08/17 [History] Nitroglycerin [Nitrostat] 0.4 mg SL Q5M PRN 09/08/17 [History] Tamsulosin [Flomax] 0.4 mg PO HS 09/08/17 [History] Cholecalciferol (D-3) [Vitamin D] 1,000 unit PO DAILY 01/19/18 [History] Multivitamin [One Daily Essential] 1 tab PO DAILY 01/19/18 [History] Carbidopa/Levodopa [Carbidopa-Levo ER 25-100 Tab] 1 tab PO TID 05/28/18 [History] Insulin NPH Human Isophane [Novolin N] 15 unit SQ PRN PRN 05/28/18 [History] Simvastatin [Zocor] 20 mg PO DAILY 05/28/18 [History] Allergies/Adverse Reactions: Allergy/AdvReac Type Severity Reaction Status Date / Time furosemide [From Lasix] AdvReac See Verified 05/28/18 17:45 Comments - Ancillary Orders May use pressure relief devices daily prn, May go on SD w/family/respon green party w/meds at nurse discretion PRN, May have alcoholic beverages, May consult with Dentist, Strickler Attendant, Line Tender PRN - Rehabiliation Orders Rehab Potential: Good Rehab Orders: Evaluation for Physical Therapy, Evaluation for Occupational Therapy CERTIFICATION: I certify that the transfer of the above named patient to an Extended Care Facility is necessary for the continuing treatment of the diagnosis listed. The above information is true and accurate reflection of patient's current condition. Confidential - Redisclosure prohibited without a patient's written consent.
== END 2018-05-30 14:38 ==
LOC: 3BNU 10:34 → EMEROOARM 10:34 → SUATTDRO 15:25 → 3BNU 16:20
PROVIDERS: ADMIT Internal Medicine; ATTEND Internal Medicine

== ENCOUNTER 2018-06-07 11:03 | Observation (INO) ==
--- NOTE | 2018-06-07 11:18 | Emergency Department Note ---
Disposition Clinical Impression: ACS (acute coronary syndrome) Disposition: Admitted As Inpatient General Adult HPI - General Chief complaint: ED Chest Pain Stated complaint: CP Time Seen by Provider: 06/07/18 11:06 Source: patient Limitations: no limitations Nursing Notes Reviewed: Yes Vital Signs Reviewed: Yes - History of Present Illness HPI Narrative: ED ATTESTATION NOTE: I examined this patient and my medical decision-making was reviewed with the Resident Physician/FOREST PATHOLOGIST/PA/Student. I have personally performed a face to face evaluation on this patient & I agree with the documented findings, disposition and treatment plan as described except to the extent set forth below. Patient was seen with emergency medicine resident Dr. Emil Delgado please see copy of his note for details of this encounter Briefly: 72-year-old male history of for 20 cardiac stents and quadruple bypass at a [facility] at rest pain and pressure left arm partially resolved with aspirin and nitroglycerin. EKG shows no acute ischemic changes patient will get chest x-ray troponin screening labs and admission for ACS. Providing 30 minutes critical care service for this patient. Disposition pending Pain Scale: 6 - Related Data Home Medications Medication Instructions Recorded Confirmed Aspirin Enteric Coated [Aspirin EC] 81 mg PO DAILY 01/05/15 05/28/18 Famotidine [Pepcid] 40 mg PO DAILY 01/05/15 05/28/18 Pantoprazole Sodium [Protonix] 40 mg PO DAILY 01/04/16 05/28/18 Carvedilol 3.125 mg PO TID 09/08/17 05/28/18 Clopidogrel [Plavix] 75 mg PO DAILY 09/08/17 05/28/18 Lisinopril 2.5 mg PO DAILY 09/08/17 05/28/18 Nitroglycerin [Nitrostat] 0.4 mg SL Q5M PRN 09/08/17 05/28/18 Tamsulosin [Flomax] 0.4 mg PO HS 09/08/17 05/28/18 Cholecalciferol (D-3) [Vitamin D] 1,000 unit PO DAILY 01/19/18 05/28/18 Multivitamin [One Daily Essential] 1 tab PO DAILY 01/19/18 05/28/18 Carbidopa/Levodopa [Carbidopa-Levo 1 tab PO TID 05/28/18 05/28/18 ER 25-100 Tab] Insulin NPH Human Isophane 15 unit SQ PRN PRN 05/28/18 05/28/18 [Novolin N] Simvastatin [Zocor] 20 mg PO DAILY 05/28/18 05/28/18 Allergies Allergy/AdvReac Type Severity Reaction Status Date / Time furosemide [From Lasix] AdvReac See Verified 05/28/18 17:45 Comments Past Medical History - Past Medical History Medical history: Reports: asthma, cardiomyopathy, CHF, coronary artery disease, diabetes, GERD, hyperlipidemia, hypertension, myocardial infarction, renal disease, other Surgical history: Reports: angioplasty/stent, coronary bypass (CABG), pacemaker/AICD, other Psychiatric history: Reports: no psych history - Social History Smoking Status: Never smoker Smokeless Tobacco Status: No Alcohol use: Reports: none Drug use: Reports: none Physical Exam - General Limitations: no limitations General appearance: alert Course Vital Signs Temperature 98 F 06/07/18 11:07 Pulse Rate 70 06/07/18 11:07 Respiratory Rate 14 06/07/18 11:07 Blood Pressure 129/92 06/07/18 11:07 O2 Sat by Pulse Oximetry 98 06/07/18 11:07 Temperature 98 F 06/07/18 11:07 Pulse Rate 70 06/07/18 11:07 Respiratory Rate 14 06/07/18 11:07 Blood Pressure 129/92 06/07/18 11:07 O2 Sat by Pulse Oximetry 98 06/07/18 11:07 Oxygen Delivery Oxygen Delivery Room Air
--- NOTE | 2018-06-07 11:47 | Emergency Department Note ---
Disposition Clinical Impression: ACS (acute coronary syndrome) Disposition: Admitted As Inpatient Condition: Fair Forms: ED Satisfaction Letter Time of Disposition: 13:37 Chest Pain HPI - General Chief Complaint: ED Chest Pain Stated Complaint: CP Time Seen by Provider: 06/07/18 11:06 Source: patient, EMS Mode of arrival: EMS Limitations: no limitations Vital Signs Reviewed: Yes Nursing Notes Reviewed: Yes - History of Present Illness HPI Narrative: 72-year-old male comes from the residential via EMS for chest pain. Patient said he had chest pain that began today he is currently a 6 out 10 nonradiating dull throbbing ache. Patient does have history of more than 20 stents as well as quadruple bypass. Patient says this does feel similar to his other heart attacks. Patient says he has had no nausea or vomiting. He has no other complaints at this time including no fevers, chills, nausea, vomiting, headache, blurry vision, neck pain, back pain, shortness of breath, abdominal pain, changes in bowel movement, pain with urination, pain or tingling going down the arms or legs or generalized weakness. Severity scale (1-10): 6 - Related Data Home Medications Medication Instructions Recorded Confirmed Aspirin Enteric Coated [Aspirin EC] 81 mg PO DAILY 01/05/15 05/28/18 Famotidine [Pepcid] 40 mg PO DAILY 01/05/15 05/28/18 Pantoprazole Sodium [Protonix] 40 mg PO DAILY 01/04/16 05/28/18 Carvedilol 3.125 mg PO TID 09/08/17 05/28/18 Clopidogrel [Plavix] 75 mg PO DAILY 09/08/17 05/28/18 Lisinopril 2.5 mg PO DAILY 09/08/17 05/28/18 Nitroglycerin [Nitrostat] 0.4 mg SL Q5M PRN 09/08/17 05/28/18 Tamsulosin [Flomax] 0.4 mg PO HS 09/08/17 05/28/18 Cholecalciferol (D-3) [Vitamin D] 1,000 unit PO DAILY 01/19/18 05/28/18 Multivitamin [One Daily Essential] 1 tab PO DAILY 01/19/18 05/28/18 Carbidopa/Levodopa [Carbidopa-Levo 1 tab PO TID 05/28/18 05/28/18 ER 25-100 Tab] Insulin NPH Human Isophane 15 unit SQ PRN PRN 05/28/18 05/28/18 [Novolin N] Simvastatin [Zocor] 20 mg PO DAILY 05/28/18 05/28/18 Allergies Allergy/AdvReac Type Severity Reaction Status Date / Time furosemide [From Lasix] AdvReac See Verified 05/28/18 17:45 Comments All systems ED: reviewed and negative except as stated. Review of Systems: As Per HPI Chest Pain PMH - Past Medical History Medical history: Reports: asthma, cardiomyopathy, CHF, coronary artery disease, diabetes, GERD, hyperlipidemia, hypertension, myocardial infarction, renal disease, other Surgical history: Reports: angioplasty/stent, coronary bypass (CABG), pacemaker/AICD, other Psychiatric history: Reports: no psych history - Social History Smoking Status: Never smoker Alcohol use: Reports: none Drug use: Reports: none Physical Exam - General Limitations: no limitations General appearance: alert - Head Head exam: atraumatic, normocephalic, normal inspection - Eye Eye exam: Present: normal appearance, PERRL, EOMI - ENT ENT exam: normal exam, normal oropharynx, mucous membranes moist - Neck Neck exam: Present: normal inspection, full ROM, trachea midline - Chest Chest inspection: Present: normal inspection, symmetric chest wall rise - Respiratory Respiratory exam: Present: normal lung sounds bilaterally - Cardiovascular Cardiovascular exam: Present: regular rate, normal rhythm, normal heart sounds - Abdominal Exam Abdominal exam: Present: soft, Non-Tender, normal bowel sounds. Absent: tenderness, distention, guarding, rebound, rigidity - Extremities Exam Extremities exam: Present: normal inspection, full ROM. Absent: tenderness, pedal edema - Back Exam Back exam: Present: normal inspection. Absent: CVA tenderness (R), CVA tenderness (L) - Neurological Exam Neurological exam: Present: alert, oriented X3 - Skin Skin exam: Present: warm, dry, intact, normal color Course Course Narrative: Patient given aspirin by EMS. Arrival as well as nitroglycerin there is no alleviation of pain after receiving a. We will do normal chest pain workup including EKG, chest x-ray, CBC, BMP, troponin. Patient most likely will be admitted to hospital for further evaluation. Vital Signs Temperature 98 F 06/07/18 11:07 Pulse Rate 70 06/07/18 11:07 Respiratory Rate 14 06/07/18 11:07 Blood Pressure 129/92 06/07/18 11:07 O2 Sat by Pulse Oximetry 98 06/07/18 11:07 Temperature 98 F 06/07/18 11:07 Pulse Rate 60 06/07/18 12:42 Respiratory Rate 14 06/07/18 12:42 Blood Pressure 147/72 06/07/18 12:42 O2 Sat by Pulse Oximetry 98 06/07/18 12:42 Oxygen Delivery Oxygen Delivery Room Air Chest Pain - MDM Narrative Medical decision making narrative: 72-year-old male here with chest pain. Was given aspirin and nitroglycerin glycerin predators arrival nitroglycerin glycerin did not help his chest pains we did not continue it here. Troponin was negative all other labs were normal elevated creatinine but right around his baseline. EKG had no acute findings chest x-ray no acute findings. Patient will be admitted to the hospitalist for further chest pain workup and ACS rule out. I spoke with the patient he ate agrees with this plan. Spoke with the hospitalist Dr. Davila who agreed to admit the patient to their service. Patient is admitted in stable condition. Chest X-Ray 06/07/18 11:07 IMPRESSION: No acute abnormality. D/ / 06/07/2018 12:36:50 Shekhar Green MD / jennifer Interpreting Provider: Shekhar Green MD - Medical Records Medical records reviewed: Yes I reviewed the patient's medical records. - Lab Data Lab results reviewed: Yes I reviewed the patient's lab results. Result diagrams: 06/07/18 12:11 06/07/18 12:11 Lab Results 06/07/18 06/07/18 06/07/18 Range/Units 12:11 12:11 12:11 WBC 4.8 (4.3-11.1) K/mcL RBC 4.59 (4.19-5.50) M/mcL Hgb 13.9 (12.9-16.9) g/dL Hct 42.5 (37.5-50.1) % MCV 92.6 (83.0-100.0) fL MCH 30.3 (28.0-33.3) pg MCHC 32.7 (31.6-35.5) g/dL RDW 13.4 (11.5-14.5) % Plt Count 113 L (140-400) K/mcL MPV 11.9 (9.4-12.4) fL Immature Gran % 0.2 (0-4) % Seg Neutrophils % 59.0 % Lymphocytes % 21.4 % Monocytes % 14.6 % Eosinophils % 4.0 % Basophils % 0.8 % Neutrophils # 2.8 (1.6-8.9) K/mcL Lymphocytes # 1.0 (0.6-4.6) K/mcL Monocytes # 0.7 (0.0-1.3) K/mcL Eosinophils # 0.2 (0.0-0.6) K/mcL Basophils # 0.0 (0.0-0.2) K/mcL PT 11.7 (9.4-12.1) Seconds INR 1.0 Sodium 137 (136-145) mEq/L Potassium 4.2 (3.5-5.1) mEq/L Chloride 106 (98-107) mEq/L Carbon Dioxide 21 L (23-29) mEq/L BUN 25 H (8-23) mg/dL Creatinine 1.38 H (0.70-1.30) mg/dL Est GFR ( Amer) > 60 (> 60) Est GFR (Non-Af Amer) 51 L (> 60) BUN/Creatinine Ratio 18 (6-26) Glucose 126 H (70-105) mg/dL Calculated Osmolality 290 (280-300) Calcium 9.2 (8.6-10.3) mg/dL Troponin I < 0.03 (< 0.04) ng/mL - Radiology Data Radiology results reviewed: Yes I reviewed the patient's radiology results. - EKG Data EKG attestation: Yes I reviewed and interpreted this EKG. EKG results narrative: EKG done at 1112 review myself and the attending shows sinus rhythm a rate of 66, DE interval 206, QRS 99, QTC 432. There is no acute ST changes no acute T- wave changes no other signs of ischemia. No signs of hypertrophy, heart and, heart block. No Briseida PW/Brugada/HOCM. Otherwise no changes to EKG when compared with old one done 2/19/19 Heart Score - Score History: Moderately Suspicious EKG: Normal Age: Greater than 65 Risk Factors: Equal/Greater than 3 risk factor or history of atherosclerotic disease Troponin: Less than normal limit HEART Score Total: 5
[2018-06-07 12:35] LABS: Basophils % 0.8 %; Eosinophils # 0.2 K/mcL (0.0-0.6); Hematocrit 42.5 % (37.5-50.1); Hemoglobin 13.9 g/dL (12.9-16.9); Immature Granulocytes % 0.2 % (0-4); Lymphocytes % 21.4 %; Mean Corpuscular HGB Conc 32.7 g/dL (31.6-35.5); Mean Corpuscular Hemoglobin 30.3 pg (28.0-33.3); Mean Corpuscular Volume 92.6 fL (83.0-100.0); Mean Platelet Volume 11.9 fL (9.4-12.4); Monocytes # 0.7 K/mcL (0.0-1.3); Monocytes % 14.6 %; Neutrophils # 2.8 K/mcL (1.6-8.9); Platelet Count 113 K/mcL (140-400); Red Blood Count 4.59 M/mcL (4.19-5.50); Red Cell Distribution Width 13.4 % (11.5-14.5)
[2018-06-07 12:42] LABS: Prothrombin Time 11.7 Seconds (9.4-12.1)
[2018-06-07 13:08] LABS: BUN/Creatinine Ratio 18 (6-26); Blood Urea Nitrogen 25 mg/dL (8-23); Calcium 9.2 mg/dL (8.6-10.3); Carbon Dioxide 21 mEq/L (23-29); Chloride 106 mEq/L (98-107); Glucose 126 mg/dL (70-105); Osmolality,Calculated 290 (280-300); Potassium 4.2 mEq/L (3.5-5.1); Sodium 137 mEq/L (136-145); Troponin I < 0.03 ng/mL (< 0.04); eGFR For Non-African Americans 51 (> 60)
[2018-06-07] MEDS ORDERED: Ondansetron 4 MG/2 ML VIAL IVP PRN (13:41)
[2018-06-07] MEDS ORDERED: Naloxone 0.4 MG/ML INJ IVP PRN (13:41)
[2018-06-07] MEDS ORDERED: Aspirin 81 MG TAB.CHEW PO ONE (13:58)
--- NOTE | 2018-06-07 13:59 | Internal Med History&Physical ---
Date of Encounter: 06/07/18 Time of Encounter: 13:40 Internal Medicine - H&P: HPI Chief complaint: Chest pain Admitted From: Long-term Nursing Facility History of present illness: Mr. Joe is a 72 year old male with history of CAD status post CABG and multiple PCI's, diabetes, HTN, CKD, presented to the ED with sudden onset of chest pain. Occurred at 3:00am when he woke up from sleep. Substernal, sharp, non-radiating, no aggravating factor. He also describes it as "heart fluttering". Did not get better with nitro administered in EMS. Denies any fever/chills, nausea/vomiting, diaphoresis, cough, or sputum production. No GI/ symptoms. In the ED, he was afebrile and hemodynamically stable. Labwork was unremarkable including normal white blood cell count and troponin. EKG shows normal sinus rhythm without concerning ischemic changes. Past Med Surg Social Fam HX - Past Medical History Attestation: Yes The following information was validated with the patient. Medical history: asthma, cardiomyopathy, CHF, coronary artery disease, diabetes, GERD, hyperlipidemia, hypertension, myocardial infarction, renal disease, other Additional medical history: parkinsons, Spinal Stenosis, Cerival Spondyliosis Psychiatric history: no psych history - Past Surgical History Surgical History: angioplasty/stent, coronary bypass (CABG), pacemaker/AICD, other Additional surgical history: right rotator cuff surgery. Mulitple heart Stents. Right Leg Surgery. triple bypass - Social History Smoking Status: Never smoker Smokeless Tobacco Status: No Alcohol use: none Drug use: none - Family History Father Living Status: Hx Family Cardiac Disorders: Yes (Bad heart) Hx Family Neurologic Disorders: Yes (Alzheimer's) Mother Living Status: Hx Family Cardiac Disorders: Yes (LA) Internal Medicine - H&P: Meds Aspirin Enteric Coated [Aspirin EC] 81 mg PO DAILY 01/05/15 [History] Famotidine [Pepcid] 40 mg PO DAILY 01/05/15 [History] Pantoprazole Sodium [Protonix] 40 mg PO DAILY 01/04/16 [History] Carvedilol 3.125 mg PO TID 09/08/17 [History] Clopidogrel [Plavix] 75 mg PO DAILY 09/08/17 [History] Lisinopril 2.5 mg PO DAILY 09/08/17 [History] Nitroglycerin [Nitrostat] 0.4 mg SL Q5M PRN 09/08/17 [History] Tamsulosin [Flomax] 0.4 mg PO HS 09/08/17 [History] Cholecalciferol (D-3) [Vitamin D] 1,000 unit PO DAILY 01/19/18 [History] Multivitamin [One Daily Essential] 1 tab PO DAILY 01/19/18 [History] Carbidopa/Levodopa [Carbidopa-Levo ER 25-100 Tab] 1 tab PO TID 05/28/18 [History] Insulin NPH Human Isophane [Novolin N] 15 unit SQ PRN PRN 05/28/18 [History] Simvastatin [Zocor] 20 mg PO DAILY 05/28/18 [History] Allergy/AdvReac Type Severity Reaction Status Date / Time furosemide [From Lasix] AdvReac See Verified 05/28/18 17:45 Comments All Systems PM: A 10-system review of systems was performed and is negative for pertinent f indings except as documented above in the HPI. - Constitutional Vitals: Temp Pulse Resp BP Pulse Ox 98 F 60 14 147/72 98 06/07/18 11:07 06/07/18 12:42 06/07/18 12:42 06/07/18 12:42 06/07/18 12:42 Exam: General: Alert and oriented, not in acute distress. HEENT:EOMI, pupils equal, round and reactive. Cardiovascular:Normal S1 & S2, No JVD. Pulse regular. No chest wall tenderness Lungs: clear to auscultation, no wheezes/rales Abdomen:Soft, non-tender, no rigidity. Extremities:No deformity or swelling Neurological:R UE/LE power 4-/5, appears to be chronic based on the last admission noted from 05/27. Skin:Normal color, no rash, no lesions. Pulses:Carotid and radial pulses normal +2. Rest of the physical exam is non contributory Internal Med - H&P Results - Labs CBC & Chem 7: 06/07/18 12:11 06/07/18 12:11 Labs: Short CBC 06/07/18 Range/Units 12:11 WBC 4.8 (4.3-11.1) K/mcL Hgb 13.9 (12.9-16.9) g/dL Hct 42.5 (37.5-50.1) % Plt Count 113 L (140-400) K/mcL Neutrophils # 2.8 (1.6-8.9) K/mcL BMP 06/07/18 12:11 Sodium 137 Potassium 4.2 Chloride 106 Carbon Dioxide 21 L BUN 25 H Creatinine 1.38 H Glucose 126 H Calcium 9.2 Cardiac Enzymes 06/07/18 Range/Units 12:11 Troponin I < 0.03 (< 0.04) ng/mL - Impressions ITS Impressions Chest X-Ray 06/07/18 11:07 IMPRESSION: No acute abnormality. D/ / 06/07/2018 12:36:50 Shekhar Green MD / jennifer Interpreting Provider: Shekhar Green MD - Assessment and Plan (1) Chest pain Current Visit: Yes Status: Acute Assessment and plan: Atypical chest pain in the patient with significant cardiac history 1st trop -ve, EKG NSR without concerning ischemic changes [facility] 07/2017 reviewed: Moderate nonobstructive CAD in SVG to RPDA and 70% instent stenosis of distal 1st diagonal that weren't significantly changed telemetry, trend troponin cardiology consult Qualifiers: Chest pain type: unspecified Qualified Code(s): R07.1 - Chest pain on breathing; R07.81 - Pleurodynia (2) CAD (coronary artery disease) Current Visit: No Status: Chronic Assessment and plan: resume home meds once reconciled Qualifiers: Coronary Disease-Associated Artery/Lesion type: bypass graft [place] vs. transplanted heart: [place] heart Associated angina: without angina Qualified Code(s): I25.810 - Atherosclerosis of coronary artery bypass graft(s) without angina pectoris (3) Systolic CHF Current Visit: No Status: Chronic Assessment and plan: not in exacerbation limited echo 09/2017 showed EF 45-50% resume home meds once reconciled Qualifiers: Heart failure chronicity: chronic Qualified Code(s): I50.22 - Chronic systolic (congestive) heart failure (4) CKD (chronic kidney disease) stage 3, GFR 30-59 ml/min Current Visit: No Status: Chronic Assessment and plan: Cr at his baseline avoid nephrotoxins (5) Diabetes Current Visit: No Status: Chronic Assessment and plan: low dose sliding scale with accuchecks AC+HS diabetic diet Qualifiers: Diabetes mellitus type: type 2 Diabetes mellitus rn long term care insulin use: with retirement use Diabetes mellitus complication status: with kidney complications Diabetes mellitus complication detail: with chronic kidney disease Chronic kidney disease stage: stage 3 (moderate) Qualified Code(s): E11.22 - Type 2 diabetes mellitus with diabetic chronic kidney disease; N18.3 - Chronic kidney disease, stage 3 (moderate); Z79.4 - long term care pharmacist (current) use of insulin (6) HTN (hypertension) Current Visit: No Status: Chronic Assessment and plan: controlled, resume home meds once reconciled Qualifiers: Hypertension type: essential hypertension Qualified Code(s): I10 - Essential (primary) hypertension (7) DVT prophylaxis Current Visit: No Status: Acute Assessment and plan: SQ heparin - Time Spent With Patient Total time spent is greater than 50% in coordination of care (as documented) at patient's floor/unit and/or counseling patient: 25 - 35 minutes
[2018-06-07] MEDS ORDERED: Dextrose Gel 15 GM/37.5 ML TUBE PO PRN ×2 (14:05)
[2018-06-07] MEDS ORDERED: D5% in Water 1,000 ML IVC PRN (14:05)
[2018-06-07] MEDS ORDERED: Dextrose 4 GM Chewable Tablets PO PRN ×2 (14:05)
[2018-06-07] MEDS ORDERED: *HR* Dextrose 50 % in Water (Syg) 50 ML SYRINGE IVP PRN (14:05)
[2018-06-07] MEDS: Insulin LISPRO 300 UNITS/3 ML VIAL SQ SCH (16:17)
[2018-06-07] MEDS: *HR* Heparin 5,000 UNIT/ML VIAL SQ SCH (16:18)
[2018-06-07] MEDS ORDERED: Insulin LISPRO 300 UNITS/3 ML VIAL SQ SCH (21:00)
[2018-06-07] MEDS: Carbidopa/Levodopa ER 50/200 TABLET PO SCH (21:01)
[2018-06-08 00:55] LABS: Basophils % 0.7 %; Eosinophils # 0.2 K/mcL (0.0-0.6); Eosinophils % 4.8 %; Hematocrit 39.7 % (37.5-50.1); Hemoglobin 13.3 g/dL (12.9-16.9); Immature Granulocytes % 0.2 % (0-4); Lymphocytes # 1.2 K/mcL (0.6-4.6); Mean Corpuscular HGB Conc 33.5 g/dL (31.6-35.5); Mean Corpuscular Hemoglobin 31.1 pg (28.0-33.3); Mean Corpuscular Volume 92.8 fL (83.0-100.0); Mean Platelet Volume 11.6 fL (9.4-12.4); Monocytes # 0.8 K/mcL (0.0-1.3); Monocytes % 17.5 %; Neutrophils # 2.3 K/mcL (1.6-8.9); Platelet Count 110 K/mcL (140-400); Red Blood Count 4.28 M/mcL (4.19-5.50); Red Cell Distribution Width 13.4 % (11.5-14.5); Segmented Neutrophils % 50.8 %
[2018-06-08 01:07] LABS: BUN/Creatinine Ratio 19 (6-26); Blood Urea Nitrogen 25 mg/dL (8-23); Calcium 8.6 mg/dL (8.6-10.3); Carbon Dioxide 24 mEq/L (23-29); Chloride 107 mEq/L (98-107); Glucose 109 mg/dL (70-105); Osmolality,Calculated 291 (280-300); Potassium 3.8 mEq/L (3.5-5.1); Sodium 138 mEq/L (136-145); eGFR For Non-African Americans 54 (> 60)
[2018-06-08] MEDS: *HR* Heparin 5,000 UNIT/ML VIAL SQ SCH (06:05)
[2018-06-08] MEDS ORDERED: Regadenoson 0.4 MG/5 ML SYRINGE IVP ONE (08:39)
--- NOTE | 2018-06-08 08:47 | Cardiology Consult Note ---
Addendum entered and electronically signed by Yon Melvin CNP 06/08/18 15:05: Stress test is negative. Discussed with Dr. Lowery, we will add pravastatin as patient is concerned simvastatin is causing leg pain despite no improvement after holding. Original Note: <Yon Melvin - Last Filed: 06/08/18 08:40> Date of Encounter: 06/08/18 Time of Encounter: 08:40 Assessment and Plan (1) Chest pain Current Visit: No Status: Ruled-out Presents with c/o left sided chest pain when he woke yesterday. ALso c/o increased extremity pain and difficulty moving that was his initial concern. C/o chest pain for several months thats not improving. Chest pain is atypical- reproducible on my exam. Troponin negative x3. EKG with no acute ST changes. Known CAD. S/p CABG 2 vessel, [facility] 07/2017 with 2/2 patent bypass. Moderate non- obstructive CAD seen in the SVG-PDA. Severe ISR in the 1st diagonal stent. Fi ndings were unchanged from prior [facility]. Stable CAD. Medical management recommended. Stress test 05/2017 was negative for ischemia. Recommend stress test for further evaluation of symptoms. TTE ordered. Continue asa, plavix, and bb. Reports he stopped zocor due to right sided extremity pains. Symptoms did not improve and he was recommended to restart but declined. Qualifiers: Chest pain type: other chest pain Qualified Code(s): R07.89 - Other chest pain; R07.8 - Other chest pain (2) CAD (coronary artery disease) Current Visit: No Status: Chronic see plan above. Qualifiers: Coronary Disease-Associated Artery/Lesion type: bypass graft [place] vs. transplanted heart: [place] heart Associated angina: without angina Qualified Code(s): I25.810 - Atherosclerosis of coronary artery bypass graft(s) without angina pectoris Discussion w patient/family: The assessment and plan as outlined above was discussed with the patient and/or family members who expressed understanding and agreement. All questions were answered. Thank you for involving us in the care of your patient. Please call with any questions. History of Present Illness Consult date: 06/08/18 Requesting physician: Jaleel Davila Consult reason: Chest pain Chief complaint: Chest pain History of present illness: Mr. Joe is a 72 year old male with past medical history of CAD s/p CABG, prior PCI, DM type II, CKD stage III, and HTN. He presents from [facility] with the c/o RLE and RUE stiffness and pain ongoing. He admits to intermittent chest pain for the past several months. The pain is left sided and increases with exertion. 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 States his chest pain has not improved. He was admitted to an F 10 days ago due to difficulty walking that caused him to not be able to fully care for himself at home. His initial reason to come to the hospital was due to ongoing left pain. he says the chest pain was not new but the ECF was concerned. on my exam he denies current pain except with palpation over his chest. Past Med Surg Social Fam HX - Past Medical History Medical history: asthma, cardiomyopathy, CHF, coronary artery disease, diabetes, GERD, hyperlipidemia, hypertension, myocardial infarction, renal disease, other Additional medical history: parkinsons, Spinal Stenosis, Cerival Spondyliosis Psychiatric history: no psych history - Past Surgical History Surgical History: angioplasty/stent, coronary bypass (CABG), pacemaker/AICD, other Additional surgical history: right rotator cuff surgery. Mulitple heart Stents. Right Leg Surgery. triple bypass - Social History Smoking Status: Never smoker Smokeless Tobacco Status: No Alcohol use: none Drug use: none - Family History Father Living Status: Hx Family Cardiac Disorders: Yes (Bad heart) Hx Family Neurologic Disorders: Yes (Alzheimer's) Mother Living Status: Hx Family Cardiac Disorders: Yes ([place]) Medications and Allergies Aspirin Enteric Coated [Aspirin EC] 81 mg PO DAILY 01/05/15 [History] Pantoprazole Sodium [Protonix] 40 mg PO HS 01/04/16 [History] Carvedilol 3.125 mg PO TID 09/08/17 [History] Clopidogrel [Plavix] 75 mg PO DAILY 09/08/17 [History] Lisinopril 2.5 mg PO DAILY 09/08/17 [History] Nitroglycerin [Nitrostat] 0.4 mg SL Q5M PRN 09/08/17 [History] Tamsulosin [Flomax] 0.4 mg PO HS 09/08/17 [History] Cholecalciferol (D-3) [Vitamin D] 1,000 unit PO DAILY 01/19/18 [History] Multivitamin [One Daily Essential] 1 tab PO DAILY 01/19/18 [History] Carbidopa/Levodopa [Carbidopa-Levo ER 25-100 Tab] 1 tab PO TID 05/28/18 [History] Pravastatin Sodium [Pravachol] 20 mg PO DAILY #30 tablet 06/08/18 [Rx] Sertraline HCl [Zoloft] 20 mg PO DAILY #90 ml 06/08/18 [Rx] Allergy/AdvReac Type Severity Reaction Status Date / Time furosemide [From Lasix] AdvReac See Verified 05/28/18 17:45 Comments All Systems Review: The remainder of the systems were reviewed and are negative Physical Examination Vital Signs, Last 4 Hours Temp Pulse Resp BP Pulse Ox 06/08/18 08:20 97.9 F 80 15 146/79 96 General: Conversant, No Apparent Distress HEENT: Atraumatic, Normocephaly, Mucus Membranes Moist Neck: No JVD, Normal carotid pulses Cardiac: Reg Rate and Rhythm, Normal S1 and S2, No Murmur Lungs: Normal Breath Sounds, No Wheeze, Rales, Rhonchi Neuro: Alert and responsive, No focal deficits noted Abdomen: Soft, Non-Tender Skin: No rashes noted on visualized skin Musculoskeletal: Other (Left chest wall tender to palpation. RLE tender to palpation.) Extremities: No Clubbing, No Cyanosis, No Edema, Normal Pulses Results 06/08/18 00:23 06/08/18 00:23 Lab Results 06/07/18 06/07/18 06/07/18 12:11 12:11 12:11 WBC 4.8 Hgb 13.9 Hct 42.5 Plt Count 113 L INR 1.0 Sodium 137 Potassium 4.2 Chloride 106 Carbon Dioxide 21 L BUN 25 H Creatinine 1.38 H Glucose 126 H Calcium 9.2 Magnesium Troponin I < 0.03 06/07/18 06/08/18 06/08/18 17:53 00:23 00:23 WBC 4.6 Hgb 13.3 Hct 39.7 Plt Count 110 L INR Sodium Potassium Chloride Carbon Dioxide BUN Creatinine Glucose Calcium Magnesium Troponin I < 0.03 < 0.03 06/08/18 00:23 WBC Hgb Hct Plt Count INR Sodium 138 Potassium 3.8 Chloride 107 Carbon Dioxide 24 BUN 25 H Creatinine 1.31 H Glucose 109 H Calcium 8.6 Magnesium 2.0 Troponin I - Imaging and Cardiology Echo: report reviewed Cardiac cath: report reviewed - EKG Interpretation EKG results cardiology: personally reviewed Consult Discharge Plan - Plan Instructions: Chest Pain (DC) Referrals: Halie Mena, [facility]ER [Primary Care Provider] - (follow up appointment has been requested. Office will call with date and time of appointmnet. ) Prescriptions: Pravastatin Sodium [Pravachol] 20 mg PO DAILY #30 tablet Sertraline HCl [Zoloft] 20 mg PO DAILY #90 ml <SebastiánSaturday A - Last Filed: 06/08/18 15:10> Date of Encounter: 06/08/18 - Attending Attestation I have personally performed a face to face evaluation on this patient. I have reviewed and agree with the documented findings and care plan as documented by the PRINT W[facility]ER. History and Exam by me shows: 72-year-old male with history of CAD and CABG, noted for atypical chest pain which is reproducible on palpation. AAOX3 in NAD at the bedside Hemodynamically stable Cardiopulmonary exam revealed S1, S2, no murmur; clear lungs Rhythm reviewed - sinus rhythm, no acute ST T changes Pharmacologic stress test showed infarct but no ischemia. Impression/plan: 1)Atypical chest pain likely musculoskeletal recommend symptomatic management. 2) CAD s/p CABG-continue aspirin, beta esme, statin. Patient states that simvastatin has been problematic for him with leg cramps. He may switch to pravastatin Geovany Fung MD [facility] Assessment and Plan Discussion w patient/family: The assessment and plan as outlined above was discussed with the patient and/or family members who expressed understanding and agreement. All questions were answered. Thank you for involving us in the care of your patient. Please call with any questions. History of Present Illness History of present illness: Mr. Joe is a 72 year old male All Systems Review: The remainder of the systems were reviewed and are negative Physical Examination Vital Signs, Last 4 Hours Temp Pulse Resp BP Pulse Ox 06/08/18 12:26 98.0 F 77 16 176/102 96 Results 06/08/18 00:23 06/08/18 00:23 Lab Results 06/07/18 06/08/18 06/08/18 17:53 00:23 00:23 WBC 4.6 Hgb 13.3 Hct 39.7 Plt Count 110 L Sodium Potassium Chloride Carbon Dioxide BUN Creatinine Glucose Calcium Magnesium Troponin I < 0.03 < 0.03 06/08/18 00:23 WBC Hgb Hct Plt Count Sodium 138 Potassium 3.8 Chloride 107 Carbon Dioxide 24 BUN 25 H Creatinine 1.31 H Glucose 109 H Calcium 8.6 Magnesium 2.0 Troponin I
[2018-06-08] MEDS: Insulin LISPRO 300 UNITS/3 ML VIAL SQ SCH ×2 (08:49→13:01)
[2018-06-08] MEDS ORDERED: Cholecalciferol (D-3) 1,000 UNIT TABLET PO SCH (09:00)
[2018-06-08] MEDS ORDERED: Aspirin Enteric Coated 81 MG Tablet PO SCH ×2 (09:00)
[2018-06-08] MEDS: Carbidopa/Levodopa ER 50/200 TABLET PO SCH (10:09)
[2018-06-08 12:30] VITALS: BP 176/102
--- NOTE | 2018-06-08 13:05 | Discharge Summary ---
- NOTES TO OUTPATIENT PROVIDER Notes to Outpatient Provider: pcp 2- 5 days for anxiety and card in 1-2 weeks Orders not resulted at time of discharge: Pending orders 06/07/18 11:07 ECG 12 lead ECG [ECG] Stat 06/08/18 08:16 NM cedric perf SPECT multi [NM] Routine Date of Encounter: 06/08/18 Time of Encounter: 13:03 - Discharge Diagnosis (1) Chest pain Priority: Primary Status: Acute Qualifiers: Chest pain type: unspecified Qualified Code(s): R07.1 - Chest pain on breathing; R07.81 - Pleurodynia Hospital course: Mr. Joe is a 72 year old male with history of CAD status post CABG and multiple PCI's, diabetes, HTN, CKD, presented to the ED with sudden onset of chest pain. Occurred at 3:00am when he woke up from sleep. Substernal, sharp, non-radiating, no aggravating factor. He also describes it as "heart fluttering". Did not get better with nitro administered in EMS. Denies any fever/chills, nausea/vomiting, diaphoresis, cough, or sputum production. No GI/ symptoms. In the ED, he was afebrile and hemodynamically stable. Pt had negative trop and the the pain is not classic, rather atypical and pt stated to me that it started after her girlfriend would not return his phone calls. It's probably GERD or anxsity induced. If stress negative, pt will be discharged. Discharge discussed with: patient - Time Spent with Patient Total time spent providing and/or coordinating discharge services: Time spent: Greater than 30 minutes - Discharge Medications Prescriptions: No Action Aspirin Enteric Coated [Aspirin EC] 81 mg PO DAILY Pantoprazole Sodium [Protonix] 40 mg PO HS Carvedilol 3.125 mg PO TID Clopidogrel [Plavix] 75 mg PO DAILY Lisinopril 2.5 mg PO DAILY Nitroglycerin [Nitrostat] 0.4 mg SL Q5M PRN PRN Reason: Chest Pain Tamsulosin [Flomax] 0.4 mg PO HS Cholecalciferol (D-3) [Vitamin D] 1,000 unit PO DAILY Multivitamin [One Daily Essential] 1 tab PO DAILY Carbidopa/Levodopa [Carbidopa-Levo ER 25-100 Tab] 1 tab PO TID Home Medications: Aspirin Enteric Coated [Aspirin EC] 81 mg PO DAILY 01/05/15 [History] Pantoprazole Sodium [Protonix] 40 mg PO HS 01/04/16 [History] Carvedilol 3.125 mg PO TID 09/08/17 [History] Clopidogrel [Plavix] 75 mg PO DAILY 09/08/17 [History] Lisinopril 2.5 mg PO DAILY 09/08/17 [History] Nitroglycerin [Nitrostat] 0.4 mg SL Q5M PRN 09/08/17 [History] Tamsulosin [Flomax] 0.4 mg PO HS 09/08/17 [History] Cholecalciferol (D-3) [Vitamin D] 1,000 unit PO DAILY 01/19/18 [History] Multivitamin [One Daily Essential] 1 tab PO DAILY 01/19/18 [History] Carbidopa/Levodopa [Carbidopa-Levo ER 25-100 Tab] 1 tab PO TID 05/28/18 [History] Allergies/Adverse Reactions: Allergy/AdvReac Type Severity Reaction Status Date / Time furosemide [From Lasix] AdvReac See Verified 05/28/18 17:45 Comments Date of admission: 06/07/18 14:37 Primary care physician: Halie Mena CNP Consults: 06/07/18 13:39 Consult to Cardiology [CONS] Routine Comment: Consulting Provider: Cardiology Lenka Reason for Consult: Chest pain. Hx of CAD CABG/PCI, instent stenosis of distal 1st diagnoal on last [facility] 07/2017. Call Completed: Yes - Constitutional Vitals: Temp Pulse Resp BP Pulse Ox 98.0 F 77 16 176/102 96 06/08/18 12:26 06/08/18 12:26 06/08/18 12:26 06/08/18 12:26 06/08/18 12:26 Exam: General: Alert and oriented, not in acute distress. HEENT:EOMI, pupils equal, round and reactive. Cardiovascular:Normal S1 & S2, No JVD. Pulse regular. No chest wall tenderness Lungs: clear to auscultation, no wheezes/rales Abdomen:Soft, non-tender, no rigidity. Extremities:No deformity or swelling Neurological:R UE/LE power 4-/5, appears to be chronic based on the last admission noted from 05/27. Skin:Normal color, no rash, no lesions. Pulses:Carotid and radial pulses normal +2. Rest of the physical exam is non contributory - Patient Status Disposition: Home, Self-Care Condition: Fair - Discharge Instructions Follow Up With: Halie Mena CNP [Primary Care Provider] - (follow up appointment has been requested. Office will call with date and time of appointmnet. )
--- NOTE | 2018-06-11 12:37 | Electrocardiograph Report ---
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
== END 2018-06-08 15:23 | disposition home or self-care (01) ==
LOC: EMEROOARM 11:03 → 3BNU 11:03 → SUATTDRO 14:37 → 3BNU 15:45
PROVIDERS: ADMIT Internal Medicine; ATTEND Internal Medicine

== ENCOUNTER 2018-09-01 13:42 | Observation (INO) ==
[2018-09-01 14:27] LABS: Basophils % 0.3 %; Eosinophils # 0.3 K/mcL (0.0-0.6); Eosinophils % 4.8 %; Hematocrit 41.7 % (37.5-50.1); Hemoglobin 13.8 g/dL (12.9-16.9); Immature Granulocytes % 0.2 % (0-4); Lymphocytes # 1.2 K/mcL (0.6-4.6); Mean Corpuscular HGB Conc 33.1 g/dL (31.6-35.5); Mean Corpuscular Hemoglobin 31.2 pg (28.0-33.3); Mean Corpuscular Volume 94.3 fL (83.0-100.0); Monocytes # 0.5 K/mcL (0.0-1.3); Monocytes % 9.2 %; Neutrophils # 3.8 K/mcL (1.6-8.9); Platelet Count 135 K/mcL (140-400); Red Blood Count 4.42 M/mcL (4.19-5.50); Red Cell Distribution Width 13.1 % (11.5-14.5); Segmented Neutrophils % 64.5 %
--- NOTE | 2018-09-01 14:41 | Emergency Department Note ---
Disposition Clinical Impression: Dehydration, Right sided weakness, Generalized weakness, BENTLEY (acute kidney injury) Disposition: Admitted As Inpatient Condition: Fair Time of Disposition: 16:35 Weakness HPI - General Chief complaint: ED Weakness Stated complaint: poss overdose Time Seen by Provider: 09/01/18 13:48 Source: patient, EMS Mode of arrival: EMS Limitations: no limitations Nursing Notes Reviewed: Yes Vital Signs Reviewed: Yes - History of Present Illness HPI Narrative: 72-year-old male presents to the emergency department for generalized weakness. Apparently came in this was a possible overdose as family stated yesterday evening he took one 5 mg Dewitt as well as 1 dose of baclofen for his sciatica he has been having in his right leg. He said he went to sleep woke up and he said he was feeling a more weak over slower to get around. They noticed that he started having worsening weakness is only called the squad to come evaluate. They brought him here for further evaluation. Patient does have history of strokelike symptoms were about every 6 months he has weakness on one side mainly the right side as well as having again today. He has had extensive stroke workup with everything being negative although he is unable to do an MRI due to having a pacemaker. Does have history of CABG as well. When asked about chest pain he says he has a little bit based mainly here for the generalized weakness. He is able answer all questions knows who he is worries. He is able to fall Follow commands is been no falls or trauma. The only new medication is the Dewitt and baclofen which she only took the 1 dose yesterday. Last known well was yesterday evening prior to going to bed patient otherwise has no other complaints is been no fevers chills, shortness of breath or any other complaints this time. Pain Scale: 0 - Related Data Home Medications Medication Instructions Recorded Confirmed Aspirin Enteric Coated [Aspirin EC] 81 mg PO DAILY 01/05/15 09/01/18 Pantoprazole Sodium [Protonix] 40 mg PO HS 01/04/16 09/01/18 Carvedilol 3.125 mg PO BID 09/08/17 09/01/18 Clopidogrel [Plavix] 75 mg PO DAILY 09/08/17 09/01/18 Lisinopril 2.5 mg PO DAILY 09/08/17 09/01/18 Nitroglycerin [Nitrostat] 0.4 mg SL Q5M PRN 09/08/17 09/01/18 Tamsulosin [Flomax] 0.4 mg PO HS 09/08/17 09/01/18 Cholecalciferol (D-3) [Vitamin D] 1,000 unit PO DAILY 01/19/18 09/01/18 Multivitamin [One Daily Essential] 1 tab PO DAILY 01/19/18 09/01/18 Carbidopa/Levodopa [Carbidopa-Levo 1 tab PO TID 05/28/18 09/01/18 ER 25-100 Tab] Famotidine [Pepcid] 40 mg PO DAILY 09/01/18 09/01/18 Isosorbide MONOnitrate (24 HR) 120 mg PO DAILY 09/01/18 09/01/18 [Imdur] Meloxicam 15 mg PO DAILY 09/01/18 09/01/18 Previous Rx's Medication Instructions Recorded Pravastatin Sodium [Pravachol] 20 mg PO DAILY #30 tablet 06/08/18 Allergies Allergy/AdvReac Type Severity Reaction Status Date / Time furosemide [From Lasix] AdvReac See Verified 06/09/18 20:31 Comments All systems ED: reviewed and negative except as stated. Review of Systems: As Per HPI Past Medical History - Past Medical History Attestation: Yes The following information was validated with the patient. Source: patient Medical history: Reports: asthma, cardiomyopathy, CHF, coronary artery disease, diabetes, GERD, hyperlipidemia, hypertension, myocardial infarction, renal disease, other Surgical history: Reports: angioplasty/stent, coronary bypass (CABG), pacemaker/AICD, other Psychiatric history: Reports: no psych history - Social History Smoking Status: Never smoker Smokeless Tobacco Status: No Alcohol use: Reports: none Drug use: Reports: none Physical Exam - General Limitations: no limitations General appearance: alert - Head Head exam: atraumatic, normocephalic, normal inspection - Eye Eye exam: Present: normal appearance, PERRL, EOMI - ENT ENT exam: normal exam, normal oropharynx, mucous membranes moist - Neck Neck exam: Present: normal inspection, full ROM, trachea midline - Chest Chest inspection: Present: normal inspection, symmetric chest wall rise - Respiratory Respiratory exam: Present: normal lung sounds bilaterally. Absent: respiratory distress, wheezes - Cardiovascular Cardiovascular exam: Present: regular rate, normal rhythm, normal heart sounds - Abdominal Exam Abdominal exam: Present: soft, Non-Tender, normal bowel sounds. Absent: tenderness, distention, guarding, rebound, rigidity - Extremities Exam Extremities exam: Present: normal inspection, full ROM. Absent: tenderness, pedal edema - Back Exam Back exam: Present: normal inspection, full ROM. Absent: tenderness, CVA tenderness (R), CVA tenderness (L) - Neurological Exam Neurological exam: Present: alert, oriented X3 - Expanded Neurological Exam Patient oriented to: Present: person, place, time Speech: Present: fluid speech Cranial nerves: EOM function (II, III, IV, ): Normal, facial sensation (V): Normal, facial palsy (VII): Normal, spinal accessory function (XI): Normal, tongue deviation (XII): Normal Cerebellar function: normal gait Motor strength - LUE: 3/5 Motor strength - RUE: 3/5 Motor strength - LLE: 3/5 Motor strength - RLE: 3/5 Upper motor neuron exam: young neglect: Absent bilaterally, Babinski sign: Absent bilaterally Sensory exam upper extremity: light touch: Normal Sensory exam lower extremity: light touch: Normal DTR: patellar (L): 2+, patellar (R): 2+ Coma Scale Eye Opening: Spontaneous Coma Scale Motor Response: Obeys Commands Coma Scale Verbal Response: Oriented Coma Scale Total: 15 - Skin Skin exam: Present: warm, dry, intact, normal color Course Course Narrative: Patient presents here generalized weakness. He has an NIH of 3 due to the right-sided weakness but according to family they say this is normal and occurs about once every 6 months and he has been worked up for stroke is been negative every single time. They do not believe this is a stroke at this time. His last known well was almost 24 hours ago so will not call a stroke alert at this time. Patient family both agree with that plan. We will get basic labs including CBC BMP will get a head CT chest x-ray troponin as well as urinalysis. We will look for possible infectious versus metabolic causes of this weakness. Patient family okay with this plan. Patient most likely will be admitted for further evaluation but is stable at this time. Vital Signs Temperature 97.7 F 09/01/18 13:57 Pulse Rate 82 09/01/18 13:57 Respiratory Rate 18 09/01/18 13:57 Blood Pressure 161/128 09/01/18 13:57 O2 Sat by Pulse Oximetry 97 09/01/18 13:57 Temperature 97.7 F 09/01/18 13:57 Pulse Rate 63 09/01/18 15:46 Respiratory Rate 18 09/01/18 15:46 Blood Pressure 191/86 09/01/18 15:46 O2 Sat by Pulse Oximetry 98 09/01/18 15:46 Oxygen Delivery Oxygen Delivery Room Air Weakness - MDM Narrative Medical decision making narrative: Throat male presented to the emergency department as generalized weakness possible overdose of do not think this is an overdose as the Dewitt and baclofen have been out of his system is half-life is 46 hours for both of those medications. Patient has had this ongoing issue where he has this weakness that has been worked up by neurology where he did have an EMG but does not remember the results she is unable to have an MRI due to pacemaker. He is in multiple CTs and they have not diagnosed with a stroke or TIA. Patient's weakness is getting better at this time and they say is nearly almost back to baseline be still does feel weak overall. Patient did have an AK I will give him IV fluids. We will admit the patient for further evaluation due to the weakness as well as EKG I. Patient is okay with this plan. Spoke with the hospitalist Dr. Ghosh who agreed to admit the patient to their service. Patient admitted in stable condition. Chest X-Ray 09/01/18 14:10 IMPRESSION: No acute cardiopulmonary abnormality identified. D/ / Torrey Juarez MD / Torrey Juarez MD Interpreting Provider: Torrey Juarez MD Head CT 09/01/18 14:10 IMPRESSION: No acute intracranial abnormality. D/ / Kenneth Donahue MD / Kenneth Donahue MD Interpreting Provider: Kenneth Donahue MD - Medical Records Medical records reviewed: Yes I reviewed the patient's medical records. - Lab Data Lab results reviewed: Yes I reviewed the patient's lab results. Result diagrams: 09/02/18 01:10 09/02/18 01:10 Lab Results 09/01/18 09/01/18 09/01/18 Range/Units 14:17 14:17 15:25 WBC 5.9 (4.3-11.1) K/mcL RBC 4.42 (4.19-5.50) M/mcL Hgb 13.8 (12.9-16.9) g/dL Hct 41.7 (37.5-50.1) % MCV 94.3 (83.0-100.0) fL MCH 31.2 (28.0-33.3) pg MCHC 33.1 (31.6-35.5) g/dL RDW 13.1 (11.5-14.5) % Plt Count 135 L (140-400) K/mcL MPV 11.0 (9.4-12.4) fL Immature Gran % 0.2 (0-4) % Seg Neutrophils % 64.5 % Lymphocytes % 21.0 % Monocytes % 9.2 % Eosinophils % 4.8 % Basophils % 0.3 % Neutrophils # 3.8 (1.6-8.9) K/mcL Lymphocytes # 1.2 (0.6-4.6) K/mcL Monocytes # 0.5 (0.0-1.3) K/mcL Eosinophils # 0.3 (0.0-0.6) K/mcL Basophils # 0.0 (0.0-0.2) K/mcL Sodium 137 (136-145) mEq/L Potassium 5.2 H (3.5-5.1) mEq/L Chloride 105 (98-107) mEq/L Carbon Dioxide 24 (23-29) mEq/L BUN 30 H (8-23) mg/dL Creatinine 2.02 H (0.70-1.30) mg/dL Est GFR ( Amer) 39 L (> 60) Est GFR (Non-Af Amer) 33 L (> 60) BUN/Creatinine Ratio 15 (6-26) Glucose 164 H (70-105) mg/dL Calculated Osmolality 294 (280-300) Calcium 9.2 (8.6-10.3) mg/dL Magnesium 2.2 (1.6-2.6) mg/dL Total Bilirubin 0.8 (0.3-1.0) mg/dL Direct Bilirubin 0.2 (0.0-0.2) mg/dL Indirect Bilirubin 0.6 (0.0-1.2) mg/dL AST 13 (13-39) Units/L ALT 7 (7-52) Units/L Alkaline Phosphatase 56 (34-104) Units/L Troponin I < 0.03 (< 0.04) ng/mL Serum Total Protein 7.3 (6.4-8.9) g/dL Albumin 4.0 (3.5-5.7) g/dL Globulin 3.3 (2.4-3.5) g/dL Albumin/Globulin Ratio 1.2 (1.1-2.2) Lipase 8 L (11-82) Units/L Urine Color Yellow (Yellow) Urine Clarity Clear (Clear) Urine pH 7.0 (5.0-8.0) pH Units Ur Specific [place] < 1.005 L (1.010-1.025) Urine Protein Negative (Neg-Trace) mg/dL Urine Glucose (UA) 100 H (Normal) mg/dL Urine Ketones Negative (Negative) mg/dL Urine Blood Negative (Negative) Urine Nitrite Negative (Negative) Urine Bilirubin Negative (Negative) Urine Urobilinogen Normal (Normal) mg/dL Ur Leukocyte Esterase Negative (Negative) Ur Culture Indicated? NO (NO) - Radiology Data Radiology results reviewed: Yes I reviewed the patient's radiology results. - EKG Data EKG attestation: Yes I reviewed and interpreted this EKG. EKG results narrative: EKG done at 1355 review myself and attending shows sinus rhythm at a rate of 79, MD 175, QRS 105, QTC 443. There is no acute ST changes no acute T-wave changes no other signs of ischemia. No signs of hypertrophy, heart strain, heart block. No WPW/Brugada/HOCM. No changes based on old EKG done 06/09/18 Attestation Statement - Attestation Attestation: I have seen this patient with the resident physician, I have personally evaluated this patient. I had reviewed the chart and document dictation by the resident physician and aM in agreement with the information documented by the resident physician. Please see documentation by the resident physician for complete chart including past medical history, family medical history, review of systems, current history and physical and laboratory and imaging studies. I was present for all procedures, provided direct supervision for all procedures, was present for the entirety of all procedures and provided direct guidance during the procedures. Please see documentation by the resident physician for any procedures performed. I have reviewed all interpretations of EKGs, and reviewed all EKGs performed on patient's as well. I have also reviewed reports of imaging as provided by radiology.
--- NOTE | 2018-09-01 14:46 | Emergency Department Note ---
Disposition Clinical Impression: Dehydration, Right sided weakness, Generalized weakness Disposition: Admitted As Inpatient Condition: Fair Referrals: Halie Mena, BELLPERSON [Primary Care Provider] - Forms: ED Satisfaction Letter Time of Disposition: 16:02 General Adult HPI - General Chief complaint: ED Weakness Stated complaint: poss overdose Time Seen by Provider: 09/01/18 13:48 Source: patient, EMS Mode of arrival: EMS Limitations: no limitations - History of Present Illness Pain Scale: 0 - Related Data Home Medications Medication Instructions Recorded Confirmed Aspirin Enteric Coated [Aspirin EC] 81 mg PO DAILY 01/05/15 06/07/18 Pantoprazole Sodium [Protonix] 40 mg PO HS 01/04/16 06/07/18 Carvedilol 3.125 mg PO TID 09/08/17 06/07/18 Clopidogrel [Plavix] 75 mg PO DAILY 09/08/17 06/07/18 Lisinopril 2.5 mg PO DAILY 09/08/17 06/07/18 Nitroglycerin [Nitrostat] 0.4 mg SL Q5M PRN 09/08/17 06/07/18 Tamsulosin [Flomax] 0.4 mg PO HS 09/08/17 06/07/18 Cholecalciferol (D-3) [Vitamin D] 1,000 unit PO DAILY 01/19/18 06/07/18 Multivitamin [One Daily Essential] 1 tab PO DAILY 01/19/18 06/07/18 Carbidopa/Levodopa [Carbidopa-Levo 1 tab PO TID 05/28/18 06/07/18 ER 25-100 Tab] Previous Rx's Medication Instructions Recorded Pravastatin Sodium [Pravachol] 20 mg PO DAILY #30 tablet 06/08/18 Sertraline HCl [Zoloft] 20 mg PO DAILY #90 ml 06/08/18 Allergies Allergy/AdvReac Type Severity Reaction Status Date / Time furosemide [From Lasix] AdvReac See Verified 06/09/18 20:31 Comments Past Medical History - Past Medical History Medical history: Reports: asthma, cardiomyopathy, CHF, coronary artery disease, diabetes, GERD, hyperlipidemia, hypertension, myocardial infarction, renal d isease, other Surgical history: Reports: angioplasty/stent, coronary bypass (CABG), pacemaker/AICD, other Psychiatric history: Reports: no psych history - Social History Smoking Status: Never smoker Smokeless Tobacco Status: No Alcohol use: Reports: none Drug use: Reports: none Physical Exam - General Limitations: no limitations General appearance: alert Course Vital Signs Temperature 97.7 F 09/01/18 13:57 Pulse Rate 82 09/01/18 13:57 Respiratory Rate 18 09/01/18 13:57 Blood Pressure 161/128 09/01/18 13:57 O2 Sat by Pulse Oximetry 97 09/01/18 13:57 Temperature 97.7 F 09/01/18 13:57 Pulse Rate 63 09/01/18 15:46 Respiratory Rate 18 09/01/18 15:46 Blood Pressure 191/86 09/01/18 15:46 O2 Sat by Pulse Oximetry 98 09/01/18 15:46 Oxygen Delivery Oxygen Delivery Room Air Medical Decision Making - Lab Data Result diagrams: 09/01/18 14:17 09/01/18 14:17 Lab Results 09/01/18 09/01/18 Range/Units 14:17 14:17 WBC 5.9 (4.3-11.1) K/mcL RBC 4.42 (4.19-5.50) M/mcL Hgb 13.8 (12.9-16.9) g/dL Hct 41.7 (37.5-50.1) % MCV 94.3 (83.0-100.0) fL MCH 31.2 (28.0-33.3) pg MCHC 33.1 (31.6-35.5) g/dL RDW 13.1 (11.5-14.5) % Plt Count 135 L (140-400) K/mcL MPV 11.0 (9.4-12.4) fL Immature Gran % 0.2 (0-4) % Seg Neutrophils % 64.5 % Lymphocytes % 21.0 % Monocytes % 9.2 % Eosinophils % 4.8 % Basophils % 0.3 % Neutrophils # 3.8 (1.6-8.9) K/mcL Lymphocytes # 1.2 (0.6-4.6) K/mcL Monocytes # 0.5 (0.0-1.3) K/mcL Eosinophils # 0.3 (0.0-0.6) K/mcL Basophils # 0.0 (0.0-0.2) K/mcL Sodium 137 (136-145) mEq/L Potassium 5.2 H (3.5-5.1) mEq/L Chloride 105 (98-107) mEq/L Carbon Dioxide 24 (23-29) mEq/L BUN 30 H (8-23) mg/dL Creatinine 2.02 H (0.70-1.30) mg/dL Est GFR ( Amer) 39 L (> 60) Est GFR (Non-Af Amer) 33 L (> 60) BUN/Creatinine Ratio 15 (6-26) Glucose 164 H (70-105) mg/dL Calculated Osmolality 294 (280-300) Calcium 9.2 (8.6-10.3) mg/dL Magnesium 2.2 (1.6-2.6) mg/dL Total Bilirubin 0.8 (0.3-1.0) mg/dL Direct Bilirubin 0.2 (0.0-0.2) mg/dL Indirect Bilirubin 0.6 (0.0-1.2) mg/dL AST 13 (13-39) Units/L ALT 7 (7-52) Units/L Alkaline Phosphatase 56 (34-104) Units/L Troponin I < 0.03 (< 0.04) ng/mL Serum Total Protein 7.3 (6.4-8.9) g/dL Albumin 4.0 (3.5-5.7) g/dL Globulin 3.3 (2.4-3.5) g/dL Albumin/Globulin Ratio 1.2 (1.1-2.2) Lipase 8 L (11-82) Units/L Attestation Statement - Attestation Attestation: I have seen this patient with the resident physician, I have personally arnie luated this patient. I had reviewed the chart and document dictation by the resident physician and aM in agreement with the information documented by the resident physician. Please see documentation by the resident physician for complete chart including past medical history, family medical history, review of systems, current history and physical and laboratory and imaging studies. I was present for all procedures, provided direct supervision for all procedures, was present for the entirety of all procedures and provided direct guidance during the procedures. Please see documentation by the resident physician for any procedures performed. I have reviewed all interpretations of EKGs, and reviewed all EKGs performed on patient's as well. I have also reviewed reports of imaging as provided by radiology. Patient presented emergency department with profound generalized weakness although seemingly worse on the right than on the left. 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 She reports that he has had multiple episodes just like this in the past, also every 6 months he has evaluations for possible strokelike symptoms with right-sided weakness but they can ever figure out what is causing this he cannot have an MRI secondary to his pacemaker defibrillator. He denies any fevers chills cough or sputum production he has had a little bit of decreased by mouth intake. He denies significant chest pain shortness of breath or palpitations but states that he thinks he has a little bit of mild chest pain right now no pain in his back no tearing or ripping sensation no abdominal pain. No incontinence. Reviewing his chart he has had multiple evaluations for this, he has had carotid Dopplers she has had echocardiograms she has had stress tests he has had CT scans, including of his abdomen, no CT scan of his chest, however has had echoes and stress test. Patient is currently hemodynamically and acceptable limits without acute hypoxia hypotension or tachycardia, no fever. Cranial nerves are grossly intact he is slightly lethargic in appearance but is awake oriented able answer all questions. He was given Narcan 2 by the paramedics to see if this would change anything because of him having taken one hydrocodone last night it did not change any of his symptoms. Cranial nerves are grossly intact speech was slightly slow without slurring no obvious facial droop. Patient does have right arm and leg weakness compared to the left side but is able to lift his right arm slightly off the bed and his right leg slightly off the bed he is able to lift his left side much higher than this. He is able to wiggle his toes bilaterally he has normal sensation in all 4 extremities, and has normal reflexes in all 4 extremities, downgoing Babinski's bilaterally, normal pulses. He has no palpable pulsatile mass. Lungs are clear heart is regular 2/6 systolic murmur no rubs or gallops. Negative straight leg raise bilaterally. Basic laboratory studies were all within acceptable limits apart from evidence of acute renal injury, creatinine of 2.04 up from 1.5, no other acute laboratory abdomen modality. EKG was normal sinus rhythm no acute change from prior EKG as interpreted by myself. Chest x-ray showed no acute findings. Head CT patient was given IV hydration. He was admitted to the hospital for further evaluation and management of generalized weakness, right-sided weakness, and acute renal insufficiency/injury.
[2018-09-01 14:50] LABS: Alanine Aminotransferase 7 Units/L (7-52); Albumin/Globulin Ratio 1.2 (1.1-2.2); Alkaline Phosphatase 56 Units/L (34-104); Aspartate Amino Transferase 13 Units/L (13-39); BUN/Creatinine Ratio 15 (6-26); Bilirubin,Direct 0.2 mg/dL (0.0-0.2); Bilirubin,Indirect 0.6 mg/dL (0.0-1.2); Bilirubin,Total 0.8 mg/dL (0.3-1.0); Blood Urea Nitrogen 30 mg/dL (8-23); Calcium 9.2 mg/dL (8.6-10.3); Carbon Dioxide 24 mEq/L (23-29); Chloride 105 mEq/L (98-107); Globulin 3.3 g/dL (2.4-3.5); Glucose 164 mg/dL (70-105); Lipase 8 Units/L (11-82); Magnesium 2.2 mg/dL (1.6-2.6); Osmolality,Calculated 294 (280-300); Potassium 5.2 mEq/L (3.5-5.1); Sodium 137 mEq/L (136-145); Total Protein 7.3 g/dL (6.4-8.9); Troponin I < 0.03 ng/mL (< 0.04); eGFR For Non-African Americans 33 (> 60)
[2018-09-01] MEDS ORDERED: 0.9 % Sodium Chloride 1,000 ML IVC ONE (15:00)
[2018-09-01 16:00] LABS: Bilirubin,Urine Negative (Negative); Blood,Urine Negative (Negative); Clarity,Urine Clear (Clear); Color,Urine Yellow (Yellow); Glucose,Urine (UA) 100 mg/dL (Normal); Ketones,Urine Negative (Negative); Leukocyte Esterase,Urine Negative (Negative); Nitrite,Urine Negative (Negative); Protein,Urine Negative (Neg-Trace); Specific Gravity,Urine < 1.005 (1.010-1.025); Urobilinogen,Urine Normal (Normal)
[2018-09-01] MEDS ORDERED: Naloxone 0.4 MG/ML INJ IVP PRN (16:26)
[2018-09-01] MEDS ORDERED: Acetaminophen 325 MG TABLET PO PRN (16:26)
[2018-09-01] MEDS ORDERED: 0.9 % Sodium Chloride 1,000 ML IVC SCH (16:30)
--- NOTE | 2018-09-01 16:44 | Internal Med History&Physical ---
Date of Encounter: 09/01/18 Time of Encounter: 16:43 Internal Medicine - H&P: HPI Chief complaint: R sided weakness Admitted From: Emergency Dept Plans for Post Hospital Care: Home History of present illness: Mr. Joe is a 72 year old male last medical history of multiple stent placements insulin-dependent diabetic hypertension hyperlipidemia 3-4 CVAs Parkinson's disease CKG stage III lumbar stenosis lumbar radicular pain pacemaker with AICD presented to [facility] experiencing lethargy and generalized weakness. The patient did see Dr. Beckman on Saturday for treatment of his lumbar radicular pain and lumbar stenosis with neurogenic claudication. At that time he was prescribed [place] as well as baclofen the states that he is never taken any type of medications like this before and he took a pill before he went to bed on Saturday. She states on Saturday he was very lethargic and difficult to arouse and he slept all day. That evening he did feel well and they went out dancing. He did not take any medication Saturday night for fear he would make him drowsy Saturday morning and he did not want to be sleepy at [facility]. Saturday he was fine and that evening he did take half of his [place] and baclofen-the states that now he is somewhat confused and he does have right sided lower extremity weakness which is chronic but she feels he is more weak all over. She is fearful that he has overdosed on his medication. Patient did have a CT of his head in the ER which was negative for any acute abnormality. Lab work did reveal AK I and some dehydration. Urinalysis was negative chest x- ray with no acute cardiopulmonary abnormalities. He is somewhat hypertensive on presentation. Patient has been admitted for further workup and evaluation Past Med Surg Social Fam HX - Past Medical History Medical history: asthma, cardiomyopathy, CHF, coronary artery disease, diabetes, GERD, hyperlipidemia, hypertension, myocardial infarction, renal disease, other Additional medical history: parkinsons, Spinal Stenosis, Cerival Spondyliosis Psychiatric history: no psych history - Past Surgical History Surgical History: angioplasty/stent, coronary bypass (CABG), pacemaker/AICD, other Additional surgical history: right rotator cuff surgery. Mulitple heart Stents. Right Leg Surgery. triple bypass - Social History Smoking Status: Never smoker Smokeless Tobacco Status: No Alcohol use: none Drug use: none - Family History Father Living Status: Hx Family Cardiac Disorders: Yes (Bad heart) Hx Family Neurologic Disorders: Yes (Alzheimer's) Mother Living Status: Hx Family Cardiac Disorders: Yes (OK) Internal Medicine - H&P: Meds Aspirin Enteric Coated [Aspirin EC] 81 mg PO DAILY 01/05/15 [History] Pantoprazole Sodium [Protonix] 40 mg PO HS 01/04/16 [History] Carvedilol 3.125 mg PO TID 09/08/17 [History] Clopidogrel [Plavix] 75 mg PO DAILY 09/08/17 [History] Lisinopril 2.5 mg PO DAILY 09/08/17 [History] Nitroglycerin [Nitrostat] 0.4 mg SL Q5M PRN 09/08/17 [History] Tamsulosin [Flomax] 0.4 mg PO HS 09/08/17 [History] Cholecalciferol (D-3) [Vitamin D] 1,000 unit PO DAILY 01/19/18 [History] Multivitamin [One Daily Essential] 1 tab PO DAILY 01/19/18 [History] Carbidopa/Levodopa [Carbidopa-Levo ER 25-100 Tab] 1 tab PO TID 05/28/18 [History] Pravastatin Sodium [Pravachol] 20 mg PO DAILY #30 tablet 06/08/18 [Rx] Famotidine [Pepcid] 40 mg PO DAILY 09/01/18 [History] Isosorbide MONOnitrate (24 HR) [Imdur] 120 mg PO DAILY 09/01/18 [History] Meloxicam 15 mg PO DAILY 09/01/18 [History] Allergy/AdvReac Type Severity Reaction Status Date / Time furosemide [From Lasix] AdvReac See Verified 06/09/18 20:31 Comments All Systems PM: A 10-system review of systems was performed and is negative for pertinent findings except as documented above in the HPI. - Constitutional Constitutional: fatigue, lethargy, weakness - EENT Eyes: no change in vision, no discharge, no pain, no photophobia Ears: no ear discharge, no ear pain, no tinnitus Nose, mouth and throat: no dysphagia, no nasal discharge, no neck pain, no sore throat - Cardiovascular Cardiovascular ROS IM: no chest pain, no diaphoresis, no dyspnea, no lightheadedness, no palpitations, no syncope - Respiratory Respiratory: no cough, no dyspnea, no wheezing, no excessive phlegm production - Gastrointestinal Gastrointestinal: no abdominal pain, no diarrhea, no hematemesis, no hematochezia, no melena, no nausea, no vomiting - Musculoskeletal Musculoskeletal ROS IM: arthralgias, no numbness, no tingling - Integumentary Integumentary IM: no rash, no unusual bruising - Neurological Neurological ROS: confusion, radicular pain, no convulsions, no focal weakness, no numbness, no tingling, no tremor(s) - Hematologic/Lymphatic Hematologic/Lymphatic: no easy bruising - Constitutional Vitals: Temp Pulse Resp BP Pulse Ox 97.7 F 63 18 191/86 98 09/01/18 13:57 09/01/18 15:46 09/01/18 15:46 09/01/18 15:46 09/01/18 15:46 General appearance: Present: A&O X 3 Exam: . - Head Head exam: Present: atraumatic, normocephalic - Eye Eye exam: Present: PERRL, conjuntiva pink, sclera anicteric Pupils: Present: PERRL - Neck Neck exam general surgery: Present: supple, trachea midline. Absent: lymphadenopathy - Respiratory Respiratory exam: Present: CTAB. Absent: accessory muscle use, rales, rhonchi, wheezes - Cardiovascular Cardiovascular exam: Present: RRR, +S1, +S2. Absent: diastolic murmur, gallop, rubs, systolic murmur - GI/Abdominal GI/Abdominal exam: Present: normal bowel sounds, soft, no peritoneal signs. Absent: distended, tenderness - Extremities Exam Extremities exam: Present: warm, radial pulses palpable and symmetrical. Absent: calf tenderness, cyanotic, pedal edema - Neurological Exam Neurological exam: Present: CN II-XII intact, oriented X3, no focal deficits. Absent: pronater drift, facial droop, speech deficit Additional comments: Right-sided weakness in upper and lower extremities - Skin Skin exam: Present: dry, intact Internal Med - H&P Results - Labs CBC & Chem 7: 09/01/18 14:17 09/01/18 14:17 Labs: Short CBC 09/01/18 Range/Units 14:17 WBC 5.9 (4.3-11.1) K/mcL Hgb 13.8 (12.9-16.9) g/dL Hct 41.7 (37.5-50.1) % Plt Count 135 L (140-400) K/mcL Neutrophils # 3.8 (1.6-8.9) K/mcL BMP 09/01/18 14:17 Sodium 137 Potassium 5.2 H Chloride 105 Carbon Dioxide 24 BUN 30 H Creatinine 2.02 H Glucose 164 H Calcium 9.2 Cardiac Enzymes 09/01/18 Range/Units 14:17 Troponin I < 0.03 (< 0.04) ng/mL Liver Function 09/01/18 Range/Units 14:17 Total Bilirubin 0.8 (0.3-1.0) mg/dL Direct Bilirubin 0.2 (0.0-0.2) mg/dL AST 13 (13-39) Units/L ALT 7 (7-52) Units/L Alkaline Phosphatase 56 (34-104) Units/L Albumin 4.0 (3.5-5.7) g/dL Urine 09/01/18 Range/Units 15:25 Urine Color Yellow (Yellow) Urine Clarity Clear (Clear) Urine pH 7.0 (5.0-8.0) pH Units Ur Specific [place] < 1.005 L (1.010-1.025) Urine Protein Negative (Neg-Trace) mg/dL Urine Glucose (UA) 100 H (Normal) mg/dL - EKG Data When compared to previous EKG: there is no significant change - Impressions ITS Impressions Chest X-Ray 09/01/18 14:10 IMPRESSION: No acute cardiopulmonary abnormality identified. D/ / Torrey Juarez MD / Torrey Juarez MD Interpreting Provider: Torrey Juarez MD Head CT 09/01/18 14:10 IMPRESSION: No acute intracranial abnormality. D/ / Kenneth Donahue MD / Kenneth Donahue MD Interpreting Provider: Kenneth Donahue MD - Assessment and Plan (1) BENTLEY (acute kidney injury) Current Visit: Yes Status: Acute Assessment and plan: 1 patient has history of CK D presents with creatinine of 2.02- it appears his baseline is 1.3-1.5 suspect secondary to poor oral intake patient has been lethargic over the weekend and has been sleeping a lot We will give gentle IV fluids overnight and recheck creatinine in the a.m. Avoid nephrotoxins (2) Dehydration Current Visit: Yes Status: Acute Assessment and plan: Patient took new medications [place] and baclofen he has been sleeping in lethargic over the past couple of days for oral intake. We will hold medications as well as obtain tox screen. We will give gentle IV fluids and monitor electrolytes and replace as needed (3) Generalized weakness Current Visit: Yes Status: Acute Assessment and plan: Patient does have a history of Parkinson's disease as well as lumbar stenosis with neurogenic claudication and lumbar radicular -intermittent right-sided weakness-recently seen by Dr. Beckman and was given [place] tablets as well as baclofen which we will hold for now. Consult PT OT as needed Patient does live in assisted living and normally uses a walker (4) Right sided weakness Current Visit: Yes Status: Acute Assessment and plan: This appears to be chronic patient does see Dr. Beckman according to note dated 08/29/2018 ECW lumbar radicular pain possible cause of low back pain and leg pain exam findings are not consistent with an acute weakness or focal neurological deficit that was suggested need for immediate surgical attention at this time patient is instructed contact should the patient develop any new symptoms or seek attention immediately should any bowel or bladder dysfunction occur. Patient appears to have nerve root irritation causing at least in part back pain with pain into the legs more conservative measures have been reviewed and documented. Patient would benefit from right lower extremity EMG -The states that he has had multiple workups at [facility] as well as here with neurology and that no one knows why he has right-sided weakness it comes and goes and may last 24 hours or [address]. [address] Gloria dated 08/18/2018 inches foraminal stenosis and lumbar region -degenerative changes foraminal stenosis lack of radicular or the lack of neurocompression or foraminal stenosis patient considering undergoing steroid injection possibility of vascular in etiology given the atherosclerotic disease on the CT scan. Patient is unable to undergo MRI due to pacemaker also recommending lower extremity EMG Currently patient is able to move right upper extremities strength is 3/5 right leg is weak he is unable to lift off bed uses a walker at home Consult PT and OT as needed (5) DVT prophylaxis Current Visit: No Status: Acute Assessment and plan: Heparin subcutaneous (6) CAD (coronary artery disease) Current Visit: No Status: Chronic Assessment and plan: History of CAD had stress test 06/2018 which was negative Known CAD. S/p CABG 2 vessel, LHC 07/2017 with 2/2 patent bypass. Moderate non- obstructive CAD seen in the SVG-PDA. Severe ISR in the 1st diagonal stent. Findings were unchanged from prior [facility]. Continue with aspirin and Plavix and beta esme statin denies any chest pain at this time Qualifiers: Coronary Disease-Associated Artery/Lesion type: [place] artery [place] vs. transplanted heart: [place] heart Associated angina: without angina Qualified Code(s): I25.10 - Atherosclerotic heart disease of [place] coronary artery without angina pectoris (7) CKD (chronic kidney disease) stage 3, GFR 30-59 ml/min Current Visit: No Status: Chronic Assessment and plan: History CKG stage III he does follow with Dr. Pavon/Patito Allan-presents today with AK I most likely secondary to dehydration we will give IV fluids and monitor We will avoid nephrotoxins (8) Diabetes Current Visit: No Status: Chronic Assessment and plan: Accu-Cheks before meals at bedtime scale insulin Qualifiers: Diabetes mellitus type: type 2 Diabetes mellitus senior living insulin use: with long term care administrator use Diabetes mellitus complication status: with kidney complications Diabetes mellitus complication detail: with chronic kidney disease Chronic kidney disease stage: stage 3 (moderate) Qualified Code(s): E11.22 - Type 2 diabetes mellitus with diabetic chronic kidney disease; N18.3 - Chronic kidney disease, stage 3 (moderate); Z79.4 - medical terminologist (current) use of insulin (9) Parkinson disease Current Visit: No Status: Chronic Assessment and plan: History of Parkinson's disease we will continue with home medications (10) Lumbar spondylosis Current Visit: No Status: Chronic Assessment and plan: Follows with Dr. Beckman as outpatient states he would benefit from right lower extremity EMG which can be completed as outpatient-A she is unable to undergo MRI due to pacemaker [id number] as outpatient (11) Confusion Current Visit: Yes Status: Acute Assessment and plan: Patient's states patient has been confused today she is concerned afraid he may have overdosed on his medications. He recently started a new medication baclofen or gallop. We will hold these medications for now he also is dehydrated we will give gentle IV fluids. Currently patient is alert and oriented 2 confused about the year which states is unusual for him. We will monitor closely with neuro checks CT of head was negative for any acute ischemia Unable to undergo MRI due to pacemaker - Time Spent With Patient Total time spent is greater than 50% in coordination of care (as documented) at patient's floor/unit and/or counseling patient:
[2018-09-01] MEDS ORDERED: Dextrose Gel 15 GM/37.5 ML TUBE PO PRN ×2 (17:28)
[2018-09-01] MEDS ORDERED: D5% in Water 1,000 ML IVC PRN (17:28)
[2018-09-01] MEDS ORDERED: *HR* Dextrose 50 % in Water (Syg) 50 ML SYRINGE IVP PRN (17:28)
[2018-09-01] MEDS ORDERED: Nitroglycerin 0.4 MG TAB.SUBL SL PRN (17:52)
[2018-09-01 19:48] LABS: Amphetamine Screen,Urine Negative ng/mL (Cutoff=1000); Barbiturate Screen,Urine Negative ng/mL (Cutoff=200); Benzodiazepines Screen,Urine Negative ng/mL (Cutoff=200); Cannabinoid Screen,Urine Negative ng/mL (Cutoff = 50); Cocaine Screen,Urine Negative ng/mL (Cutoff= 300); Opiate Screen,Urine Negative ng/mL (Cutoff=300); Phencyclidine Screen,Urine Negative ng/mL (Cutoff=25)
[2018-09-01] MEDS: Carbidopa/Levodopa ER 50/200 TABLET PO SCH (21:51)
[2018-09-01] MEDS: Insulin LISPRO 300 UNITS/3 ML VIAL SQ SCH (21:56)
[2018-09-02 01:35] LABS: Basophils % 0.3 %; Eosinophils # 0.4 K/mcL (0.0-0.6); Eosinophils % 5.7 %; Hematocrit 42.2 % (37.5-50.1); Hemoglobin 13.8 g/dL (12.9-16.9); Immature Granulocytes % 0.2 % (0-4); Lymphocytes # 1.6 K/mcL (0.6-4.6); Lymphocytes % 26.3 %; Mean Corpuscular HGB Conc 32.7 g/dL (31.6-35.5); Mean Corpuscular Hemoglobin 31.2 pg (28.0-33.3); Mean Corpuscular Volume 95.3 fL (83.0-100.0); Mean Platelet Volume 11.1 fL (9.4-12.4); Monocytes # 0.7 K/mcL (0.0-1.3); Monocytes % 10.7 %; Neutrophils # 3.5 K/mcL (1.6-8.9); Platelet Count 144 K/mcL (140-400); Red Blood Count 4.43 M/mcL (4.19-5.50); Red Cell Distribution Width 13.2 % (11.5-14.5); Segmented Neutrophils % 56.8 %
[2018-09-02 01:52] LABS: Potassium 4.3 mEq/L (3.5-5.1)
[2018-09-02] MEDS: *HR* Heparin 5,000 UNIT/ML VIAL SQ SCH ×4 (05:58→18:32)
[2018-09-02] MEDS: Carbidopa/Levodopa ER 50/200 TABLET PO SCH ×3 (08:20→21:25)
[2018-09-02] MEDS: Isosorbide MONOnitrate (24 HR) 60 MG TAB.ER.24H PO SCH (08:20)
[2018-09-02] MEDS: Multivit/Ca/Min/Fe/FA 1 TAB TABLET PO SCH (08:21)
[2018-09-02] MEDS: Aspirin Enteric Coated 81 MG Tablet PO SCH (08:21)
[2018-09-02] MEDS: Insulin LISPRO 300 UNITS/3 ML VIAL SQ SCH ×4 (08:22→21:26)
[2018-09-02] MEDS: Cholecalciferol (D-3) 1,000 UNIT TABLET PO SCH (08:22)
[2018-09-02] MEDS ORDERED: Famotidine 20 MG TABLET PO SCH (09:00)
[2018-09-02] MEDS ORDERED: 0.9 % Sodium Chloride 1,000 ML IVC SCH (12:15)
--- NOTE | 2018-09-02 16:55 | Internal Med Progress Note ---
Hospitalist Progress Note - Encounter Date of Encounter: 09/02/18 Time of Encounter: 13:00 - Subjective Interval History: Patient was seen and examined at bedside. Currently he states he feels much better significant other who is at bedside feels that he is returning back to his mental baseline he appears to be appropriate following simple commands. We will continue with IV fluids anticipate patient will be discharged in the a.m. discussed treatment plan with the patient and significant other who verbalized understanding. - Exam Vitals: Temp Pulse Resp BP Pulse Ox 97.6 F 75 16 132/69 96 09/02/18 16:12 09/02/18 16:12 09/02/18 16:12 09/02/18 16:12 09/02/18 16:12 Exam: Skin: Free of rash and discoloration. Eyes: Sclera is white. There is no discharge from eyes. ENMT: Oral/pharyngeal mucosa is normal in appearance. There is no discharge from nose or ears. Respiratory: Normal breath sounds with no crackles and wheezes bilaterally. CV: Heart is regular with no gallop or murmur. GI: Abdomen is flat and soft with no palpable mass or visceromegaly. : There is no tenderness in patient's flanks bilaterally. Neuro exam: He has good strength in left upper extremity. He does have some right upper /lower extremity weakness. He has normal eye movements. Psychiatric: He has normal affect. His thought process is appropriate to the situation. . - Assessment and Plan (1) BENTLEY (acute kidney injury) Current Visit: Yes Status: Acute Assessment and Plan: 1 patient has history of CK D presents with creatinine of 2.02- it appears his baseline is 1.3-1.5 suspect secondary to poor oral intake patient has been lethargic over the weekend and has been sleeping a lot We will give gentle IV fluids overnight and recheck creatinine in the a.m. Avoid nephrotoxins 09/02 This is improving creatinine 1.74 today we will give IV fluid overnight and recheck creatinine (2) Dehydration Current Visit: Yes Status: Acute Assessment and Plan: Patient took new medications [place] and baclofen he has been sleeping in lethargic over the past couple of days poor oral intake. We will hold medications as well as obtain tox screen. We will give gentle IV fluids and monitor electrolytes and replace as needed 09/02 Seems to be improving we will continue with IV hydration (3) Generalized weakness Current Visit: Yes Status: Acute Assessment and Plan: Patient does have a history of Parkinson's disease as well as lumbar stenosis with neurogenic claudication and lumbar radicular -intermittent right-sided weakness-recently seen by Dr. Beckman and was given [place] tablets as well as baclofen which we will hold for now. Consult PT OT as needed Patient does live in assisted living and normally uses a walker 09/02 Patient states that he appears to be returning back to his baseline. Able to ambulate with assistance. Normally uses a Rollator at [facility] he resides at assisted living (4) Right sided weakness Current Visit: Yes Status: Acute Assessment and Plan: This appears to be chronic patient does see Dr. Beckman according to note dated 08/29/2018 ECW lumbar radicular pain possible cause of low back pain and leg pain exam findings are not consistent with an acute weakness or focal neurological deficit that was suggested need for immediate surgical attention at this time patient is instructed contact should the patient develop any new s ymptoms or seek attention immediately should any bowel or bladder dysfunction occur. Patient appears to have nerve root irritation causing at least in part back pain with pain into the legs more conservative measures have been reviewed and documented. Patient would benefit from right lower extremity EMG -The states that he has had multiple workups at [facility] as well as here with neurology and that no one knows why he has right-sided weakness it comes and goes and may last 24 hours or [address]. [address] Gloria dated 08/18/2018 inches foraminal stenosis and lumbar region -degenerative changes foraminal stenosis lack of radicular or the lack of neurocompression or foraminal stenosis patient considering undergoing steroid injection possibility of vascular in etiology given the atherosclerotic disease on the CT scan. Patient is unable to undergo MRI due to pacemaker also recommending lower extremity EMG Currently patient is able to move right upper extremities strength is 3/5 right leg is weak he is unable to lift off bed uses a walker at home Consult PT and OT as needed 09/02 This is a chronic condition patient appears to be improving today has strength in upper extremity and is able to ambulate with assistance (5) DVT prophylaxis Current Visit: No Status: Acute Assessment and Plan: Heparin subcutaneous (6) CAD (coronary artery disease) Current Visit: No Status: Chronic Assessment and Plan: History of CAD had stress test 06/2018 which was negative Known CAD. S/p CABG 2 vessel, C 07/2017 with 2/2 patent bypass. Moderate non- obstructive CAD seen in the SVG-PDA. Severe ISR in the 1st diagonal stent. Findings were unchanged from prior [facility]. Continue with aspirin and Plavix and beta esme statin denies any chest pain at this time (7) CKD (chronic kidney disease) stage 3, GFR 30-59 ml/min Current Visit: No Status: Chronic Assessment and Plan: History CKG stage III he does follow with Dr. Pavon/Patito Allan-presents today with AK I most likely secondary to dehydration we will give IV fluids and monitor We will avoid nephrotoxins (8) Diabetes Current Visit: No Status: Chronic Assessment and Plan: Accu-Cheks before meals at bedtime scale insulin (9) Parkinson disease Current Visit: No Status: Chronic Assessment and Plan: History of Parkinson's disease we will continue with home medications (10) Lumbar spondylosis Current Visit: No Status: Chronic Assessment and Plan: Follows with Dr. Beckman as outpatient states he would benefit from right lower extremity EMG which can be completed as outpatient-A she is unable to undergo MRI due to pacemaker [id number] as outpatient (11) Confusion Current Visit: Yes Status: Acute Assessment and Plan: Patient's states patient has been confused today she is concerned afraid he may have overdosed on his medications. He recently started a new medication baclofen or gallop. We will hold these medications for now he also is dehydrated we will give gentle IV fluids. Currently patient is alert and oriented 2 confused about the year which states is unusual for him. We will monitor closely with neuro checks CT of head was negative for any acute ischemia Unable to undergo MRI due to pacemaker 09/02 This appears to be improving he is returning back to his baseline continue with IV hydration-avoid sedating medications - Time Spent with Patient Total time spent is greater than 50% in coordination of care (as documented) at patient's floor/unit and/or counseling patient: Internal Medicine: Result - Labs CBC & Chem 7: 09/02/18 01:10 09/02/18 01:10 Labs: Short CBC 09/02/18 Range/Units 01:10 WBC 6.2 (4.3-11.1) K/mcL Hgb 13.8 (12.9-16.9) g/dL Hct 42.2 (37.5-50.1) % Plt Count 144 (140-400) K/mcL Neutrophils # 3.5 (1.6-8.9) K/mcL BMP 09/02/18 01:10 Sodium 138 Potassium 4.3 Chloride 107 Carbon Dioxide 22 L BUN 29 H Creatinine 1.74 H Glucose 143 H Calcium 9.0 Consult Discharge Plan - Plan Referrals: Halie Mena, MAGGIE [Primary Care Provider] - 09/10/18 3:00 pm () Russ Beckman DO [Partnered Physician] - 09/30/18 11:10 am Thanh Catalan DO [Partnered Physician] - 09/24/18 8:45 am (6) CAD (coronary artery disease) Qualifiers: Coronary Disease-Associated Artery/Lesion type: [place] artery [place] vs. transplanted heart: [place] heart Associated angina: without angina Qualified Code(s): I25.10 - Atherosclerotic heart disease of [place] coronary artery without angina pectoris (8) Diabetes Qualifiers: Diabetes mellitus type: type 2 Diabetes mellitus medical terminologist insulin use: with medical terminologist use Diabetes mellitus complication status: with kidney complications Diabetes mellitus complication detail: with chronic kidney disease Chronic kidney disease stage: stage 3 (moderate) Qualified Code(s): E11.22 - Type 2 diabetes mellitus with diabetic chronic kidney disease; N18.3 - Chronic kidney disease, stage 3 (moderate); Z79.4 - skilled nursing (current) use of insulin
--- NOTE | 2018-09-02 23:03 | Electrocardiograph Report ---
[place] [id number] Test Date: 2018-09-01 Pat Name: Eduar Joe Department: EXAM8 Room: 3B64 Gender: M Bar Attendant: : 1945 Requested By: Emil Delgado Order Number: [id number] Reading MD: Viviana Blackmon Measurements Intervals Turner Rate: 79 P: 18 KS: 175 QRS: 1 QRSD: 105 T: 58 QT: 386 QTc: 443 Interpretive Statements Sinus rhythm Abnormal R-wave progression, early transition Inferior infarct, old Electronically Signed On 09-02-2018 23:01:47 EDT by Viviana Blackmon
[2018-09-03 05:40] LABS: Calcium 8.5 mg/dL (8.6-10.3); Potassium 4.1 mEq/L (3.5-5.1)
[2018-09-03] MEDS: *HR* Heparin 5,000 UNIT/ML VIAL SQ SCH ×2 (05:54→18:12)
[2018-09-03] MEDS: Insulin LISPRO 300 UNITS/3 ML VIAL SQ SCH ×3 (09:34→21:09)
[2018-09-03] MEDS: Cholecalciferol (D-3) 1,000 UNIT TABLET PO SCH (09:35)
[2018-09-03] MEDS: Carbidopa/Levodopa ER 50/200 TABLET PO SCH ×3 (09:36→21:10)
[2018-09-03] MEDS: Famotidine 20 MG TABLET PO SCH (09:36)
[2018-09-03] MEDS: Isosorbide MONOnitrate (24 HR) 60 MG TAB.ER.24H PO SCH (09:36)
[2018-09-03] MEDS: Multivit/Ca/Min/Fe/FA 1 TAB TABLET PO SCH (09:37)
[2018-09-03] MEDS: Aspirin Enteric Coated 81 MG Tablet PO SCH (09:37)
--- NOTE | 2018-09-03 12:09 | Internal Med Progress Note ---
Hospitalist Progress Note - Encounter Date of Encounter: 09/03/18 Time of Encounter: 12:07 - Subjective Interval History: Patient seen and examined in the room. He seems alert and oriented, answer questions appropriately. - Exam Vitals: Temp Pulse Resp BP Pulse Ox 97.9 F 75 16 138/81 95 09/03/18 11:54 09/03/18 11:54 09/03/18 11:54 09/03/18 11:54 09/03/18 11:54 Exam: Skin: Free of rash and discoloration. Eyes: Sclera is white. There is no discharge from eyes. ENMT: Oral/pharyngeal mucosa is normal in appearance. There is no discharge from nose or ears. Respiratory: Normal breath sounds with no crackles and wheezes bilaterally. CV: Heart is regular with no gallop or murmur. GI: Abdomen is flat and soft with no palpable mass or visceromegaly. : There is no tenderness in patient's flanks bilaterally. Neuro exam: He has good strength in left upper extremity. He does have some right upper /lower extremity weakness. He has normal eye movements. Psychiatric: He has normal affect. His thought process is appropriate to the situation. . - Assessment and Plan (1) Diabetes Current Visit: No Status: Chronic Assessment and Plan: Accu-Cheks before meals at bedtime scale insulin (2) CAD (coronary artery disease) Current Visit: No Status: Chronic Assessment and Plan: History of CAD had stress test 06/2018 which was negative Known CAD. S/p CABG 2 vessel, [facility] 07/2017 with 2/2 patent bypass. Moderate non- obstructive CAD seen in the SVG-PDA. Severe ISR in the 1st diagonal stent. Findings were unchanged from prior [facility]. Continue with aspirin and Plavix and beta esme statin denies any chest pain at this time (3) Generalized weakness Current Visit: Yes Status: Acute Assessment and Plan: Patient does have a history of Parkinson's disease as well as lumbar stenosis with neurogenic claudication and lumbar radicular -intermittent right-sided weakness-recently seen by Dr. Beckman and was given Palacios tablets as well as baclofen which we will hold for now. Consult PT OT as needed Patient does live in assisted living and normally uses a walker 09/02 Patient states that he appears to be returning back to his baseline. Able to ambulate with assistance. Normally uses a Rollator at homel he resides at assisted living. 09/03 back to baseline, anticipate dc in am. (4) Lumbar spondylosis Current Visit: No Status: Chronic Assessment and Plan: Follows with Dr. Beckman as outpatient states he would benefit from right lower extremity EMG which can be completed as outpatient-A she is unable to undergo MRI due to pacemaker [id number] as outpatient (5) CKD (chronic kidney disease) stage 3, GFR 30-59 ml/min Current Visit: No Status: Chronic Assessment and Plan: History CKG stage III he does follow with Dr. Pavon/Patito Allan-presents today with AK I most likely secondary to dehydration we will give IV fluids and monitor We will avoid nephrotoxins (6) Parkinson disease Current Visit: No Status: Chronic Assessment and Plan: History of Parkinson's disease we will continue with home medications (7) Dehydration Current Visit: Yes Status: Acute Assessment and Plan: Patient took new medications Palacios and baclofen he has been sleeping in lethargic over the past couple of days poor oral intake. We will hold medications as well as obtain tox screen. We will give gentle IV fluids and monitor electrolytes and replace as needed 09/02 Seems to be improving we will continue with IV hydration. 09/03 improved, continue to monitor. (8) Right sided weakness Current Visit: Yes Status: Acute Assessment and Plan: This appears to be chronic patient does see Dr. Beckman according to note dated 08/29/2018 ECW lumbar radicular pain possible cause of low back pain and leg pain exam findings are not consistent with an acute weakness or focal neurological deficit that was suggested need for immediate surgical attention at this time patient is instructed contact should the patient develop any new symptoms or seek attention immediately should any bowel or bladder dysfunction occur. Patient appears to have nerve root irritation causing at least in part back pain with pain into the legs more conservative measures have been reviewed and documented. Patient would benefit from right lower extremity EMG -The states that he has had multiple workups at [facility] as well as here with neurology and that no one knows why he has right-sided weakness it comes and goes and may last 24 hours or [address]. [address] Gloria dated 08/18/2018 inches foraminal stenosis and lumbar region -degenerative changes foraminal stenosis lack of radicular or the lack of neurocompression or foraminal stenosis patient considering undergoing steroid injection possibility of vascular in etiology given the atherosclerotic disease on the CT scan. Patient is unable to undergo MRI due to pacemaker also recommending lower extremity EMG Currently patient is able to move right upper extremities strength is 3/5 right leg is weak he is unable to lift off bed uses a walker at home Consult PT and OT as needed 09/02 This is a chronic condition patient appears to be improving today has strength in upper extremity and is able to ambulate with assistance. 09/03 chronic, has been seen by ortho and neuro, no organic etiology was identified. (9) BENTLEY (acute kidney injury) Current Visit: Yes Status: Acute Assessment and Plan: 1 patient has history of CK D presents with creatinine of 2.02- it appears his baseline is 1.3-1.5 suspect secondary to poor oral intake patient has been lethargic over the weekend and has been sleeping a lot We will give gentle IV fluids overnight and recheck creatinine in the a.m. Avoid nephrotoxins 09/02 This is improving creatinine 1.74 today we will give IV fluid overnight and recheck creatinine. 09/03 Cr at baseline, continue monitoring. (10) Confusion Current Visit: Yes Status: Acute Assessment and Plan: Patient's states patient has been confused today she is concerned afraid he may have overdosed on his medications. He recently started a new medication baclofen or gallop. We will hold these medications for now he also is dehydrated we will give gentle IV fluids. Currently patient is alert and oriented 2 confused about the year which states is unusual for him. We will monitor closely with neuro checks CT of head was negative for any acute ischemia Unable to undergo MRI due to pacemaker 09/02 This appears to be improving he is returning back to his baseline continue with IV hydration-avoid sedating medications. 09/03 back to baseline. (11) DVT prophylaxis Current Visit: Yes Status: Acute Assessment and Plan: Heparin subcutaneous - Time Spent with Patient Total time spent is greater than 50% in coordination of care (as documented) at patient's floor/unit and/or counseling patient: Greater than 35 minutes Plan of Care Discussed with: patient Internal Medicine: Result - Labs CBC & Chem 7: 09/02/18 01:10 09/03/18 04:06 Labs: BMP 09/03/18 04:06 Sodium 138 Potassium 4.1 Chloride 108 H Carbon Dioxide 20 L BUN 35 H Creatinine 1.84 H Glucose 113 H Calcium 8.5 L Consult Discharge Plan - Plan Referrals: Halie Mena, MAGGIE [Primary Care Provider] - 09/10/18 3:00 pm () Russ Beckman DO [Partnered Physician] - 09/30/18 11:10 am Thanh Catalan DO [Partnered Physician] - 09/24/18 8:45 am (1) Diabetes Qualifiers: Diabetes mellitus type: type 2 Diabetes mellitus residential insulin use: with assistant terminal manager use Diabetes mellitus complication status: with kidney complications Diabetes mellitus complication detail: with chronic kidney disease Chronic kidney disease stage: stage 3 (moderate) Qualified Code(s): E11.22 - Type 2 diabetes mellitus with diabetic chronic kidney disease; N18.3 - Chronic kidney disease, stage 3 (moderate); Z79.4 - ad terminal makeup operator (current) use of insulin (2) CAD (coronary artery disease) Qualifiers: Coronary Disease-Associated Artery/Lesion type: [place] artery [place] vs. transplanted heart: [place] heart Associated angina: without angina Qualified Code(s): I25.10 - Atherosclerotic heart disease of [place] coronary artery without angina pectoris
[2018-09-04] MEDS: *HR* Heparin 5,000 UNIT/ML VIAL SQ SCH (05:11)
[2018-09-04 06:45] LABS: Hematocrit 37.3 % (37.5-50.1); Hemoglobin 12.3 g/dL (12.9-16.9); Mean Corpuscular Hemoglobin 31.4 pg (28.0-33.3); Mean Corpuscular Volume 95.2 fL (83.0-100.0); Mean Platelet Volume 11.4 fL (9.4-12.4); Platelet Count 130 K/mcL (140-400); Red Blood Count 3.92 M/mcL (4.19-5.50); Red Cell Distribution Width 13.2 % (11.5-14.5)
[2018-09-04 07:04] LABS: Calcium 8.9 mg/dL (8.6-10.3); Potassium 3.9 mEq/L (3.5-5.1)
[2018-09-04 07:53] VITALS: BP 149/83
[2018-09-04] MEDS: Insulin LISPRO 300 UNITS/3 ML VIAL SQ SCH (08:09)
[2018-09-04] MEDS: Carbidopa/Levodopa ER 50/200 TABLET PO SCH (08:17)
[2018-09-04] MEDS: Famotidine 20 MG TABLET PO SCH (08:17)
[2018-09-04] MEDS: Isosorbide MONOnitrate (24 HR) 60 MG TAB.ER.24H PO SCH (08:17)
[2018-09-04] MEDS: Cholecalciferol (D-3) 1,000 UNIT TABLET PO SCH (08:17)
[2018-09-04] MEDS: Multivit/Ca/Min/Fe/FA 1 TAB TABLET PO SCH (08:18)
[2018-09-04] MEDS: Aspirin Enteric Coated 81 MG Tablet PO SCH (08:18)
--- NOTE | 2018-09-04 10:04 | Discharge Summary ---
- NOTES TO OUTPATIENT PROVIDER Notes to Outpatient Provider: f/u with PCP and Dr. Larry as scheduled. Please disregard the previous appointment with Dr. Catalan at [facility]. Make another appointment with Neurology at [place] within a month ( due to transpotation issue) Orders not resulted at time of discharge: Pending orders 09/02/18 06:00 ECG 12 lead ECG [ECG] AM 0600 Date of Encounter: 09/04/18 Time of Encounter: 10:02 - Discharge Diagnosis (1) Diabetes Priority: Secondary Status: Chronic Qualifiers: Diabetes mellitus type: type 2 Diabetes mellitus terminal worker insulin use: with prison use Diabetes mellitus complication status: with kidney complications Diabetes mellitus complication detail: with chronic kidney disease Chronic kidney disease stage: stage 3 (moderate) Qualified Code(s): E11.22 - Type 2 diabetes mellitus with diabetic chronic kidney disease; N18.3 - Chronic kidney disease, stage 3 (moderate); Z79.4 - USP (current) use of insulin (2) CAD (coronary artery disease) Priority: Secondary Status: Chronic Qualifiers: Coronary Disease-Associated Artery/Lesion type: [place] artery [place] vs. transplanted heart: [place] heart Associated angina: without angina Qualified Code(s): I25.10 - Atherosclerotic heart disease of [place] coronary artery without angina pectoris (3) Generalized weakness Priority: Primary Status: Acute (4) Lumbar spondylosis Priority: Secondary Status: Chronic (5) CKD (chronic kidney disease) stage 3, GFR 30-59 ml/min Priority: Secondary Status: Chronic (6) Parkinson disease Priority: Secondary Status: Chronic (7) Dehydration Priority: Primary Status: Acute (8) Right sided weakness Priority: Secondary Status: Chronic (9) BENTLEY (acute kidney injury) Priority: Primary Status: Ruled-out (10) Confusion Priority: Primary Status: Resolved (11) DVT prophylaxis Priority: Primary Status: Acute Hospital course: Mr. 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 The patient saw Dr. Beckman on Saturday for treatment of his lumbar radicular pain and lumbar stenosis with neurogenic claudication. At that time he was prescribed [place] as well as baclofen the states that he is never taken any type of medications like that before and he took a pill before he went to bed on Saturday. She states on Saturday he was very lethargic and difficult to arouse and he slept all day. was fearful that he has overdosed on his medication. Patient had a CT of his head in the ER which was negative for any acute abnormality. Lab work showed dehydration. Urinalysis was negative. chest x-ray with no acute cardiopulmonary abnormalities. He is hypertensive on presentation. Patient was admitted for further workup and evaluation. Patient received supportive care while in the hospital. Patient received IV fluid for hydration, his renal function returns to baseline. Narcotics was discontinued. His mental status and generalized weakness have improved. On the discharge day, patient reported he has been back to baseline. Patient is discharged home today with home health care, which already has been set up. Patient was instructed to continue follow-up with Dr. Beckman and a neurology for his chronic left-sided weakness and lumbar abnormalities. He was encouraged to ambulate at least twice a day at home with home health lpn, he is was encouraged to utilize physical therapy if this is a feasible option. Discharge discussed with: patient Time spent discussing smoking cessation with patient: more than 10 minutes - Time Spent with Patient Total time spent providing and/or coordinating discharge services: Time spent: Greater than 30 minutes - Discharge Medications Prescriptions: New Acetaminophen [Tylenol] 650 mg PO Q6HR PRN #120 tablet PRN Reason: Mild Pain/Fever Continued Aspirin Enteric Coated [Aspirin EC] 81 mg PO DAILY Pantoprazole Sodium [Protonix] 40 mg PO HS Carvedilol 3.125 mg PO BID Clopidogrel [Plavix] 75 mg PO DAILY Lisinopril 2.5 mg PO DAILY Nitroglycerin [Nitrostat] 0.4 mg SL Q5M PRN PRN Reason: Chest Pain Tamsulosin [Flomax] 0.4 mg PO HS Cholecalciferol (D-3) [Vitamin D] 1,000 unit PO DAILY Multivitamin [One Daily Essential] 1 tab PO DAILY Carbidopa/Levodopa [Carbidopa-Levo ER 25-100 Tab] 1 tab PO TID Pravastatin Sodium [Pravachol] 20 mg PO DAILY #30 tablet Famotidine [Pepcid] 40 mg PO DAILY Isosorbide MONOnitrate (24 HR) [Imdur] 120 mg PO DAILY Discontinued Meloxicam 15 mg PO DAILY Home Medications: Aspirin Enteric Coated [Aspirin EC] 81 mg PO DAILY 01/05/15 [History] Pantoprazole Sodium [Protonix] 40 mg PO HS 01/04/16 [History] Carvedilol 3.125 mg PO BID 09/08/17 [History] Clopidogrel [Plavix] 75 mg PO DAILY 09/08/17 [History] Lisinopril 2.5 mg PO DAILY 09/08/17 [History] Nitroglycerin [Nitrostat] 0.4 mg SL Q5M PRN 09/08/17 [History] Tamsulosin [Flomax] 0.4 mg PO HS 09/08/17 [History] Cholecalciferol (D-3) [Vitamin D] 1,000 unit PO DAILY 01/19/18 [History] Multivitamin [One Daily Essential] 1 tab PO DAILY 01/19/18 [History] Carbidopa/Levodopa [Carbidopa-Levo ER 25-100 Tab] 1 tab PO TID 05/28/18 [History] Pravastatin Sodium [Pravachol] 20 mg PO DAILY #30 tablet 06/08/18 [Rx] Famotidine [Pepcid] 40 mg PO DAILY 09/01/18 [History] Isosorbide MONOnitrate (24 HR) [Imdur] 120 mg PO DAILY 09/01/18 [History] Acetaminophen [Tylenol] 650 mg PO Q6HR PRN #120 tablet 09/04/18 [Rx] Allergies/Adverse Reactions: Allergy/AdvReac Type Severity Reaction Status Date / Time furosemide [From Lasix] AdvReac See Verified 06/09/18 20:31 Comments Date of admission: 09/01/18 16:40 Primary care physician: Halie Mena CNP Anticipated date of discharge: 09/04/18 - Constitutional Vitals: Temp Pulse Resp BP Pulse Ox 98.0 F 79 18 149/83 96 09/04/18 07:52 09/04/18 07:52 09/04/18 07:52 09/04/18 07:52 09/04/18 07:52 General appearance: Present: A&O X 3 Exam: Skin: Free of rash and discoloration. Eyes: Sclera is white. There is no discharge from eyes. ENMT: Oral/pharyngeal mucosa is normal in appearance. There is no discharge from nose or ears. Respiratory: Normal breath sounds with no crackles and wheezes bilaterally. CV: Heart is regular with no gallop or murmur. GI: Abdomen is flat and soft with no palpable mass or visceromegaly. : There is no tenderness in patient's flanks bilaterally. Neuro exam: He has good strength in left upper extremity. He does have some right upper /lower extremity weakness. He has normal eye movements. Psychiatric: He has normal affect. His thought process is appropriate to the situation. . - Patient Status Disposition: Home Health Service Condition: Fair Functional capacity at discharge: uses cane/walker Overall status at discharge: patient is progressing back to baseline - Discharge Instructions Follow Up With: Halie Mena, MAGGIE [Primary Care Provider] - 09/10/18 3:00 pm () Russ Beckman DO [Partnered Physician] - 09/30/18 11:10 am Thanh Catalan DO [Partnered Physician] - 09/24/18 8:45 am - Diet and Activity Activity: increase activity as tolerated Diet: low fat, low cholesterol, low salt diet
== END 2018-09-04 11:28 | disposition home health service (06) ==
LOC: EMEROOARM 13:42 → 3BNU 13:42
PROVIDERS: ADMIT Internal Medicine Nephrology; ATTEND Internal Medicine Nephrology

== ENCOUNTER 2018-09-28 23:21 | Observation (INO) ==
[2018-09-28] MEDS ORDERED: Nitroglycerin 0.4 MG TAB.SUBL SL PRN (23:26)
--- NOTE | 2018-09-28 23:40 | Emergency Department Note ---
Disposition Clinical Impression: ACS (acute coronary syndrome) Disposition: Admitted As Inpatient Condition: Fair Referrals: Halie Mena, DUCT LAYER HELPER [Primary Care Provider] - Time of Disposition: 23:40 General Adult HPI - General Stated complaint: CHEST PAIN Time Seen by Provider: 09/28/18 23:25 Source: patient, EMS Mode of arrival: ambulatory Limitations: no limitations Nursing Notes Reviewed: Yes Vital Signs Reviewed: Yes - History of Present Illness HPI Narrative: Attestation note: Patient was seen with the emergency medicine resident/nurse practitioner/ph ysician home health assistant/transitional resident/medical student: Dr. Jeniffer Madrigal. I was present for the significant portions of the performance and interpretation of procedures and EKGs. I have personally performed a face to face evaluation on this patient. I have reviewed and agree with history and physical examination patient management and disposition. Low at rest with left arm radiation nausea and shortness of breath since 10:30 PM tonight. Patient was given aspirin per EMS but did not take nitroglycerin at home. Pt will be admitted after cardiac work-up and SL NTG trial. 45 mins of critical care service provided to this pt. Admission disposition pending. - Related Data Home Medications Medication Instructions Recorded Confirmed Aspirin Enteric Coated [Aspirin EC] 81 mg PO DAILY 01/05/15 09/01/18 Pantoprazole Sodium [Protonix] 40 mg PO HS 01/04/16 09/01/18 Carvedilol 3.125 mg PO BID 09/08/17 09/01/18 Clopidogrel [Plavix] 75 mg PO DAILY 09/08/17 09/01/18 Lisinopril 2.5 mg PO DAILY 09/08/17 09/01/18 Nitroglycerin [Nitrostat] 0.4 mg SL Q5M PRN 09/08/17 09/01/18 Tamsulosin [Flomax] 0.4 mg PO HS 09/08/17 09/01/18 Cholecalciferol (D-3) [Vitamin D] 1,000 unit PO DAILY 01/19/18 09/01/18 Multivitamin [One Daily Essential] 1 tab PO DAILY 01/19/18 09/01/18 Carbidopa/Levodopa [Carbidopa-Levo 1 tab PO TID 05/28/18 09/01/18 ER 25-100 Tab] Famotidine [Pepcid] 40 mg PO DAILY 09/01/18 09/01/18 Isosorbide MONOnitrate (24 HR) 120 mg PO DAILY 09/01/18 09/01/18 [Imdur] Previous Rx's Medication Instructions Recorded Pravastatin Sodium [Pravachol] 20 mg PO DAILY #30 tablet 06/08/18 Acetaminophen [Tylenol] 650 mg PO Q6HR PRN #120 tablet 09/04/18 Allergies Allergy/AdvReac Type Severity Reaction Status Date / Time furosemide [From Lasix] AdvReac See Verified 06/09/18 20:31 Comments Past Medical History - Past Medical History Medical history: Reports: asthma, cardiomyopathy, CHF, coronary artery disease, diabetes, GERD, hyperlipidemia, hypertension, myocardial infarction, renal disease, other Surgical history: Reports: angioplasty/stent, coronary bypass (CABG), pacemaker/AICD, other Psychiatric history: Reports: no psych history - Social History Smoking Status: Never smoker Smokeless Tobacco Status: No Alcohol use: Reports: none Drug use: Reports: none
--- NOTE | 2018-09-28 23:59 | Emergency Department Note ---
Disposition Clinical Impression: ACS (acute coronary syndrome), Acute kidney injury superimposed on chronic kidney disease Disposition: Admitted As Inpatient Condition: Fair Referrals: Halie Mena, MAGGIE [Primary Care Provider] - Time of Disposition: 00:43 General Adult HPI - General Stated complaint: CHEST PAIN Time Seen by Provider: 09/28/18 23:25 Source: patient, EMS Mode of arrival: ambulatory Limitations: no limitations Nursing Notes Reviewed: Yes Vital Signs Reviewed: Yes - History of Present Illness HPI Narrative: 72-year-old male with history of approximately 25 cardiac stents and CABG who presents emergency Department with complaints of chest pain. The patient states this started approximately 1 hour prior to arrival. He was at rest, watching television when he experienced sudden onset left-sided chest pain radiating into his left upper extremity. She felt short of breath and slightly numb when this started. He took nothing for the pain at home and called EMS. He states this does feel similar to his previous episodes of ischemia. He otherwise denies any nausea, vomiting, diarrhea, lower extremity swelling, abdominal pain, back pain, headache or weakness. - Related Data Home Medications Medication Instructions Recorded Confirmed Aspirin Enteric Coated [Aspirin EC] 81 mg PO DAILY 01/05/15 09/01/18 Pantoprazole Sodium [Protonix] 40 mg PO HS 01/04/16 09/01/18 Carvedilol 3.125 mg PO BID 09/08/17 09/01/18 Clopidogrel [Plavix] 75 mg PO DAILY 09/08/17 09/01/18 Lisinopril 2.5 mg PO DAILY 09/08/17 09/01/18 Nitroglycerin [Nitrostat] 0.4 mg SL Q5M PRN 09/08/17 09/01/18 Tamsulosin [Flomax] 0.4 mg PO HS 09/08/17 09/01/18 Cholecalciferol (D-3) [Vitamin D] 1,000 unit PO DAILY 01/19/18 09/01/18 Multivitamin [One Daily Essential] 1 tab PO DAILY 01/19/18 09/01/18 Carbidopa/Levodopa [Carbidopa-Levo 1 tab PO TID 05/28/18 09/01/18 ER 25-100 Tab] Famotidine [Pepcid] 40 mg PO DAILY 09/01/18 09/01/18 Isosorbide MONOnitrate (24 HR) 120 mg PO DAILY 09/01/18 09/01/18 [Imdur] Previous Rx's Medication Instructions Recorded Pravastatin Sodium [Pravachol] 20 mg PO DAILY #30 tablet 06/08/18 Acetaminophen [Tylenol] 650 mg PO Q6HR PRN #120 tablet 09/04/18 Allergies Allergy/AdvReac Type Severity Reaction Status Date / Time furosemide [From Lasix] AdvReac See Verified 06/09/18 20:31 Comments Review of Systems: ROS per history of present illness, all other systems reviewed and negative or normal. All systems ED: reviewed and negative except as stated. Review of Systems: As Per HPI Past Medical History - Past Medical History Medical history: Reports: asthma, cardiomyopathy, CHF, coronary artery disease, diabetes, GERD, hyperlipidemia, hypertension, myocardial infarction, renal disease, other Surgical history: Reports: angioplasty/stent, coronary bypass (CABG), pacemaker/AICD, other Psychiatric history: Reports: no psych history - Social History Smoking Status: Never smoker Smokeless Tobacco Status: No Alcohol use: Reports: none Drug use: Reports: none Physical Exam General: Conversant. No apparent distress. Follow commands. Appears stated age. Slightly hard of hearing. Neck: No JVD. Trachea midline. Neck supple. Eyes: PERRL. No scleral icterus. HENT: Normocephalic and atraumatic. Moist mucus membranes. Cardiovascular: Regular rate and rhythm. Normal S1 and S2. No murmurs appreciated. Normal capillary refill. Extremities well perfused with 2+ distal pulses bilaterally. No edema. No chest wall pain. Pulmonary: Normal and equal breath sounds bilaterally, anteriorly and posteriorly. No wheezes, rales, or rhonchi. Not in respiratory distress. Speaks in full sentences. Abdomen: Soft, nondistended, and tontender. No bruits or masses. No guarding. Neuro: Alert and oriented x3. No slurred speech. No focal deficits noted. Skin: No rashes noted on visualized skin. Musculoskeletal: No bony abnormalities visualized. Moves all extremities. Psych: Normal mood. Pleasant. Makes appropriate eye contact. - General Limitations: no limitations Medical Decision Making - [facility] Narrative Medical decision making narrative: 72-year-old male with significant history of cardiac stents and CABG who presents emergency department with complaint of chest pain. This started while at rest. It is not reproducible on exam. The patient's vital signs are stable upon arrival. His EKG shows no acute ischemic changes. The patient was given 324 mg aspirin in route by EMS. The patient's laboratory evaluation shows no significant anemia. He does have a splint CKD but does appear to have an acute kidney injury on top of this. Initial troponin less than 0.03. Chest x-ray shows no focal consolidation or evidence of edema. The patient was given a dose of nitroglycerin here in the emergency department with improvement in his symptoms. Given the patient several risk factors and heart score of 6 believe he warrants further close observation. Patient was started on maintenance fluids for a total of 1 L. Discussed case with on-call hospitalist Dr. Tai who agrees with plan for admission and accepts the patient to the inpatient service. Patient agrees with and understands course of treatment plan including plan for admission. All questions answered. - Medical Records Medical records reviewed: Yes I reviewed the patient's medical records. - Lab Data Lab results reviewed: Yes I reviewed the patient's lab results. Result diagrams: 09/28/18 23:51 09/28/18 23:36 Lab Results 09/28/18 09/28/18 09/28/18 Range/Units 23:36 23:51 23:51 WBC 8.0 (4.3-11.1) K/mcL RBC 3.84 L (4.19-5.50) M/mcL Hgb 12.2 L (12.9-16.9) g/dL Hct 37.3 L (37.5-50.1) % MCV 97.1 (83.0-100.0) fL MCH 31.8 (28.0-33.3) pg MCHC 32.7 (31.6-35.5) g/dL RDW 13.8 (11.5-14.5) % Plt Count 119 L (140-400) K/mcL MPV 11.1 (9.4-12.4) fL Immature Gran % 0.9 (0-4) % Seg Neutrophils % 67.2 % Lymphocytes % 19.0 % Monocytes % 8.4 % Eosinophils % 4.1 % Basophils % 0.4 % Neutrophils # 5.4 (1.6-8.9) K/mcL Lymphocytes # 1.5 (0.6-4.6) K/mcL Monocytes # 0.7 (0.0-1.3) K/mcL Eosinophils # 0.3 (0.0-0.6) K/mcL Basophils # 0.0 (0.0-0.2) K/mcL PT 11.7 (9.4-12.1) Seconds INR 1.0 APTT 32.1 (26.0-36.0) Seconds Sodium 135 L (136-145) mEq/L Potassium 4.0 (3.5-5.1) mEq/L Chloride 106 (98-107) mEq/L Carbon Dioxide 22 L (23-29) mEq/L BUN 36 H (8-23) mg/dL Creatinine 1.94 H (0.70-1.30) mg/dL Est GFR ( Amer) 41 L (> 60) Est GFR (Non-Af Amer) 34 L (> 60) BUN/Creatinine Ratio 19 (6-26) Glucose 213 H (70-105) mg/dL Calculated Osmolality 295 (280-300) Calcium 8.5 L (8.6-10.3) mg/dL Troponin I < 0.03 (< 0.04) ng/mL - Radiology Data Radiology results reviewed: Yes I reviewed the patient's radiology results. Chest X-Ray 09/28/18 23:26 IMPRESSION: No acute cardiopulmonary disease. Prior sternal splitting procedure. Left subclavian AICD. D/ / Harshal Zaragoza MD / Harshal Zaragoza MD Interpreting Provider: Harshal Zaragoza MD - EKG Data EKG #1 EKG attestation: Yes I reviewed and interpreted this EKG. EKG results narrative: Pre-arrival timed 2251 EKG shows normal sinus rhythm without acute ischemic ST or T-wave abnormalities. Repeat EKG upon arrival time 2325 shows normal sinus rhythm rate of 85. There are Q waves in the inferior and lateral leads but otherwise there are no acute ST elevations. Heart Score - Score History: Highly Suspicious EKG: Normal Age: Greater than 65 Risk Factors: Equal/Greater than 3 risk factor or history of atherosclerotic disease Troponin: Less than normal limit HEART Score Total: 6
[2018-09-29 00:07] LABS: Basophils % 0.4 %; Eosinophils # 0.3 K/mcL (0.0-0.6); Eosinophils % 4.1 %; Hematocrit 37.3 % (37.5-50.1); Hemoglobin 12.2 g/dL (12.9-16.9); Immature Granulocytes % 0.9 % (0-4); Lymphocytes # 1.5 K/mcL (0.6-4.6); Mean Corpuscular HGB Conc 32.7 g/dL (31.6-35.5); Mean Corpuscular Hemoglobin 31.8 pg (28.0-33.3); Mean Corpuscular Volume 97.1 fL (83.0-100.0); Mean Platelet Volume 11.1 fL (9.4-12.4); Monocytes # 0.7 K/mcL (0.0-1.3); Monocytes % 8.4 %; Neutrophils # 5.4 K/mcL (1.6-8.9); Platelet Count 119 K/mcL (140-400); Red Blood Count 3.84 M/mcL (4.19-5.50); Red Cell Distribution Width 13.8 % (11.5-14.5); Segmented Neutrophils % 67.2 %
[2018-09-29 00:09] LABS: Prothrombin Time 11.7 Seconds (9.4-12.1)
[2018-09-29 00:12] LABS: Activated Partial Thrombo Time 32.1 Seconds (26.0-36.0)
[2018-09-29 00:26] LABS: BUN/Creatinine Ratio 19 (6-26); Blood Urea Nitrogen 36 mg/dL (8-23); Calcium 8.5 mg/dL (8.6-10.3); Carbon Dioxide 22 mEq/L (23-29); Chloride 106 mEq/L (98-107); Glucose 213 mg/dL (70-105); Osmolality,Calculated 295 (280-300); Sodium 135 mEq/L (136-145); eGFR For African Americans 41 (> 60); eGFR For Non-African Americans 34 (> 60)
[2018-09-29 00:28] LABS: Troponin I < 0.03 ng/mL (< 0.04)
[2018-09-29] MEDS ORDERED: 0.9 % Sodium Chloride 1,000 ML IVC SCH (00:45)
[2018-09-29] MEDS: Nitroglycerin 0.4 MG TAB.SUBL SL PRN ×3 (00:53→01:03)
[2018-09-29] MEDS ORDERED: Nitroglycerin 0.4 MG TAB.SUBL SL PRN (01:53)
[2018-09-29] MEDS ORDERED: *HR* OxyCODONE Immed Rel 5 MG TABLET PO PRN (01:58)
[2018-09-29] MEDS ORDERED: Acetaminophen 325 MG TABLET PO PRN (01:58)
[2018-09-29] MEDS ORDERED: Naloxone 0.4 MG/ML INJ IVP PRN (01:58)
[2018-09-29] MEDS ORDERED: traMADol 50 MG TABLET PO PRN (01:58)
[2018-09-29] MEDS ORDERED: *HR* Dextrose 50 % in Water (Syg) 50 ML SYRINGE IVP PRN (02:41)
[2018-09-29] MEDS ORDERED: Dextrose Gel 15 GM/37.5 ML TUBE PO PRN ×2 (02:41)
--- NOTE | 2018-09-29 02:51 | Internal Med History&Physical ---
Date of Encounter: 09/29/18 Time of Encounter: 02:48 Internal Medicine - H&P: HPI Chief complaint: chest pain Admitted From: Home Plans for Post Hospital Care: Home History of present illness: Eduar Loera is a 72 year old man with coronary artery disease with multiple stents and CABG, ischemic cardiomyopathy with AICD, insulin-dependent diabetes, hypertension, hyperlipidemia, Parkinsons disease and chronic kidney disease who presents to the emergency room complaining of acute onset precordial pain that started after he became stressed for making a mistake in his [employer] game while he was sitting down previously resting. The chest pain persisted longer than he is used to and was accompanied by facial numbness and dyspnea. This prompted his concern for which reason he called EMS as it felt similar to his prior episodes of heart attacks. There was no associated nausea, vomiting or abdominal pain. He was given loading dose of aspirin, his EKG was non- ischemic and his troponin was negative. However given his high cardiovascular risk is admitted for ongoing observation. Of note he was seen to have mild elevation in the serum creatinine from his baseline state he was given a liter of fluids. On the time of my assessment he says that since waiting and resting in the emergency room his chest pain has slowly subsided even before sublingual nitroglycerin was given. Vitals: Reviewed General: Well-developed elderly man in comfortably in bed in no acute distress. Skin: Warm, pale and dry. HEENT: Moist mucous membranes. No conjunctivae pallor. Neck: No lymphadenopathy. No JVD. No carotid bruits. No palpable thyroid. Chest: Normal thoracic expansion. Normal breath sounds. Clear to auscultation. Heart: Normal S1 & S2; rhythmic. No rubs or murmurs. Abdomen: Non-distended, soft and non-tender to palpation. No peritoneal reaction. Extremities: No clubbing, cyanosis or edema. No calf tenderness. Normal distal pulses. Neurological: Awake, alert and oriented to person, place and time. No focal deficits. Psych: Affect appropriate. Assessment/Plan 1. Chest pain: Concerning for stress-induced angina and perhaps vasospasm. He admits to anxiety being a problem saying he gets worked up then has the pain. Of note he recently had a negative stress test from 3 months ago and is on optimal medical management. It is expected that his chest pain will not recur as he remains rested and does not overly exert himself. We will monitor him on telemetry and assess for chest pain recurrences. Will get another troponin later this morning. 2. CAD: Continue dual antiplatelet, nitrate and statin. 3. Acute on chronic kidney disease: On 1L saline. Will recheck creatinine once completed. 4. Diabetes: Last A1C is 6.9%. Place on insulin sliding scale. 5. Parkinsons disease: On dopamine agonist therapy. Past Med Surg Social Fam HX - Past Medical History Medical history: asthma, cardiomyopathy, CHF, coronary artery disease, diabetes, GERD, hyperlipidemia, hypertension, myocardial infarction, renal disease, other Additional medical history: parkinsons, Spinal Stenosis, Cerival Spondyliosis Psychiatric history: no psych history - Past Surgical History Surgical History: angioplasty/stent, coronary bypass (CABG), pacemaker/AICD, other Additional surgical history: right rotator cuff surgery. Mulitple heart Stents. Right Leg Surgery. triple bypass - Social History Smoking Status: Never smoker Smokeless Tobacco Status: No Alcohol use: none Drug use: none - Family History Father Living Status: Hx Family Cardiac Disorders: Yes (Bad heart) Hx Family Neurologic Disorders: Yes (Alzheimer's) Mother Living Status: Hx Family Cardiac Disorders: Yes ([place]) Internal Medicine - H&P: Meds Aspirin Enteric Coated [Aspirin EC] 81 mg PO DAILY 01/05/15 [History] Pantoprazole Sodium [Protonix] 40 mg PO HS 01/04/16 [History] Carvedilol 3.125 mg PO BID 09/08/17 [History] Clopidogrel [Plavix] 75 mg PO DAILY 09/08/17 [History] Lisinopril 2.5 mg PO DAILY 09/08/17 [History] Nitroglycerin [Nitrostat] 0.4 mg SL Q5M PRN 09/08/17 [History] Tamsulosin [Flomax] 0.4 mg PO HS 09/08/17 [History] Multivitamin [One Daily Essential] 1 tab PO DAILY 01/19/18 [History] Carbidopa/Levodopa [Carbidopa-Levo ER 25-100 Tab] 1 tab PO TID 05/28/18 [History] Famotidine [Pepcid] 40 mg PO DAILY 09/01/18 [History] Isosorbide MONOnitrate (24 HR) [Imdur] 120 mg PO DAILY 09/01/18 [History] Cholecalciferol (D-3) [Vitamin D] 1,000 unit PO DAILY 09/29/18 [History] Meloxicam [Mobic] 7.5 mg PO DAILY 09/29/18 [History] Allergy/AdvReac Type Severity Reaction Status Date / Time furosemide [From Lasix] AdvReac See Verified 06/09/18 20:31 Comments All Systems PM: A 10-system review of systems was performed and is negative for pertinent findings except as documented above in the HPI. - Constitutional Vitals: Temp Pulse Resp BP Pulse Ox 97.6 F 61 17 146/79 96 09/29/18 02:14 09/29/18 02:14 09/29/18 02:14 09/29/18 02:14 09/29/18 02:14 Exam: . Internal Med - H&P Results - Labs CBC & Chem 7: 09/28/18 23:51 09/28/18 23:36 Labs: Short CBC 09/28/18 Range/Units 23:51 WBC 8.0 (4.3-11.1) K/mcL Hgb 12.2 L (12.9-16.9) g/dL Hct 37.3 L (37.5-50.1) % Plt Count 119 L (140-400) K/mcL Neutrophils # 5.4 (1.6-8.9) K/mcL BMP 09/28/18 23:36 Sodium 135 L Potassium 4.0 Chloride 106 Carbon Dioxide 22 L BUN 36 H Creatinine 1.94 H Glucose 213 H Calcium 8.5 L Cardiac Enzymes 09/28/18 Range/Units 23:36 Troponin I < 0.03 (< 0.04) ng/mL - Impressions ITS Impressions Chest X-Ray 09/28/18 23:26 IMPRESSION: No acute cardiopulmonary disease. Prior sternal splitting procedure. Left subclavian AICD. D/ / Harshal Zaragoza MD / Harshal Zaragoza MD Interpreting Provider: Harshal Zaragoza MD - Time Spent With Patient Total time spent is greater than 50% in coordination of care (as documented) at patient's floor/unit and/or counseling patient: Greater than 35 minutes
[2018-09-29] MEDS ORDERED: *HR* Heparin 5,000 UNIT/ML VIAL SQ SCH (06:00)
[2018-09-29] MEDS: Insulin LISPRO 300 UNITS/3 ML VIAL SQ SCH ×2 (07:49→11:09)
[2018-09-29] MEDS ORDERED: D5% in Water 1,000 ML IVC PRN (07:53)
--- NOTE | 2018-09-29 08:31 | Internal Med Progress Note ---
Hospitalist Progress Note - Encounter Date of Encounter: 09/29/18 Time of Encounter: 08:30 - Exam Vitals: Temp Pulse Resp BP Pulse Ox 97.7 F 61 17 142/82 96 09/29/18 06:45 09/29/18 06:45 09/29/18 06:45 09/29/18 06:45 09/29/18 06:45 - Time Spent with Patient Total time spent is greater than 50% in coordination of care (as documented) at patient's floor/unit and/or counseling patient: Internal Medicine: Result - Labs CBC & Chem 7: 09/28/18 23:51 09/29/18 06:26 Labs: Short CBC 09/28/18 Range/Units 23:51 WBC 8.0 (4.3-11.1) K/mcL Hgb 12.2 L (12.9-16.9) g/dL Hct 37.3 L (37.5-50.1) % Plt Count 119 L (140-400) K/mcL Neutrophils # 5.4 (1.6-8.9) K/mcL BMP 09/28/18 09/29/18 23:36 06:26 Sodium 135 L Potassium 4.0 Chloride 106 Carbon Dioxide 22 L BUN 36 H Creatinine 1.94 H 1.81 H Glucose 213 H Calcium 8.5 L Cardiac Enzymes 09/28/18 09/29/18 Range/Units 23:36 06:26 Troponin I < 0.03 < 0.03 (< 0.04) ng/mL - ABG Interpretation ABG results: PT/INR, D-dimer PT 11.7 Seconds (9.4-12.1) 09/28/18 23:51 - Impressions Impressions Chest X-Ray 09/28/18 23:26 IMPRESSION: No acute cardiopulmonary disease. Prior sternal splitting procedure. Left subclavian AICD. D/ / Harshal Zaragoza MD / Harshal Zaragoza MD Interpreting Provider: Harshal Zaragoza MD Consult Discharge Plan - Plan
[2018-09-29] MEDS ORDERED: Aspirin Enteric Coated 81 MG Tablet PO SCH (09:00)
[2018-09-29] MEDS ORDERED: Cholecalciferol (D-3) 1,000 UNIT TABLET PO SCH (09:00)
[2018-09-29] MEDS ORDERED: Isosorbide MONOnitrate (24 HR) 60 MG TAB.ER.24H PO SCH (09:00)
[2018-09-29] MEDS ORDERED: Multivit/Ca/Min/Fe/FA 1 TAB TABLET PO SCH (09:00)
[2018-09-29] MEDS ORDERED: Carbidopa/Levodopa ER 50/200 TABLET PO SCH (09:00)
[2018-09-29] MEDS ORDERED: Famotidine 20 MG TABLET PO SCH ×2 (09:00→21:00)
[2018-09-29 10:55] VITALS: BP 138/77
--- NOTE | 2018-09-29 11:23 | Electrocardiograph Report ---
[place] [id number] Test Date: 2018-09-28 Pat Name: Eduar Joe Department: [id number] Room: 2A14 Gender: M [employer]: : 1945 Requested By: Holden Vaughn Order Number: [id number] Reading MD: Garrett Prado Measurements Intervals [place] Rate: 85 P: 2 NM: 180 QRS: -43 QRSD: 103 T: 36 QT: 389 QTc: 463 Interpretive Statements Sinus rhythm Abnormal R-wave progression, early transition Inferior infarct, old Artifact in lead(s) I III aVL Electronically Signed On 09-29-2018 11:21:56 EDT by Garrett Prado
--- NOTE | 2018-09-29 13:18 | Discharge Summary ---
<Carter Khan - Last Filed: 09/29/18 13:09> - NOTES TO OUTPATIENT PROVIDER Notes to Outpatient Provider: - Please follow up further with patient regarding resumption of statin. Patient is currently again starting statin as he believes they have caused his lower extremity pain. - Follow up within this week. - Follow up with cardiology within 1-2 weeks Date of Encounter: 09/29/18 Time of Encounter: 13:09 - Discharge Diagnosis (1) Chest pain Priority: Primary Status: Resolved Qualifiers: Chest pain type: other chest pain Qualified Code(s): R07.89 - Other chest pain; R07.8 - Other chest pain (2) CAD (coronary artery disease) Priority: Secondary Status: Chronic Qualifiers: Coronary Disease-Associated Artery/Lesion type: [place] artery [place] vs. transplanted heart: [place] heart Associated angina: without angina Qualified Code(s): I25.10 - Atherosclerotic heart disease of [place] coronary artery without angina pectoris (3) CKD (chronic kidney disease) Priority: Secondary Status: Chronic Qualifiers: Chronic kidney disease stage: stage 3 (moderate) Qualified Code(s): N18.3 - Chronic kidney disease, stage 3 (moderate) (4) Diabetes Priority: Secondary Status: Chronic Qualifiers: Diabetes mellitus type: type 2 Diabetes mellitus snf insulin use: with snf use Diabetes mellitus complication status: with kidney complications Diabetes mellitus complication detail: with chronic kidney disease Chronic kidney disease stage: stage 3 (moderate) Qualified Code(s): E11.22 - Type 2 diabetes mellitus with diabetic chronic kidney disease; N18.3 - Chronic kidney disease, stage 3 (moderate); 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 Joe is a 72 year old male with past medical history significant for coronary artery disease status post multiple stents and CABG, ischemic cardiomyopathy with AICD, insulin-dependent diabetes mellitus, hypertension, hyperlipidemia, chronic kidney disease stage III, and Parkinson's disease who presents to the ED complaining of acute onset chest pain. Patient had noted that he became stressed and agitated after making mistaking his [employer] game. Associated with dyspnea and facial numbness. EMS was called as patient felt similar feeling to previous heart attacks. He denied any associated nausea, vomiting, abdominal pain, extremity pain or weakness. Patient was initially given dose of aspirin in the ED. EKG showed no acute ST changes. Troponins were negative. However given patient's extensive cardiac history, and convincing clinical story with heart score = 5, patient was admitted for observation. Patient was observed overnight. He did report resolution of his symptoms. As of this morning, patient was hemodynamically stable. Oxygen saturation was appropriate on room air. He no longer had any chest pain. Cardiac workup was essentially benign. Patient does have a negative stress test within the past 3 months. We plan to discharge patient home for follow-up with his primary care physician within the week. We will discharge patient to continue aspirin plus Plavix, Imdur. Had discussion with patient regarding statin. Patient is against restarting statin. 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 Of note, patient did have mildly elevated creatinine. Creatinine was trended and trended down prior to admission. Seems to be at baseline. Patient has CKD stage III. Recommended BMP within 1 week. Discharge discussed with: patient - Time Spent with Patient Total time spent providing and/or coordinating discharge services: Time spent: Less than 30 minutes, D/C greater than 8 hours after Admission - Discharge Medications Prescriptions: Continued Pantoprazole Sodium [Protonix] 40 mg PO QPM Carvedilol 3.125 mg PO BID Clopidogrel [Plavix] 75 mg PO DAILY Lisinopril 2.5 mg PO DAILY Nitroglycerin [Nitrostat] 0.4 mg SL Q5M PRN PRN Reason: Chest Pain Tamsulosin [Flomax] 0.4 mg PO HS Multivitamin [One Daily Essential] 1 tab PO DAILY Carbidopa/Levodopa [Carbidopa-Levo ER 25-100 Tab] 1 tab PO TID Famotidine [Pepcid] 40 mg PO DAILY Cholecalciferol (D-3) [Vitamin D] 1,000 unit PO DAILY Albuterol Sulfate [Ventolin Hfa] 2 puff IH Q6H PRN PRN Reason: Shortness Of Breath Aspirin [Adult Aspirin Regimen] 81 mg PO DAILY Isosorbide MONOnitrate [Isosorbide Mononitrate ER] 120 mg PO DAILY Meclizine [Antivert] 12.5 mg PO BID PRN PRN Reason: Vertigo Discontinued Meloxicam 15 mg PO DAILY PRN PRN Reason: Pain Home Medications: Pantoprazole Sodium [Protonix] 40 mg PO QPM 01/04/16 [History] Carvedilol 3.125 mg PO BID 09/08/17 [History] Clopidogrel [Plavix] 75 mg PO DAILY 09/08/17 [History] Lisinopril 2.5 mg PO DAILY 09/08/17 [History] Nitroglycerin [Nitrostat] 0.4 mg SL Q5M PRN 09/08/17 [History] Tamsulosin [Flomax] 0.4 mg PO HS 09/08/17 [History] Multivitamin [One Daily Essential] 1 tab PO DAILY 01/19/18 [History] Carbidopa/Levodopa [Carbidopa-Levo ER 25-100 Tab] 1 tab PO TID 05/28/18 [History] Famotidine [Pepcid] 40 mg PO DAILY 09/01/18 [History] Albuterol Sulfate [Ventolin Hfa] 2 puff IH Q6H PRN 09/29/18 [History] Aspirin [Adult Aspirin Regimen] 81 mg PO DAILY 09/29/18 [History] Cholecalciferol (D-3) [Vitamin D] 1,000 unit PO DAILY 09/29/18 [History] Isosorbide MONOnitrate [Isosorbide Mononitrate ER] 120 mg PO DAILY 09/29/18 [History] Meclizine [Antivert] 12.5 mg PO BID PRN 09/29/18 [History] Allergies/Adverse Reactions: Allergy/AdvReac Type Severity Reaction Status Date / Time furosemide [From Lasix] AdvReac See Verified 09/29/18 10:08 Comments Date of admission: 09/29/18 00:58 Primary care physician: Halie Mena CNP Discharging clinician: Carter Khan Anticipated date of discharge: 09/29/18 - Constitutional Vitals: Temp Pulse Resp BP Pulse Ox 97.9 F 73 17 138/77 96 09/29/18 10:54 09/29/18 10:54 09/29/18 10:54 09/29/18 10:54 09/29/18 10:54 General appearance: Present: cooperative, A&O X 3, pleasant, no acute distress, answers questions appropriately Exam: This is a pleasant 72-year-old male who is resting comfortably at bedside in no acute distress this morning. - Head Head exam: Present: atraumatic, normal inspection, normocephalic - Eye Eye exam: Present: EOMI - ENT ENT exam: Present: mucous membranes moist, normal oropharynx - Neck Neck exam general surgery: Present: full ROM, supple - Respiratory Respiratory exam: Present: CTAB. Absent: respiratory distress - Cardiovascular Cardiovascular exam: Present: RRR, +S1, +S2 - GI/Abdominal GI/Abdominal exam: Present: normal bowel sounds, soft, no peritoneal signs. Absent: tenderness - Extremities Exam Extremities exam: Present: normal inspection, warm, radial pulses palpable and symmetrical. Absent: calf tenderness - Neurological Exam Neurological exam: Present: alert, oriented X3, no focal deficits - Psychiatric Psychiatric exam: Present: normal affect, normal mood - Skin Skin exam: Absent: rash - Patient Status Disposition: Home, Self-Care Condition: Fair Functional capacity at discharge: independent ambulation Overall status at discharge: patient is progressing back to baseline - Discharge Instructions Instructions: Angina (DC) Follow Up With: Halie Mena HOME PARAPROFESSIONAL [Primary Care Provider] - 10/07/18 3:00 pm (Please follow up with PCP this week) Forms: ED Satisfaction Letter - Diet and Activity Activity: increase activity as tolerated Diet: diabetic diet, low fat, low cholesterol, low salt diet <Anthony Pool - Last Filed: 09/29/18 19:01> Date of Encounter: 09/29/18 - Discharge Diagnosis (1) Chest pain Priority: Primary Status: Acute Qualifiers: Chest pain type: chest pain due to myocardial ischemia Ischemic chest pain type: other angina pectoris type Qualified Code(s): I20.8 - Other forms of angina pectoris (2) CAD (coronary artery disease) Status: Chronic Qualifiers: Coronary Disease-Associated Artery/Lesion type: [place] artery [place] vs. transplanted heart: [place] heart Associated angina: with other forms of angina Qualified Code(s): I25.118 - Atherosclerotic heart disease of [place] coronary artery with other forms of angina pectoris (3) Diabetes Status: Chronic Qualifiers: Diabetes mellitus type: type 2 Diabetes mellitus [place] insulin use: with snf use Diabetes mellitus complication status: with kidney complications Diabetes mellitus complication detail: with chronic kidney disease Chronic kidney disease stage: stage 3 (moderate) Qualified Code(s): E11.22 - Type 2 diabetes mellitus with diabetic chronic kidney disease; N18.3 - Chronic kidney disease, stage 3 (moderate); 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 Joe is a 72 year old male - Time Spent with Patient Total time spent providing and/or coordinating discharge services: Date of admission: 09/29/18 00:58 Primary care physician: Halie Mena CNP - Constitutional Vitals: Temp Pulse Resp BP Pulse Ox 97.9 F 73 17 138/77 96 09/29/18 10:54 09/29/18 10:54 09/29/18 10:54 09/29/18 10:54 09/29/18 10:54 - Attending Attestation I examined this patient and my medical decision-making was reviewed with the Resident Physician on 09/29/18. I agree with the documented findings, d isposition and treatment plan as described except to the extent set forth below. Mr Joe was admitted earlier today with chest pain. He is now symptom free and work up negative. He is ready for discharge home and outpatient follow up. His exam is afebrile and not tachy. No wheeze.
[2018-09-29] MEDS ORDERED: Insulin LISPRO 300 UNITS/3 ML VIAL SQ SCH (21:00)
== END 2018-09-29 14:16 | disposition home or self-care (01) ==
LOC: 2ANU 23:21 → EMEROOARM 23:21 → SUATTDRO 09-29 00:58 → 2ANU 09-29 02:00
PROVIDERS: ADMIT Internal Medicine; ATTEND Internal Medicine

== ENCOUNTER 2018-11-01 16:17 | Observation (INO) ==
--- NOTE | 2018-11-01 16:21 | Emergency Department Note ---
Disposition Referrals: Halie Mena, IS ANALYST [Primary Care Provider] - General Adult HPI - General Stated complaint: weakness/neck pain Time Seen by Provider: 11/01/18 16:20 - Related Data Home Medications Medication Instructions Recorded Confirmed Pantoprazole Sodium [Protonix] 40 mg PO QPM 01/04/16 09/29/18 Carvedilol 3.125 mg PO BID 09/08/17 09/29/18 Clopidogrel [Plavix] 75 mg PO DAILY 09/08/17 09/29/18 Lisinopril 2.5 mg PO DAILY 09/08/17 09/29/18 Nitroglycerin [Nitrostat] 0.4 mg SL Q5M PRN 09/08/17 09/29/18 Tamsulosin [Flomax] 0.4 mg PO HS 09/08/17 09/29/18 Multivitamin [One Daily Essential] 1 tab PO DAILY 01/19/18 09/29/18 Carbidopa/Levodopa [Carbidopa-Levo 1 tab PO TID 05/28/18 09/29/18 ER 25-100 Tab] Famotidine [Pepcid] 40 mg PO DAILY 09/01/18 09/29/18 Albuterol Sulfate [Ventolin Hfa] 2 puff IH Q6H PRN 09/29/18 09/29/18 Aspirin [Adult Aspirin Regimen] 81 mg PO DAILY 09/29/18 09/29/18 Cholecalciferol (D-3) [Vitamin D] 1,000 unit PO DAILY 09/29/18 09/29/18 Isosorbide MONOnitrate [Isosorbide 120 mg PO DAILY 09/29/18 09/29/18 Mononitrate ER] Meclizine [Antivert] 12.5 mg PO BID PRN 09/29/18 09/29/18 Allergies Allergy/AdvReac Type Severity Reaction Status Date / Time furosemide [From Lasix] AdvReac See Verified 09/29/18 10:08 Comments Past Medical History - Past Medical History Medical history: Reports: asthma, cardiomyopathy, CHF, coronary artery disease, diabetes, GERD, hyperlipidemia, hypertension, myocardial infarction, renal disease, other Surgical history: Reports: angioplasty/stent, coronary bypass (CABG), pacemaker/AICD, other Psychiatric history: Reports: no psych history - Social History Smoking Status: Never smoker Smokeless Tobacco Status: No Alcohol use: Reports: none Drug use: Reports: none
[2018-11-01] MEDS ORDERED: Isovue-370 500 ML BOTTLE IVP ONE (16:37)
--- NOTE | 2018-11-01 16:39 | Emergency Department Note ---
Disposition Clinical Impression: Weakness, Decreased sensation, Neurological deficit present Disposition: Admitted As Inpatient Condition: Fair Referrals: Halie Mena, MOBILITY MANAGER [Primary Care Provider] - Forms: ED Satisfaction Letter Time of Disposition: 18:05 Neuro HPI - General Chief Complaint: ED Weakness Stated Complaint: weakness/neck pain Time Seen by Provider: 11/01/18 16:20 Source: patient, family Limitations: no limitations Nursing Notes Reviewed: Yes Vital Signs Reviewed: Yes - History of Present Illness HPI Narrative: She does a 73-year-old male who is presenting today with a chief complaint of right-sided weakness. He is here with his girlfriend and she states that it acutely started at 1630 [place]. He does have history of this occurring in the past, he has had multiple episodes of the past including complete right-sided weakness as per the girlfriend that last up to 24-48 hours. He is unable to use his legs at this time. The patient and the girlfriend due to weakness. He does have a history of cervical spondylosis and is unable to have an evaluation for surgery due to comorbidities. He has chronic shooting pain down his right side, is usually not this week. Also contained complains of right- sided facial weakness. He denies any visual loss, change in vision, dizziness or lightheadedness, loss of coordination. Denies any chest pain, palpitations, shortness of breath, nausea/vomiting/diarrhea, abdominal pain. Onset of Symptoms Date: 11/01/18 Onset of Symptoms Time: 14:30 Symptom Onset Unknown: Yes (1430) Timing confirmed by: spouse - Related Data Home Medications: Home Medications Medication Instructions Recorded Confirmed Pantoprazole Sodium [Protonix] 40 mg PO QPM 01/04/16 11/01/18 Carvedilol 3.125 mg PO BID 09/08/17 11/01/18 Clopidogrel [Plavix] 75 mg PO DAILY 09/08/17 11/01/18 Lisinopril 2.5 mg PO DAILY 09/08/17 11/01/18 Nitroglycerin [Nitrostat] 0.4 mg SL Q5M PRN 09/08/17 11/01/18 Tamsulosin [Flomax] 0.4 mg PO HS 09/08/17 11/01/18 Multivitamin [One Daily Essential] 1 tab PO DAILY 01/19/18 11/01/18 Carbidopa/Levodopa [Carbidopa-Levo 1 tab PO TID 05/28/18 11/01/18 ER 25-100 Tab] Famotidine [Pepcid] 40 mg PO DAILY 09/01/18 11/01/18 Albuterol Sulfate [Ventolin Hfa] 2 puff IH Q6H PRN 09/29/18 11/01/18 Aspirin [Adult Aspirin Regimen] 81 mg PO DAILY 09/29/18 11/01/18 Cholecalciferol (D-3) [Vitamin D] 1,000 unit PO DAILY 09/29/18 11/01/18 Isosorbide MONOnitrate [Isosorbide 120 mg PO DAILY 09/29/18 11/01/18 Mononitrate ER] Allergies/Adverse Reactions: Allergies Allergy/AdvReac Type Severity Reaction Status Date / Time furosemide [From Lasix] AdvReac See Verified 09/29/18 10:08 Comments Review of Systems: Constitutional: denies fever, chills HEENT: denies blurry vision, tinnitus, sore throat, visual changes Cardio: denies chest pain, palpiltations Lungs: denies SOB, wheeze GI: denies N/V/D, denies abdominal pain : denies dysuria, hematuria MSK: + increased weakness on right side, cannot ambulate due to loss of function Heme: denies easy bruising Neuro: + numbness rightsided, decreased sensation right side, denies dizziness Skin: denies open wounds or cuts Psych: denies anxiety, depression Endocrine: denies polyuria, polydipsia, heat intolerance or cold intolerance All systems ED: reviewed and negative except as stated. Review of Systems: As Per HPI Past Medical History - Past Medical History Attestation: Yes The following information was validated with the patient. Medical history: Reports: asthma, cardiomyopathy, CHF, coronary artery disease, diabetes, GERD, hyperlipidemia, hypertension, myocardial infarction, renal disease, other Surgical history: Reports: angioplasty/stent, coronary bypass (CABG), pacemaker/AICD, other Psychiatric history: Reports: no psych history - Social History Smoking Status: Never smoker Smokeless Tobacco Status: No Alcohol use: Reports: none Drug use: Reports: none Physical Exam General: Well-developed, well-nourished patient lying in bed who appears non- toxic. Head: Atraumatic, nomrocephalic. Eyes: Sclera anicteric. Rotational nystagmus noted ENT: Mucous membranes moist. Heart: Regular rate and rhythem, no appreciable murmur. Lungs: Clear to auscultation bilaterally with normal respiratory pattern, no re spiratory distress. Abdomen: Soft, non-tender, non-distended, no guarding or peritoneal signs. Skin: Warm and dry, no appreciable rash. Neurologic: Awake, alert and oriented with normal mental status, GCS 15. Gait unable to be assessed due to weakness. Speech is normal but voice volume is decreased, no aphasia or dysarthria. CN testing reveals weakness in CN7 and 11 on the right, tongue deviation unable to be tested, pt unable to complete EOMI testing. Decreased sensation right for CN 5. Motor function decreased both UE and LE right, 2/5 right, 5/5 left. Decreased proprioception and no sensation to pinprick on the right side. Psychiatric: Normal mood and affect. Musculoskeletal: no pitting edema noted bilaterally - General Limitations: no limitations General appearance: alert, in no apparent distress Course Course Narrative: At this time the patient does appear to be having acute neurological symptoms with a last known well time at 15:30. Stroke Alert was called at 1633. Patient was brought down to CT and no acute bleed was noted on getting. [facility] evaluated the patient and the patient declined TPA, eating "I have had multiple episodes of this and I always go back to my baseline this is not a stroke". Currently the patient is unable to have evaluation with an MRI because of pacemaker a posterior circulation stroke is unable to be ruled out. [facility] notified me of the results at 1712 that there is no acute intracranial abnormality at this time. Labs are pending at this time. Patient will be admitted workup and evaluation of weakness and neurological dysfunction. - Reevaluation(s) Reevaluation #1: Stroke alert called 16:[address] scan - no acute intracranial bleeding noted. [facility] stroke system - patient declined tPA [facility] reported NO abnormality acutely on CTA head/neck and no acute intracranial bleeding at approx 1712 Time: 17:43 Reevaluation #2: Pt states that his symptoms have resolved. He has also refused to urinate Time: 17:55 - Consultations Consultation #1: Dr melendez accepted the admission Time: 18:00 Vital Signs Temperature 98.2 F 11/01/18 16:20 Pulse Rate 76 11/01/18 16:20 Respiratory Rate 18 11/01/18 16:20 Blood Pressure 97/64 11/01/18 16:20 O2 Sat by Pulse Oximetry 96 11/01/18 16:20 Temperature 98.2 F 11/01/18 16:20 Pulse Rate 65 11/01/18 17:00 Respiratory Rate 16 11/01/18 17:00 Blood Pressure 127/65 11/01/18 17:00 O2 Sat by Pulse Oximetry 98 11/01/18 18:10 Oxygen Delivery Oxygen Delivery Room Air Neuro Symptoms/Deficit - MDM Narrative Medical decision making narrative: He did have significant weakness upon entering the urgency room to the point that he was unable to get into the bed by himself and required 3 assistance. His come into the hospital and a stroke alert was called at 1633. NIHSS was 9. Since lab results came back showing no acute abnormality seen BMP are both unremarkable. Troponin was negative EKG showed no acute abnormality. He has baseline chronic kidney disease and his creatinine is around his baseline. He does continue to refuse urinalysis at this time. The patient refused TPA but accepts the plan for admission with observation and evaluation of weakness. Reevaluation of the patient he does appear to be back at his baseline and is resting comfortably in bed. He passed his bedside swallow exam. Likely the patient has a chronic underlying condition causing weakness of his pain, such as underlying cervical spondylosis. However the fact that he cannot have a MRI due to his pacemaker, we are unable to rule out a posterior chelation stroke such as an PICA or AICA. Hospitalist did accept the patient for admission and he is medically stable for transfer to the floor. - Medical Records Medical records reviewed: Yes I reviewed the patient's medical records. - Lab Data Lab results reviewed: Yes I reviewed the patient's lab results. Result diagrams: 11/01/18 16:44 11/01/18 16:44 Lab Results 11/01/18 11/01/18 11/01/18 Range/Units 16:44 16:44 16:44 WBC 5.0 (4.3-11.1) K/mcL RBC 3.86 L (4.19-5.50) M/mcL Hgb 12.1 L (12.9-16.9) g/dL Hct 36.6 L (37.5-50.1) % MCV 94.8 (83.0-100.0) fL MCH 31.3 (28.0-33.3) pg MCHC 33.1 (31.6-35.5) g/dL RDW 13.4 (11.5-14.5) % Plt Count 123 L (140-400) K/mcL MPV 11.5 (9.4-12.4) fL PT 12.1 (9.4-12.1) Seconds INR 1.1 APTT 30.9 (26.0-36.0) Seconds Sodium 138 (136-145) mEq/L Potassium 4.4 (3.5-5.1) mEq/L Chloride 106 (98-107) mEq/L Carbon Dioxide 26 (23-29) mEq/L BUN 26 H (8-23) mg/dL Creatinine 1.92 H (0.70-1.30) mg/dL Est GFR ( Amer) 42 L (> 60) Est GFR (Non-Af Amer) 34 L (> 60) BUN/Creatinine Ratio 14 (6-26) Glucose 165 H (70-105) mg/dL Calculated Osmolality 294 (280-300) Calcium 8.8 (8.6-10.3) mg/dL Creatine Kinase 46 (30-223) Units/L Troponin I < 0.03 (< 0.04) ng/mL - Radiology Data Radiology results reviewed: Yes I reviewed the patient's radiology results. Head CT 11/01/18 16:33 IMPRESSION: No acute intracranial abnormality. Moderate cerebral atrophy appropriate for age. [id number] chronic ischemic changes also age-appropriate. D/ / Aman Kovacs MD / Aman Kovacs MD Interpreting Provider: Aman Kovacs MD Head CTA 11/01/18 16:37 IMPRESSION: Overall normal CTA of the head and neck. No significant arterial stenosis, occlusion, or intracranial aneurysm. Atretic left A1 segment the left anterior cerebral artery well supplied through patent anterior communicating artery. D/ / Aman Kovacs MD / Aman Kovacs MD Interpreting Provider: Aman Kovacs MD Neck CTA 11/01/18 16:37 IMPRESSION: Overall normal CTA of the head and neck. No significant arterial stenosis, occlusion, or intracranial aneurysm. Atretic left A1 segment the left anterior cerebral artery well supplied through patent anterior communicating artery. D/ / Aman Kovacs MD / Aman Kovacs MD Interpreting Provider: Aman Kovacs MD - EKG Data EKG attestation: Yes I reviewed and interpreted this EKG. EKG results narrative: Sinus rhyhtm, nonspecific IVCD. Left axis deviation. HR 70, Qtc [address] elevation or T wave inversion, no acute changes from previous EKG. NIH Stroke Scale - Level of Consciousness LOC: Alert - LOC Questions LOC Questions: Answers both correctly - LOC Commands LOC Commands: Performs both correctly - Best Gaze Best Gaze: Partial gaze palsy - Visual Visual: No visual loss - Facial Palsy Facial Palsy: Complete absence of movement in upper and lower face - Motor Arms Motor Arm-Left: No drift for 10 seconds Motor Arm-Right: No drift for 10 seconds - Motor Legs Motor Leg-Left: No drift for 5 seconds Motor Leg-Right: No effort against gravity, limb falls to bed, some movement - Limb Ataxia Limb Ataxia: Absent of affected limb too weak to perform exam - Sensory Sensory: Severe loss. Total sensory loss, pt unaware of being touched - Best Language Best Language: No aphasia - Dysarthria Dysarthria: Normal - Extinction and Inattention Extinction and Inattention: Normal - NIHSS Total Score NIHSS Total Score: 9 TPA Checklist - LKW: 3-4.5 hrs Add. Warnings/Precautions Patient/family understanding: The patient/family members have been counseled and understood the risk, benefit, and alternatives of treatment. Attestation Statement - Attestation Attestation: I, Wm Pierson, examined this patient and my medical decision-making was reviewed with the ACCOUNT MANAGER B2B/PA/Advanced Practice Nurse/Resident Physician. I agree with the documented findings, disposition and treatment plan as described except to the extent set forth below. 73-year-old male presents emergency Department with concerns of self right-sided neck pain and weakness of the right upper extremity and right lower extremity. Patient states symptoms started acutely 1 hour prior to arrival. Patient states that this occurred multiple times in the past. He was previously diagnosed with possible TIAs. Patient's is unwilling or unable to lift his right upper extremity. Patient had difficulty sticking out his tongue. I had some concerns about lack of effort during the exam initially. CT does not show evidence of internal hemorrhage or mass or obvious CVA. Patient was updated regarding CT results.I reviewed the EKG with the resident and agree with the interpretation. [facility] neurology was consulted and evaluated the patient had bedside via tele- neurology. Patient declined TPA. He rapidly improved after the [facility] consult. [facility] recommended admission to the hospitalist for further care and evaluation.
[2018-11-01 16:59] LABS: Hematocrit 36.6 % (37.5-50.1); Hemoglobin 12.1 g/dL (12.9-16.9); Mean Corpuscular HGB Conc 33.1 g/dL (31.6-35.5); Mean Corpuscular Hemoglobin 31.3 pg (28.0-33.3); Mean Corpuscular Volume 94.8 fL (83.0-100.0); Mean Platelet Volume 11.5 fL (9.4-12.4); Platelet Count 123 K/mcL (140-400); Red Blood Count 3.86 M/mcL (4.19-5.50); Red Cell Distribution Width 13.4 % (11.5-14.5)
[2018-11-01 17:06] LABS: INR 1.1; Prothrombin Time 12.1 Seconds (9.4-12.1)
[2018-11-01 17:09] LABS: Activated Partial Thrombo Time 30.9 Seconds (26.0-36.0)
[2018-11-01 17:15] LABS: BUN/Creatinine Ratio 14 (6-26); Blood Urea Nitrogen 26 mg/dL (8-23); Calcium 8.8 mg/dL (8.6-10.3); Carbon Dioxide 26 mEq/L (23-29); Chloride 106 mEq/L (98-107); Creatine Kinase 46 Units/L (30-223); Glucose 165 mg/dL (70-105); Osmolality,Calculated 294 (280-300); Potassium 4.4 mEq/L (3.5-5.1); Sodium 138 mEq/L (136-145); eGFR For African Americans 42 (> 60); eGFR For Non-African Americans 34 (> 60)
[2018-11-01 17:17] LABS: Troponin I < 0.03 ng/mL (< 0.04)
[2018-11-01] MEDS ORDERED: Naloxone 0.4 MG/ML INJ IVP PRN (18:25)
[2018-11-01] MEDS ORDERED: Ondansetron 4 MG/2 ML VIAL IVP PRN (18:25)
[2018-11-01] MEDS ORDERED: Nitroglycerin 0.4 MG TAB.SUBL SL PRN (18:29)
--- NOTE | 2018-11-01 18:35 | Internal Med History&Physical ---
Date of Encounter: 11/01/18 Time of Encounter: 18:31 Internal Medicine - H&P: HPI Chief complaint: right sided weakness today at 16: 00 History of present illness: Mr. Joe is a 73 year old male with history of hypertension history of coronary artery disease status post open heart surgery status post ICD defibrillator placement, history of Parkinson disease presents today with sudden onset of [place] Patient states he was with his girlfriend and acutely started having right-sided weakness unable to use his leg, not associated with the sensory symptoms, Stroke alert was called and neurology [facility] telemedicine evaluated the patient and recommend TPA however the patient does not think he has stroke and refused TPA administration. Patient has history of cervical spondylosis and the patient states he has recurrent episodes of the same symptoms happened in the past and he does not know what the course, the patient stated that he cannot have MRI done because of the pacemaker and defibrillator. Upon my arrival the patient is doing well on his able to move his right side well without any deficits and grossly neurological examination intact. However based on the neurology recommendation , will admit the patient to [facility] for further evaluation Past Med Surg Social Fam HX - Past Medical History Medical history: asthma, cardiomyopathy, CHF, coronary artery disease, diabetes, GERD, hyperlipidemia, hypertension, myocardial infarction, renal disease, other Additional medical history: parkinsons, Spinal Stenosis, Cerival Spondyliosis Psychiatric history: no psych history - Past Surgical History Surgical History: angioplasty/stent, coronary bypass (CABG), pacemaker/AICD, other Additional surgical history: right rotator cuff surgery. Mulitple heart Stents. Right Leg Surgery. triple bypass - Social History Smoking Status: Never smoker Smokeless Tobacco Status: No Alcohol use: none Drug use: none - Family History Father Living Status: Hx Family Cardiac Disorders: Yes (Bad heart) Hx Family Neurologic Disorders: Yes (Alzheimer's) Mother Living Status: Hx Family Cardiac Disorders: Yes (NE) Internal Medicine - H&P: Meds Pantoprazole Sodium [Protonix] 40 mg PO QPM 01/04/16 [History] Carvedilol 3.125 mg PO BID 09/08/17 [History] Clopidogrel [Plavix] 75 mg PO DAILY 09/08/17 [History] Lisinopril 2.5 mg PO DAILY 09/08/17 [History] Nitroglycerin [Nitrostat] 0.4 mg SL Q5M PRN 09/08/17 [History] Tamsulosin [Flomax] 0.4 mg PO HS 09/08/17 [History] Multivitamin [One Daily Essential] 1 tab PO DAILY 01/19/18 [History] Carbidopa/Levodopa [Carbidopa-Levo ER 25-100 Tab] 1 tab PO TID 05/28/18 [Hi story] Famotidine [Pepcid] 40 mg PO DAILY 09/01/18 [History] Albuterol Sulfate [Ventolin Hfa] 2 puff IH Q6H PRN 09/29/18 [History] Aspirin [Adult Aspirin Regimen] 81 mg PO DAILY 09/29/18 [History] Cholecalciferol (D-3) [Vitamin D] 1,000 unit PO DAILY 09/29/18 [History] Isosorbide MONOnitrate [Isosorbide Mononitrate ER] 120 mg PO DAILY 09/29/18 [History] Meclizine [Antivert] 12.5 mg PO BID PRN 09/29/18 [History] Allergy/AdvReac Type Severity Reaction Status Date / Time furosemide [From Lasix] AdvReac See Verified 09/29/18 10:08 Comments All Systems PM: A 10-system review of systems was performed and is negative for pertinent findings except as documented above in the HPI. Review of systems: Review of system: Regarding cardiology respiratory GI endocrine hematology musculoskeletal all negative except for multiple was mentioned in the H&P - Constitutional Vitals: Temp Pulse Resp BP Pulse Ox 98.2 F 65 16 127/65 98 11/01/18 16:20 11/01/18 17:00 11/01/18 17:00 11/01/18 17:00 11/01/18 18:10 Exam: Physical examination: Gen.: Patient is alert and oriented, not in respiratory distress or pain HEENT: perrla , EOMI, no thyroid gland enlargement, no neck mass, supple neck Heart: S1 and S2 michelle, normal sinus rhythm, no cardiac murmur no gallop rhythm Chest: Air entry equal bilaterally, clear chest, no wheezing, crackles or crepitation Abdomen: Soft nontender nondistended positive bowel sounds, no organomegaly Extremities: No pitting edema, peripheral pulses palpable, no cyanosis tenderness Neuro: Able to move all 4 limbs, Internal Med - H&P Results - Labs CBC & Chem 7: 11/01/18 16:44 11/01/18 16:44 Labs: Short CBC 11/01/18 Range/Units 16:44 WBC 5.0 (4.3-11.1) K/mcL Hgb 12.1 L (12.9-16.9) g/dL Hct 36.6 L (37.5-50.1) % Plt Count 123 L (140-400) K/mcL BMP 11/01/18 16:44 Sodium 138 Potassium 4.4 Chloride 106 Carbon Dioxide 26 BUN 26 H Creatinine 1.92 H Glucose 165 H Calcium 8.8 Cardiac Enzymes 11/01/18 Range/Units 16:44 Troponin I < 0.03 (< 0.04) ng/mL - Impressions ITS Impressions Head CT 11/01/18 16:33 IMPRESSION: No acute intracranial abnormality. Moderate cerebral atrophy appropriate for age. [id number] chronic ischemic changes also age-appropriate. D/ / Aman Kovacs MD / Aman Kovacs MD Interpreting Provider: Aman Kovacs MD Head CTA 11/01/18 16:37 IMPRESSION: Overall normal CTA of the head and neck. No significant arterial stenosis, occlusion, or intracranial aneurysm. Atretic left A1 segment the left anterior cerebral artery well supplied through patent anterior communicating artery. D/ / Aman Kovacs MD / Aman Kovacs MD Interpreting Provider: Aman Kovacs MD Neck CTA 11/01/18 16:37 IMPRESSION: Overall normal CTA of the head and neck. No significant arterial stenosis, occlusion, or intracranial aneurysm. Atretic left A1 segment the left anterior cerebral artery well supplied through patent anterior communicating artery. D/ / Aman Kovacs MD / Aman Kovacs MD Interpreting Provider: Aman Kovacs MD - Assessment and Plan (1) TIA (transient ischemic attack) Current Visit: Yes Status: Acute Assessment and plan: Patient presents with acute onset of sudden right-sided weakness which resolved within [address] head no acute as well as CTA head and neck Patient cannot have MRI because of pacemaker Consulting neurologist continue on aspirin and Plavix Order echocardiogram Continue on the stroke pathway T the patient nothing by mouth swallowing evaluation PTOT evaluation Check lipid panel GI and DVT prophylaxis check echo consult neurology patient refuses TPA administration 2- history of Parkinson disease continue on home medication 3- history of CAD status post pacemaker and inability to continue on home medication 4- history of chronic kidney disease : serum creatinine 1.9 consistent with his baseline the patient lives at a bit dehydration and started on IV fluids and hold BG inhibitor check UA 5- GERD continue on famotidine 6- history of BPH continued on tamsulosin - Time Spent With Patient Total time spent is greater than 50% in coordination of care (as documented) at patient's floor/unit and/or counseling patient:
[2018-11-01 18:56] LABS: Bilirubin,Urine Negative (Negative); Blood,Urine Negative (Negative); Clarity,Urine Clear (Clear); Color,Urine Yellow (Yellow); Glucose,Urine (UA) Normal (Normal); Ketones,Urine Negative (Negative); Leukocyte Esterase,Urine Negative (Negative); Nitrite,Urine Negative (Negative); PH,Urine 5.5 pH Units (5.0-8.0); Protein,Urine Negative (Neg-Trace); Specific Gravity,Urine > 1.030 (1.010-1.025); Urobilinogen,Urine Normal (Normal)
[2018-11-01 18:57] LABS: Magnesium 2.1 mg/dL (1.6-2.6)
[2018-11-01 19:20] LABS: Estimated Average Glucose 157 mg/dl
[2018-11-01 19:39] LABS: Thyroid Stimulating Hormone 0.875 mcIU/mL (0.340-5.600)
[2018-11-01] MEDS: Carbidopa/Levodopa ER 50/200 TABLET PO SCH (20:55)
[2018-11-01] MEDS: 0.9 % Sodium Chloride 1,000 ML IVC SCH (20:56)
[2018-11-01] MEDS: *HR* Heparin 5,000 UNIT/ML VIAL SQ SCH (20:56)
[2018-11-02] MEDS: *HR* Heparin 5,000 UNIT/ML VIAL SQ SCH ×4 (04:34→21:08)
[2018-11-02 06:39] LABS: Basophils % 0.9 %; Eosinophils # 0.4 K/mcL (0.0-0.6); Eosinophils % 7.7 %; Hematocrit 37.1 % (37.5-50.1); Hemoglobin 12.1 g/dL (12.9-16.9); Immature Granulocytes % 0.2 % (0-4); Lymphocytes # 1.7 K/mcL (0.6-4.6); Lymphocytes % 36.7 %; Mean Corpuscular HGB Conc 32.6 g/dL (31.6-35.5); Mean Corpuscular Hemoglobin 31.5 pg (28.0-33.3); Mean Corpuscular Volume 96.6 fL (83.0-100.0); Mean Platelet Volume 11.5 fL (9.4-12.4); Monocytes # 0.5 K/mcL (0.0-1.3); Monocytes % 9.9 %; Neutrophils # 2.1 K/mcL (1.6-8.9); Platelet Count 120 K/mcL (140-400); Red Blood Count 3.84 M/mcL (4.19-5.50); Red Cell Distribution Width 13.4 % (11.5-14.5); Segmented Neutrophils % 44.6 %; White Blood Count 4.7 K/mcL (4.3-11.1)
[2018-11-02 07:02] LABS: Alanine Aminotransferase < 3 Units/L (7-52); Albumin 3.4 g/dL (3.5-5.7); Albumin/Globulin Ratio 1.3 (1.1-2.2); Alkaline Phosphatase 44 Units/L (34-104); Aspartate Amino Transferase 11 Units/L (13-39); BUN/Creatinine Ratio 13 (6-26); Bilirubin,Total 0.7 mg/dL (0.3-1.0); Blood Urea Nitrogen 22 mg/dL (8-23); Calcium 8.7 mg/dL (8.6-10.3); Carbon Dioxide 27 mEq/L (23-29); Chloride 109 mEq/L (98-107); Globulin 2.7 g/dL (2.4-3.5); Glucose 90 mg/dL (70-105); Osmolality,Calculated 285 (280-300); Potassium 3.6 mEq/L (3.5-5.1); Sodium 136 mEq/L (136-145); Total Protein 6.1 g/dL (6.4-8.9); eGFR For African Americans 48 (> 60); eGFR For Non-African Americans 40 (> 60)
[2018-11-02] MEDS: Acetaminophen 325 MG TABLET PO PRN ×3 (08:41→21:55)
[2018-11-02] MEDS: Aspirin Enteric Coated 81 MG Tablet PO SCH (08:41)
[2018-11-02] MEDS: Carbidopa/Levodopa ER 50/200 TABLET PO SCH ×3 (08:41→20:27)
[2018-11-02] MEDS: Isosorbide MONOnitrate (24 HR) 60 MG TAB.ER.24H PO SCH (08:43)
[2018-11-02] MEDS: 0.9 % Sodium Chloride 1,000 ML IVC SCH (08:43)
[2018-11-02] MEDS: Famotidine 20 MG TABLET PO SCH (08:43)
--- NOTE | 2018-11-02 09:18 | Internal Med Progress Note ---
Hospitalist Progress Note - Encounter Date of Encounter: 11/02/18 Time of Encounter: 09:15 - Subjective Interval History: the patient was seen and examined at bedside. complain of right calf pain states it is chronic intermittent and resolve usually by Tylenol, check venous doppler has chronic weakness of right leg no weakness of left arm no dizziness no chest pain or SOB - Exam Vitals: Temp Pulse Resp BP Pulse Ox 97.7 F 65 16 167/84 96 11/02/18 07:33 11/02/18 07:33 11/02/18 07:33 11/02/18 07:33 11/02/18 07:33 Exam: Physical examination: Gen.: Patient is alert and oriented, not in respiratory distress or pain HEENT: perrla , EOMI, no thyroid gland enlargement, no neck mass, supple neck Heart: S1 and S2 michelle, normal sinus rhythm, no cardiac murmur no gallop rhythm Chest: Air entry equal bilaterally, clear chest, no wheezing, crackles or crepitation Abdomen: Soft nontender nondistended positive bowel sounds, no organomegaly Extremities: No pitting edema, peripheral pulses palpable, no cyanosis , right calf tenderness on palpation Neuro: Able to move all 4 limbs, - Assessment and Plan (1) TIA (transient ischemic attack) Current Visit: Yes Status: Suspected Assessment and Plan: Patient presents with acute onset of sudden right-sided weakness which resolved within [address] head no acute as well as CTA head and neck Patient cannot have MRI because of pacemaker Consult neurologist for further recommendation continue on aspirin and Plavix Order echocardiogram Continue on the stroke pathway pass swallow, on cardiac diet PTOT evaluation Check lipid panel GI and DVT prophylaxis patient refuses TPA administration, also all symptoms of patient resolved 2- history of Parkinson disease continue on home medication 3- history of CAD status post pacemaker and inability to continue on home medication 4- history of chronic kidney disease : serum creatinine trend down to 1.6 from 1.9 , consistent with his baseline on IV fluids and hold BG inhibitor UA not suggestive of UTI 5- GERD continue on famotidine 6- history of BPH continued on tamsulosin 7- HTN: continue on home BP medication DVT Prophylaxis: heparin - Time Spent with Patient Total time spent is greater than 50% in coordination of care (as documented) at patient's floor/unit and/or counseling patient: Internal Medicine: Result - Labs CBC & Chem 7: 11/02/18 06:13 11/02/18 06:13 Labs: Short CBC 11/01/18 11/02/18 Range/Units 16:44 06:13 WBC 5.0 4.7 (4.3-11.1) K/mcL Hgb 12.1 L 12.1 L (12.9-16.9) g/dL Hct 36.6 L 37.1 L (37.5-50.1) % Plt Count 123 L 120 L (140-400) K/mcL Neutrophils # 2.1 (1.6-8.9) K/mcL BMP 11/01/18 11/02/18 16:44 06:13 Sodium 138 136 Potassium 4.4 3.6 Chloride 106 109 H Carbon Dioxide 26 27 BUN 26 H 22 Creatinine 1.92 H 1.69 H Glucose 165 H 90 Calcium 8.8 8.7 Cardiac Enzymes 11/01/18 Range/Units 16:44 Troponin I < 0.03 (< 0.04) ng/mL Liver Function 11/02/18 Range/Units 06:13 Total Bilirubin 0.7 (0.3-1.0) mg/dL AST 11 L (13-39) Units/L ALT < 3 L (7-52) Units/L Alkaline Phosphatase 44 (34-104) Units/L Albumin 3.4 L (3.5-5.7) g/dL Urine 11/01/18 Range/Units 18:44 Urine Color Yellow (Yellow) Urine Clarity Clear (Clear) Urine pH 5.5 (5.0-8.0) pH Units Ur Specific [place] > 1.030 H (1.010-1.025) Urine Protein Negative (Neg-Trace) mg/dL Urine Glucose (UA) Normal (Normal) mg/dL - ABG Interpretation ABG results: PT/INR, D-dimer PT 12.1 Seconds (9.4-12.1) 11/01/18 16:44 - Impressions Impressions Head CT 11/01/18 16:33 IMPRESSION: No acute intracranial abnormality. Moderate cerebral atrophy appropriate for age. Cgkf-[id number] chronic ischemic changes also age-appropriate. D/ / Aman Kovacs MD / Aman oKvacs MD Interpreting Provider: Aman Kovacs MD Head CTA 11/01/18 16:37 IMPRESSION: Overall normal CTA of the head and neck. No significant arterial stenosis, occlusion, or intracranial aneurysm. Atretic left A1 segment the left anterior cerebral artery well supplied through patent anterior communicating artery. D/ / Aman Kovacs MD / Aman Kovacs MD Interpreting Provider: Aman Kovacs MD Neck CTA 11/01/18 16:37 IMPRESSION: Overall normal CTA of the head and neck. No significant arterial stenosis, occlusion, or intracranial aneurysm. Atretic left A1 segment the left anterior cerebral artery well supplied through patent anterior communicating artery. D/ / Aman Kovacs MD / Aman Kovacs MD Interpreting Provider: Aman Kovacs MD Consult Discharge Plan - Plan Referrals: Halie Mena, ELECTRODE T[employer]NER AND FINISHER [Primary Care Provider] -
--- NOTE | 2018-11-02 14:40 | Neurology - Consult Note ---
Date of Encounter: 11/02/18 Time of Encounter: 14:34 Assessment and Plan (1) Neck pain on right side Current Visit: No Status: Acute I am concerned that this patient's right neck pain along with the right upper and right lower extremity weakness may be due to cervical myelopathy. Based on how he describes the evolution of his right sided pain and weakness is been a chronic subacute process. He denies ever having sudden weakness of the right upper and right lower extremity which is maximal at onset which is typical of stroke. Unfortunately however he has a pacemaker defibrillator which is probably not MRI compatible as it was implanted back in 1994. At this juncture I would hope to be able to obtain a CT myelogram on him to consider the poss ibility of cervical stenosis. Further recommendations will be made after CT myelogram has been completed. 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 Echocardiogram reveals an ejection fraction of 45% which is low however because of the pain component in the neck I am not convinced that this is a stroke. I would maintain his aspirin and Plavix as they are currently. (2) Parkinson disease Current Visit: No Status: Chronic Although this patient does have a history of idiopathic Parkinson's disease for several years and he admits that the carbidopa levodopa does help with his symptoms of Parkinson's, I do not feel that his most recent episode of weakness of the right upper and right lower extremity is related to the Parkinson's disease. This is mainly because of the right-sided neck pain. However he is not currently under the care of a neurologist for his Parkinson's. I would like to follow up with him in my office for ongoing Parkinson's management after his hospital and care has been completed. History of Present Illness HPI: The chart was reviewed, patient was seen and examined. Mr. Joe is a 73-year-old right-handed gentleman who is being seen for neurologic evaluation secondary to sided weakness. He does have a prior history of hypertension and coronary artery disease, status post CABG and Parkinson's disease. He reports walking in the park yesterday with his girlfriend. He does recall that was very hot out. He began to experience intense right-sided neck pain followed by weakness of the right upper and right lower extremities. However he is been dealing with this right-sided neck pain for several years now. He states that he has had weakness of the right upper and right lower extremity which is chronic. He has had previous hospital admissions were the possibility of stroke was entertained however never proven. At the time the pain is improved but not completely gone. He is able to move the right upper and right lower extremities however they are weak. As best he can recall the onset of the right upper and right lower extremity weakness has been subacute. He does have a pacemaker defibrillator which she states may have been implanted back in 1994 or so. He is never been able to have an MRI scan of the head or neck. He also has Parkinson's disease which is treated by primary care provider. He does not see a neurologist for this now. I did personally review the CT scan of the brain which does reveal some chronic ischemic changes as well as cortical atrophy, however no evidence of acute infarct, hemorrhage or mass effect. CTA scan of the head and neck was also completed. 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 He has had an echocardiogram completed with an EF of about 45%. He knows he has a history of cervical spondylosis. Upon admission a stroke alert was called and he was deemed to be an eligible for TPA. Past Med Surg Social Fam HX - Past Medical History Medical history: asthma, cardiomyopathy, CHF, coronary artery disease, diabetes, GERD, hyperlipidemia, hypertension, myocardial infarction, renal disease, other Additional medical history: parkinsons Psychiatric history: no psych history - Past Surgical History Surgical History: angioplasty/stent, coronary bypass (CABG), pacemaker/AICD, other Additional surgical history: right rotator cuff surgery. Mulitple heart Stents. Right Leg Surgery. triple bypass - Social History Smoking Status: Never smoker Smokeless Tobacco Status: No Alcohol use: none Drug use: none - Family History Father Living Status: Hx Family Cardiac Disorders: Yes (Bad heart) Hx Family Neurologic Disorders: Yes (Alzheimer's) Mother Living Status: Hx Family Cardiac Disorders: Yes ([place]) Medications and Allergies Pantoprazole Sodium [Protonix] 40 mg PO QPM 01/04/16 [History] Carvedilol 3.125 mg PO BID 09/08/17 [History] Clopidogrel [Plavix] 75 mg PO DAILY 09/08/17 [History] Lisinopril 2.5 mg PO DAILY 09/08/17 [History] Nitroglycerin [Nitrostat] 0.4 mg SL Q5M PRN 09/08/17 [History] Tamsulosin [Flomax] 0.4 mg PO HS 09/08/17 [History] Multivitamin [One Daily Essential] 1 tab PO DAILY 01/19/18 [History] Carbidopa/Levodopa [Carbidopa-Levo ER 25-100 Tab] 1 tab PO TID 05/28/18 [History] Famotidine [Pepcid] 40 mg PO DAILY 09/01/18 [History] Albuterol Sulfate [Ventolin Hfa] 2 puff IH Q6H PRN 09/29/18 [History] Aspirin [Adult Aspirin Regimen] 81 mg PO DAILY 09/29/18 [History] Cholecalciferol (D-3) [Vitamin D] 1,000 unit PO DAILY 09/29/18 [History] Isosorbide MONOnitrate [Isosorbide Mononitrate ER] 120 mg PO DAILY 09/29/18 [History] Allergy/AdvReac Type Severity Reaction Status Date / Time furosemide [From Lasix] AdvReac See Verified 09/29/18 10:08 Comments All Systems: The remainder of the systems were reviewed and are negative Review of Systems: The balance of the systems review is negative. Physical Examination - Vital Signs Vital Signs: Initial Vital Signs Temp Pulse Resp BP Pulse Ox 98.2 F 76 18 97/64 96 11/01/18 16:20 11/01/18 16:20 11/01/18 16:20 11/01/18 16:20 11/01/18 16:20 - Exam Exam: General Examination: *CONSTITUTIONAL: normal *GENERAL APPEARANCE OF PATIENT appears healthy and well groomed *EYES: pupils equal, round, reactive to light and accommodation, conjunctiva clear without masses or ulcerations, fundi normal. *CARDIOVASCULAR no peripheral edema, distal temperature normal, dorsalis pedis pulses normal. Refer to vital signs Musculoskeletal: *GAIT AND STATION WERE not assessed. *ASSESSMENT OF MUSCLE STRENGTH IN THE UPPER AND LOWER EXTREMITIES patient does appear parkinsonian. Occasionally there is a resting tremor of the right upper extremity. Strength of the right upper extremity is 3/5 of the deltoid, biceps, triceps and 2/5 of the right carotid. He also has 3/5 strength of the right hip flexors, quadriceps, tibialis anterior and gastroc muscles. There is no atrophy present. He does have cogwheel rigidity of the right upper extremi ty. *MUSCLE TONE IN THE UPPER AND LOWER EXTREMITIES he does appear parkinsonian, he does have cogwheel rigidity of the right upper extremity. No atrophy is present. Neurological: *ORIENTATION to time and place *RECURRENT AND REMOTE MEMORY intact *ATTENTION AND CONCENTRATION are normal *LANGUAGE FUNCTION no significant aphasia or dysarthia was noted. *FUND OF KNOWLEDGE aware of current events, past history, vocabulary *MENTAL attention span and concentration normal. *CN II optic fundi were normal, no papilledema noted. *CN III,IV, PERRLA extraocular eye movements were full, no nystagmus and no ptosis noted. *CN V shows normal sensation and jaw opens symmetrically. *CN VII shows normal facial movement symmetrically, upper and lower bilaterally. *CN VIII shows no significant hearing loss on examination in the office. *CN IX,,X palate elevated symmetrically and normal gag reflex was noted. *CN XI normal strength in the sternocleidomastoid muscles, symmetrical shoulder shrugging. *CN XII tongue protruded in the midline, with normal strength and movement. *SENSORY EXAMINATION pinprick sensation intact, and light touch(vibration sense). *REFLEXES: deep tendon reflexes were normal at 2/4 of the left biceps, triceps and brachial radialis. Patellar reflexes 2/4, left Achilles is 1/4, all reflexes of the right upper and right lower extremities are diminished. *CEREBELLAR TESTING normal finger to nose, *PAIN LEVEL 6 Results - Laboratory Findings CBC and BMP: 11/02/18 06:13 11/02/18 06:13 Abnormal lab findings: Abnormal lab results RBC 3.84 M/mcL (4.19-5.50) L 11/02/18 06:13 Hgb 12.1 g/dL (12.9-16.9) L 11/02/18 06:13 Hct 37.1 % (37.5-50.1) L 11/02/18 06:13 Plt Count 120 K/mcL (140-400) L 11/02/18 06:13 Chloride 109 mEq/L (98-107) H 11/02/18 06:13 BUN 26 mg/dL (8-23) H 11/01/18 16:44 Creatinine 1.69 mg/dL (0.70-1.30) H 11/02/18 06:13 Est GFR ( Amer) 48 (> 60) L 11/02/18 06:13 Est GFR (Non-Af Amer) 40 (> 60) L 11/02/18 06:13 Glucose 165 mg/dL (70-105) H 11/01/18 16:44 POC Glucose 121 mg/dL (70-99) H 11/01/18 20:25 Hemoglobin A1c 7.1 % (-5.6) H 11/01/18 16:44 AST 11 Units/L (13-39) L 11/02/18 06:13 ALT < 3 Units/L (7-52) L 11/02/18 06:13 Serum Total Protein 6.1 g/dL (6.4-8.9) L 11/02/18 06:13 Albumin 3.4 g/dL (3.5-5.7) L 11/02/18 06:13 Ur Specific [place] > 1.030 (1.010-1.025) H 11/01/18 18:44 Consult Discharge Plan - Plan Referrals: Halie Mena, PRICE ACCURACY SUPERVISOR [Primary Care Provider] -
[2018-11-03 03:19] LABS: Basophils % 0.5 %; Eosinophils # 0.4 K/mcL (0.0-0.6); Eosinophils % 6.8 %; Hematocrit 36.9 % (37.5-50.1); Hemoglobin 12.1 g/dL (12.9-16.9); Immature Granulocytes % 0.2 % (0-4); Lymphocytes # 1.8 K/mcL (0.6-4.6); Lymphocytes % 31.6 %; Mean Corpuscular HGB Conc 32.8 g/dL (31.6-35.5); Mean Corpuscular Hemoglobin 31.8 pg (28.0-33.3); Mean Corpuscular Volume 96.9 fL (83.0-100.0); Mean Platelet Volume 11.5 fL (9.4-12.4); Monocytes # 0.6 K/mcL (0.0-1.3); Monocytes % 9.8 %; Neutrophils # 2.9 K/mcL (1.6-8.9); Platelet Count 118 K/mcL (140-400); Red Blood Count 3.81 M/mcL (4.19-5.50); Red Cell Distribution Width 13.3 % (11.5-14.5); Segmented Neutrophils % 51.1 %; White Blood Count 5.6 K/mcL (4.3-11.1)
[2018-11-03 03:52] LABS: Alanine Aminotransferase < 3 Units/L (7-52); Albumin 3.3 g/dL (3.5-5.7); Albumin/Globulin Ratio 1.2 (1.1-2.2); Alkaline Phosphatase 44 Units/L (34-104); Aspartate Amino Transferase 12 Units/L (13-39); BUN/Creatinine Ratio 12 (6-26); Bilirubin,Total 0.6 mg/dL (0.3-1.0); Blood Urea Nitrogen 23 mg/dL (8-23); Calcium 8.9 mg/dL (8.6-10.3); Carbon Dioxide 25 mEq/L (23-29); Chloride 105 mEq/L (98-107); Globulin 2.8 g/dL (2.4-3.5); Glucose 90 mg/dL (70-105); Osmolality,Calculated 293 (280-300); Potassium 3.9 mEq/L (3.5-5.1); Sodium 140 mEq/L (136-145); Total Protein 6.1 g/dL (6.4-8.9); eGFR For African Americans 43 (> 60); eGFR For Non-African Americans 35 (> 60)
--- NOTE | 2018-11-03 08:59 | Neurology Progress Note ---
Date of Encounter: 11/03/18 Time of Encounter: 08:53 Assessment and Plan (1) Neck pain on right side Current Visit: No Status: Acute The right neck pain, and right arm and leg pain persists but are improving. Additionally, the right-sided weakness has also improved this morning. Since admission the patient has had a CT of the head negative for an acute intracranial abnormality. Additionally he has had CTA head and neck which was negative for significant arterial stenosis, occlusion or intracranial aneurysm. Patient has a pacemaker; currently we are querying [facility] in regards to pacer compatibility with MRI Ideally we would like to get an MRI of the cervical spine to assess for myelopathy and/or ischemia; however this is pending compatibility of his pacemaker. - however, low suspicion for acute ischemic causes Today we had planned for a CT myelogram of the cervical spine; unfortunately, this is unable to be completed as the patient is on aspirin and Plavix. He was offered an elective CT myelogram of the cervical spine after withholding aspirin and Plavix however, he declined. Of note, he mentions seeing pain management recently. He reports that after receiving a lumbar spine epidural injection he had immediate cessation of his RT arm & leg pain and strength of RUE & RLE were full reporting he no longer needed a walker for assistance for a few weeks. This makes me question a component of conversion disorder as well. If we are unable to get an MRI I am afraid there would not be much else to offer since he declined elective CT myelogram. I recommend maintaining ASA and Plavix C/w medical and supportive care He may benefit from PT/OT evaluation Consider outpatient referral to pain management as well (2) Parkinson disease Current Visit: No Status: Chronic Continue with Sinemet at current home dose Please have him follow up with Dr. Catalan upon discharge Subjective Principal diagnosis: right sided weakness and pain; right arm&leg Interval history: The chart was reviewed, the patient was seen and examined at the bedside today. In brief this is a 73-year-old male who was seen in follow-up for right-sided neck pain and right arm and leg weakness. The patient had multiple admissions for the same dating back to September 2017. Throughout multiple admissions and acute neurological cause is yet to be identified. Additionally, the patient states that this is been evaluated at [facility] and again there was no cause for the neck pain or weakness to be found. Today he is sitting up at the bedside resting comfortably and reports that his right arm and leg is still weak. His main complaints today are in regards to pain in his right leg. He mentions that approximately one month ago he had a lumbar spine epidural injection from his pain management doctor. He reports that he immediately after the lumbar spine epidural he regained full strength in both his right arm and leg and that the right arm and leg pain dissipated. This does make the ponder as to whether or not there is a conversion component to this case. Nevertheless I discussed plan of care was to attempt a CT myelogram of the cervical spine today. Unfortunately, he is on aspirin and Plavix and this is unable to be done at this time. This may be done electively outpatient after holding aspirin and Plavix for 1 week. I mention this to the patient however he declined. He denies any further questions. Clinically, he is stable without any further complaints. Objective - Constitutional Vitals: Temp Pulse Resp BP Pulse Ox 98.0 F 73 16 127/77 96 11/03/18 03:36 11/03/18 03:36 11/03/18 03:36 11/03/18 03:36 11/03/18 03:36 Exam: Examination: General Examination: *CONSTITUTIONAL: Alert and oriented x3, no acute distress *GENERAL APPEARANCE OF PATIENT elderly male who appears healthy and well groomed *EYES: pupils equal, round, reactive to light and accommodation, con junctiva clear *CARDIOVASCULAR: no peripheral edema, distal temperature normal, dorsalis pedis pulses normal. Refer to vital signs * MUSCULOSKELETAL: *GAIT AND STATION:Deferred *ASSESSMENT OF MUSCLE STRENGTH IN THE UPPER AND LOWER EXTREMITIES; the patient's right upper extremity strength is 4/5 in the deltoid, bicep, tricep and underwear trimmer strength with some give way weakness noted. Additionally the right hip flexor, quadriceps, anterior tibialis is 3/5. The left deltoid, bicep, tricep, hip flexor, quadriceps, anterior tibialis and dorsiflexion of the foot is 5/5. *MUSCLE TONE IN THE UPPER AND LOWER EXTREMITIES Parkinsonian features noted with occasional resting tremor of the R UE and cogwheeling Neurological: *ORIENTATION to person, situation, time and place *LANGUAGE AND FUNCTION no significant aphasia or dysarthia was noted. *ATTENTION AND CONCENTRATION are normal *LANGUAGE FUNCTION no significant aphasia or dysarthia was noted. *FUND OF KNOWLEDGE aware of current events, past history, vocabulary *MENTAL attention span and concentration normal. *CN II optic fundi were normal, no papilledema noted. *CN III,IV, PERRLA extraocular eye movements were full, no nystagmus and no ptosis noted. *CN V shows normal sensation and jaw opens symmetrically. *CN VII shows normal facial movement symmetrically, upper and lower bilaterally. *CN VIII shows no significant hearing loss on exam *CN IX-X palate elevated symmetrically *CN XI normal strength in the sternocleidomastoid muscles, symmetrical shoulder shrugging. *CN XII tongue protruded in the midline, with normal strength and movement. *SENSORY EXAMINATION light touch intact *REFLEXES: deep tendon reflexes were normal and symmetrical , grade 2/4 diffusely, no pathological reflexes were noted. *CEREBELLAR TESTING normal finger to nose, heel/knee/cesar *PAIN LEVEL 5/10; most notably in the RLE. He is also reporting pain of 5/10 in the RUE Results - Laboratory Findings CBC and BMP: 11/03/18 01:59 11/03/18 01:59 Abnormal lab findings: Abnormal lab results RBC 3.81 M/mcL (4.19-5.50) L 11/03/18 01:59 Hgb 12.1 g/dL (12.9-16.9) L 11/03/18 01:59 Hct 36.9 % (37.5-50.1) L 11/03/18 01:59 Plt Count 118 K/mcL (140-400) L 11/03/18 01:59 Chloride 109 mEq/L (98-107) H 11/02/18 06:13 BUN 26 mg/dL (8-23) H 11/01/18 16:44 Creatinine 1.87 mg/dL (0.70-1.30) H 11/03/18 01:59 Est GFR ( Amer) 43 (> 60) L 11/03/18 01:59 Est GFR (Non-Af Amer) 35 (> 60) L 11/03/18 01:59 Glucose 165 mg/dL (70-105) H 11/01/18 16:44 POC Glucose 128 mg/dL (70-99) H 11/02/18 20:16 Hemoglobin A1c 7.1 % (-5.6) H 11/01/18 16:44 AST 12 Units/L (13-39) L 11/03/18 01:59 ALT < 3 Units/L (7-52) L 11/03/18 01:59 Serum Total Protein 6.1 g/dL (6.4-8.9) L 11/03/18 01:59 Albumin 3.3 g/dL (3.5-5.7) L 11/03/18 01:59 Ur Specific [place] > 1.030 (1.010-1.025) H 11/01/18 18:44 Consult Discharge Plan - Plan Referrals: Halie Mena, MAGGEI [Primary Care Provider] - 11/12/18 3:00 pm ()
[2018-11-03] MEDS: Famotidine 20 MG TABLET PO SCH (09:27)
[2018-11-03] MEDS: Isosorbide MONOnitrate (24 HR) 60 MG TAB.ER.24H PO SCH (09:27)
[2018-11-03] MEDS: Carbidopa/Levodopa ER 50/200 TABLET PO SCH (09:28)
[2018-11-03] MEDS: Aspirin Enteric Coated 81 MG Tablet PO SCH (09:28)
--- NOTE | 2018-11-03 09:58 | Event Note ---
Date of Encounter: 11/03/18 Time of Encounter: 09:55 [facility] returned pacer device information; MRI screening complete; found to be incompatible with MRI In regards to elective CT myelogram the patient refused; stating "I will not hold my Plavix dose no matter what". There are no further recommendations from Neurology's perspective We will sign off at this time Please have him f/u in the clinic with Dr. Catalan for Parkinson's
[2018-11-03 10:54] VITALS: BP 151/95
--- NOTE | 2018-11-03 12:59 | Electrocardiograph Report ---
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
--- NOTE | 2018-11-03 13:40 | Discharge Summary ---
Date of Encounter: 11/03/18 Time of Encounter: 13:38 - Discharge Diagnosis (1) TIA (transient ischemic attack) Priority: Primary Status: Suspected Hospital course: Mr. Joe is a 73 year old male with history of hypertension and coronary artery disease status post CABG status post ICD and defibrillator placement, history of cervical spondylolysis, history of Parkinson disease, who was admitted for further neurological evaluation. Right-sided weakness associated with intense right-sided neck pain , he has right lower extremity weakness which is a chronic, CT of the head no acute CK of the neck and head are remarkable, revealing congenital abnormalities which is unrelated to his presentation, initial stroke alert was called and tele neurologist during the patient eligible for TPA over the patient refused TPA administration. Shortly after that all patient symptoms resolved and patient admitted for further neurological evaluation, neurologist recommended CT myelogram to rule out cervical spinal stenosis especially in the setting of neck pain with right upper extremity weakness, however the patient refused to hold Plavix. Also the ICD and defibrillator deemed not compatible with MRI. Neurologist felt there is possible component of conversion disorder as the patient reports lumbar spinal epidural in the paste immediately led to cessation o his RT arm and leg pain Regular CT cervical spine show no acute abnormality of cervical spine Moderate bilateral foraminal stenosis at C5-6 and C6-7. Mild left foraminal stenosis at C4-5. No evidence of significant focal disc protrusion or central canal stenosis. CT thoracic spine nonacute Neurologist cleared The patient to be discharged home as the patient refused cervical myelogram and recommended outpatient follow-up with Dr. Catalan for Parkinson disease follow up with PCP and with pain clinic - Time Spent with Patient Total time spent providing and/or coordinating discharge services: 33 min - Discharge Medications Prescriptions: Continued Pantoprazole Sodium [Protonix] 40 mg PO QPM Carvedilol 3.125 mg PO BID Clopidogrel [Plavix] 75 mg PO DAILY Lisinopril 2.5 mg PO DAILY Nitroglycerin [Nitrostat] 0.4 mg SL Q5M PRN PRN Reason: Chest Pain Tamsulosin [Flomax] 0.4 mg PO HS Multivitamin [One Daily Essential] 1 tab PO DAILY Carbidopa/Levodopa [Carbidopa-Levo ER 25-100 Tab] 1 tab PO TID Famotidine [Pepcid] 40 mg PO DAILY Cholecalciferol (D-3) [Vitamin D] 1,000 unit PO DAILY Albuterol Sulfate [Ventolin Hfa] 2 puff IH Q6H PRN PRN Reason: Shortness Of Breath Aspirin [Adult Aspirin Regimen] 81 mg PO DAILY Isosorbide MONOnitrate [Isosorbide Mononitrate ER] 120 mg PO DAILY Discontinued Meloxicam 15 mg PO DAILY Home Medications: Pantoprazole Sodium [Protonix] 40 mg PO QPM 01/04/16 [History] Carvedilol 3.125 mg PO BID 09/08/17 [History] Clopidogrel [Plavix] 75 mg PO DAILY 09/08/17 [History] Lisinopril 2.5 mg PO DAILY 09/08/17 [History] Nitroglycerin [Nitrostat] 0.4 mg SL Q5M PRN 09/08/17 [History] Tamsulosin [Flomax] 0.4 mg PO HS 09/08/17 [History] Multivitamin [One Daily Essential] 1 tab PO DAILY 01/19/18 [History] Carbidopa/Levodopa [Carbidopa-Levo ER 25-100 Tab] 1 tab PO TID 05/28/18 [History] Famotidine [Pepcid] 40 mg PO DAILY 09/01/18 [History] Albuterol Sulfate [Ventolin Hfa] 2 puff IH Q6H PRN 09/29/18 [History] Aspirin [Adult Aspirin Regimen] 81 mg PO DAILY 09/29/18 [History] Cholecalciferol (D-3) [Vitamin D] 1,000 unit PO DAILY 09/29/18 [History] Isosorbide MONOnitrate [Isosorbide Mononitrate ER] 120 mg PO DAILY 09/29/18 [History] Allergies/Adverse Reactions: Allergy/AdvReac Type Severity Reaction Status Date / Time furosemide [From Lasix] AdvReac See Verified 11/02/18 18:47 Comments Date of admission: 11/01/18 18:10 Primary care physician: Halie Mena CNP Consults: 11/01/18 18:27 Consult to Physical Therapy [CONS] Routine Comment: Evaluate, develop and implement POC Reason for Consult: weakness Does patient have active BEDREST order?: No Is patient medically & hemodynamically stable?: Yes Patient assessed for mobility or mobilized this visit?: Yes 11/01/18 18:28 Consult to Neurology [CONS] Routine Consulting Provider: [facility]rology [facility] Reason for Consult: TIA Call Completed: No - Constitutional Vitals: Temp Pulse Resp BP Pulse Ox 98.2 F 76 16 151/95 98 11/03/18 10:51 11/03/18 10:51 11/03/18 10:51 11/03/18 10:51 11/03/18 10:51 Exam: Physical examination: Gen.: Patient is alert and oriented, not in respiratory distress or pain HEENT: perrla , EOMI, no thyroid gland enlargement, no neck mass, supple neck Heart: S1 and S2 michelle, normal sinus rhythm, no cardiac murmur no gallop rhythm Chest: Air entry equal bilaterally, clear chest, no wheezing, crackles or crepitation Abdomen: Soft nontender nondistended positive bowel sounds, no organomegaly Extremities: No pitting edema, peripheral pulses palpable, no cyanosis , right calf tenderness on palpation Neuro: Able to move all 4 limbs, - Patient Status Disposition: Home, Self-Care Condition: Fair - Discharge Instructions Follow Up With: Halie Mena, TONSORIAL ARTIST [Primary Care Provider] - 11/12/18 3:00 pm () Forms: ED Satisfaction Letter Additional Instructions: Please have him f/u in the clinic with Dr. Catalan for Parkinson's
--- NOTE | 2018-11-03 13:55 | Physician Discharge Referral ---
Home Health/Hosp Referral Info Transfer to: Home Health Provider in Charge Post Discharge: PCP - Diagnosis (1) TIA (transient ischemic attack) Priority: Primary Status: Suspected (2) Generalized weakness Priority: Secondary Status: Acute - Respiratory Orders Smoking Cessation: Smoking cessation has been advised. For more information, call the [place] Tobacco Quit Line at 7-260-BXFV-NOW. - Diet/Nutrition Diet/Nutrition Orders: Cardiac - Services Needed Following services are medically necessary services: Physical Therapy, Occupational Therapy - Transfer Medications Home Medications: Pantoprazole Sodium [Protonix] 40 mg PO QPM 01/04/16 [History] Carvedilol 3.125 mg PO BID 09/08/17 [History] Clopidogrel [Plavix] 75 mg PO DAILY 09/08/17 [History] Lisinopril 2.5 mg PO DAILY 09/08/17 [History] Nitroglycerin [Nitrostat] 0.4 mg SL Q5M PRN 09/08/17 [History] Tamsulosin [Flomax] 0.4 mg PO HS 09/08/17 [History] Multivitamin [One Daily Essential] 1 tab PO DAILY 01/19/18 [History] Carbidopa/Levodopa [Carbidopa-Levo ER 25-100 Tab] 1 tab PO TID 05/28/18 [History] Famotidine [Pepcid] 40 mg PO DAILY 09/01/18 [History] Albuterol Sulfate [Ventolin Hfa] 2 puff IH Q6H PRN 09/29/18 [History] Aspirin [Adult Aspirin Regimen] 81 mg PO DAILY 09/29/18 [History] Cholecalciferol (D-3) [Vitamin D] 1,000 unit PO DAILY 09/29/18 [History] Isosorbide MONOnitrate [Isosorbide Mononitrate ER] 120 mg PO DAILY 09/29/18 [History] Allergies/Adverse Reactions: Allergy/AdvReac Type Severity Reaction Status Date / Time furosemide [From Lasix] AdvReac See Verified 11/02/18 18:47 Comments Certification: Further, I certify that my clinical findings support that this patient is homebound (i.e. absences from home require considerable and taxing effort and are for medical reasons or buddhist services or infrequently or short duration when for other reasons) because: Homebound Reason: Patient requires assistance of a person or device to safely leave home Attestation: My signature below is to certify that this patient is under my care and that I, or nurse practitioner, or a physician's assistant community manager working with me, has a [id number] encounter with this patient.
== END 2018-11-03 14:20 | disposition home or self-care (01) ==
LOC: 3BNU 16:17 → EMEROOARM 16:17 → 3BNU 19:58
PROVIDERS: ADMIT Internal Medicine Nephrology; ATTEND Internal Medicine Nephrology

== ENCOUNTER 2018-12-28 04:58 | Observation (INO) ==
[2018-12-28] MEDS ORDERED: Aspirin 325 MG TABLET PO ONE (05:08)
--- NOTE | 2018-12-28 05:08 | Emergency Department Note ---
Disposition Clinical Impression: Chest pain Qualifiers: Chest pain type: unspecified Qualified Code(s): R07.9 - Chest pain, unspecified Disposition: Admitted As Inpatient Condition: Good Referrals: Halie Mena, MAGGIE [Primary Care Provider] - Forms: ED Satisfaction Letter Time of Disposition: 06:48 Chest Pain HPI - General Stated Complaint: CP Time Seen by Provider: 12/28/18 04:59 Source: patient, EMS Mode of arrival: EMS Limitations: no limitations Vital Signs Reviewed: Yes Nursing Notes Reviewed: Yes - History of Present Illness HPI Narrative: 73-year-old male with a past medical history of multiple heart attacks, stents, CABG that reports chest pain that woke him from sleep at 2:30 in the morning. He states it is associated with lightheadedness and weakness. Patient states the pain feels very similar to his previous heart attacks. He describes it as a left-sided substernal pain. It radiates to his right arm. He denies nausea. He did not take any nitroglycerin at home and has not had any aspirin. Patient is on Plavix. - Related Data Home Medications Medication Instructions Recorded Confirmed Pantoprazole Sodium [Protonix] 40 mg PO QPM 01/04/16 11/01/18 Carvedilol 3.125 mg PO BID 09/08/17 11/01/18 Clopidogrel [Plavix] 75 mg PO DAILY 09/08/17 11/01/18 Lisinopril 2.5 mg PO DAILY 09/08/17 11/01/18 Nitroglycerin [Nitrostat] 0.4 mg SL Q5M PRN 09/08/17 11/01/18 Tamsulosin [Flomax] 0.4 mg PO HS 09/08/17 11/01/18 Multivitamin [One Daily Essential] 1 tab PO DAILY 01/19/18 11/01/18 Carbidopa/Levodopa [Carbidopa-Levo 1 tab PO TID 05/28/18 11/01/18 ER 25-100 Tab] Famotidine [Pepcid] 40 mg PO DAILY 09/01/18 11/01/18 Albuterol Sulfate [Ventolin Hfa] 2 puff IH Q6H PRN 09/29/18 11/01/18 Aspirin [Adult Aspirin Regimen] 81 mg PO DAILY 09/29/18 11/01/18 Cholecalciferol (D-3) [Vitamin D] 1,000 unit PO DAILY 09/29/18 11/01/18 Isosorbide MONOnitrate [Isosorbide 120 mg PO DAILY 09/29/18 11/01/18 Mononitrate ER] Entacapone [Comtan] 200 mg PO TID 12/28/18 12/28/18 Allergies Allergy/AdvReac Type Severity Reaction Status Date / Time furosemide [From Lasix] AdvReac See Verified 11/02/18 18:47 Comments Review of Systems: In addition to that documented in the HPI above, the additional ROS was obtained: Constitutional: Denies fevers or chills Eyes: Denies vision changes ENMT: Denies sore throat CV: Reports chest pain Resp: Reports chronic and baseline SOB GI: Denies vomiting or diarrhea Reports constipation he resolved with prune juice : Denies painful urination MSK: Denies recent trauma Skin: Denies new rashes Neuro: Denies new numbness or tingling Reports onset of weakness with chest pain Endocrine: Denies unexpected weight loss Heme: Denies bleeding disorders Chest Pain PMH - Past Medical History Medical history: Reports: asthma, cardiomyopathy, CHF, coronary artery disease, diabetes, GERD, hyperlipidemia, hypertension, myocardial infarction, renal disease, other Surgical history: Reports: angioplasty/stent, coronary bypass (CABG), pacemaker /AICD, other Psychiatric history: Reports: no psych history - Social History Smoking Status: Never smoker Alcohol use: Reports: none Drug use: Reports: none Physical Exam General: A&O x 3. No acute distress. Well developed, well nourished. Head: atraumatic, normocephalic. ENT: No conjunctival injection, no scleral icterus. PERRLA. EOMI. Oropharynx non- erythematous. mucous membranes moist. Neuro: No focal deficits, no speech deficit, no facial droop, mentating well. BUE/BLE Str 5/5. Pulm: Lungs CTAB A/P. No wheezes, rales, ronchi. Cardio: RRR no m/r/g. Chest not tender to palpation. Abd: Soft, non-distended. Normoactive bowel sounds. Non-tender to palpation. No guarding. Non rigid. Extremities: Radial pulses 2+ deric, dorsalis pedis/posterior tibialis 2+ deric. No LE edema. No cyanosis, clubbing. Skin: warm, dry, intact. No rashes. Psych: Appropriate mood and affect. Answers questions appropriately. Cooperative with exam. Course Vital Signs Temperature 97.8 F 12/28/18 05:13 Pulse Rate 67 12/28/18 05:13 Respiratory Rate 17 12/28/18 05:13 Blood Pressure 157/87 12/28/18 05:13 O2 Sat by Pulse Oximetry 99 12/28/18 05:13 Temperature 97.8 F 12/28/18 05:13 Pulse Rate 64 12/28/18 06:00 Respiratory Rate 16 12/28/18 06:00 Blood Pressure 181/109 12/28/18 06:00 O2 Sat by Pulse Oximetry 100 12/28/18 06:00 Oxygen Delivery Oxygen Delivery Room Air Chest Pain - MDM Narrative Medical decision making narrative: 73M with length cardiac hx that reports substernal chest pain that woke him from sleep at 0230 this morning and is associated with weakness and lightheadedness. Will administer aspirin, nitroglycerin, perform chest pain work up and admit for further testing. 1 NG resolved patient's chest heaviness. It was initially 3-07/16. Pt was admitted to Dr. Medina, hospitalist, who agreed to accept the patient to his service. Results of the workup including any imaging and/or labwork was shared with the patient at bedside. Patient was given an opportunity to ask questions at bedside and all of their concerns were addressed. Patient verbalized understanding and agreement with plan of care. Pt remained stable while in the department. - Medical Records Medical records reviewed: Yes I reviewed the patient's medical records. - Lab Data Lab results reviewed: Yes I reviewed the patient's lab results. Result diagrams: 12/28/18 05:38 12/28/18 05:36 Lab Results 12/28/18 12/28/18 12/28/18 Range/Units 05:36 05:36 05:36 WBC (4.3-11.1) K/mcL RBC (4.19-5.50) M/mcL Hgb (12.9-16.9) g/dL Hct (37.5-50.1) % MCV (83.0-100.0) fL MCH (28.0-33.3) pg MCHC (31.6-35.5) g/dL RDW (11.5-14.5) % Plt Count (140-400) K/mcL MPV (9.4-12.4) fL Immature Gran % (0-4) % Seg Neutrophils % % Lymphocytes % % Monocytes % % Eosinophils % % Basophils % % Neutrophils # (1.6-8.9) K/mcL Lymphocytes # (0.6-4.6) K/mcL Monocytes # (0.0-1.3) K/mcL Eosinophils # (0.0-0.6) K/mcL Basophils # (0.0-0.2) K/mcL PT 10.8 (9.4-12.1) Seconds INR 1.0 APTT 28.7 (26.0-36.0) Seconds Sodium 138 (136-145) mEq/L Potassium 4.2 (3.5-5.1) mEq/L Chloride 107 (98-107) mEq/L Carbon Dioxide 25 (23-29) mEq/L BUN 38 H (8-23) mg/dL Creatinine 1.88 H (0.70-1.30) mg/dL Est GFR ( Amer) 43 L (> 60) Est GFR (Non-Af Amer) 35 L (> 60) BUN/Creatinine Ratio 20 (6-26) Glucose 120 H (70-105) mg/dL Calculated Osmolality 296 (280-300) Calcium 9.3 (8.6-10.3) mg/dL Total Bilirubin 0.6 (0.3-1.0) mg/dL Direct Bilirubin 0.1 (0.0-0.2) mg/dL Indirect Bilirubin 0.5 (0.0-1.2) mg/dL AST 13 (13-39) Units/L ALT < 3 L (7-52) Units/L Alkaline Phosphatase 56 (34-104) Units/L Troponin I < 0.03 (< 0.04) ng/mL B-Natriuretic Peptide 170 H (Less than 100) pg/mL Serum Total Protein 7.4 (6.4-8.9) g/dL Albumin 4.2 (3.5-5.7) g/dL Globulin 3.2 (2.4-3.5) g/dL Albumin/Globulin Ratio 1.3 (1.1-2.2) Lipase 7 L (11-82) Units/L 09/22/19 Range/Units 05:38 WBC 6.7 (4.3-11.1) K/mcL RBC 4.38 (4.19-5.50) M/mcL Hgb 13.6 (12.9-16.9) g/dL Hct 42.1 (37.5-50.1) % MCV 96.1 (83.0-100.0) fL MCH 31.1 (28.0-33.3) pg MCHC 32.3 (31.6-35.5) g/dL RDW 13.3 (11.5-14.5) % Plt Count 142 (140-400) K/mcL MPV 11.6 (9.4-12.4) fL Immature Gran % 0.2 (0-4) % Seg Neutrophils % 63.3 % Lymphocytes % 21.5 % Monocytes % 9.0 % Eosinophils % 5.7 % Basophils % 0.3 % Neutrophils # 4.2 (1.6-8.9) K/mcL Lymphocytes # 1.4 (0.6-4.6) K/mcL Monocytes # 0.6 (0.0-1.3) K/mcL Eosinophils # 0.4 (0.0-0.6) K/mcL Basophils # 0.0 (0.0-0.2) K/mcL PT (9.4-12.1) Seconds INR APTT (26.0-36.0) Seconds Sodium (136-145) mEq/L Potassium (3.5-5.1) mEq/L Chloride (98-107) mEq/L Carbon Dioxide (23-29) mEq/L BUN (8-23) mg/dL Creatinine (0.70-1.30) mg/dL Est GFR ( Amer) (> 60) Est GFR (Non-Af Amer) (> 60) BUN/Creatinine Ratio (6-26) Glucose (70-105) mg/dL Calculated Osmolality (280-300) Calcium (8.6-10.3) mg/dL Total Bilirubin (0.3-1.0) mg/dL Direct Bilirubin (0.0-0.2) mg/dL Indirect Bilirubin (0.0-1.2) mg/dL AST (13-39) Units/L ALT (7-52) Units/L Alkaline Phosphatase (34-104) Units/L Troponin I (< 0.04) ng/mL B-Natriuretic Peptide (Less than 100) pg/mL Serum Total Protein (6.4-8.9) g/dL Albumin (3.5-5.7) g/dL Globulin (2.4-3.5) g/dL Albumin/Globulin Ratio (1.1-2.2) Lipase (11-82) Units/L - Radiology Data Radiology results reviewed: Yes I reviewed the patient's radiology results. Chest X-Ray 12/28/18 05:31 IMPRESSION: No acute findings. D/ / Kavon Rivera / Kavon Rivera Interpreting Provider: Kavon Rivera - EKG Data EKG attestation: Yes I reviewed and interpreted this EKG. EKG results narrative: Heart rate 72, rhythm sinus, axis left. Intervals within normal limits. [place] of T waves noted in leads V5 and V6 which is also seen on previous EKG dated like 2018. There are Q waves in leads 2, 3, aVF which are also seen on previous study. Heart Score - Score History: Moderately Suspicious EKG: Normal Age: Greater than 65 Risk Factors: Equal/Greater than 3 risk factor or history of atherosclerotic disease Troponin: Less than normal limit HEART Score Total: 5
[2018-12-28 05:54] LABS: Basophils % 0.3 %; Eosinophils # 0.4 K/mcL (0.0-0.6); Eosinophils % 5.7 %; Hematocrit 42.1 % (37.5-50.1); Hemoglobin 13.6 g/dL (12.9-16.9); Immature Granulocytes % 0.2 % (0-4); Lymphocytes # 1.4 K/mcL (0.6-4.6); Lymphocytes % 21.5 %; Mean Corpuscular HGB Conc 32.3 g/dL (31.6-35.5); Mean Corpuscular Hemoglobin 31.1 pg (28.0-33.3); Mean Corpuscular Volume 96.1 fL (83.0-100.0); Mean Platelet Volume 11.6 fL (9.4-12.4); Monocytes # 0.6 K/mcL (0.0-1.3); Neutrophils # 4.2 K/mcL (1.6-8.9); Platelet Count 142 K/mcL (140-400); Red Blood Count 4.38 M/mcL (4.19-5.50); Red Cell Distribution Width 13.3 % (11.5-14.5); Segmented Neutrophils % 63.3 %; White Blood Count 6.7 K/mcL (4.3-11.1)
[2018-12-28 06:02] LABS: Prothrombin Time 10.8 Seconds (9.4-12.1)
[2018-12-28 06:05] LABS: Activated Partial Thrombo Time 28.7 Seconds (26.0-36.0)
[2018-12-28 06:19] LABS: Alanine Aminotransferase < 3 Units/L (7-52); Albumin 4.2 g/dL (3.5-5.7); Albumin/Globulin Ratio 1.3 (1.1-2.2); Alkaline Phosphatase 56 Units/L (34-104); Aspartate Amino Transferase 13 Units/L (13-39); BUN/Creatinine Ratio 20 (6-26); Bilirubin,Direct 0.1 mg/dL (0.0-0.2); Bilirubin,Indirect 0.5 mg/dL (0.0-1.2); Bilirubin,Total 0.6 mg/dL (0.3-1.0); Blood Urea Nitrogen 38 mg/dL (8-23); Calcium 9.3 mg/dL (8.6-10.3); Carbon Dioxide 25 mEq/L (23-29); Chloride 107 mEq/L (98-107); Globulin 3.2 g/dL (2.4-3.5); Glucose 120 mg/dL (70-105); Lipase 7 Units/L (11-82); Osmolality,Calculated 296 (280-300); Potassium 4.2 mEq/L (3.5-5.1); Sodium 138 mEq/L (136-145); Total Protein 7.4 g/dL (6.4-8.9); Troponin I < 0.03 ng/mL (< 0.04); eGFR For African Americans 43 (> 60); eGFR For Non-African Americans 35 (> 60)
[2018-12-28] MEDS: Nitroglycerin 0.4 MG TAB.SUBL SL PRN ×3 (06:28→12:33)
--- NOTE | 2018-12-28 06:34 | Emergency Department Note ---
Disposition Clinical Impression: Chest pain Qualifiers: Chest pain type: unspecified Qualified Code(s): R07.9 - Chest pain, unspecified Disposition: Admitted As Inpatient Condition: Good Referrals: Halie Mena, MAGGIE [Primary Care Provider] - Time of Disposition: 06:34 General Adult HPI - General Chief complaint: ED Chest Pain Stated complaint: CP Time Seen by Provider: 12/28/18 04:59 Source: patient, EMS Mode of arrival: EMS Limitations: no limitations - History of Present Illness Pain Scale: 0 - Related Data Home Medications Medication Instructions Recorded Confirmed Pantoprazole Sodium [Protonix] 40 mg PO QPM 01/04/16 12/28/18 Carvedilol 3.125 mg PO BID 09/08/17 12/28/18 Clopidogrel [Plavix] 75 mg PO DAILY 09/08/17 12/28/18 Lisinopril 2.5 mg PO DAILY 09/08/17 12/28/18 Nitroglycerin [Nitrostat] 0.4 mg SL Q5M PRN 09/08/17 12/28/18 Tamsulosin [Flomax] 0.4 mg PO HS 09/08/17 12/28/18 Multivitamin [One Daily Essential] 1 tab PO DAILY 01/19/18 12/28/18 Carbidopa/Levodopa [Carbidopa-Levo 1 tab PO TID 05/28/18 12/28/18 ER 25-100 Tab] Famotidine [Pepcid] 40 mg PO DAILY 09/01/18 12/28/18 Albuterol Sulfate [Ventolin Hfa] 2 puff IH Q6H PRN 09/29/18 12/28/18 Aspirin [Adult Aspirin Regimen] 81 mg PO DAILY 09/29/18 12/28/18 Cholecalciferol (D-3) [Vitamin D] 1,000 unit PO DAILY 09/29/18 12/28/18 Isosorbide MONOnitrate [Isosorbide 120 mg PO DAILY 09/29/18 12/28/18 Mononitrate ER] Entacapone [Comtan] 200 mg PO TID 12/28/18 12/28/18 Allergies Allergy/AdvReac Type Severity Reaction Status Date / Time furosemide [From Lasix] AdvReac See Verified 11/02/18 18:47 Comments Past Medical History - Past Medical History Medical history: Reports: asthma, cardiomyopathy, CHF, coronary artery disease, diabetes, GERD, hyperlipidemia, hypertension, myocardial infarction, renal disease, other Surgical history: Reports: angioplasty/stent, coronary bypass (CABG), pacemaker/AICD, other Psychiatric history: Reports: no psych history - Social History Smoking Status: Never smoker Smokeless Tobacco Status: No Alcohol use: Reports: none Drug use: Reports: none Physical Exam - General Limitations: no limitations General appearance: alert, in no apparent distress Course Vital Signs Temperature 97.8 F 12/28/18 05:13 Pulse Rate 67 12/28/18 05:13 Respiratory Rate 17 12/28/18 05:13 Blood Pressure 157/87 12/28/18 05:13 O2 Sat by Pulse Oximetry 99 12/28/18 05:13 Temperature 97.8 F 12/28/18 05:13 Pulse Rate 64 12/28/18 06:00 Respiratory Rate 16 12/28/18 06:00 Blood Pressure 181/109 12/28/18 06:00 O2 Sat by Pulse Oximetry 100 12/28/18 06:00 Oxygen Delivery Oxygen Delivery Room Air Medical Decision Making - Lab Data Result diagrams: 12/28/18 05:38 12/28/18 05:36 Lab Results 12/28/18 12/28/18 12/28/18 Range/Units 05:36 05:36 05:36 WBC (4.3-11.1) K/mcL RBC (4.19-5.50) M/mcL Hgb (12.9-16.9) g/dL Hct (37.5-50.1) % MCV (83.0-100.0) fL MCH (28.0-33.3) pg MCHC (31.6-35.5) g/dL RDW (11.5-14.5) % Plt Count (140-400) K/mcL MPV (9.4-12.4) fL Immature Gran % (0-4) % Seg Neutrophils % % Lymphocytes % % Monocytes % % Eosinophils % % Basophils % % Neutrophils # (1.6-8.9) K/mcL Lymphocytes # (0.6-4.6) K/mcL Monocytes # (0.0-1.3) K/mcL Eosinophils # (0.0-0.6) K/mcL Basophils # (0.0-0.2) K/mcL PT 10.8 (9.4-12.1) Seconds INR 1.0 APTT 28.7 (26.0-36.0) Seconds Sodium 138 (136-145) mEq/L Potassium 4.2 (3.5-5.1) mEq/L Chloride 107 (98-107) mEq/L Carbon Dioxide 25 (23-29) mEq/L BUN 38 H (8-23) mg/dL Creatinine 1.88 H (0.70-1.30) mg/dL Est GFR ( Amer) 43 L (> 60) Est GFR (Non-Af Amer) 35 L (> 60) BUN/Creatinine Ratio 20 (6-26) Glucose 120 H (70-105) mg/dL Calculated Osmolality 296 (280-300) Calcium 9.3 (8.6-10.3) mg/dL Total Bilirubin 0.6 (0.3-1.0) mg/dL Direct Bilirubin 0.1 (0.0-0.2) mg/dL Indirect Bilirubin 0.5 (0.0-1.2) mg/dL AST 13 (13-39) Units/L ALT < 3 L (7-52) Units/L Alkaline Phosphatase 56 (34-104) Units/L Troponin I < 0.03 (< 0.04) ng/mL B-Natriuretic Peptide 170 H (Less than 100) pg/mL Serum Total Protein 7.4 (6.4-8.9) g/dL Albumin 4.2 (3.5-5.7) g/dL Globulin 3.2 (2.4-3.5) g/dL Albumin/Globulin Ratio 1.3 (1.1-2.2) Lipase 7 L (11-82) Units/L 12/28/18 Range/Units 05:38 WBC 6.7 (4.3-11.1) K/mcL RBC 4.38 (4.19-5.50) M/mcL Hgb 13.6 (12.9-16.9) g/dL Hct 42.1 (37.5-50.1) % MCV 96.1 (83.0-100.0) fL MCH 31.1 (28.0-33.3) pg MCHC 32.3 (31.6-35.5) g/dL RDW 13.3 (11.5-14.5) % Plt Count 142 (140-400) K/mcL MPV 11.6 (9.4-12.4) fL Immature Gran % 0.2 (0-4) % Seg Neutrophils % 63.3 % Lymphocytes % 21.5 % Monocytes % 9.0 % Eosinophils % 5.7 % Basophils % 0.3 % Neutrophils # 4.2 (1.6-8.9) K/mcL Lymphocytes # 1.4 (0.6-4.6) K/mcL Monocytes # 0.6 (0.0-1.3) K/mcL Eosinophils # 0.4 (0.0-0.6) K/mcL Basophils # 0.0 (0.0-0.2) K/mcL PT (9.4-12.1) Seconds INR APTT (26.0-36.0) Seconds Sodium (136-145) mEq/L Potassium (3.5-5.1) mEq/L Chloride (98-107) mEq/L Carbon Dioxide (23-29) mEq/L BUN (8-23) mg/dL Creatinine (0.70-1.30) mg/dL Est GFR ( Amer) (> 60) Est GFR (Non-Af Amer) (> 60) BUN/Creatinine Ratio (6-26) Glucose (70-105) mg/dL Calculated Osmolality (280-300) Calcium (8.6-10.3) mg/dL Total Bilirubin (0.3-1.0) mg/dL Direct Bilirubin (0.0-0.2) mg/dL Indirect Bilirubin (0.0-1.2) mg/dL AST (13-39) Units/L ALT (7-52) Units/L Alkaline Phosphatase (34-104) Units/L Troponin I (< 0.04) ng/mL B-Natriuretic Peptide (Less than 100) pg/mL Serum Total Protein (6.4-8.9) g/dL Albumin (3.5-5.7) g/dL Globulin (2.4-3.5) g/dL Albumin/Globulin Ratio (1.1-2.2) Lipase (11-82) Units/L Attestation Statement - Attestation Attestation: I reviewed the residents documentation and agree with the residents assessment and plan of care. I have personally had face to face time with the patient. (Brief History, Brief Exam, and MDM) I personally supervised and was present for the bae/critical portions of the following procedures completed by the resident: EKG 73 year old male presnts to the eD via EMS with complaints of chest pain and has a history of CABG and stents and is othewrise mutliple risk factors for ACS and is having chest pain that woke him up from sleep and simliar to his chest pain in the past. troponoin negative, no new ischemic changes to the EKG. chest pain is resolved with nitro therapy. Initially he was hypertensive and continues to be hypertensive of which we yinka tret with nitro and reassess
--- NOTE | 2018-12-28 09:15 | Internal Med History&Physical ---
Date of Encounter: 12/28/18 Time of Encounter: 09:13 Internal Medicine - H&P: HPI Chief complaint: chest pain Admitted From: Home Plans for Post Hospital Care: Home History of present illness: Mr. Joe is a 73 year old male past medical history of CAD with CABG around 2001 with last stent with [facility] on 07/24, hypertension, CKD, hypertension, asthma, status post AICD which is incompatible with MRI came in due to chest pain that woke him yesterday night. Patient was feeling somewhat tired when he went to sleep around 10. Around 2:00 he was woken up by sharp chest pain which is located on the precordial region which he is said then started shooting in all his limbs. He felt weak but denies any lightheadedness or dizziness or nausea. He felt weak to the point that he had difficulty moving all his limbs and had numbness in all his limbs. He was able to crawl he said and able to make a phone call to called squad to come to the hospital. Patient was related in ER and had blood work up which was unremarkable except baseline CKD. His chest x-ray was unremarkable. EKG was without any ischemic signs. He was given aspirin and nitroglycerin after which his chest pain resolved. Patient's troponin was unremarkable. Admission was requested for cardiac workup. Patient was evaluated on the floor. Patient said his chest pain has improved however still present. He reports chest pain was reproducible since his started. His chest pain is worse on pressing on his chest. He denies any fevers chills shortness of breath cough recent URI or recent injuries to his chest. He felt anxious and was repeatedly asking whether he did the right thing to come to the hospital. He reports he did not move from his bed as she wanted to make sure completely that his heart was okay. He is able to move his extremities now and denies any time tingling or numbness. He is alert oriented 3. Denies any vision changes. Reports only new thing was a new Parkinson med which she took for about 6-7 days and was wondering whether that could have led to his chest pain. He was noted to have a high blood pressure. He reports being compliant with his medications. Past Med Surg Social Fam HX - Past Medical History Medical history: asthma, cardiomyopathy, coronary artery disease, diabetes, GERD, hyperlipidemia, hypertension, myocardial infarction, renal disease, other Additional medical history: parkinsons Psychiatric history: no psych history - Past Surgical History Surgical History: angioplasty/stent, coronary bypass (CABG), pacemaker/AICD, other Additional surgical history: right rotator cuff surgery. Mulitple heart Stents. Right Leg Surgery. triple bypass - Social History Smoking Status: Never smoker Smokeless Tobacco Status: No Alcohol use: none Drug use: none - Family History Father Living Status: Hx Family Cardiac Disorders: Yes (Bad heart) Hx Family Neurologic Disorders: Yes (Alzheimer's) Mother Living Status: Hx Family Cardiac Disorders: Yes ([place]) Internal Medicine - H&P: Meds Pantoprazole Sodium [Protonix] 40 mg PO QPM 01/04/16 [History] Carvedilol 3.125 mg PO BID 09/08/17 [History] Clopidogrel [Plavix] 75 mg PO DAILY 09/08/17 [History] Lisinopril 2.5 mg PO DAILY 09/08/17 [History] Nitroglycerin [Nitrostat] 0.4 mg SL Q5M PRN 09/08/17 [History] Tamsulosin [Flomax] 0.4 mg PO HS 09/08/17 [History] Multivitamin [One Daily Essential] 1 tab PO DAILY 01/19/18 [History] Carbidopa/Levodopa [Carbidopa-Levo ER 25-100 Tab] 1 tab PO TID 05/28/18 [History] Famotidine [Pepcid] 40 mg PO DAILY 09/01/18 [History] Albuterol Sulfate [Ventolin Hfa] 2 puff IH Q6H PRN 09/29/18 [History] Aspirin [Adult Aspirin Regimen] 81 mg PO DAILY 09/29/18 [History] Cholecalciferol (D-3) [Vitamin D] 1,000 unit PO DAILY 09/29/18 [History] Isosorbide MONOnitrate [Isosorbide Mononitrate ER] 120 mg PO DAILY 09/29/18 [History] Entacapone [Comtan] 200 mg PO TID 12/28/18 [History] Allergy/AdvReac Type Severity Reaction Status Date / Time furosemide [From Lasix] AdvReac See Verified 11/02/18 18:47 Comments All Systems PM: A 10-system review of systems was performed and is negative for pertinent findings except as documented above in the HPI. - Constitutional Vitals: Temp Pulse Resp BP Pulse Ox 97.8 F 71 16 187/89 96 12/28/18 08:06 12/28/18 08:06 12/28/18 08:06 12/28/18 08:06 12/28/18 08:06 Exam: Constitutional: Vitals as noted. Conversant. No Apparent Distress. Eyes : Sclera white, conjunctiva clear, no lid lag, PEARLA. ENT : Grossly normal hearing. No JVD, no cervical lymphadenopathy. no thyromegaly or mass. Respiratory : Clear to auscultation bilaterally. No accessory muscle use, rales, rhonchi or wheezes Cardiovascular : RRR, +S1, +S2. no murmur, gallop, rubs. Reproducible chest wall tenderness on palpation. GI/Abdominal : Soft, Non-tender, Non-distended, normal bowel sounds, soft, no peritoneal signs. no orgenomegaly or mass appreciated. no hernia. Musculoskeletal: no deformity noted. no edema , warm extremities, pulses palpable and symmetrical in UE/LE. no calf tenderness. Neurological: AO X3, CN II-XII grossly intact. Rt sided arm and leg weakness which he report is baseline. Skin: No skin rash, lesions or ulcers noted. Pych: anxious, intact memory AOx3. Internal Med - H&P Results - Labs CBC & Chem 7: 12/28/18 05:38 12/28/18 05:36 Labs: Short CBC 12/28/18 Range/Units 05:38 WBC 6.7 (4.3-11.1) K/mcL Hgb 13.6 (12.9-16.9) g/dL Hct 42.1 (37.5-50.1) % Plt Count 142 (140-400) K/mcL Neutrophils # 4.2 (1.6-8.9) K/mcL BMP 12/28/18 05:36 Sodium 138 Potassium 4.2 Chloride 107 Carbon Dioxide 25 BUN 38 H Creatinine 1.88 H Glucose 120 H Calcium 9.3 Cardiac Enzymes 12/28/18 Range/Units 05:36 Troponin I < 0.03 (< 0.04) ng/mL Liver Function 12/28/18 Range/Units 05:36 Total Bilirubin 0.6 (0.3-1.0) mg/dL Direct Bilirubin 0.1 (0.0-0.2) mg/dL AST 13 (13-39) Units/L ALT < 3 L (7-52) Units/L Alkaline Phosphatase 56 (34-104) Units/L Albumin 4.2 (3.5-5.7) g/dL - EKG Data -: EKG Interpreted by Myself EKG shows normal: sinus rhythm (old q waves in 2,3 avf, no st chagnes) - EKG Data Prior EKG available for review: yes When compared to previous EKG: there is no significant change - Impressions ITS Impressions Chest X-Ray 12/28/18 05:31 IMPRESSION: No acute findings. D/ / Kavon Rivera / Kavon Rivera Interpreting Provider: Kavon Rivera - Assessment and Plan (1) Chest pain Current Visit: Yes Status: Acute Assessment and plan: Patient is chest pain is atypical in nature and highly reproducible. Currently with chest pain on palpation which is slightly improved. EKG without ischemic signs and troponin unremarkable. We will trend troponin and keep patient on telemetry. Patient does have significant cardiac risk factor but unlikely his current chest pain is cardiac in nature given high in the reproducible. Possible costochondritis. We will keep on acetaminophen as needed. We will trend troponin and if remains negative plan for discharge later today. Patient will need to follow with cardiology earlier than his scheduled January appointment preferably next 1-2 weeks. Qualifiers: Chest pain type: unspecified Qualified Code(s): R07.9 - Chest pain, unspecified (2) Uncontrolled hypertension Current Visit: Yes Status: Acute Assessment and plan: Patient's blood pressure in the 180s systolic and 100 diastolic Patient reports being compliant with his home medication. We will resume his home medication and consider giving additional IV if needed if blood pressure does not improve. (3) Stroke-like symptoms Current Visit: No Status: Acute Assessment and plan: He had a vague numbness and weakness in all extremities associated with chest pain which now has completely resolved. Previously there were some concerns of conversion disorder. Patient currently with some right-sided weakness and tremor which he said he has been there for a while. He is following Dr. Catalan who is a neurologist for his Parkinson's and recently started on entacapone. Patient was scared to move before it was made sure his heart was okay. We will ambulate the patient with his walker and see how he does. (4) CAD (coronary artery disease) Current Visit: No Status: Chronic Assessment and plan: Continue home aspirin, lisinopril, Coreg, Imdur. He is not on statin and has refused previously to be started on it. Will need discussion with PCP and cardiology as outpatient Qualifiers: Coronary Disease-Associated Artery/Lesion type: [place] artery [place] vs. transplanted heart: [place] heart Associated angina: with other forms of angina Qualified Code(s): I25.118 - Atherosclerotic heart disease of [place] coronary artery with other forms of angina pectoris (5) Parkinsons disease Current Visit: No Status: Chronic Assessment and plan: Continue home Sinemet and entacapone - Time Spent With Patient Total time spent is greater than 50% in coordination of care (as documented) at patient's floor/unit and/or counseling patient:
[2018-12-28] MEDS ORDERED: Isosorbide MONOnitrate (24 HR) 60 MG TAB.ER.24H PO SCH (09:30)
[2018-12-28] MEDS ORDERED: Aspirin Enteric Coated 81 MG Tablet PO SCH (09:30)
[2018-12-28] MEDS ORDERED: Multivit/Ca/Min/Fe/FA 1 TAB TABLET PO SCH (09:30)
[2018-12-28] MEDS ORDERED: Acetaminophen 325 MG TABLET PO PRN (09:38)
[2018-12-28] MEDS ORDERED: Carbidopa/Levodopa ER 50/200 TABLET PO SCH (15:00)
[2018-12-28 16:37] VITALS: BP 117/76
--- NOTE | 2018-12-28 16:58 | Discharge Summary ---
- NOTES TO OUTPATIENT PROVIDER Notes to Outpatient Provider: Patient will need to follow with cardiology next 1-2 weeks. Date of Encounter: 12/28/18 Time of Encounter: 16:53 - Discharge Diagnosis (1) Uncontrolled hypertension Priority: Secondary Status: Acute (2) Stroke-like symptoms Priority: Secondary Status: Acute (3) CAD (coronary artery disease) Priority: Secondary Status: Chronic Qualifiers: Coronary Disease-Associated Artery/Lesion type: [place] artery [place] vs. transplanted heart: [place] heart Associated angina: with other forms of angina Qualified Code(s): I25.118 - Atherosclerotic heart disease of [place] coronary artery with other forms of angina pectoris (4) Parkinsons disease Priority: Secondary Status: Chronic (5) Costochondral chest pain Priority: Primary Status: Acute Hospital course: Mr. Joe is a 73 year old male with past medical history of coronary artery disease with CABG, hypertension, Parkinson's disease, CKD, asthma came in complaining of chest pain. Chest pain was a highly reproducible on precordium and musculoskeletal in nature. No EKG changes were noted. Troponin trended negative 3. Patient chest pain relieved with nitroglycerin and acetaminophen. Patient's blood pressure was also improved after resuming his home medication. He did have some nonspecific weakness in all his extremities which improved. His head CT was unremarkable and unlikely this was a CVA event. Patient had some previous concern of conversion disorder by neurologist and he did appear to be anxious and worried. Patient is stable to be discharged for outpatient follow-up with cardiology in 1-2 weeks. No changes were made in his home medication. He will need to follow up with PCP and discuss about starting statin. - Time Spent with Patient Total time spent providing and/or coordinating discharge services: - Discharge Medications Prescriptions: Continued Pantoprazole Sodium [Protonix] 40 mg PO QPM Carvedilol 3.125 mg PO BID Clopidogrel [Plavix] 75 mg PO DAILY Lisinopril 2.5 mg PO DAILY Nitroglycerin [Nitrostat] 0.4 mg SL Q5M PRN PRN Reason: Chest Pain Tamsulosin [Flomax] 0.4 mg PO HS Multivitamin [One Daily Essential] 1 tab PO DAILY Carbidopa/Levodopa [Carbidopa-Levo ER 25-100 Tab] 1 tab PO TID Famotidine [Pepcid] 40 mg PO DAILY Cholecalciferol (D-3) [Vitamin D] 1,000 unit PO DAILY Albuterol Sulfate [Ventolin Hfa] 2 puff IH Q6H PRN PRN Reason: Shortness Of Breath Aspirin [Adult Aspirin Regimen] 81 mg PO DAILY Isosorbide MONOnitrate [Isosorbide Mononitrate ER] 120 mg PO DAILY Entacapone [Comtan] 200 mg PO TID Home Medications: Pantoprazole Sodium [Protonix] 40 mg PO QPM 01/04/16 [History] Carvedilol 3.125 mg PO BID 09/08/17 [History] Clopidogrel [Plavix] 75 mg PO DAILY 09/08/17 [History] Lisinopril 2.5 mg PO DAILY 09/08/17 [History] Nitroglycerin [Nitrostat] 0.4 mg SL Q5M PRN 09/08/17 [History] Tamsulosin [Flomax] 0.4 mg PO HS 09/08/17 [History] Multivitamin [One Daily Essential] 1 tab PO DAILY 01/19/18 [History] Carbidopa/Levodopa [Carbidopa-Levo ER 25-100 Tab] 1 tab PO TID 05/28/18 [History] Famotidine [Pepcid] 40 mg PO DAILY 09/01/18 [History] Albuterol Sulfate [Ventolin Hfa] 2 puff IH Q6H PRN 09/29/18 [History] Aspirin [Adult Aspirin Regimen] 81 mg PO DAILY 09/29/18 [History] Cholecalciferol (D-3) [Vitamin D] 1,000 unit PO DAILY 09/29/18 [History] Isosorbide MONOnitrate [Isosorbide Mononitrate ER] 120 mg PO DAILY 09/29/18 [History] Entacapone [Comtan] 200 mg PO TID 12/28/18 [History] Allergies/Adverse Reactions: Allergy/AdvReac Type Severity Reaction Status Date / Time furosemide [From Lasix] AdvReac See Verified 11/02/18 18:47 Comments Date of admission: 12/28/18 06:55 Primary care physician: Halie Mena CNP Consults: 12/28/18 09:19 Consult to Clinic Manager [CONS] Routine Reason for SW Consult: Home Health vs ECF Discharging clinician: Elvia Casey - Constitutional Vitals: Temp Pulse Resp BP Pulse Ox 97.6 F 72 16 117/76 95 12/28/18 16:32 12/28/18 16:32 12/28/18 16:32 12/28/18 16:32 12/28/18 16:32 Exam: Constitutional: Vitals as noted. Conversant. No Apparent Distress. Eyes : Sclera white, conjunctiva clear, no lid lag, PEARLA. ENT : Grossly normal hearing. No JVD, no cervical lymphadenopathy. no thyromegaly or mass. Respiratory : Clear to auscultation bilaterally. No accessory muscle use, rales, rhonchi or wheezes Cardiovascular : RRR, +S1, +S2. no murmur, gallop, rubs. Reproducible chest wall tenderness on palpation. GI/Abdominal : Soft, Non-tender, Non-distended, normal bowel sounds, soft, no peritoneal signs. no orgenomegaly or mass appreciated. no hernia. Musculoskeletal: no deformity noted. no edema , warm extremities, pulses palpable and symmetrical in UE/LE. no calf tenderness. Neurological: AO X3, CN II-XII grossly intact. Rt sided arm and leg weakness which he report is baseline. Skin: No skin rash, lesions or ulcers noted. Pych: anxious, intact memory AOx3. - Patient Status Disposition: Home, Self-Care Condition: Good - Discharge Instructions Follow Up With: Halie Mena, MANAGER POOL [Primary Care Provider] - - Diet and Activity Activity: increase activity as tolerated - VTE Reasons for not Prescribing Prophylaxis: Treatment not Indicated - Low risk for VTE
[2018-12-29] MEDS ORDERED: Cholecalciferol (D-3) 1,000 UNIT (25MCG) TABLET PO SCH (09:00)
[2018-12-29] MEDS ORDERED: Famotidine 20 MG TABLET PO SCH (09:00)
--- NOTE | 2018-12-29 18:29 | Electrocardiograph Report ---
[address] [place] [id number] Test Date: 2018-12-28 Pat Name: Eduar Joe Department: [id number] Room: 3B49 Gender: M Clinical Physician Assistant: : [id number] Requested By: Madonna Pierson Order Number: [id number] Reading MD: Geovany Lowery Measurements Intervals Ward Rate: 72 P: 43 NV: 192 QRS: -48 QRSD: 102 T: 57 QT: 372 QTc: 408 Interpretive Statements Sinus rhythm Probable inferior infarct, old Electronically Signed On 12-29-2018 16:31:02 EDT by Geovany Lowery
== END 2018-12-28 18:07 | disposition home or self-care (01) ==
LOC: 3BNU 04:58 → EMEROOARM 04:58 → SUATTDRO 06:55 → 3BNU 07:51
PROVIDERS: ADMIT Internal Medicine; ATTEND Internal Medicine

== ENCOUNTER 2019-03-25 06:40 | Inpatient (IN) ==
[2019-03-25] MEDS ORDERED: Aspirin 81 MG TAB.CHEW PO ONE (06:45)
[2019-03-25] MEDS ORDERED: Nitroglycerin 0.4 MG TAB.SUBL SL PRN (06:45)
[2019-03-25 07:00] LABS: Basophils # 0.1 K/mcL (0.0-0.2); Basophils % 0.8 %; Eosinophils # 0.4 K/mcL (0.0-0.6); Eosinophils % 6.1 %; Hematocrit 38.3 % (37.5-50.1); Hemoglobin 13.1 g/dL (12.9-16.9); Immature Granulocytes % 0.5 % (0-4); Lymphocytes # 1.3 K/mcL (0.6-4.6); Lymphocytes % 21.5 %; Mean Corpuscular HGB Conc 34.2 g/dL (31.6-35.5); Mean Corpuscular Volume 93.6 fL (83.0-100.0); Mean Platelet Volume 10.9 fL (9.4-12.4); Monocytes # 0.7 K/mcL (0.0-1.3); Monocytes % 11.6 %; Neutrophils # 3.6 K/mcL (1.6-8.9); Platelet Count 121 K/mcL (140-400); Red Blood Count 4.09 M/mcL (4.19-5.50); Red Cell Distribution Width 13.1 % (11.5-14.5); Segmented Neutrophils % 59.5 %; White Blood Count 6.1 K/mcL (4.3-11.1)
[2019-03-25 07:07] LABS: Prothrombin Time 11.8 Seconds (9.4-12.1)
[2019-03-25 07:24] LABS: Alanine Aminotransferase < 3 Units/L (7-52); Albumin 3.8 g/dL (3.5-5.7); Albumin/Globulin Ratio 1.4 (1.1-2.2); Alkaline Phosphatase 56 Units/L (34-104); Aspartate Amino Transferase 11 Units/L (13-39); Bilirubin,Direct 0.1 mg/dL (0.0-0.2); Bilirubin,Indirect 0.4 mg/dL (0.0-1.0); Bilirubin,Total 0.5 mg/dL (0.3-1.0); Globulin 2.7 g/dL (2.4-3.5); Lipase 9 Units/L (11-82); Total Protein 6.5 g/dL (6.4-8.9)
[2019-03-25 07:25] LABS: Calcium 9.1 mg/dL (8.6-10.3); Potassium 4.4 mEq/L (3.5-5.1)
[2019-03-25 07:26] LABS: Troponin I 0.04 ng/mL (< 0.04)
[2019-03-25] MEDS ORDERED: Morphine Sulfate 2 MG/ML SYRINGE IVP ONE (08:16)
[2019-03-25] MEDS ORDERED: Ondansetron 4 MG/2 ML VIAL IVP ONE (08:16)
[2019-03-25] MEDS ORDERED: Ondansetron ODT 4 MG TAB.RAPDIS SL PRN (09:09)
[2019-03-25] MEDS ORDERED: Ondansetron 4 MG/2 ML VIAL IVP PRN (09:09)
[2019-03-25] MEDS ORDERED: Naloxone 0.4 MG/ML INJ IVP PRN (09:09)
[2019-03-25] MEDS ORDERED: carvediloL 6.25 MG TABLET PO SCH ×2 (10:45→21:00)
[2019-03-25] MEDS: Carbidopa/Levodopa ER 50/200 TABLET PO SCH ×2 (15:24→17:39)
[2019-03-25] MEDS: Ranolazine 500 MG TAB.ER.12H PO SCH ×2 (15:24→20:51)
[2019-03-25] MEDS: carvediloL 6.25 MG TABLET PO SCH (17:40)
[2019-03-26 01:39] LABS: Basophils % 0.5 %; Eosinophils # 0.3 K/mcL (0.0-0.6); Eosinophils % 5.2 %; Hematocrit 40.5 % (37.5-50.1); Hemoglobin 13.8 g/dL (12.9-16.9); Immature Granulocytes % 0.2 % (0-4); Lymphocytes # 1.8 K/mcL (0.6-4.6); Lymphocytes % 27.5 %; Mean Corpuscular HGB Conc 34.1 g/dL (31.6-35.5); Mean Corpuscular Hemoglobin 32.2 pg (28.0-33.3); Mean Corpuscular Volume 94.6 fL (83.0-100.0); Mean Platelet Volume 11.7 fL (9.4-12.4); Monocytes # 0.6 K/mcL (0.0-1.3); Monocytes % 8.9 %; Neutrophils # 3.7 K/mcL (1.6-8.9); Platelet Count 137 K/mcL (140-400); Red Blood Count 4.28 M/mcL (4.19-5.50); Red Cell Distribution Width 13.2 % (11.5-14.5); Segmented Neutrophils % 57.7 %; White Blood Count 6.4 K/mcL (4.3-11.1)
[2019-03-26 01:58] LABS: Calcium 9.1 mg/dL (8.6-10.3); Potassium 4.5 mEq/L (3.5-5.1)
[2019-03-26] MEDS ORDERED: Famotidine 20 MG TABLET PO SCH (09:00)
[2019-03-26] MEDS: Cholecalciferol (D-3) 1,000 UNIT (25MCG) TABLET PO SCH (09:06)
[2019-03-26] MEDS: carvediloL 6.25 MG TABLET PO SCH ×2 (09:06→19:18)
[2019-03-26] MEDS: Ranolazine 500 MG TAB.ER.12H PO SCH ×2 (09:06→21:29)
[2019-03-26] MEDS: Aspirin Enteric Coated 81 MG Tablet PO SCH (09:06)
[2019-03-26] MEDS: Isosorbide MONOnitrate (24 HR) 60 MG TAB.ER.24H PO SCH (09:06)
[2019-03-26] MEDS: Carbidopa/Levodopa ER 50/200 TABLET PO SCH ×3 (09:06→21:29)
[2019-03-26] MEDS ORDERED: 0.9 % Sodium Chloride 500 ML IVC ONE (18:34)
[2019-03-26] MEDS ORDERED: 0.9 % Sodium Chloride 1,000 ML ONE (18:36)
[2019-03-26 18:37] LABS: ABG Base Excess -1 mEq/L (-2 to 3); ABG HCO3 23 mEq/L (21-27); ABG Oxygen Saturation 95 % (95-98); ABG PCO2 37 mmHg (35-45); ABG PO2 74 mmHg (85-104); ABG TCO2 24 mEq/L (20-26)
[2019-03-26] MEDS ORDERED: *HR* LORazepam 2 MG/ML VIAL IVP ONE (18:43)
[2019-03-26] MEDS ORDERED: *HR* LORazepam 2 MG/ML VIAL ONE (18:44)
[2019-03-27] MEDS ORDERED: Lidocaine -MPF 2% 2 ML VIAL ONE (07:14)
[2019-03-27 07:25] LABS: Potassium 4.3 mEq/L (3.5-5.1)
[2019-03-27] MEDS: Aspirin Enteric Coated 81 MG Tablet PO SCH (08:10)
[2019-03-27] MEDS: Cholecalciferol (D-3) 1,000 UNIT (25MCG) TABLET PO SCH (08:10)
[2019-03-27] MEDS: Isosorbide MONOnitrate (24 HR) 60 MG TAB.ER.24H PO SCH (08:10)
[2019-03-27] MEDS: Ranolazine 500 MG TAB.ER.12H PO SCH ×2 (08:10→22:23)
[2019-03-27] MEDS: Carbidopa/Levodopa ER 50/200 TABLET PO SCH ×3 (08:10→22:24)
[2019-03-27] MEDS: carvediloL 6.25 MG TABLET PO SCH ×2 (08:10→17:44)
[2019-03-27] MEDS ORDERED: 0.9 % Sodium Chloride 1,000 ML IVC SCH (08:30)
[2019-03-27] MEDS ORDERED: Propofol 500 MG/50 ML INFUS..BTL ONE (10:08)
[2019-03-27] MEDS: amLODIPine 5 MG TABLET PO SCH (14:06)
[2019-03-28 03:53] LABS: Potassium 4.3 mEq/L (3.5-5.1)
[2019-03-28] MEDS: Isosorbide MONOnitrate (24 HR) 60 MG TAB.ER.24H PO SCH (08:47)
[2019-03-28] MEDS: Ranolazine 500 MG TAB.ER.12H PO SCH (08:47)
[2019-03-28] MEDS: amLODIPine 5 MG TABLET PO SCH (08:48)
[2019-03-28] MEDS: Cholecalciferol (D-3) 1,000 UNIT (25MCG) TABLET PO SCH (08:48)
[2019-03-28] MEDS: Aspirin Enteric Coated 81 MG Tablet PO SCH (08:48)
[2019-03-28] MEDS: carvediloL 6.25 MG TABLET PO SCH (08:48)
[2019-03-28] MEDS: Carbidopa/Levodopa ER 50/200 TABLET PO SCH (08:48)
[2019-03-28 11:35] VITALS: BP 129/75
== END 2019-03-28 14:57 | disposition home health service (06) | DRG 303 ==
LOC: CDU 06:40 → EMEROOARM 06:40 → CDU 09:25 → 3BNU 16:54 → SUATTDRO 03-26 16:16 → 3BNU 03-26 21:02
PROVIDERS: ADMIT Internal Medicine; ATTEND Pharmacist

== ENCOUNTER 2019-03-28 15:46 | Inpatient (IN) ==
[2019-03-28 16:29] LABS: Basophils % 0.5 %; Eosinophils # 0.2 K/mcL (0.0-0.6); Eosinophils % 3.5 %; Hematocrit 39.4 % (37.5-50.1); Hemoglobin 13.1 g/dL (12.9-16.9); Immature Granulocytes % 0.5 % (0-4); Lymphocytes # 1.1 K/mcL (0.6-4.6); Lymphocytes % 16.9 %; Mean Corpuscular HGB Conc 33.2 g/dL (31.6-35.5); Mean Corpuscular Hemoglobin 31.6 pg (28.0-33.3); Mean Corpuscular Volume 94.9 fL (83.0-100.0); Mean Platelet Volume 11.7 fL (9.4-12.4); Monocytes # 0.5 K/mcL (0.0-1.3); Monocytes % 7.2 %; Neutrophils # 4.5 K/mcL (1.6-8.9); Platelet Count 135 K/mcL (140-400); Red Blood Count 4.15 M/mcL (4.19-5.50); Red Cell Distribution Width 13.2 % (11.5-14.5); Segmented Neutrophils % 71.4 %; White Blood Count 6.3 K/mcL (4.3-11.1)
[2019-03-28 16:31] LABS: VBG HCO3 21 mEq/L (21-27); VBG PCO2 35 mmHg (41-51); VBG PH 7.39 pH Units (7.32-7.42); VBG PO2 55 mmHg (25-50)
[2019-03-28 16:34] LABS: Prothrombin Time 11.9 Seconds (9.4-12.1)
[2019-03-28 16:50] LABS: Alanine Aminotransferase < 3 Units/L (7-52); Albumin 3.8 g/dL (3.5-5.7); Albumin/Globulin Ratio 1.2 (1.1-2.2); Alkaline Phosphatase 51 Units/L (34-104); Aspartate Amino Transferase 11 Units/L (13-39); BUN/Creatinine Ratio 17 (6-26); Bilirubin,Total 0.9 mg/dL (0.3-1.0); Blood Urea Nitrogen 35 mg/dL (8-23); Calcium 9.2 mg/dL (8.6-10.3); Carbon Dioxide 20 mEq/L (23-29); Chloride 104 mEq/L (98-107); Globulin 3.1 g/dL (2.4-3.5); Glucose 184 mg/dL (70-105); Magnesium 2.1 mg/dL (1.6-2.6); Osmolality,Calculated 291 (280-300); Phosphorous 3.1 mg/dL (2.7-4.5); Potassium 5.1 mEq/L (3.5-5.1); Sodium 134 mEq/L (136-145); Total Protein 6.9 g/dL (6.4-8.9); eGFR For African Americans 37 (> 60); eGFR For Non-African Americans 31 (> 60)
[2019-03-28 16:51] LABS: Alanine Aminotransferase < 3 Units/L (7-52); Albumin 3.8 g/dL (3.5-5.7); Albumin/Globulin Ratio 1.2 (1.1-2.2); Alkaline Phosphatase 51 Units/L (34-104); Aspartate Amino Transferase 11 Units/L (13-39); Bilirubin,Direct 0.2 mg/dL (0.0-0.2); Bilirubin,Indirect 0.7 mg/dL (0.0-1.0); Bilirubin,Total 0.9 mg/dL (0.3-1.0); Ethanol < 10 mg/dL (Less than 10); Globulin 3.1 g/dL (2.4-3.5); Total Protein 6.9 g/dL (6.4-8.9); Troponin I < 0.03 ng/mL (< 0.04)
[2019-03-28] MEDS ORDERED: Ondansetron 4 MG/2 ML VIAL IVP PRN (18:30)
[2019-03-28] MEDS ORDERED: Naloxone 0.4 MG/ML INJ IVP PRN (18:30)
[2019-03-28] MEDS ORDERED: Acetaminophen 325 MG TABLET PO PRN (18:30)
[2019-03-28] MEDS ORDERED: Dextrose Gel 15 GM/37.5 ML TUBE PO PRN ×2 (18:58)
[2019-03-28] MEDS ORDERED: *HR* Dextrose 50 % in Water (Syg) 50 ML SYRINGE IVP PRN (18:58)
[2019-03-28] MEDS ORDERED: D5% in Water 1,000 ML IVC PRN (18:58)
[2019-03-28] MEDS: *HR* Heparin 5,000 UNIT/ML VIAL SQ SCH (20:15)
[2019-03-28] MEDS ORDERED: Nitroglycerin 0.4 MG TAB.SUBL SL PRN (22:08)
[2019-03-29 05:25] LABS: Basophils % 0.5 %; Eosinophils # 0.2 K/mcL (0.0-0.6); Eosinophils % 3.4 %; Hematocrit 40.3 % (37.5-50.1); Hemoglobin 13.4 g/dL (12.9-16.9); Immature Granulocytes % 0.2 % (0-4); Lymphocytes # 1.3 K/mcL (0.6-4.6); Lymphocytes % 20.2 %; Mean Corpuscular HGB Conc 33.3 g/dL (31.6-35.5); Mean Corpuscular Hemoglobin 31.3 pg (28.0-33.3); Mean Corpuscular Volume 94.2 fL (83.0-100.0); Mean Platelet Volume 11.4 fL (9.4-12.4); Monocytes # 0.5 K/mcL (0.0-1.3); Monocytes % 8.3 %; Neutrophils # 4.2 K/mcL (1.6-8.9); Platelet Count 136 K/mcL (140-400); Red Blood Count 4.28 M/mcL (4.19-5.50); Red Cell Distribution Width 13.4 % (11.5-14.5); Segmented Neutrophils % 67.4 %; White Blood Count 6.2 K/mcL (4.3-11.1)
[2019-03-29] MEDS: Multivit/Ca/Min/Fe/FA 1 TAB TABLET PO SCH (05:35)
[2019-03-29] MEDS: *HR* Heparin 5,000 UNIT/ML VIAL SQ SCH ×3 (05:36→20:11)
[2019-03-29 05:41] LABS: Calcium 9.7 mg/dL (8.6-10.3); Magnesium 2.2 mg/dL (1.6-2.6); Potassium 4.2 mEq/L (3.5-5.1)
[2019-03-29 06:55] LABS: Estimated Average Glucose 143 mg/dl
[2019-03-29] MEDS: Carbidopa/Levodopa 25/100 TABLET PO SCH ×2 (09:15→13:18)
[2019-03-29] MEDS: Aspirin Enteric Coated 81 MG Tablet PO SCH (09:15)
[2019-03-29] MEDS: Ranolazine 500 MG TAB.ER.12H PO SCH ×2 (09:15→20:11)
[2019-03-29] MEDS: Isosorbide MONOnitrate (24 HR) 60 MG TAB.ER.24H PO SCH (09:16)
[2019-03-29] MEDS: carvediloL 6.25 MG TABLET PO SCH ×2 (09:16→17:02)
[2019-03-29] MEDS: Finasteride 5 MG TABLET PO SCH (09:16)
[2019-03-29] MEDS: Insulin LISPRO 300 UNITS/3 ML VIAL SQ SCH ×3 (09:16→18:33)
[2019-03-29] MEDS: Insulin DETEMIR 100 UNIT/ML X5UNITS SQ SCH (09:16)
[2019-03-29] MEDS: Cholecalciferol (D-3) 1,000 UNIT (25MCG) TABLET PO SCH (09:18)
[2019-03-29] MEDS ORDERED: Haloperidol Lactate 5 MG/ML VIAL IVP STA (12:02)
[2019-03-29 15:03] LABS: Basophils % 0.5 %; Eosinophils # 0.2 K/mcL (0.0-0.6); Eosinophils % 3.4 %; Hematocrit 37.2 % (37.5-50.1); Hemoglobin 12.6 g/dL (12.9-16.9); Immature Granulocytes % 0.2 % (0-4); Lymphocytes # 1.3 K/mcL (0.6-4.6); Mean Corpuscular HGB Conc 33.9 g/dL (31.6-35.5); Mean Corpuscular Hemoglobin 31.7 pg (28.0-33.3); Mean Corpuscular Volume 93.7 fL (83.0-100.0); Mean Platelet Volume 11.5 fL (9.4-12.4); Monocytes # 0.6 K/mcL (0.0-1.3); Monocytes % 10.2 %; Neutrophils # 4.1 K/mcL (1.6-8.9); Platelet Count 150 K/mcL (140-400); Red Blood Count 3.97 M/mcL (4.19-5.50); Red Cell Distribution Width 13.3 % (11.5-14.5); Segmented Neutrophils % 65.7 %; White Blood Count 6.3 K/mcL (4.3-11.1)
[2019-03-29 15:22] LABS: Calcium 9.3 mg/dL (8.6-10.3); Potassium 4.2 mEq/L (3.5-5.1)
[2019-03-30] MEDS: *HR* Heparin 5,000 UNIT/ML VIAL SQ SCH ×3 (06:01→20:59)
[2019-03-30] MEDS: Multivit/Ca/Min/Fe/FA 1 TAB TABLET PO SCH (06:01)
[2019-03-30 07:10] LABS: Basophils # 0.1 K/mcL (0.0-0.2); Basophils % 0.9 %; Eosinophils # 0.2 K/mcL (0.0-0.6); Eosinophils % 4.1 %; Hemoglobin 12.5 g/dL (12.9-16.9); Immature Granulocytes % 0.3 % (0-4); Lymphocytes # 1.5 K/mcL (0.6-4.6); Lymphocytes % 25.3 %; Mean Corpuscular HGB Conc 32.9 g/dL (31.6-35.5); Mean Corpuscular Hemoglobin 31.8 pg (28.0-33.3); Mean Corpuscular Volume 96.7 fL (83.0-100.0); Mean Platelet Volume 11.6 fL (9.4-12.4); Monocytes # 0.5 K/mcL (0.0-1.3); Monocytes % 8.4 %; Neutrophils # 3.5 K/mcL (1.6-8.9); Platelet Count 132 K/mcL (140-400); Red Blood Count 3.93 M/mcL (4.19-5.50); Red Cell Distribution Width 13.5 % (11.5-14.5); White Blood Count 5.8 K/mcL (4.3-11.1)
[2019-03-30 07:32] LABS: Calcium 9.5 mg/dL (8.6-10.3); Magnesium 2.4 mg/dL (1.6-2.6)
[2019-03-30] MEDS: Isosorbide MONOnitrate (24 HR) 60 MG TAB.ER.24H PO SCH (10:09)
[2019-03-30] MEDS: carvediloL 6.25 MG TABLET PO SCH ×2 (10:10→16:14)
[2019-03-30] MEDS: Aspirin Enteric Coated 81 MG Tablet PO SCH (10:11)
[2019-03-30] MEDS: Cholecalciferol (D-3) 1,000 UNIT (25MCG) TABLET PO SCH (10:11)
[2019-03-30] MEDS: Insulin LISPRO 300 UNITS/3 ML VIAL SQ SCH ×3 (10:15→16:09)
[2019-03-30] MEDS: Insulin DETEMIR 100 UNIT/ML X5UNITS SQ SCH (10:15)
[2019-03-30] MEDS: Finasteride 5 MG TABLET PO SCH (13:47)
[2019-03-30] MEDS: Ranolazine 500 MG TAB.ER.12H PO SCH ×2 (13:47→20:59)
[2019-03-30 17:11] LABS: Bilirubin,Urine Negative (Negative); Blood,Urine Negative (Negative); Clarity,Urine Clear (Clear); Color,Urine Dark Yellow (Yellow); Glucose,Urine (UA) Normal (Normal); Ketones,Urine Trace mg/dL (Negative); Leukocyte Esterase,Urine Negative (Negative); Nitrite,Urine Negative (Negative); PH,Urine 5.5 pH Units (5.0-8.0); Protein,Urine Negative (Neg-Trace); Specific Gravity,Urine 1.018 (1.010-1.025); Urobilinogen,Urine Normal (Normal)
[2019-03-30 17:21] LABS: Amphetamine Screen,Urine Negative ng/mL (Cutoff=1000); Barbiturate Screen,Urine Negative ng/mL (Cutoff=200); Benzodiazepines Screen,Urine Negative ng/mL (Cutoff=200); Cannabinoid Screen,Urine Negative ng/mL (Cutoff = 50); Cocaine Screen,Urine Negative ng/mL (Cutoff= 300); Opiate Screen,Urine Negative ng/mL (Cutoff=300); Phencyclidine Screen,Urine Negative ng/mL (Cutoff=25)
[2019-03-30] MEDS ORDERED: Carbidopa/Levodopa 25/100 TABLET PO SCH (21:00)
[2019-03-31] MEDS: Multivit/Ca/Min/Fe/FA 1 TAB TABLET PO SCH (05:58)
[2019-03-31] MEDS: *HR* Heparin 5,000 UNIT/ML VIAL SQ SCH ×3 (05:58→20:54)
[2019-03-31 06:36] LABS: Calcium 9.2 mg/dL (8.6-10.3); Potassium 3.8 mEq/L (3.5-5.1)
[2019-03-31] MEDS: Aspirin Enteric Coated 81 MG Tablet PO SCH (08:48)
[2019-03-31] MEDS: Isosorbide MONOnitrate (24 HR) 30 MG TAB.ER.24H PO SCH (08:48)
[2019-03-31] MEDS: Finasteride 5 MG TABLET PO SCH (08:48)
[2019-03-31] MEDS: Ranolazine 500 MG TAB.ER.12H PO SCH ×2 (08:48→20:54)
[2019-03-31] MEDS: Cholecalciferol (D-3) 1,000 UNIT (25MCG) TABLET PO SCH (08:49)
[2019-03-31] MEDS: Insulin DETEMIR 100 UNIT/ML X5UNITS SQ SCH (08:49)
[2019-03-31] MEDS: carvediloL 6.25 MG TABLET PO SCH ×2 (08:49→17:50)
[2019-03-31] MEDS: Carbidopa/Levodopa 25/100 TABLET PO SCH ×2 (08:49→20:53)
[2019-03-31] MEDS: Insulin LISPRO 300 UNITS/3 ML VIAL SQ SCH ×2 (08:49→17:45)
[2019-04-01] MEDS: *HR* Heparin 5,000 UNIT/ML VIAL SQ SCH ×3 (06:26→19:55)
[2019-04-01] MEDS: Multivit/Ca/Min/Fe/FA 1 TAB TABLET PO SCH (06:26)
[2019-04-01] MEDS: Aspirin Enteric Coated 81 MG Tablet PO SCH (08:26)
[2019-04-01] MEDS: Isosorbide MONOnitrate (24 HR) 30 MG TAB.ER.24H PO SCH (08:26)
[2019-04-01] MEDS: Ranolazine 500 MG TAB.ER.12H PO SCH ×2 (08:27→19:54)
[2019-04-01] MEDS: Carbidopa/Levodopa 25/100 TABLET PO SCH ×2 (08:27→19:54)
[2019-04-01] MEDS: carvediloL 6.25 MG TABLET PO SCH ×2 (08:28→16:44)
[2019-04-01] MEDS: Cholecalciferol (D-3) 1,000 UNIT (25MCG) TABLET PO SCH (08:28)
[2019-04-01] MEDS: Finasteride 5 MG TABLET PO SCH (08:31)
[2019-04-01] MEDS: Insulin LISPRO 300 UNITS/3 ML VIAL SQ SCH ×3 (08:32→16:46)
[2019-04-01] MEDS: Insulin DETEMIR 100 UNIT/ML X5UNITS SQ SCH (08:38)
[2019-04-01 13:43] LABS: Hematocrit 38.4 % (37.5-50.1); Hemoglobin 12.8 g/dL (12.9-16.9); Mean Corpuscular HGB Conc 33.3 g/dL (31.6-35.5); Mean Corpuscular Hemoglobin 31.4 pg (28.0-33.3); Mean Corpuscular Volume 94.1 fL (83.0-100.0); Mean Platelet Volume 11.9 fL (9.4-12.4); Platelet Count 145 K/mcL (140-400); Red Blood Count 4.08 M/mcL (4.19-5.50); Red Cell Distribution Width 13.4 % (11.5-14.5); White Blood Count 5.2 K/mcL (4.3-11.1)
[2019-04-01 14:00] LABS: Calcium 9.2 mg/dL (8.6-10.3); Potassium 4.1 mEq/L (3.5-5.1)
[2019-04-02 03:15] LABS: Calcium 9.1 mg/dL (8.6-10.3); Potassium 4.2 mEq/L (3.5-5.1)
[2019-04-02] MEDS: *HR* Heparin 5,000 UNIT/ML VIAL SQ SCH (05:56)
[2019-04-02] MEDS: Multivit/Ca/Min/Fe/FA 1 TAB TABLET PO SCH (05:56)
[2019-04-02] MEDS: Insulin DETEMIR 100 UNIT/ML X5UNITS SQ SCH (08:54)
[2019-04-02] MEDS: Ranolazine 500 MG TAB.ER.12H PO SCH (08:55)
[2019-04-02] MEDS: Carbidopa/Levodopa 25/100 TABLET PO SCH (08:55)
[2019-04-02] MEDS: Isosorbide MONOnitrate (24 HR) 30 MG TAB.ER.24H PO SCH (08:55)
[2019-04-02] MEDS: Cholecalciferol (D-3) 1,000 UNIT (25MCG) TABLET PO SCH (08:56)
[2019-04-02] MEDS: Aspirin Enteric Coated 81 MG Tablet PO SCH (08:56)
[2019-04-02] MEDS: Finasteride 5 MG TABLET PO SCH (08:57)
[2019-04-02] MEDS: Insulin LISPRO 300 UNITS/3 ML VIAL SQ SCH ×2 (08:57→12:13)
[2019-04-02 11:11] VITALS: BP 147/82
[2019-04-02] MEDS: carvediloL 6.25 MG TABLET PO SCH ×2 (12:13→12:36)
== END 2019-04-02 13:33 | DRG 885 ==
LOC: EMEROOARM 15:46 → 3BNU 15:46 → SUATTDRO 17:41 → 3BNU 18:39
PROVIDERS: ADMIT Pharmacist; ATTEND Pharmacist

== ENCOUNTER 2019-04-03 11:19 | Observation (INO) ==
[2019-04-03 12:38] LABS: Basophils % 0.4 %; Eosinophils # 0.2 K/mcL (0.0-0.6); Hematocrit 38.4 % (37.5-50.1); Hemoglobin 12.5 g/dL (12.9-16.9); Immature Granulocytes % 0.2 % (0-4); Lymphocytes % 20.7 %; Mean Corpuscular HGB Conc 32.6 g/dL (31.6-35.5); Mean Corpuscular Hemoglobin 32.1 pg (28.0-33.3); Mean Corpuscular Volume 98.5 fL (83.0-100.0); Mean Platelet Volume 11.2 fL (9.4-12.4); Monocytes # 0.5 K/mcL (0.0-1.3); Neutrophils # 3.2 K/mcL (1.6-8.9); Platelet Count 140 K/mcL (140-400); Red Cell Distribution Width 13.6 % (11.5-14.5); Segmented Neutrophils % 64.7 %; White Blood Count 4.9 K/mcL (4.3-11.1)
[2019-04-03 13:16] LABS: BUN/Creatinine Ratio 15 (6-26); Blood Urea Nitrogen 33 mg/dL (8-23); Calcium 9.2 mg/dL (8.6-10.3); Carbon Dioxide 25 mEq/L (23-29); Chloride 104 mEq/L (98-107); Glucose 125 mg/dL (70-105); Osmolality,Calculated 293 (280-300); Potassium 4.2 mEq/L (3.5-5.1); Sodium 137 mEq/L (136-145); Troponin I < 0.03 ng/mL (< 0.04); eGFR For African Americans 37 (> 60); eGFR For Non-African Americans 31 (> 60)
[2019-04-03] MEDS ORDERED: Ondansetron 4 MG/2 ML VIAL IVP PRN (15:17)
[2019-04-03] MEDS ORDERED: Naloxone 0.4 MG/ML INJ IVP PRN (15:17)
[2019-04-03] MEDS ORDERED: Nitroglycerin 0.4 MG TAB.SUBL SL PRN (15:42)
[2019-04-03] MEDS ORDERED: 0.9 % Sodium Chloride 1,000 ML IVC SCH (15:45)
[2019-04-03] MEDS: carvediloL 6.25 MG TABLET PO SCH (17:57)
[2019-04-03] MEDS: *HR* Heparin 5,000 UNIT/ML VIAL SQ SCH (17:57)
[2019-04-03] MEDS: Carbidopa/Levodopa 25/100 TABLET PO SCH (20:21)
[2019-04-03] MEDS: Ranolazine 500 MG TAB.ER.12H PO SCH (20:21)
[2019-04-04] MEDS: *HR* Heparin 5,000 UNIT/ML VIAL SQ SCH (05:21)
[2019-04-04 07:48] LABS: Basophils % 0.4 %; Eosinophils # 0.2 K/mcL (0.0-0.6); Eosinophils % 3.7 %; Hematocrit 37.3 % (37.5-50.1); Hemoglobin 12.5 g/dL (12.9-16.9); Immature Granulocytes % 0.2 % (0-4); Lymphocytes # 1.2 K/mcL (0.6-4.6); Lymphocytes % 22.3 %; Mean Corpuscular HGB Conc 33.5 g/dL (31.6-35.5); Mean Corpuscular Hemoglobin 32.2 pg (28.0-33.3); Mean Corpuscular Volume 96.1 fL (83.0-100.0); Mean Platelet Volume 11.8 fL (9.4-12.4); Monocytes # 0.6 K/mcL (0.0-1.3); Monocytes % 10.2 %; Neutrophils # 3.4 K/mcL (1.6-8.9); Platelet Count 127 K/mcL (140-400); Red Blood Count 3.88 M/mcL (4.19-5.50); Red Cell Distribution Width 13.5 % (11.5-14.5); Segmented Neutrophils % 63.2 %; White Blood Count 5.4 K/mcL (4.3-11.1)
[2019-04-04 08:06] LABS: Calcium 8.9 mg/dL (8.6-10.3); Potassium 4.1 mEq/L (3.5-5.1)
[2019-04-04] MEDS: Carbidopa/Levodopa 25/100 TABLET PO SCH (08:33)
[2019-04-04] MEDS: Ranolazine 500 MG TAB.ER.12H PO SCH (08:34)
[2019-04-04] MEDS: carvediloL 6.25 MG TABLET PO SCH (08:34)
[2019-04-04] MEDS ORDERED: Isosorbide MONOnitrate (24 HR) 60 MG TAB.ER.24H PO SCH (09:00)
[2019-04-04] MEDS ORDERED: Cholecalciferol (D-3) 1,000 UNIT (25MCG) TABLET PO SCH (09:00)
[2019-04-04] MEDS ORDERED: Finasteride 5 MG TABLET PO SCH (09:00)
[2019-04-04] MEDS ORDERED: Aspirin Enteric Coated 81 MG Tablet PO SCH (09:00)
[2019-04-04] MEDS ORDERED: Multivit/Ca/Min/Fe/FA 1 TAB TABLET PO SCH (12:00)
[2019-04-04 15:53] VITALS: BP 157/79
== END 2019-04-04 18:24 ==
LOC: EMEROOARM 11:19 → 3BNU 11:19 → SUATTDRO 15:02 → 3BNU 16:03
PROVIDERS: ADMIT Internal Medicine; ATTEND Internal Medicine

== ENCOUNTER 2019-06-08 02:01 | Inpatient (IN) ==
[2019-06-08] MEDS ORDERED: Aspirin 81 MG TAB.CHEW PO ONE (02:14)
[2019-06-08 02:15] LABS: Basophils % 0.3 %; Eosinophils # 0.2 K/mcL (0.0-0.6); Eosinophils % 3.7 %; Hemoglobin 10.8 g/dL (12.9-16.9); Immature Granulocytes % 0.3 % (0-4); Lymphocytes # 1.2 K/mcL (0.6-4.6); Lymphocytes % 19.6 %; Mean Corpuscular HGB Conc 31.8 g/dL (31.6-35.5); Mean Corpuscular Hemoglobin 31.4 pg (28.0-33.3); Mean Corpuscular Volume 98.8 fL (83.0-100.0); Mean Platelet Volume 10.9 fL (9.4-12.4); Monocytes # 0.6 K/mcL (0.0-1.3); Monocytes % 9.7 %; Neutrophils # 4.2 K/mcL (1.6-8.9); Platelet Count 144 K/mcL (140-400); Red Blood Count 3.44 M/mcL (4.19-5.50); Red Cell Distribution Width 13.2 % (11.5-14.5); Segmented Neutrophils % 66.4 %; White Blood Count 6.3 K/mcL (4.3-11.1)
[2019-06-08] MEDS ORDERED: Aspirin 81 MG TAB.CHEW ONE (02:17)
[2019-06-08 02:26] LABS: Prothrombin Time 11.7 Seconds (9.4-12.1)
[2019-06-08 02:28] LABS: Activated Partial Thrombo Time 29.8 Seconds (26.0-36.0)
[2019-06-08 02:40] LABS: Calcium 8.8 mg/dL (8.6-10.3); Potassium 3.9 mEq/L (3.5-5.1)
[2019-06-08 02:42] LABS: Troponin I 0.04 ng/mL (< 0.04)
[2019-06-08] MEDS ORDERED: Naloxone 0.4 MG/ML INJ IVP PRN (03:29)
[2019-06-08] MEDS ORDERED: Nitroglycerin 0.4 MG TAB.SUBL SL PRN (03:32)
[2019-06-08] MEDS: *HR* Heparin 5,000 UNIT/ML VIAL SQ SCH ×2 (06:13→15:17)
[2019-06-08] MEDS: Cholecalciferol (D-3) 1,000 UNIT (25MCG) TABLET PO SCH (09:34)
[2019-06-08] MEDS: Multivit/Ca/Min/Fe/FA 1 TAB TABLET PO SCH (09:34)
[2019-06-08] MEDS: carvediloL 6.25 MG TABLET PO SCH ×2 (09:34→16:32)
[2019-06-08] MEDS: Aspirin Enteric Coated 81 MG Tablet PO SCH (09:35)
[2019-06-08] MEDS: lisinopriL 5 MG TABLET PO SCH (09:35)
[2019-06-08] MEDS: Isosorbide MONOnitrate (24 HR) 60 MG TAB.ER.24H PO SCH (09:35)
[2019-06-08] MEDS: Carbidopa/Levodopa 25/100 TABLET PO SCH ×3 (09:35→20:44)
[2019-06-08] MEDS ORDERED: *HR* Heparin 5,000 UNIT/ML VIAL IVP PRN ×2 (14:41)
[2019-06-08] MEDS ORDERED: Heparin 25,000 UNIT/250 ML D5W 25,000 UNIT/250 ML IV.SOLN IVC SCH (14:45)
[2019-06-08] MEDS: Ranolazine 500 MG TAB.ER.12H PO SCH ×2 (15:18→20:44)
[2019-06-08 15:27] LABS: Hematocrit 37.5 % (37.5-50.1); Hemoglobin 11.9 g/dL (12.9-16.9); Mean Corpuscular HGB Conc 31.7 g/dL (31.6-35.5); Mean Corpuscular Hemoglobin 31.7 pg (28.0-33.3); Mean Platelet Volume 11.2 fL (9.4-12.4); Platelet Count 147 K/mcL (140-400); Red Blood Count 3.75 M/mcL (4.19-5.50); Red Cell Distribution Width 13.2 % (11.5-14.5); White Blood Count 4.7 K/mcL (4.3-11.1)
[2019-06-08 15:31] LABS: Heparin anti-factor XA UFH < 0.04 IU/mL (0.30-0.70)
[2019-06-08 15:32] LABS: Prothrombin Time 11.5 Seconds (9.4-12.1)
[2019-06-09 03:25] LABS: Basophils % 0.5 %; Eosinophils % 4.7 %; Hemoglobin 10.4 g/dL (12.9-16.9); Immature Granulocytes % 0.3 % (0-4); Mean Platelet Volume 11.2 fL (9.4-12.4); Red Cell Distribution Width 13.2 % (11.5-14.5)
[2019-06-09 03:27] LABS: Eosinophils # 0.3 K/mcL (0.0-0.6); Hematocrit 31.9 % (37.5-50.1); Immature Platelets 4.5 % (1.1-6.1); Lymphocytes # 1.9 K/mcL (0.6-4.6); Lymphocytes % 32.5 %; Mean Corpuscular HGB Conc 32.6 g/dL (31.6-35.5); Mean Corpuscular Volume 98.2 fL (83.0-100.0); Monocytes # 0.6 K/mcL (0.0-1.3); Monocytes % 10.1 %; Neutrophils # 3.1 K/mcL (1.6-8.9); Platelet Count 137 K/mcL (140-400); Red Blood Count 3.25 M/mcL (4.19-5.50); Segmented Neutrophils % 51.9 %; White Blood Count 5.9 K/mcL (4.3-11.1)
[2019-06-09 03:49] LABS: Calcium 8.6 mg/dL (8.6-10.3)
[2019-06-09] MEDS: carvediloL 6.25 MG TABLET PO SCH ×2 (07:31→20:57)
[2019-06-09] MEDS: Aspirin Enteric Coated 81 MG Tablet PO SCH (07:31)
[2019-06-09] MEDS: lisinopriL 5 MG TABLET PO SCH (07:32)
[2019-06-09] MEDS: Ranolazine 500 MG TAB.ER.12H PO SCH ×2 (07:32→20:57)
[2019-06-09] MEDS: Cholecalciferol (D-3) 1,000 UNIT (25MCG) TABLET PO SCH (07:32)
[2019-06-09] MEDS: Carbidopa/Levodopa 25/100 TABLET PO SCH ×3 (07:32→20:57)
[2019-06-09] MEDS: Isosorbide MONOnitrate (24 HR) 60 MG TAB.ER.24H PO SCH (07:32)
[2019-06-09] MEDS: Multivit/Ca/Min/Fe/FA 1 TAB TABLET PO SCH (07:32)
[2019-06-09] MEDS ORDERED: 0.9 % Sodium Chloride 500 ML IVC SCH (09:30)
[2019-06-09] MEDS ORDERED: Nitroglycerin 1,000 MCG/10 ML VIAL IV ONE (14:30)
[2019-06-09] MEDS ORDERED: ISOVUE-370 200 ML INFUS..BTL ONE ×2 (14:30→15:59)
[2019-06-09] MEDS ORDERED: 0.9 % Sodium Chloride 2,000 ML ONE (14:30)
[2019-06-09] MEDS ORDERED: Heparin 1,000 UNITS/500 mL 500 ML ONE (14:30)
[2019-06-09] MEDS ORDERED: *HR* Heparin 10,000 UNIT/10 ML VIAL ONE (14:30)
[2019-06-09] MEDS ORDERED: *HR* Midazolam HCl 2 MG/2 ML VIAL ONE (15:35)
[2019-06-09] MEDS ORDERED: *HR* FentaNYL (PF) 100 MCG/2 ML VIAL ONE (15:35)
[2019-06-09] MEDS ORDERED: *HR* Bivalirudin 250 MG VIAL IVC ONE (15:56)
[2019-06-09] MEDS ORDERED: 0.9 % Sodium Chloride 1,000 ML IVC SCH (16:45)
[2019-06-10 04:42] LABS: Basophils % 0.4 %; Eosinophils # 0.2 K/mcL (0.0-0.6); Eosinophils % 3.8 %; Hematocrit 32.5 % (37.5-50.1); Hemoglobin 10.7 g/dL (12.9-16.9); Immature Granulocytes % 0.2 % (0-4); Lymphocytes # 0.9 K/mcL (0.6-4.6); Lymphocytes % 19.8 %; Mean Corpuscular HGB Conc 32.9 g/dL (31.6-35.5); Mean Corpuscular Hemoglobin 32.1 pg (28.0-33.3); Mean Corpuscular Volume 97.6 fL (83.0-100.0); Monocytes # 0.5 K/mcL (0.0-1.3); Monocytes % 11.1 %; Platelet Count 144 K/mcL (140-400); Red Blood Count 3.33 M/mcL (4.19-5.50); Red Cell Distribution Width 13.6 % (11.5-14.5); Segmented Neutrophils % 64.7 %; White Blood Count 4.7 K/mcL (4.3-11.1)
[2019-06-10 05:02] LABS: Calcium 8.7 mg/dL (8.6-10.3)
[2019-06-10] MEDS: Aspirin Enteric Coated 81 MG Tablet PO SCH (08:34)
[2019-06-10] MEDS: Ranolazine 500 MG TAB.ER.12H PO SCH (08:34)
[2019-06-10] MEDS: Carbidopa/Levodopa 25/100 TABLET PO SCH (08:35)
[2019-06-10] MEDS: Cholecalciferol (D-3) 1,000 UNIT (25MCG) TABLET PO SCH (08:35)
[2019-06-10] MEDS: lisinopriL 5 MG TABLET PO SCH (08:35)
[2019-06-10] MEDS: Isosorbide MONOnitrate (24 HR) 60 MG TAB.ER.24H PO SCH (08:35)
[2019-06-10] MEDS: Multivit/Ca/Min/Fe/FA 1 TAB TABLET PO SCH (08:35)
[2019-06-10] MEDS: carvediloL 6.25 MG TABLET PO SCH (08:35)
[2019-06-10 11:12] VITALS: BP 118/65
[2019-06-10] MEDS ORDERED: Perflutren Lipid Microsphere 1.3 ML in 0.9 % Sodium Chloride 8.7 ML IVP ONE (15:47)
== END 2019-06-10 17:10 | disposition home or self-care (01) | DRG 247 ==
LOC: EMEROOARM 02:01 → 3BNU 02:01 → SUATTDRO 03:18 → 3BNU 03:30 → 2NNU 06-09 18:37
PROVIDERS: ADMIT Student in an Organized Health Care Education/Training Program; ATTEND Internal Medicine

== ENCOUNTER 2019-11-19 17:38 | Inpatient (IN) ==
[2019-11-19] MEDS ORDERED: 0.9 % Sodium Chloride 1,000 ML IVC ONE (19:13)
[2019-11-19 19:59] LABS: Basophils % 0.5 %; Eosinophils # 0.2 K/mcL (0.0-0.6); Eosinophils % 2.4 %; Hematocrit 43.2 % (37.5-50.1); Immature Granulocytes % 0.2 % (0-4); Lymphocytes # 1.3 K/mcL (0.6-4.6); Mean Corpuscular HGB Conc 32.4 g/dL (31.6-35.5); Mean Corpuscular Hemoglobin 31.1 pg (28.0-33.3); Mean Platelet Volume 11.7 fL (9.4-12.4); Monocytes # 0.6 K/mcL (0.0-1.3); Monocytes % 9.4 %; Neutrophils # 4.3 K/mcL (1.6-8.9); Platelet Count 156 K/mcL (140-400); Red Cell Distribution Width 13.4 % (11.5-14.5); Segmented Neutrophils % 67.5 %; White Blood Count 6.3 K/mcL (4.3-11.1)
[2019-11-19 20:23] LABS: Alanine Aminotransferase 3 Units/L (7-52); Albumin 4.2 g/dL (3.5-5.7); Albumin/Globulin Ratio 1.2 (1.1-2.2); Alkaline Phosphatase 61 Units/L (34-104); Aspartate Amino Transferase 17 Units/L (13-39); BUN/Creatinine Ratio 20 (6-26); Bilirubin,Total 0.7 mg/dL (0.3-1.0); Blood Urea Nitrogen 34 mg/dL (8-23); Calcium 9.6 mg/dL (8.6-10.3); Carbon Dioxide 24 mEq/L (23-29); Chloride 100 mEq/L (98-107); Creatine Kinase 40 Units/L (30-223); Globulin 3.4 g/dL (2.4-3.5); Glucose 131 mg/dL (70-105); Magnesium 2.3 mg/dL (1.6-2.6); Osmolality,Calculated 285 (280-300); Potassium 5.2 mEq/L (3.5-5.1); Sodium 133 mEq/L (136-145); Total Protein 7.6 g/dL (6.4-8.9); Troponin I < 0.03 ng/mL (< 0.04); eGFR For African Americans 47 (> 60); eGFR For Non-African Americans 38 (> 60)
[2019-11-19 20:53] LABS: VBG HCO3 26 mEq/L (21-27); VBG PCO2 48 mmHg (41-51); VBG PH 7.34 pH Units (7.32-7.42); VBG PO2 79 mmHg (25-50)
[2019-11-19 21:03] LABS: Bacteria,Urine Few per hpf (None-Few); Bilirubin,Urine Negative (Negative); Blood,Urine Negative (Negative); Clarity,Urine Clear (Clear); Color,Urine Yellow (Yellow); Glucose,Urine (UA) Normal (Normal); Hyaline Casts,Urine Few per lpf (None Seen); Ketones,Urine Trace mg/dL (Negative); Leukocyte Esterase,Urine Small (Negative); Nitrite,Urine Negative (Negative); Protein,Urine Negative (Neg-Trace); RBC,Urine 0-3 per hpf (0-3); Specific Gravity,Urine 1.016 (1.010-1.025); Urobilinogen,Urine Normal (Normal); WBC,Urine 15-30 per hpf (0-3)
[2019-11-19] MEDS ORDERED: cefTRIAXone 1,000 MG in Water for inj. (sterile) 10 ML IVP ONE (21:58)
[2019-11-19] MEDS ORDERED: *HR* Promethazine 25 MG/ML VIAL IVP PRN (22:21)
[2019-11-19] MEDS ORDERED: Acetaminophen 325 MG TABLET PO PRN (22:21)
[2019-11-19] MEDS ORDERED: Naloxone 0.4 MG/ML INJ IVP PRN (22:21)
[2019-11-20] MEDS: 0.9 % Sodium Chloride 1,000 ML IVC SCH ×2 (00:52→11:36)
[2019-11-20] MEDS: cefTRIAXone 1,000 MG in 0.9 % Sodium Chloride Mini Bag 100 ML IVPB SCH (07:54)
[2019-11-20 09:55] LABS: Basophils % 0.3 %; Hemoglobin 12.9 g/dL (12.9-16.9); Immature Granulocytes % 0.2 % (0-4); White Blood Count 5.8 K/mcL (4.3-11.1)
[2019-11-20 09:57] LABS: Eosinophils # 0.2 K/mcL (0.0-0.6); Hematocrit 40.7 % (37.5-50.1); Immature Platelets 5.7 % (1.1-6.1); Lymphocytes # 1.1 K/mcL (0.6-4.6); Lymphocytes % 18.9 %; Mean Corpuscular HGB Conc 31.7 g/dL (31.6-35.5); Mean Corpuscular Hemoglobin 30.9 pg (28.0-33.3); Mean Corpuscular Volume 97.4 fL (83.0-100.0); Mean Platelet Volume 11.4 fL (9.4-12.4); Monocytes # 0.6 K/mcL (0.0-1.3); Monocytes % 10.1 %; Platelet Count 130 K/mcL (140-400); Red Blood Count 4.18 M/mcL (4.19-5.50); Red Cell Distribution Width 13.2 % (11.5-14.5); Segmented Neutrophils % 66.5 %
[2019-11-20 10:12] LABS: Magnesium 2.1 mg/dL (1.6-2.6); Phosphorous 2.9 mg/dL (2.7-4.5); Potassium 4.3 mEq/L (3.5-5.1)
[2019-11-20 10:24] LABS: Thyroid Stimulating Hormone 1.871 mcIU/mL (0.340-5.600)
[2019-11-20 10:49] LABS: Folate > 22.3 ng/mL (3.0-16.0); Vitamin D 25 Hydroxy 35 ng/mL (30-80)
[2019-11-20 11:23] LABS: Neutrophils # 3.9 K/mcL (1.6-8.9); Platelet Estimate Slight Decrease (Normal)
[2019-11-20] MEDS: Aspirin Enteric Coated 81 MG Tablet PO SCH (12:19)
[2019-11-20] MEDS: Carbidopa/Levodopa 25/100 TABLET PO SCH ×2 (12:19→22:10)
[2019-11-20] MEDS: lisinopriL 5 MG TABLET PO SCH (12:19)
[2019-11-20] MEDS: carvediloL 6.25 MG TABLET PO SCH (21:44)
[2019-11-20] MEDS: Ranolazine 500 MG TAB.ER.12H PO SCH (21:44)
[2019-11-20] MEDS: Nitroglycerin 0.4 MG TAB.SUBL SL PRN ×2 (22:01→22:11)
[2019-11-21 08:22] LABS: Red Cell Distribution Width 13.2 % (11.5-14.5)
[2019-11-21 08:23] LABS: Hematocrit 41.3 % (37.5-50.1); Hemoglobin 13.6 g/dL (12.9-16.9); Immature Platelets 6.2 % (1.1-6.1); Mean Corpuscular HGB Conc 32.9 g/dL (31.6-35.5); Mean Corpuscular Hemoglobin 31.9 pg (28.0-33.3); Mean Corpuscular Volume 96.9 fL (83.0-100.0); Mean Platelet Volume 11.2 fL (9.4-12.4); Red Blood Count 4.26 M/mcL (4.19-5.50)
[2019-11-21 08:40] LABS: Calcium 9.1 mg/dL (8.6-10.3); Potassium 4.1 mEq/L (3.5-5.1)
[2019-11-21] MEDS: cefTRIAXone 1,000 MG in 0.9 % Sodium Chloride Mini Bag 100 ML IVPB SCH (08:55)
[2019-11-21] MEDS: lisinopriL 5 MG TABLET PO SCH (08:56)
[2019-11-21] MEDS: Ranolazine 500 MG TAB.ER.12H PO SCH ×2 (08:56→20:05)
[2019-11-21] MEDS: Cholecalciferol (D-3) 1,000 UNIT (25MCG) TABLET PO SCH (08:56)
[2019-11-21] MEDS: Multivit/Ca/Min/Fe/FA 1 TAB TABLET PO SCH (08:56)
[2019-11-21] MEDS: Isosorbide MONOnitrate (24 HR) 60 MG TAB.ER.24H PO SCH (08:56)
[2019-11-21] MEDS: Aspirin Enteric Coated 81 MG Tablet PO SCH (08:56)
[2019-11-21] MEDS: carvediloL 6.25 MG TABLET PO SCH ×2 (08:56→20:04)
[2019-11-21] MEDS: Carbidopa/Levodopa 25/100 TABLET PO SCH ×3 (08:59→20:05)
[2019-11-21] MEDS: Nitroglycerin 0.4 MG TAB.SUBL SL PRN (13:11)
[2019-11-22 04:23] LABS: Hematocrit 37.7 % (37.5-50.1); Mean Corpuscular HGB Conc 31.8 g/dL (31.6-35.5); Mean Corpuscular Hemoglobin 30.9 pg (28.0-33.3); Mean Corpuscular Volume 97.2 fL (83.0-100.0); Mean Platelet Volume 11.6 fL (9.4-12.4); Red Blood Count 3.88 M/mcL (4.19-5.50); Red Cell Distribution Width 13.5 % (11.5-14.5); White Blood Count 5.8 K/mcL (4.3-11.1)
[2019-11-22 04:42] LABS: Calcium 8.8 mg/dL (8.6-10.3); Potassium 3.8 mEq/L (3.5-5.1)
[2019-11-22] MEDS: Carbidopa/Levodopa 25/100 TABLET PO SCH ×3 (08:22→20:05)
[2019-11-22] MEDS: Multivit/Ca/Min/Fe/FA 1 TAB TABLET PO SCH (08:22)
[2019-11-22] MEDS: cefTRIAXone 1,000 MG in 0.9 % Sodium Chloride Mini Bag 100 ML IVPB SCH (08:22)
[2019-11-22] MEDS: Aspirin Enteric Coated 81 MG Tablet PO SCH (08:22)
[2019-11-22] MEDS: lisinopriL 5 MG TABLET PO SCH (08:22)
[2019-11-22] MEDS: Cholecalciferol (D-3) 1,000 UNIT (25MCG) TABLET PO SCH (08:22)
[2019-11-22] MEDS: carvediloL 6.25 MG TABLET PO SCH ×2 (08:22→20:05)
[2019-11-22] MEDS: Ranolazine 500 MG TAB.ER.12H PO SCH ×2 (08:22→20:06)
[2019-11-22] MEDS: Isosorbide MONOnitrate (24 HR) 60 MG TAB.ER.24H PO SCH (08:23)
[2019-11-22] MEDS ORDERED: *HR* LORazepam 2 MG/ML VIAL IVP ONE (20:40)
[2019-11-23 09:24] LABS: Hematocrit 36.1 % (37.5-50.1); Hemoglobin 11.7 g/dL (12.9-16.9); Mean Corpuscular HGB Conc 32.4 g/dL (31.6-35.5); Mean Corpuscular Hemoglobin 31.5 pg (28.0-33.3); Mean Corpuscular Volume 97.3 fL (83.0-100.0); Mean Platelet Volume 11.6 fL (9.4-12.4); Platelet Count 132 K/mcL (140-400); Red Blood Count 3.71 M/mcL (4.19-5.50); Red Cell Distribution Width 13.5 % (11.5-14.5); White Blood Count 5.1 K/mcL (4.3-11.1)
[2019-11-23 09:29] LABS: Potassium 3.9 mEq/L (3.5-5.1)
[2019-11-23] MEDS: Cholecalciferol (D-3) 1,000 UNIT (25MCG) TABLET PO SCH (10:50)
[2019-11-23] MEDS: lisinopriL 5 MG TABLET PO SCH (10:50)
[2019-11-23] MEDS: carvediloL 6.25 MG TABLET PO SCH ×2 (10:50→21:00)
[2019-11-23] MEDS: Multivit/Ca/Min/Fe/FA 1 TAB TABLET PO SCH (10:50)
[2019-11-23] MEDS: Aspirin Enteric Coated 81 MG Tablet PO SCH (10:50)
[2019-11-23] MEDS: Isosorbide MONOnitrate (24 HR) 60 MG TAB.ER.24H PO SCH (10:50)
[2019-11-23] MEDS: Carbidopa/Levodopa 25/100 TABLET PO SCH ×3 (10:50→21:01)
[2019-11-23] MEDS: Ranolazine 500 MG TAB.ER.12H PO SCH ×2 (10:50→21:01)
[2019-11-23] MEDS: cefTRIAXone 1,000 MG in 0.9 % Sodium Chloride Mini Bag 100 ML IVPB SCH (10:50)
[2019-11-23 15:02] LABS: Adenovirus Not Detected (Not Detect); Coronavirus 229E Not Detected (Not Detect); Coronavirus HKU1 Not Detected (Not Detect); Coronavirus NL63 Not Detected (Not Detect); Coronavirus OC43 Not Detected (Not Detect)
[2019-11-23 15:03] LABS: Bordetella Pertussis Not Detected (Not Detect); Chlamydophila pneumoniae Not Detected (Not Detect); Human Metapneumovirus Not Detected (Not Detect); Human Rhinovirus/Enterovirus Not Detected (Not Detect); Influenza A Subtype 2009 H1 Not Detected (Not Detect); Influenza B Not Detected (Not Detect); Mycoplasma pneumoniae Not Detected (Not Detect); Parainfluenza Virus 1 Not Detected (Not Detect); Parainfluenza Virus 2 Not Detected (Not Detect); Parainfluenza Virus 3 Not Detected (Not Detect); Parainfluenza Virus 4 Not Detected (Not Detect); Respiratory Syncytial Virus Not Detected (Not Detect)
[2019-11-24 07:34] VITALS: BP 145/77
[2019-11-24] MEDS: Ranolazine 500 MG TAB.ER.12H PO SCH (10:59)
[2019-11-24] MEDS: Cholecalciferol (D-3) 1,000 UNIT (25MCG) TABLET PO SCH (10:59)
[2019-11-24] MEDS: Aspirin Enteric Coated 81 MG Tablet PO SCH (11:01)
[2019-11-24] MEDS: carvediloL 6.25 MG TABLET PO SCH (11:01)
[2019-11-24] MEDS: Multivit/Ca/Min/Fe/FA 1 TAB TABLET PO SCH (11:01)
[2019-11-24] MEDS: lisinopriL 5 MG TABLET PO SCH (11:01)
[2019-11-24] MEDS: Isosorbide MONOnitrate (24 HR) 60 MG TAB.ER.24H PO SCH (11:02)
== END 2019-11-24 12:48 | DRG 690 ==
LOC: 3BNU 17:38 → EMEROOARM 17:38 → SUATTDRO 22:46 → 3BNU 11-20 → SUATTDRO 11-20 13:35 → 3BNU 11-22 21:58
PROVIDERS: ADMIT Student in an Organized Health Care Education/Training Program; ATTEND Nurse Practitioner Adult Health

== ENCOUNTER 2020-02-16 13:47 | Inpatient (IN) ==
[2020-02-16] MEDS ORDERED: Aspirin 81 MG TAB.CHEW PO ONE (13:56)
[2020-02-16 14:25] LABS: Basophils % 0.6 %; Eosinophils # 0.3 K/mcL (0.0-0.6); Eosinophils % 5.2 %; Immature Granulocytes % 0.4 % (0-4); White Blood Count 4.8 K/mcL (4.3-11.1)
[2020-02-16 14:27] LABS: Hemoglobin 11.5 g/dL (12.9-16.9); Immature Platelets 4.5 % (1.1-6.1); Lymphocytes # 1.3 K/mcL (0.6-4.6); Lymphocytes % 27.4 %; Mean Corpuscular HGB Conc 31.9 g/dL (31.6-35.5); Mean Corpuscular Hemoglobin 32.3 pg (28.0-33.3); Mean Corpuscular Volume 101.1 fL (83.0-100.0); Mean Platelet Volume 11.4 fL (9.4-12.4); Monocytes # 0.5 K/mcL (0.0-1.3); Monocytes % 10.6 %; Neutrophils # 2.7 K/mcL (1.6-8.9); Platelet Count 142 K/mcL (140-400); Red Blood Count 3.56 M/mcL (4.19-5.50); Red Cell Distribution Width 13.5 % (11.5-14.5); Segmented Neutrophils % 55.8 %
[2020-02-16 14:47] LABS: Albumin 3.5 g/dL (3.5-5.7); Albumin/Globulin Ratio 1.3 (1.1-2.2); Bilirubin,Direct 0.1 mg/dL (0.0-0.2); Bilirubin,Indirect 0.5 mg/dL (0.0-1.0); Bilirubin,Total 0.6 mg/dL (0.3-1.0); Calcium 8.5 mg/dL (8.6-10.3); Globulin 2.7 g/dL (2.4-3.5); Magnesium 2.2 mg/dL (1.6-2.6); Potassium 4.5 mEq/L (3.5-5.1); Total Protein 6.2 g/dL (6.4-8.9); Troponin I 0.04 ng/mL (< 0.04)
[2020-02-16] MEDS ORDERED: *HR* Heparin 5,000 UNIT/ML VIAL IVP PRN ×2 (14:49)
[2020-02-16] MEDS ORDERED: *HR* Heparin 5,000 UNIT/ML VIAL IVP ONE (14:49)
[2020-02-16 14:52] LABS: INR 1.1; Prothrombin Time 12.4 Seconds (9.4-12.1)
[2020-02-16 14:55] LABS: Activated Partial Thrombo Time 27.7 Seconds (26.0-36.0)
[2020-02-16] MEDS ORDERED: Heparin 25,000UNIT/250ML 1/2NS 25,000 UNIT/250 ML IV.SOLN IVC SCH (15:00)
[2020-02-16 15:01] LABS: Heparin anti-factor XA UFH 0.04 IU/mL (0.30-0.70)
[2020-02-16] MEDS ORDERED: Naloxone 0.4 MG/ML INJ IVP PRN (16:38)
[2020-02-16] MEDS ORDERED: Nitroglycerin 0.4 MG TAB.SUBL SL PRN (17:57)
[2020-02-16] MEDS ORDERED: Perflutren Lipid Microsphere 1.3 ML in 0.9 % Sodium Chloride 8.7 ML IVP PRN (18:02)
[2020-02-16] MEDS ORDERED: Dextrose Gel 15 GM/37.5 ML TUBE PO PRN ×2 (18:06)
[2020-02-16] MEDS ORDERED: *HR* Dextrose 50 % in Water (Vial) 50 ML VIAL IVP PRN (18:06)
[2020-02-16] MEDS ORDERED: D5% in Water 1,000 ML IVC PRN (18:06)
[2020-02-16] MEDS ORDERED: Ipratropium/Albuterol Neb 3 ML IH PRN (18:13)
[2020-02-16 20:35] LABS: Estimated Average Glucose 131 mg/dl
[2020-02-16] MEDS ORDERED: Carbidopa/Levodopa 25/100 TABLET PO SCH (21:00)
[2020-02-16] MEDS: Insulin LISPRO 300 UNITS/3 ML VIAL SQ SCH (22:15)
[2020-02-16] MEDS: Ranolazine 500 MG TAB.ER.12H PO SCH (22:18)
[2020-02-17 04:22] LABS: Basophils % 0.7 %; Eosinophils # 0.3 K/mcL (0.0-0.6); Eosinophils % 5.8 %; Hematocrit 37.5 % (37.5-50.1); Immature Granulocytes % 0.2 % (0-4); Lymphocytes # 1.4 K/mcL (0.6-4.6); Lymphocytes % 31.1 %; Mean Corpuscular Hemoglobin 31.7 pg (28.0-33.3); Mean Corpuscular Volume 99.2 fL (83.0-100.0); Mean Platelet Volume 11.7 fL (9.4-12.4); Monocytes # 0.5 K/mcL (0.0-1.3); Monocytes % 10.4 %; Neutrophils # 2.3 K/mcL (1.6-8.9); Platelet Count 131 K/mcL (140-400); Red Blood Count 3.78 M/mcL (4.19-5.50); Red Cell Distribution Width 13.2 % (11.5-14.5); Segmented Neutrophils % 51.8 %; White Blood Count 4.5 K/mcL (4.3-11.1)
[2020-02-17 04:40] LABS: Calcium 8.6 mg/dL (8.6-10.3); Chol/HDL Ratio 3.9 (0-4.9); Magnesium 2.1 mg/dL (1.6-2.6); Potassium 4.5 mEq/L (3.5-5.1)
[2020-02-17] MEDS: Insulin LISPRO 300 UNITS/3 ML VIAL SQ SCH ×4 (08:52→20:31)
[2020-02-17] MEDS: carvediloL 6.25 MG TABLET PO SCH ×2 (10:45→16:00)
[2020-02-17] MEDS: Cholecalciferol (D-3) 1,000 UNIT (25MCG) TABLET PO SCH (10:46)
[2020-02-17] MEDS: Isosorbide MONOnitrate (24 HR) 60 MG TAB.ER.24H PO SCH (10:46)
[2020-02-17] MEDS: Aspirin 81 MG TAB.CHEW PO SCH (10:46)
[2020-02-17] MEDS: lisinopriL 5 MG TABLET PO SCH (10:46)
[2020-02-17] MEDS: Ranolazine 500 MG TAB.ER.12H PO SCH ×2 (10:47→20:45)
[2020-02-17] MEDS: Multivit/Ca/Min/Fe/FA 1 TAB TABLET PO SCH (10:47)
[2020-02-17] MEDS: Carbidopa/Levodopa ER 50/200 TABLET PO SCH ×3 (10:55→20:45)
[2020-02-17] MEDS ORDERED: *HR* LORazepam 0.5 MG TABLET PO PRN (13:26)
[2020-02-17] MEDS: *HR* Heparin 5,000 UNIT/ML VIAL SQ SCH (19:01)
[2020-02-18] MEDS: *HR* Heparin 5,000 UNIT/ML VIAL SQ SCH (05:07)
[2020-02-18 05:08] LABS: Bilirubin,Urine Negative (Negative); Blood,Urine Negative (Negative); Clarity,Urine Clear (Clear); Color,Urine Yellow (Yellow); Glucose,Urine (UA) Normal (Normal); Ketones,Urine Negative (Negative); Leukocyte Esterase,Urine Negative (Negative); Nitrite,Urine Negative (Negative); Protein,Urine Negative (Neg-Trace); Specific Gravity,Urine 1.017 (1.010-1.025); Urobilinogen,Urine Normal (Normal)
[2020-02-18] MEDS: Ranolazine 500 MG TAB.ER.12H PO SCH (09:14)
[2020-02-18] MEDS: lisinopriL 5 MG TABLET PO SCH (09:15)
[2020-02-18] MEDS: carvediloL 6.25 MG TABLET PO SCH (09:15)
[2020-02-18] MEDS: Multivit/Ca/Min/Fe/FA 1 TAB TABLET PO SCH (09:15)
[2020-02-18] MEDS: Isosorbide MONOnitrate (24 HR) 60 MG TAB.ER.24H PO SCH (09:15)
[2020-02-18] MEDS: Aspirin 81 MG TAB.CHEW PO SCH (09:16)
[2020-02-18] MEDS: Insulin LISPRO 300 UNITS/3 ML VIAL SQ SCH ×2 (09:16→15:15)
[2020-02-18] MEDS: Cholecalciferol (D-3) 1,000 UNIT (25MCG) TABLET PO SCH (09:16)
[2020-02-18] MEDS: Carbidopa/Levodopa ER 50/200 TABLET PO SCH ×2 (09:18→15:19)
[2020-02-18 10:30] VITALS: BP 122/75
[2020-02-18 14:54] LABS: Adenovirus Not Detected (Not Detect); Bordetella Pertussis Not Detected (Not Detect); Chlamydophila pneumoniae Not Detected (Not Detect); Coronavirus 229E Not Detected (Not Detect); Coronavirus HKU1 Not Detected (Not Detect); Coronavirus NL63 Not Detected (Not Detect); Coronavirus OC43 Not Detected (Not Detect); Human Metapneumovirus Not Detected (Not Detect); Human Rhinovirus/Enterovirus Not Detected (Not Detect); Influenza A Subtype 2009 H1 Not Detected (Not Detect); Influenza B Not Detected (Not Detect); Mycoplasma pneumoniae Not Detected (Not Detect); Parainfluenza Virus 1 Not Detected (Not Detect); Parainfluenza Virus 2 Not Detected (Not Detect); Parainfluenza Virus 3 Not Detected (Not Detect); Parainfluenza Virus 4 Not Detected (Not Detect); Respiratory Syncytial Virus Not Detected (Not Detect); SARS-CoV-2 Not Detected (Not Detect)
== END 2020-02-18 15:58 | DRG 313 ==
LOC: 3BNU 13:47 → EMEROOARM 13:47 → SUATTDRO 18:25 → 3BNU 19:36
PROVIDERS: ADMIT Family Medicine; ATTEND Internal Medicine

== ENCOUNTER 2020-04-12 12:36 | Inpatient (IN) ==
[2020-04-12] MEDS ORDERED: 0.9 % Sodium Chloride 1,000 ML IVC ONE (12:51)
[2020-04-12 13:11] LABS: Bilirubin,Urine Negative (Negative); Blood,Urine Negative (Negative); Clarity,Urine Clear (Clear); Color,Urine Yellow (Yellow); Glucose,Urine (UA) 30 mg/dL (Normal); Hyaline Casts,Urine Few per lpf (None Seen); Ketones,Urine Negative (Negative); Leukocyte Esterase,Urine Negative (Negative); Mucus,Urine Few per lpf (None-Few); Nitrite,Urine Negative (Negative); PH,Urine 5.5 pH Units (5.0-8.0); Protein,Urine Trace mg/dL (Neg-Trace); RBC,Urine 0-3 per hpf (0-3); Renal Epithelial Cells,Urine Few per hpf (None-Few); Specific Gravity,Urine 1.019 (1.010-1.025); Squamous Epithelial Cell,Urine Few per hpf (None-Few); Transitional Epi Cells,Urine Few per hpf (None-Few); Urobilinogen,Urine Normal (Normal); WBC,Urine 0-3 per hpf (0-3)
[2020-04-12 13:44] LABS: Magnesium 2.3 mg/dL (1.6-2.6); Troponin I 0.35 ng/mL (< 0.04)
[2020-04-12] MEDS ORDERED: *HR* LORazepam 2 MG/ML VIAL IVP ONE (14:14)
[2020-04-12] MEDS ORDERED: Naloxone 0.4 MG/ML INJ IVP PRN (16:07)
[2020-04-12] MEDS ORDERED: *HR* Heparin 5,000 UNIT/ML VIAL SQ SCH (18:00)
[2020-04-12] MEDS: 0.9 % Sodium Chloride 1,000 ML IVC SCH (18:52)
[2020-04-12] MEDS ORDERED: *HR* Heparin 5,000 UNIT/ML VIAL IVP PRN ×2 (20:47)
[2020-04-12] MEDS ORDERED: *HR* Heparin 5,000 UNIT/ML VIAL IVP ONE (20:47)
[2020-04-12] MEDS ORDERED: D5% in Water 1,000 ML IVC PRN (20:54)
[2020-04-12] MEDS ORDERED: *HR* Dextrose 50 % in Water (Vial) 50 ML VIAL IVP PRN (20:54)
[2020-04-12] MEDS ORDERED: Dextrose Gel 15 GM/37.5 ML TUBE PO PRN ×2 (20:54)
[2020-04-12] MEDS ORDERED: Insulin LISPRO 300 UNITS/3 ML VIAL SUBQ SCH (21:00)
[2020-04-12 21:14] LABS: Hematocrit 36.9 % (37.5-50.1); Hemoglobin 11.9 g/dL (12.9-16.9); Mean Corpuscular HGB Conc 32.2 g/dL (31.6-35.5); Mean Corpuscular Hemoglobin 31.8 pg (28.0-33.3); Mean Corpuscular Volume 98.7 fL (83.0-100.0); Mean Platelet Volume 11.3 fL (9.4-12.4); Platelet Count 154 K/mcL (140-400); Red Blood Count 3.74 M/mcL (4.19-5.50); Red Cell Distribution Width 13.9 % (11.5-14.5); White Blood Count 12.7 K/mcL (4.3-11.1)
[2020-04-12 21:16] LABS: INR 1.1
[2020-04-12 21:19] LABS: Activated Partial Thrombo Time 26.9 Seconds (26.0-36.0)
[2020-04-12] MEDS: Heparin 25,000UNIT/250ML 1/2NS 25,000 UNIT/250 ML IV.SOLN IVC SCH (22:31)
[2020-04-13] MEDS ORDERED: *HR* LORazepam 2 MG/ML VIAL IVP ONE (01:43)
[2020-04-13] MEDS: 0.9 % Sodium Chloride 1,000 ML IVC SCH (04:02)
[2020-04-13 05:32] LABS: Basophils % 0.1 %; Hematocrit 35.9 % (37.5-50.1); Hemoglobin 11.4 g/dL (12.9-16.9); Immature Granulocytes % 0.5 % (0-4); Lymphocytes # 0.8 K/mcL (0.6-4.6); Lymphocytes % 5.4 %; Mean Corpuscular HGB Conc 31.8 g/dL (31.6-35.5); Mean Corpuscular Hemoglobin 32.1 pg (28.0-33.3); Mean Corpuscular Volume 101.1 fL (83.0-100.0); Mean Platelet Volume 11.9 fL (9.4-12.4); Monocytes # 1.1 K/mcL (0.0-1.3); Monocytes % 8.1 %; Platelet Count 160 K/mcL (140-400); Red Blood Count 3.55 M/mcL (4.19-5.50); Red Cell Distribution Width 13.9 % (11.5-14.5); Segmented Neutrophils % 85.9 %
[2020-04-13 05:52] LABS: Calcium 8.9 mg/dL (8.6-10.3)
[2020-04-13] MEDS: Isosorbide MONOnitrate (24 HR) 60 MG TAB.ER.24H PO SCH (09:12)
[2020-04-13] MEDS: Aspirin Enteric Coated 81 MG Tablet PO SCH (09:12)
[2020-04-13] MEDS ORDERED: D5% in Water 1,000 ML IVC PRN (12:37)
[2020-04-13] MEDS ORDERED: *HR* Dextrose 50 % in Water (Vial) 50 ML VIAL IVP PRN (12:37)
[2020-04-13] MEDS ORDERED: Dextrose Gel 15 GM/37.5 ML TUBE PO PRN (12:37)
[2020-04-13] MEDS: Insulin LISPRO 300 UNITS/3 ML VIAL SUBQ SCH ×2 (13:07→17:05)
[2020-04-13] MEDS: Heparin 25,000UNIT/250ML 1/2NS 25,000 UNIT/250 ML IV.SOLN IVC SCH (19:55)
[2020-04-14] MEDS ORDERED: 0.9 % Sodium Chloride 1,000 ML IVC ONE ×2 (00:05→01:41)
[2020-04-14] MEDS ORDERED: 0.9 % Sodium Chloride 1,000 ML ONE (00:06)
[2020-04-14 00:55] LABS: Basophils % 0.2 %; Eosinophils % 0.1 %; Hematocrit 27.2 % (37.5-50.1); Hemoglobin 8.8 g/dL (12.9-16.9); Immature Granulocytes % 0.5 % (0-4); Lymphocytes # 1.8 K/mcL (0.6-4.6); Lymphocytes % 10.1 %; Mean Corpuscular HGB Conc 32.4 g/dL (31.6-35.5); Mean Corpuscular Hemoglobin 32.5 pg (28.0-33.3); Mean Corpuscular Volume 100.4 fL (83.0-100.0); Mean Platelet Volume 11.9 fL (9.4-12.4); Monocytes # 1.5 K/mcL (0.0-1.3); Monocytes % 8.8 %; Neutrophils # 13.9 K/mcL (1.6-8.9); Platelet Count 168 K/mcL (140-400); Red Blood Count 2.71 M/mcL (4.19-5.50); Red Cell Distribution Width 14.2 % (11.5-14.5); Segmented Neutrophils % 80.3 %; White Blood Count 17.3 K/mcL (4.3-11.1)
[2020-04-14 01:12] LABS: Calcium 8.3 mg/dL (8.6-10.3); Phosphorous 2.8 mg/dL (2.7-4.5)
[2020-04-14 01:20] LABS: Troponin I 0.29 ng/mL (< 0.04)
[2020-04-14] MEDS ORDERED: *HR* LORazepam 2 MG/ML VIAL ONE (01:29)
[2020-04-14] MEDS ORDERED: *HR* LORazepam 2 MG/ML VIAL IVP ONE ×2 (01:35→01:41)
[2020-04-14] MEDS ORDERED: Amiodarone Premix 360 MG/200 ML BAG IVC ONE (02:55)
[2020-04-14] MEDS ORDERED: Amiodarone Premix 150 MG/100 ML BAG IVPB ONE (02:55)
[2020-04-14] MEDS: Dexmedetomidine HCl 400 MCG/100 ML MLS IVC SCH ×2 (03:32→22:25)
[2020-04-14 04:00] LABS: Hematocrit 23.4 % (37.5-50.1); Hemoglobin 7.5 g/dL (12.9-16.9)
[2020-04-14 04:07] LABS: VBG Ionized Calcium 1.15 mmol/L (1.15-1.35)
[2020-04-14] MEDS ORDERED: 0.9 % Sodium Chloride 250 ML ONE (04:08)
[2020-04-14 04:17] LABS: Calcium 7.6 mg/dL (8.6-10.3); Phosphorous 2.4 mg/dL (2.7-4.5); Potassium 3.8 mEq/L (3.5-5.1)
[2020-04-14] MEDS: Insulin LISPRO 300 UNITS/3 ML VIAL SUBQ SCH ×3 (07:29→17:06)
[2020-04-14] MEDS: Aspirin Enteric Coated 81 MG Tablet PO SCH (07:52)
[2020-04-14] MEDS: Isosorbide MONOnitrate (24 HR) 60 MG TAB.ER.24H PO SCH ×2 (07:52→09:12)
[2020-04-14] MEDS ORDERED: Perflutren Lipid Microsphere 1.3 ML in 0.9 % Sodium Chloride 8.7 ML IVP PRN (08:03)
[2020-04-14 08:49] LABS: ABG Base Excess -7 mEq/L (-2 to 3); ABG HCO3 17 mEq/L (21-27); ABG Oxygen Saturation 96 % (95-98); ABG PCO2 26 mmHg (35-45); ABG PH 7.43 pH Units (7.32-7.45); ABG PO2 76 mmHg (85-104); ABG TCO2 18 mEq/L (20-26)
[2020-04-14] MEDS: Amiodarone Premix 360 MG/200 ML BAG IVC SCH ×2 (09:07→19:26)
[2020-04-14] MEDS: Pantoprazole 40 MG VIAL IVP SCH ×2 (09:12→20:45)
[2020-04-14] MEDS: Norepinephrine 4 MG/254 ML IV.SOLN IVC SCH (09:37)
[2020-04-14] MEDS ORDERED: 0.9 % Sodium Chloride 500 ML ONE (09:52)
[2020-04-14] MEDS ORDERED: Carbidopa/Levodopa ER 50/200 TABLET PO SCH (13:00)
[2020-04-14 15:03] LABS: Hematocrit 30.3 % (37.5-50.1)
[2020-04-14] MEDS: D5% in 0.45% NACL 1,000 ML IVC SCH (15:39)
[2020-04-15 04:52] LABS: Hematocrit 27.7 % (37.5-50.1); Hemoglobin 9.1 g/dL (12.9-16.9); Mean Corpuscular HGB Conc 32.9 g/dL (31.6-35.5); Mean Corpuscular Hemoglobin 31.5 pg (28.0-33.3); Mean Corpuscular Volume 95.8 fL (83.0-100.0); Mean Platelet Volume 11.9 fL (9.4-12.4); Platelet Count 107 K/mcL (140-400); Red Blood Count 2.89 M/mcL (4.19-5.50); Red Cell Distribution Width 16.7 % (11.5-14.5)
[2020-04-15 04:53] LABS: White Blood Count 8.1 K/mcL (4.3-11.1)
[2020-04-15 05:13] LABS: Potassium 3.6 mEq/L (3.5-5.1)
[2020-04-15] MEDS: D5% in 0.45% NACL 1,000 ML IVC SCH ×2 (05:51→18:10)
[2020-04-15] MEDS: Amiodarone Premix 360 MG/200 ML BAG IVC SCH (07:22)
[2020-04-15] MEDS ORDERED: Albumin Human 5% 12.5 GM/250 ML IV.SOLN IVPB ONE (07:35)
[2020-04-15] MEDS: Isosorbide MONOnitrate (24 HR) 60 MG TAB.ER.24H PO SCH (07:42)
[2020-04-15] MEDS: Pantoprazole 40 MG VIAL IVP SCH (07:42)
[2020-04-15] MEDS: Dexmedetomidine HCl 400 MCG/100 ML MLS IVC SCH (07:43)
[2020-04-15] MEDS: Insulin LISPRO 300 UNITS/3 ML VIAL SUBQ SCH ×4 (07:50→16:57)
[2020-04-15] MEDS: Norepinephrine 4 MG/254 ML IV.SOLN IVC SCH (08:59)
[2020-04-15] MEDS ORDERED: *HR* Amiodarone 200 MG TABLET PO SCH (10:30)
[2020-04-15] MEDS ORDERED: Acetaminophen 325 MG TABLET PO PRN ×2 (11:17→16:07)
[2020-04-15 11:19] LABS: Phosphorous 2.9 mg/dL (2.7-4.5)
[2020-04-15 11:25] LABS: VBG Ionized Calcium 1.16 mmol/L (1.15-1.35)
[2020-04-15] MEDS ORDERED: *HR* Dextrose 50 % in Water (Vial) 50 ML VIAL IVP PRN (16:07)
[2020-04-15] MEDS ORDERED: D5% in Water 1,000 ML IVC PRN (16:07)
[2020-04-15] MEDS ORDERED: Dextrose Gel 15 GM/37.5 ML TUBE PO PRN (16:07)
[2020-04-15] MEDS ORDERED: Naloxone 0.4 MG/ML INJ IVP PRN (16:07)
[2020-04-15] MEDS: *HR* Amiodarone 200 MG TABLET PO SCH (20:35)
[2020-04-16 06:28] LABS: BUN/Creatinine Ratio 37 (6-26); Blood Urea Nitrogen 52 mg/dL (8-23); Calcium 8.2 mg/dL (8.6-10.3); Carbon Dioxide 16 mEq/L (23-29); Chloride 111 mEq/L (98-107); Glucose 162 mg/dL (70-105); Osmolality,Calculated 300 (280-300); Potassium 3.5 mEq/L (3.5-5.1); Sodium 136 mEq/L (136-145); eGFR For African Americans > 60 (> 60); eGFR For Non-African Americans 50 (> 60)
[2020-04-16] MEDS: *HR* Amiodarone 200 MG TABLET PO SCH ×2 (07:42→21:52)
[2020-04-16] MEDS: Isosorbide MONOnitrate (24 HR) 60 MG TAB.ER.24H PO SCH (07:42)
[2020-04-16] MEDS: Insulin LISPRO 300 UNITS/3 ML VIAL SUBQ SCH ×3 (07:42→18:29)
[2020-04-16] MEDS: D5% in 0.45% NACL 1,000 ML IVC SCH (07:43)
[2020-04-16 08:06] LABS: Hematocrit 30.4 % (37.5-50.1); Mean Corpuscular HGB Conc 32.9 g/dL (31.6-35.5); Mean Corpuscular Volume 94.1 fL (83.0-100.0); Mean Platelet Volume 11.1 fL (9.4-12.4); Platelet Count 130 K/mcL (140-400); Red Blood Count 3.23 M/mcL (4.19-5.50); Red Cell Distribution Width 16.2 % (11.5-14.5); White Blood Count 7.3 K/mcL (4.3-11.1)
[2020-04-17 05:57] LABS: Hematocrit 28.5 % (37.5-50.1); Hemoglobin 9.1 g/dL (12.9-16.9); Mean Corpuscular HGB Conc 31.9 g/dL (31.6-35.5); Mean Corpuscular Hemoglobin 30.1 pg (28.0-33.3); Mean Corpuscular Volume 94.4 fL (83.0-100.0); Mean Platelet Volume 10.8 fL (9.4-12.4); Platelet Count 143 K/mcL (140-400); Red Blood Count 3.02 M/mcL (4.19-5.50); Red Cell Distribution Width 16.2 % (11.5-14.5); White Blood Count 7.8 K/mcL (4.3-11.1)
[2020-04-17 06:36] LABS: BUN/Creatinine Ratio 28 (6-26); Blood Urea Nitrogen 38 mg/dL (8-23); Calcium 8.3 mg/dL (8.6-10.3); Carbon Dioxide 21 mEq/L (23-29); Chloride 112 mEq/L (98-107); Glucose 154 mg/dL (70-105); Osmolality,Calculated 300 (280-300); Potassium 3.2 mEq/L (3.5-5.1); Sodium 139 mEq/L (136-145); eGFR For African Americans > 60 (> 60); eGFR For Non-African Americans 50 (> 60)
[2020-04-17] MEDS: Insulin LISPRO 300 UNITS/3 ML VIAL SUBQ SCH ×3 (08:03→18:13)
[2020-04-17] MEDS: Isosorbide MONOnitrate (24 HR) 60 MG TAB.ER.24H PO SCH (08:04)
[2020-04-17] MEDS: *HR* Amiodarone 200 MG TABLET PO SCH (08:04)
[2020-04-17] MEDS: Aspirin 81 MG TAB.CHEW PO SCH (12:29)
[2020-04-17] MEDS ORDERED: Nitroglycerin 0.4 MG TAB.SUBL SL PRN (12:57)
[2020-04-17] MEDS: Carbidopa/Levodopa 25/100 TABLET PO SCH ×3 (16:33→20:19)
[2020-04-17] MEDS: carvediloL 6.25 MG TABLET PO SCH (16:33)
[2020-04-17] MEDS: ARIPiprazole 2 MG TABLET PO SCH ×2 (20:08→20:19)
[2020-04-18 05:43] LABS: Basophils % 0.3 %; Eosinophils # 0.3 K/mcL (0.0-0.6); Eosinophils % 3.3 %; Hematocrit 30.5 % (37.5-50.1); Hemoglobin 9.6 g/dL (12.9-16.9); Immature Granulocytes % 0.5 % (0-4); Lymphocytes # 1.2 K/mcL (0.6-4.6); Lymphocytes % 15.9 %; Mean Corpuscular HGB Conc 31.5 g/dL (31.6-35.5); Mean Corpuscular Hemoglobin 29.8 pg (28.0-33.3); Mean Corpuscular Volume 94.7 fL (83.0-100.0); Mean Platelet Volume 10.9 fL (9.4-12.4); Monocytes # 0.9 K/mcL (0.0-1.3); Monocytes % 12.1 %; Neutrophils # 5.1 K/mcL (1.6-8.9); Platelet Count 184 K/mcL (140-400); Red Blood Count 3.22 M/mcL (4.19-5.50); Red Cell Distribution Width 16.1 % (11.5-14.5); Segmented Neutrophils % 67.9 %; White Blood Count 7.5 K/mcL (4.3-11.1)
[2020-04-18 06:06] LABS: BUN/Creatinine Ratio 28 (6-26); Blood Urea Nitrogen 32 mg/dL (8-23); Calcium 8.4 mg/dL (8.6-10.3); Carbon Dioxide 21 mEq/L (23-29); Chloride 110 mEq/L (98-107); Glucose 148 mg/dL (70-105); Osmolality,Calculated 296 (280-300); Potassium 3.7 mEq/L (3.5-5.1); Sodium 138 mEq/L (136-145); eGFR For African Americans > 60 (> 60); eGFR For Non-African Americans > 60 (> 60)
[2020-04-18] MEDS: Insulin LISPRO 300 UNITS/3 ML VIAL SUBQ SCH ×2 (08:32→11:54)
[2020-04-18] MEDS: carvediloL 6.25 MG TABLET PO SCH (08:42)
[2020-04-18] MEDS: Isosorbide MONOnitrate (24 HR) 60 MG TAB.ER.24H PO SCH (08:43)
[2020-04-18] MEDS: Carbidopa/Levodopa 25/100 TABLET PO SCH (08:43)
[2020-04-18] MEDS: Aspirin 81 MG TAB.CHEW PO SCH (08:55)
[2020-04-18] MEDS ORDERED: lisinopriL 5 MG TABLET PO SCH (09:00)
[2020-04-18] MEDS ORDERED: *HR* Amiodarone 200 MG TABLET PO SCH (09:00)
[2020-04-18] MEDS ORDERED: QUEtiapine Fumarate 25 MG TABLET PO SCH (09:00)
[2020-04-18 10:53] VITALS: BP 107/62
== END 2020-04-18 13:59 | DRG 682 ==
LOC: EMEROOARM 12:36 → 3NENU 12:36 → 2ANU 14:45 → ICNU 04-14 01:12 → 3ANU 04-16 15:07
PROVIDERS: ADMIT Internal Medicine; ATTEND Internal Medicine